=== PATIENT | female | born 1975 | race Hispanic/Latino ===

== ENCOUNTER 2017-02-03 14:51 | Emergency (ER) | payer SELFPAY ==
--- NOTE | 2017-02-03 15:15 | Emergency Department Report ---
Chief Complaint: Chest Pain Stated Complaint: CHEST PAIN,SOB,FEET SWELLING Time Seen by Provider: 02/03/17 15:11 - HPI History of Present Illness: PT c/o leg swelling x 3 weeks PT c/o chest pain, intermittent, since her mother passed on December 16 - ROS Review of Systems: + rash + chest pain + leg swelling + cough - Exam Physical Exam: obese female no acute resp distress gcs 15 pt is anxious MSE screening note: Focused history and physical exam performed. Due to findings the following was ordered: labs, ekg, xr ED Disposition for MSE Condition: Stable
[2017-02-03 15:58] LABS: Basophils % (Auto) 0.8 % (0.0-1.8); Eosinophils % (Auto) 0.9 % (0.0-4.3); Hematocrit 46.4 % (30.3-42.9); Hemoglobin 14.9 gm/dl (10.1-14.3); Mean Corpuscular HGB Conc 32 % (30-34); Mean Corpuscular Hemoglobin 27 pg (28-32); Mean Corpuscular Volume 84 fl (79-97); Platelet Count 321 K/mm3 (140-440); Red Blood Count 5.52 M/mm3 (3.65-5.03); Red Cell Distribution Width 14.5 % (13.2-15.2); White Blood Count 8.1 K/mm3 (4.5-11.0)
[2017-02-03 16:10] LABS: INR 1.13 (0.87-1.13)
[2017-02-03 16:24] LABS: Alanine Aminotransferase 26 units/L (7-56); Albumin 3.7 g/dL (3.9-5); Alkaline Phosphatase 157 units/L (35-129); Anion Gap 19 mmol/L; Blood Urea Nitrogen 14 mg/dL (7-17); Carbon Dioxide 24 mmol/L (22-30); Chloride 95.1 mmol/L (98-107); Glucose 252 mg/dL (65-100); Potassium 4.7 mmol/L (3.6-5.0); Sodium 133 mmol/L (137-145); Total Protein 7.5 g/dL (6.3-8.2)
[2017-02-03] MEDS ORDERED: LASIX IV ONE (19:50)
[2017-02-03] MEDS ORDERED: MORPHINE IV ONE (20:17)
--- NOTE | 2017-02-03 20:17 | Emergency Department Report ---
ED Chest Pain HPI - General Chief Complaint: Chest Pain Stated Complaint: CHEST PAIN,SOB,FEET SWELLING Time Seen by Provider: 02/03/17 15:11 Source: patient Mode of arrival: Ambulatory Limitations: No Limitations - History of Present Illness MD Complaint: chest pain -: week(s) Onset: during rest Pain Location: left chest, right chest Pain Radiation: none Severity: moderate Quality: tightness Consistency: intermittent Improves With: nothing Worsens With: nothing Context: recent illness re: dyspnea - Related Data Previous Rx's Medication Instructions Recorded Last Taken Type Azithromycin [Zithromax Z-KEYANA] 250 mg PO DAILY #6 tablet 02/03/17 Unknown Rx Furosemide [Lasix TAB] 40 mg PO QDAY #30 tablet 02/03/17 Unknown Rx Allergies Allergy/AdvReac Type Severity Reaction Status Date / Time No Known Allergies Allergy Unverified 02/03/17 15:16 Heart Score - HEART Score History: Slightly suspicious EKG: Non-specific Age: 45-65 Risk factors: > 3 risk factors or hx of atherosclerotic disease Troponin: 1-3x normal limit HEART Score: 5 - Critical Actions Critical Actions: 0-3 pts:0.9-1.7%risk of adverse cardiac event.Candidate for discharge ED Review of Systems ROS: Stated complaint: CHEST PAIN,SOB,FEET SWELLING Other details as noted in HPI ED Past Medical Hx - Past Medical History Previous Medical History?: Yes Hx Hypertension: Yes Hx Congestive Heart Failure: Yes Hx Liver Disease: Yes (fatty liver) Additional medical history: SOB - Surgical History Past Surgical History?: Yes Hx Coronary Stent: Yes Additional Surgical History: x 2, Heart catheterization, PTCA - Social History Smoking Status: Never Smoker Substance Use Type: Prescribed - Medications Home Medications: Home Medications Medication Instructions Recorded Confirmed Last Taken Type Azithromycin [Zithromax Z-KEYANA] 250 mg PO DAILY #6 tablet 02/03/17 Unknown Rx Furosemide [Lasix TAB] 40 mg PO QDAY #30 tablet 02/03/17 Unknown Rx ED Physical Exam - General Limitations: No Limitations General appearance: alert, in no apparent distress - Head Head exam: Present: atraumatic, normocephalic - Eye Eye exam: Present: normal appearance, PERRL, EOMI Pupils: Present: normal accommodation - ENT ENT exam: Present: normal exam, normal orophraynx - Neck Neck exam: Present: normal inspection - Respiratory Respiratory exam: Present: normal lung sounds bilaterally - Cardiovascular Cardiovascular Exam: Present: regular rate, normal rhythm - GI/Abdominal GI/Abdominal exam: Present: soft - Rectal Rectal exam: Present: deferred - Extremities Exam Extremities exam: Present: normal inspection - Back Exam Back exam: Present: normal inspection - Neurological Exam Neurological exam: Present: alert, altered, oriented X3 - Skin Skin exam: Present: warm ED Course Vital Signs 02/03/17 15:08 Temperature 97.4 F L Pulse Rate 118 H Respiratory 22 Rate Blood Pressure 146/97 O2 Sat by Pulse 100 Oximetry ED Medical Decision Making - Lab Data Result diagrams: 02/03/17 15:39 02/03/17 15:39 Critical care attestation.: If time is entered above; I have spent that time in minutes in the direct care of this critically ill patient, excluding procedure time. ED Disposition Clinical Impression: Congestive heart failure (CHF) Disposition: DC-01 TO HOME OR SELFCARE Is pt being admited?: No Does the pt Need Aspirin: No Condition: Stable Prescriptions: Azithromycin [Zithromax Z-KEYANA] 250 mg PO DAILY #6 tablet Furosemide [Lasix TAB] 40 mg PO QDAY #30 tablet Referrals: PRIMARY CARE, [Primary Care Provider] - 3-5 Days
[2017-02-03 20:42] VITALS: BP 143/98
--- NOTE | 2017-02-04 07:42 | XRay Report ---
ROUTINE CHEST, TWO VIEWS: HISTORY: chest pain. No comparison. A small left pleural effusion is identified. Otherwise, the lungs are clear. Heart and mediastinal structures are within normal limits. No acute bony abnormality is detected. IMPRESSION: Small left pleural effusion of uncertain etiology.
== END 2017-02-03 21:14 | disposition home or self-care (01) ==
LOC: ED 14:51
DX: I50.9 Heart failure, unspecified (principal); I10 Essential (primary) hypertension
CPT/HCPCS: 36415; 71020; 80053; 83880; 84484; 85025; 85610; 85730; 93005; 93010; 96374; 96375; 99284; J1940; J2270

== ENCOUNTER 2017-04-16 17:07 | Emergency (ER) | payer SELFPAY | END 2017-04-16 17:13 | disposition left against medical advice (07) | LOC: ED 17:07 | DX: Z53.21 Procedure and treatment not carried out due to patient leaving prior to being seen by health care provider (principal) ==

== ENCOUNTER 2017-04-17 16:18 | Inpatient (IN) | payer OTHER ==
[2017-04-17 17:48] LABS: Hematocrit 49.8 % (30.3-42.9); Hemoglobin 15.7 gm/dl (10.1-14.3); Mean Corpuscular HGB Conc 32 % (30-34); Mean Corpuscular Volume 79 fl (79-97); Platelet Count 230 K/mm3 (140-440); Red Blood Count 6.29 M/mm3 (3.65-5.03); Red Cell Distribution Width 18.9 % (13.2-15.2); White Blood Count 14.6 K/mm3 (4.5-11.0)
[2017-04-17 17:57] LABS: INR 2.21 (0.87-1.13); Mean Corpuscular Hemoglobin 25 pg (28-32)
[2017-04-17 18:00] LABS: BUN/Creatinine Ratio 20.9; Calcium 8.5 mg/dL (8.4-10.2); Chloride 80.7 mmol/L (98-107); Potassium 5.9 mmol/L (3.6-5.0)
[2017-04-17 19:45] LABS: Basophils % (Manual) 0 % (0.0-1.8); Blastocytes % (Manual) 0 %; Eosinophils % (Manual) 0 % (0.0-4.3)
[2017-04-17 19:46] LABS: Anisocytosis 1+; Diff Status Complete; Hypochromasia 1+; Large Platelets 1+; Platelet Estimate Consistent w Auto; Poikilocytosis Few
[2017-04-17] MEDS ORDERED: BABY ASPIRIN PO ONE (21:14)
[2017-04-17] MEDS ORDERED: LASIX IV ONE (21:14)
--- NOTE | 2017-04-17 21:19 | Emergency Department Report ---
ED Chest Pain HPI - General Chief Complaint: Dyspnea/Respdistress Stated Complaint: SWOLLEN LEGS WEAKNESS Time Seen by Provider: 04/17/17 21:03 Source: patient, family Mode of arrival: Wheelchair Limitations: Physical Limitation - History of Present Illness MD Complaint: chest pain -: Gradual Pain Location: substernal, left chest Severity: moderate Severity scale (0 -10): 5 Consistency: constant Worsens With: exertion re: denies: nausea, vomting - Related Data Previous Rx's Medication Instructions Recorded Last Taken Type Azithromycin [Zithromax Z-KEYANA] 250 mg PO DAILY #6 tablet 02/03/17 Unknown Rx Furosemide [Lasix TAB] 40 mg PO QDAY #30 tablet 02/03/17 Unknown Rx Allergies Allergy/AdvReac Type Severity Reaction Status Date / Time No Known Allergies Allergy Unverified 02/03/17 15:16 Heart Score - HEART Score History: Highly suspicious EKG: Non-specific Age: < 45 Risk factors: > 3 risk factors or hx of atherosclerotic disease Troponin: > 3x normal limit HEART Score: 7 - Critical Actions Critical Actions: >7 pts:50-65% risk of adverse cardiac event. Early invasive measures ED Review of Systems ROS: Stated complaint: SWOLLEN LEGS WEAKNESS Other details as noted in HPI Comment: All other systems reviewed and negative Constitutional: denies: chills, fever Respiratory: SOB with exertion. denies: cough, orthopnea Cardiovascular: chest pain, palpitations, dyspnea on exertion Gastrointestinal: denies: abdominal pain, nausea, vomiting Skin: lesions (bilateral legs) Neurological: denies: headache, weakness ED Past Medical Hx - Past Medical History Hx Hypertension: Yes Hx Congestive Heart Failure: Yes Hx Liver Disease: Yes (fatty liver) Additional medical history: SOB - Surgical History Hx Coronary Stent: Yes Additional Surgical History: x 2, Heart catheterization, PTCA - Social History Smoking Status: Never Smoker - Medications Home Medications: Home Medications Medication Instructions Recorded Confirmed Last Taken Type Azithromycin [Zithromax Z-KEYANA] 250 mg PO DAILY #6 tablet 02/03/17 Unknown Rx Furosemide [Lasix TAB] 40 mg PO QDAY #30 tablet 02/03/17 Unknown Rx ED Physical Exam - General Limitations: Physical Limitation General appearance: alert, in no apparent distress - Eye Eye exam: Present: normal appearance - Neck Neck exam: Present: normal inspection. Absent: tenderness, meningismus - Respiratory Respiratory exam: Present: decreased breath sounds. Absent: respiratory distress, wheezes, rales, rhonchi, stridor - Cardiovascular Cardiovascular Exam: Present: tachycardia - GI/Abdominal GI/Abdominal exam: Present: soft, normal bowel sounds. Absent: tenderness, guarding, rebound, rigid, mass, bruit, pulsatile mass, hernia - Extremities Exam Extremities exam: Present: pedal edema, other (multiple blisters on both legs some of them with greenish discharge). Absent: calf tenderness - Back Exam Back exam: Absent: CVA tenderness (R), CVA tenderness (L) - Neurological Exam Neurological exam: Present: alert, oriented X3, CN II-XII intact - Skin Skin exam: Present: warm, normal color ED Course Vital Signs 04/17/17 16:41 Temperature 97.4 F L Pulse Rate 127 H Blood Pressure 126/85 O2 Sat by Pulse 100 Oximetry ED Medical Decision Making - Lab Data Result diagrams: 04/17/17 17:20 04/17/17 17:20 - EKG Data -: EKG Interpreted by [place] EKG shows normal: sinus rhythm Rate: tachycardia - EKG Data Interpretation: no acute changes - Radiology Data Radiology results: image reviewed No acute change chest x-ray - Medical Decision Making Given patient's history of coronary artery disease to stent before coming his chest pain initially elevated troponin this patient needed to be admitted. Discussed with Dr. Gómez agreed to admit to the service Critical care attestation.: If time is entered above; I have spent that time in minutes in the direct care of this critically ill patient, excluding procedure time. ED Disposition Clinical Impression: Chest pain Disposition: OP ADMIT IP TO THIS HOSP Is pt being admited?: Yes Does the pt Need Aspirin: Yes Condition: Stable Instructions: Chest Pain (ED) Referrals: PRIMARY CARE,MD [Primary Care Provider] - 3-5 Days
[2017-04-17] MEDS ORDERED: KIONEX PO ONE (21:22)
[2017-04-17] MEDS ORDERED: D50W (25GM) Syringe IV ONE ×2 (21:23→22:23)
[2017-04-17] MEDS ORDERED: BABY ASPIRIN ONE (22:22)
[2017-04-17] MEDS ORDERED: LASIX ONE (22:22)
[2017-04-17] MEDS ORDERED: KIONEX ONE (22:22)
[2017-04-17] MEDS ORDERED: LOPRESSOR ONE (23:30)
--- NOTE | 2017-04-17 23:32 | History and Physical Report ---
History of Present Illness Date of examination: 04/17/17 Date of admission: 04/17/17 21:23 Chief complaint: Chest pain History of present illness: 40-year-old female with past medical history significant for congestive heart failure, hypertension, hyperlipidemia, diabetes mellitus presented to the emergency department complaining of chest pain that started 2 weeks ago. Pain is midsternal and left-sided chest, 10 out of 10 in intensity, sharp, radiating to the left arm, associated with shortness of breath and diaphoresis. Patient denied palpitation but admitted for bilateral leg swelling more prominent on the left leg. The left leg is swollen, erythematous , tender and blisters. Patient is also complaining fever, cough productive of yellowish phlegm, sweating for the last 3 weeks. REVIEW OF SYSTEMS: GENERAL: no weight change, no fatigue, no fever HEAD: no head ache EYES: no blurry vision, no acute visual loss EARS: no hearing loss, no discharge, no earache NOSE: no stuffiness, no sneezing, no discharge MOUTH, THROAT AND NECK: no bleeding gums, no sore throat, no swollen neck CARDIAC: As stated in the HPI. RESPIRATORY: As stated in the HPI. GI: no decreased appetite, no nausea, no vomiting, no dysphagia, no diarrhea, no constipation, no abdominal pain URINARY: no change in frequency, no urgency, no polyuria, no hematuria, no incontinence MUSCULOSKELETAL: no muscle weakness, no pain, no joint stiffness NEUROLOGIC: no loss of sensation/numbness, no tingling, no tremors, no weakness/ paralysis HEMATOLOGIC: no anemia, no easy bruising SKIN: no rashes ENDOCRINE: no heat/cold intolerance, no polyuria, no polydipsia, no thyroid problems, + diabetes PSYCHIATRIC: no anxiety, no depression, no suicidal ideations Past History Past Medical History: diabetes, heart failure, hypertension, hyperlipidemia Past Surgical History: Other (status post 2 stent) Social history: full code. denies: smoking, alcohol abuse, prescription drug abuse, IV drug use Family history: CAD Medications and Allergies Allergies Allergy/AdvReac Type Severity Reaction Status Date / Time No Known Allergies Allergy Verified 04/17/17 22:18 Home Medications Medication Instructions Recorded Confirmed Last Taken Type Azithromycin [Zithromax Z-KEYANA] 250 mg PO DAILY #6 tablet 02/03/17 Unknown Rx Furosemide [Lasix TAB] 40 mg PO QDAY #30 tablet 02/03/17 Unknown Rx Active Meds: Active Medications Clindamycin HCl (Cleocin 600 Mg/50 Ml) 600 mg in 50 mls @ 100 mls/hr IV Q8HR [facility] PRN Reason: Protocol Exam - Physical Exam Narrative exam: Not in cardiopulmonary distress. The patient appeared well nourished and normally developed. Vital signs as documented. Head exam is unremarkable. No scleral icterus . Neck is without jugular venous distension, thyromegaly, or carotid bruits. Lungs bibasilar rales. Cardiac exam reveals regular rate and Rhythm. First and second heart sounds normal. No murmurs, rubs or gallops. Abdominal exam reveals normal bowel sounds, no masses, no organomegaly and no aortic enlargement. Extremities erythematous and blisters on the left leg. AUDIO VISUAL SECRETARY: Alert and oriented 3. No focal weakness. - Constitutional Vitals: Temp Pulse Resp BP Pulse Ox 97.4 F L 127 H 126/85 100 04/17/17 16:41 04/17/17 16:41 04/17/17 16:41 04/17/17 16:41 Results - Labs CBC & Chem 7: 04/17/17 17:20 04/17/17 17:20 Labs: Laboratory Last Values WBC 14.6 K/mm3 (4.5-11.0) H 04/17/17 17:20 RBC 6.29 M/mm3 (3.65-5.03) H 04/17/17 17:20 Hgb 15.7 gm/dl (10.1-14.3) H 04/17/17 17:20 Hct 49.8 % (30.3-42.9) H 04/17/17 17:20 MCV 79 fl (79-97) 04/17/17 17:20 MCH 25 pg (28-32) L 04/17/17 17:20 MCHC 32 % (30-34) 04/17/17 17:20 RDW 18.9 % (13.2-15.2) H 04/17/17 17:20 Plt Count 230 K/mm3 (140-440) 04/17/17 17:20 Add Manual Diff Complete 04/17/17 17:20 Total Counted 100 04/17/17 17:20 Seg Neuts % (Manual) 77.0 % (40.0-70.0) H 04/17/17 17:20 Band Neutrophils % 13.0 % 04/17/17 17:20 Lymphocytes % (Manual) 6.0 % (13.4-35.0) L 04/17/17 17:20 Reactive Lymphs % (Man) 0 % 04/17/17 17:20 Monocytes % (Manual) 3.0 % (0.0-7.3) 04/17/17 17:20 Eosinophils % (Manual) 0 % (0.0-4.3) 04/17/17 17:20 Basophils % (Manual) 0 % (0.0-1.8) 04/17/17 17:20 Metamyelocytes % 1.0 % 04/17/17 17:20 Myelocytes % 0 % 04/17/17 17:20 Promyelocytes % 0 % 04/17/17 17:20 Blast Cells % 0 % 04/17/17 17:20 Nucleated RBC % Not Reportable 04/17/17 17:20 Seg Neutrophils # Man 11.2 K/mm3 (1.8-7.7) H 04/17/17 17:20 Band Neutrophils # 1.9 K/mm3 04/17/17 17:20 Lymphocytes # (Manual) 0.9 K/mm3 (1.2-5.4) L 04/17/17 17:20 Abs React Lymphs (Man) 0.0 K/mm3 04/17/17 17:20 Monocytes # (Manual) 0.4 K/mm3 (0.0-0.8) 04/17/17 17:20 Eosinophils # (Manual) 0.0 K/mm3 (0.0-0.4) 04/17/17 17:20 Basophils # (Manual) 0.0 K/mm3 (0.0-0.1) 04/17/17 17:20 Metamyelocytes # 0.1 K/mm3 04/17/17 17:20 Myelocytes # 0.0 K/mm3 04/17/17 17:20 Promyelocytes # 0.0 K/mm3 04/17/17 17:20 Blast Cells # 0.0 K/mm3 04/17/17 17:20 WBC Morphology Not Reportable 04/17/17 17:20 Hypersegmented Neuts Not Reportable 04/17/17 17:20 Hyposegmented Neuts Not Reportable 04/17/17 17:20 Hypogranular Neuts Not Reportable 04/17/17 17:20 Smudge Cells Not Reportable 04/17/17 17:20 Toxic Granulation Not Reportable 04/17/17 17:20 Toxic Vacuolation Not Reportable 04/17/17 17:20 Dohle Bodies Not Reportable 04/17/17 17:20 Pelger-Huet Anomaly Not Reportable 04/17/17 17:20 Ariel Rods Not Reportable 04/17/17 17:20 Platelet Estimate Consistent w auto 04/17/17 17:20 Clumped Platelets Not Reportable 04/17/17 17:20 Plt Clumps, EDTA Not Reportable 04/17/17 17:20 Large Platelets 1+ 04/17/17 17:20 Giant Platelets Not Reportable 04/17/17 17:20 Platelet Satelliting Not Reportable 04/17/17 17:20 Plt Morphology Comment Not Reportable 04/17/17 17:20 RBC Morphology Not Reportable 04/17/17 17:20 Dimorphic RBCs Not Reportable 04/17/17 17:20 Polychromasia Not Reportable 04/17/17 17:20 Hypochromasia 1+ 04/17/17 17:20 Poikilocytosis Few 04/17/17 17:20 Anisocytosis 1+ 04/17/17 17:20 Microcytosis Not Reportable 04/17/17 17:20 Macrocytosis Not Reportable 04/17/17 17:20 Spherocytes Not Reportable 04/17/17 17:20 Pappenheimer Bodies Not Reportable 04/17/17 17:20 Sickle Cells Not Reportable 04/17/17 17:20 Target Cells Not Reportable 04/17/17 17:20 Tear Drop Cells Not Reportable 04/17/17 17:20 Ovalocytes Not Reportable 04/17/17 17:20 Helmet Cells Not Reportable 04/17/17 17:20 Taylor-Mabank Bodies Not Reportable 04/17/17 17:20 Max Rings Not Reportable 04/17/17 17:20 Linda Cells Not Reportable 04/17/17 17:20 Bite Cells Not Reportable 04/17/17 17:20 Crenated Cell Not Reportable 04/17/17 17:20 Elliptocytes Not Reportable 04/17/17 17:20 Acanthocytes (Spur) Not Reportable 04/17/17 17:20 Rouleaux Not Reportable 04/17/17 17:20 Hemoglobin C Crystals Not Reportable 04/17/17 17:20 Schistocytes Not Reportable 04/17/17 17:20 Malaria parasites Not Reportable 04/17/17 17:20 Joselo Bodies Not Reportable 04/17/17 17:20 Hem Pathologist Commnt No 04/17/17 17:20 PT 25.7 Sec. (12.2-14.9) H 04/17/17 17:20 INR 2.21 (0.87-1.13) H 04/17/17 17:20 Sodium 120 mmol/L (137-145) L 04/17/17 17:20 Potassium 5.9 mmol/L (3.6-5.0) H 04/17/17 17:20 Chloride 80.7 mmol/L (98-107) L 04/17/17 17:20 Carbon Dioxide 16 mmol/L (22-30) L 04/17/17 17:20 Anion Gap 29 mmol/L 04/17/17 17:20 BUN 23 mg/dL (7-17) H 04/17/17 17:20 Creatinine 1.1 mg/dL (0.7-1.2) 04/17/17 17:20 Estimated GFR 54 ml/min 04/17/17 17:20 BUN/Creatinine Ratio 20.90 % 04/17/17 17:20 Glucose 167 mg/dL (65-100) H 04/17/17 17:20 Calcium 8.5 mg/dL (8.4-10.2) 04/17/17 17:20 Troponin T 0.039 ng/mL (0.00-0.029) H D 04/17/17 19:15 Triglycerides 106 mg/dL (2-149) 04/17/17 17:20 Cholesterol 108 mg/dL (50-199) 04/17/17 17:20 LDL Cholesterol Direct 78 mg/dL (50-130) 04/17/17 17:20 HDL Cholesterol 9 mg/dL (40-59) L 04/17/17 17:20 Cholesterol/HDL Ratio 12.00 % 04/17/17 17:20 - Imaging and Cardiology Chest x-ray: image reviewed (pulmonary congestion, bilateral small pleural effusions) Assessment and Plan Assessment and plan: Sepsis Cellulitis of the left lower extremity CHF, unspecified Hyperkalemia Diabetes mellitus with hyperglycemia NSTEMI Elevated INR Hyperlipidemia - Aspirin, beta blockers, IV Lasix no ARLYN inhibitors because of hyperkalemia, not on anticoagulation because of elevated INR - sliding scale insulin and basal insulin - Given IV insulin and dextrose, kayexlate - Cardiology consulted - Patient is on IV clindamycin DVT prophylaxis - SCDs because of elevated INR Disposition - Admit to telemetry floor Advance Directives: Yes VTE prophylaxis?: Mechanical Reason for no VTE Prophylaxis: Blood coagulation disorde Plan of care discussed with patient/family: Yes
[2017-04-17] MEDS ORDERED: D50W (25GM) Syringe IV PRN (23:34)
[2017-04-17] MEDS ORDERED: TYLENOL PO PRN (23:35)
[2017-04-17] MEDS: LOPRESSOR PO SCH (23:50)
[2017-04-18] MEDS ORDERED: CLEOCIN 600 MG/50 mL 600 MG/50 ML BAG IV ONE ×2 (00:21→00:28)
[2017-04-18] MEDS ORDERED: MORPHINE ONE (00:22)
[2017-04-18] MEDS: CLEOCIN 600 MG/50 mL 600 MG/50 ML BAG IV SCH ×3 (00:28→21:31)
[2017-04-18 05:49] LABS: INR 2.16 (0.87-1.13)
[2017-04-18 05:52] LABS: Anion Gap 28 mmol/L; Blood Urea Nitrogen 27 mg/dL (7-17); Calcium 8.5 mg/dL (8.4-10.2); Carbon Dioxide 15 mmol/L (22-30); Chloride 81.9 mmol/L (98-107); Glucose 136 mg/dL (65-100); Potassium 4.7 mmol/L (3.6-5.0); Sodium 120 mmol/L (137-145)
[2017-04-18 05:57] LABS: Hematocrit 50.5 % (30.3-42.9); Mean Corpuscular HGB Conc 32 % (30-34); Mean Corpuscular Volume 79 fl (79-97); Red Blood Count 6.38 M/mm3 (3.65-5.03); Red Cell Distribution Width 19.3 % (13.2-15.2); White Blood Count 16.1 K/mm3 (4.5-11.0)
[2017-04-18 06:06] LABS: Mean Corpuscular Hemoglobin 25 pg (28-32); Platelet Count 225 K/mm3 (140-440)
[2017-04-18] MEDS: LASIX PO SCH ×2 (06:23→18:43)
[2017-04-18] MEDS: MORPHINE IV PRN ×2 (06:24→21:23)
[2017-04-18 07:22] LABS: Anisocytosis 2+; Basophils % (Manual) 0 % (0.0-1.8); Blastocytes % (Manual) 0 %; Eosinophils % (Manual) 0 % (0.0-4.3); Hypochromasia 1+; Poikilocytosis Few
[2017-04-18 07:23] LABS: Diff Status Complete; Large Platelets 1+; Platelet Estimate Consistent w Auto; Polychromasia Few; Toxic Vacuolation Few
--- NOTE | 2017-04-18 08:14 | XRay Report ---
ROUTINE CHEST, TWO VIEWS: HISTORY: Short of breath. The trachea, heart, mediastinal contour, lung reardon and bony thorax are unremarkable. Small left pleural effusion has resolved since 02/03/17. IMPRESSION: Unremarkable chest x-ray.
[2017-04-18] MEDS: NOVOLOG SUB-Q SCH ×6 (10:14→21:33)
[2017-04-18] MEDS: LOPRESSOR PO SCH (10:20)
[2017-04-18] MEDS ORDERED: VANCOMYCIN 2,000 MG in NACL 0.9% 500 ML 500 ML IV ONE (14:00)
[2017-04-18] MEDS: ZOSYN/NS 4.5GM/100ML 4.5 GM/100 ML VIAL IV SCH ×2 (14:00→21:34)
[2017-04-18] MEDS ORDERED: VANCOMYCIN PHARMACY TO DOSE IV SCH (14:00)
--- NOTE | 2017-04-18 14:50 | Consultation ---
History of Present Illness Consult date: 04/18/17 Past History Past Medical History: diabetes, heart failure, hypertension, hyperlipidemia Past Surgical History: Other (status post 2 stent) Social history: full code. denies: smoking, alcohol abuse, prescription drug abuse, IV drug use Family history: CAD Medications and Allergies Allergies Allergy/AdvReac Type Severity Reaction Status Date / Time No Known Allergies Allergy Verified 04/17/17 22:18 Home Medications Medication Instructions Recorded Confirmed Last Taken Type Furosemide [Lasix TAB] 40 mg PO QDAY #30 tablet 02/03/17 04/18/17 1 Day Ago Rx Active Meds: Active Medications Acetaminophen (Tylenol) 500 mg PO Q4H PRN PRN Reason: Pain, Mild (1-3) Aspirin (Baby Aspirin) 81 mg PO QDAY [facility] Atorvastatin Calcium (Lipitor) 20 mg PO QHS [facility] Dextrose (D50w (25gm) Syringe) 50 ml IV PRN PRN PRN Reason: Hypoglycemia Furosemide (Lasix) 20 mg PO 0600,1800 [facility] Last Admin: 04/18/17 06:23 Dose: 20 mg Clindamycin HCl (Cleocin 600 Mg/50 Ml) 600 mg in 50 mls @ 100 mls/hr IV Q8H [facility]OME PRN Reason: Protocol Last Admin: 04/18/17 11:50 Dose: 100 mls/hr Piperacillin Sod/Tazobactam Sod (Zosyn/Ns 4.5gm/100ml) 4.5 gm in 100 mls @ 200 mls/hr IV Q8HR [facility]EROME PRN Reason: Protocol Vancomycin HCl 2,000 mg/ (Sodium Chloride) 520 mls @ 250 mls/hr IV ONCE ONE Stop: 04/18/17 16:04 Insulin Aspart (Novolog) 0 units SUB-Q QACHS [facility] PRN Reason: Protocol Last Admin: 04/18/17 11:59 Dose: Not Given Insulin Aspart (Novolog) 0 units SUB-Q ACHS [facility] PRN Reason: Protocol Insulin Detemir (Levemir) 10 units SUB-Q QHS [facility] Metoprolol Tartrate (Lopressor) 25 mg PO BID [facility] Last Admin: 04/18/17 10:20 Dose: Not Given Morphine Sulfate (Morphine) 2 mg IV Q4H PRN PRN Reason: Pain, Moderate (4-6) Last Admin: 04/18/17 06:24 Dose: 2 mg Vancomycin HCl (Vancomycin Pharmacy To Dose) 1 each IV PKCONSULT [facility]EROME PRN Reason: Protocol Physical Examination Vital Signs Temp Pulse BP Pulse Ox 97.4 F L 127 H 126/85 100 04/17/17 16:41 04/17/17 16:41 04/17/17 16:41 04/17/17 16:41 Results 04/18/17 04:54 04/18/17 04:54 Coagulation 04/18/17 Range/Units 04:54 PT 25.2 H (12.2-14.9) Sec. INR 2.16 H (0.87-1.13) APTT 32.0 (24.2-36.6) Sec. CBC 04/18/17 Range/Units 04:54 WBC 16.1 H (4.5-11.0) K/mm3 RBC 6.38 H (3.65-5.03) M/mm3 Hgb 16.0 H (10.1-14.3) gm/dl Hct 50.5 H (30.3-42.9) % Plt Count 225 (140-440) K/mm3 Lymph # [employer]ant [place] # Accountant Eos # Accountant Baso # Accountant Comprehensive Metabolic Panel 04/18/17 Range/Units 04:54 Sodium 120 L (137-145) mmol/L Potassium 4.7 D (3.6-5.0) mmol/L Chloride 81.9 L (98-107) mmol/L Carbon Dioxide 15 L (22-30) mmol/L BUN 27 H (7-17) mg/dL Creatinine 0.9 (0.7-1.2) mg/dL Glucose 136 H (65-100) mg/dL Calcium 8.5 (8.4-10.2) mg/dL Assessment and Plan Detailed Cardiology consult dictated.
[2017-04-18] MEDS: SAMSCA PO SCH (19:00)
--- NOTE | 2017-04-18 20:55 | Progress Note ---
Assessment and Plan Assessment and plan: 41 years old obese female with history of CAD with NJ and PCI with stent placements 2, hypertension, chronic heart failure, diabetes hyperlipidemia on no medications for more than one year due to lack of insurance, presented for chest pain, significant shortness of breath that worsened progressively, bilateral lower extremity edema with recent superimposed redness and tenderness of left leg 1. Sepsis Leukocytosis, tachycardia, lower extremity cellulitis, coagulopathy Obtain blood cultures and lactic acid On admission started on clindamycin; will add vancomycin and Zosyn; IV fluids with caution given heart failure 2. Cellulitis LLE Erythema/warmth/tenderness from left knee to mid calf superimposed on significant edema As mentioned above will add vancomycin and Zosyn to clindamycin Obtain Doppler to rule out SVT/DVT 3. Hypochloremic Hyponatremia Na+ 120 Likely dilutional due to heart failure Treat underlying condition, fluid restriction 4. Hyperkalemia 5.9 on admission, medically treated, within normal limits today Continue to monitor 5. Metabolic acidosis Likely due to sepsis and acute kidney injury Check lactic also Treat underlying conditions 6. Acute kidney injury Likely secondary to vasomotor nephropathy Today creatinine within normal limits Continue to monitor 7. Coagulopathy No history of anticoagulant use Check LFTs 8. Acute on chronic likely combined systolic/diastolic heart failure Echo obtained, results pending Diuresis with IV Lasix Monitor I's and O's Start low dose BB as BP borderline low No ACEI due to renal insufficiency and hyperkalemia Cardiology consulted and following 9. CAD History of NJ, PCI with stent placement Start aspirin, statin, BB No ARLYN inhibitor 10. Hypertension BP borderline low Only on Lasix, BB for heart failure treatment 11. Uncontrolled diabetes type 2 Hemoglobin A1c 11 Start long-acting insulin and SSI based on Accu-Cheks Monitor and adjust regimen 12. Hyperlipidemia Start statin 13. Obesity/CARLOS A/OHS When medically stable and discharge will need pulmonary follow-up for PFTs and sleep study as well as counseling regarding importance of losing weight DVT/GI prophylaxis History Interval history: c/o left leg pain and significant generalized weakness sister present and updated regarding results, treatment, further plan of care Hospitalist Physical - Constitutional Vitals: Temp Pulse Resp BP Pulse Ox 97.6 F 107 H 24 107/67 94 04/18/17 20:30 04/18/17 16:53 04/18/17 20:30 04/18/17 20:30 04/18/17 16:53 General appearance: Present: mild distress, obese - EENT Eyes: Present: PERRL, EOM intact - Neck Neck: Present: supple. Absent: masses or JVD, carotid bruits - Respiratory Respiratory effort: labored Respiratory: bilateral: diminished, negative: rhonchi, wheezing - Cardiovascular Rhythm: other (tachycardic) Heart Sounds: Present: S1 & S2. Absent: systolic murmur - Extremities Extremities: no ischemia, abnormal (L leg above knee to mid calf erythema, warthm, tenderness) Extremity abnormal: edema (3+) - Abdominal General gastrointestinal: soft, non-tender, normal bowel sounds, other (abdomen obese, protuberant) - Psychiatric Psychiatric: other (somnolent, but awakens easily and answers questions) - Neurologic Neurologic: CNII-XII intact, no focal deficits Results - Labs CBC & Chem 7: 04/20/17 02:45 04/20/17 02:45 Labs: Laboratory Last Values WBC 16.1 K/mm3 (4.5-11.0) H 04/18/17 04:54 RBC 6.38 M/mm3 (3.65-5.03) H 04/18/17 04:54 Hgb 16.0 gm/dl (10.1-14.3) H 04/18/17 04:54 Hct 50.5 % (30.3-42.9) H 04/18/17 04:54 MCV 79 fl (79-97) 04/18/17 04:54 MCH 25 pg (28-32) L 04/18/17 04:54 MCHC 32 % (30-34) 04/18/17 04:54 RDW 19.3 % (13.2-15.2) H 04/18/17 04:54 Plt Count 225 K/mm3 (140-440) 04/18/17 04:54 Lymph % (Auto) Toe Lining Closer 04/18/17 04:54 [place] % (Auto) Toe Lining Closer 04/18/17 04:54 Eos % (Auto) Toe Lining Closer 04/18/17 04:54 Baso % (Auto) Toe Lining Closer 04/18/17 04:54 Lymph # Toe Lining Closer 04/18/17 04:54 [place] # Toe Lining Closer 04/18/17 04:54 Eos # Toe Lining Closer 04/18/17 04:54 Baso # Toe Lining Closer 04/18/17 04:54 Add Manual Diff Complete 04/18/17 04:54 Total Counted 100 04/18/17 04:54 Seg Neutrophils % Toe Lining Closer 04/18/17 04:54 Seg Neuts % (Manual) 37.0 % (40.0-70.0) L 04/18/17 04:54 Band Neutrophils % 51.0 % 04/18/17 04:54 Lymphocytes % (Manual) 6.0 % (13.4-35.0) L 04/18/17 04:54 Reactive Lymphs % (Man) 0 % 04/18/17 04:54 Monocytes % (Manual) 4.0 % (0.0-7.3) 04/18/17 04:54 Eosinophils % (Manual) 0 % (0.0-4.3) 04/18/17 04:54 Basophils % (Manual) 0 % (0.0-1.8) 04/18/17 04:54 Metamyelocytes % 2.0 % 04/18/17 04:54 Myelocytes % 0 % 04/18/17 04:54 Promyelocytes % 0 % 04/18/17 04:54 Blast Cells % 0 % 04/18/17 04:54 Nucleated RBC % 3.0 % (0.0-0.9) H 04/18/17 04:54 Seg Neutrophils # Toe Lining Closer 04/18/17 04:54 Seg Neutrophils # Man 6.0 K/mm3 (1.8-7.7) 04/18/17 04:54 Band Neutrophils # 8.2 K/mm3 04/18/17 04:54 Lymphocytes # (Manual) 1.0 K/mm3 (1.2-5.4) L 04/18/17 04:54 Abs React Lymphs (Man) 0.0 K/mm3 04/18/17 04:54 Monocytes # (Manual) 0.6 K/mm3 (0.0-0.8) 04/18/17 04:54 Eosinophils # (Manual) 0.0 K/mm3 (0.0-0.4) 04/18/17 04:54 Basophils # (Manual) 0.0 K/mm3 (0.0-0.1) 04/18/17 04:54 Metamyelocytes # 0.3 K/mm3 04/18/17 04:54 Myelocytes # 0.0 K/mm3 04/18/17 04:54 Promyelocytes # 0.0 K/mm3 04/18/17 04:54 Blast Cells # 0.0 K/mm3 04/18/17 04:54 WBC Morphology Not Reportable 04/18/17 04:54 Hypersegmented Neuts Not Reportable 04/18/17 04:54 Hyposegmented Neuts Not Reportable 04/18/17 04:54 Hypogranular Neuts Not Reportable 04/18/17 04:54 Smudge Cells Not Reportable 04/18/17 04:54 Toxic Granulation Not Reportable 04/18/17 04:54 Toxic Vacuolation Few 04/18/17 04:54 Dohle Bodies Not Reportable 04/18/17 04:54 Pelger-Huet Anomaly Not Reportable 04/18/17 04:54 Ariel Rods Not Reportable 04/18/17 04:54 Platelet Estimate Consistent w auto 04/18/17 04:54 Clumped Platelets Not Reportable 04/18/17 04:54 Plt Clumps, EDTA Not Reportable 04/18/17 04:54 Large Platelets 1+ 04/18/17 04:54 Giant Platelets Not Reportable 04/18/17 04:54 Platelet Satelliting Not Reportable 04/18/17 04:54 Plt Morphology Comment Not Reportable 04/18/17 04:54 RBC Morphology Not Reportable 04/18/17 04:54 Dimorphic RBCs Not Reportable 04/18/17 04:54 Polychromasia Few 04/18/17 04:54 Hypochromasia 1+ 04/18/17 04:54 Poikilocytosis Few 04/18/17 04:54 Anisocytosis 2+ 04/18/17 04:54 Microcytosis Not Reportable 04/18/17 04:54 Macrocytosis Not Reportable 04/18/17 04:54 Spherocytes Not Reportable 04/18/17 04:54 Pappenheimer Bodies Not Reportable 04/18/17 04:54 Sickle Cells Not Reportable 04/18/17 04:54 Target Cells Not Reportable 04/18/17 04:54 Tear Drop Cells Not Reportable 04/18/17 04:54 Ovalocytes Not Reportable 04/18/17 04:54 Helmet Cells Not Reportable 04/18/17 04:54 Taylor-Bertram Bodies Not Reportable 04/18/17 04:54 [place] Rings Not Reportable 04/18/17 04:54 Linda Cells Not Reportable 04/18/17 04:54 Bite Cells Not Reportable 04/18/17 04:54 Crenated Cell Not Reportable 04/18/17 04:54 Elliptocytes Not Reportable 04/18/17 04:54 Acanthocytes (Spur) Not Reportable 04/18/17 04:54 Rouleaux Not Reportable 04/18/17 04:54 Hemoglobin C Crystals Not Reportable 04/18/17 04:54 Schistocytes Not Reportable 04/18/17 04:54 Malaria parasites Not Reportable 04/18/17 04:54 Joselo Bodies Not Reportable 04/18/17 04:54 Hem Pathologist Commnt No 04/18/17 04:54 PT 25.2 Sec. (12.2-14.9) H 04/18/17 04:54 INR 2.16 (0.87-1.13) H 04/18/17 04:54 APTT 32.0 Sec. (24.2-36.6) 04/18/17 04:54 D-Dimer 1903.45 ng/mlDDU (0-234) H 04/18/17 14:36 Sodium 120 mmol/L (137-145) L 04/18/17 04:54 Potassium 4.7 mmol/L (3.6-5.0) D 04/18/17 04:54 Chloride 81.9 mmol/L (98-107) L 04/18/17 04:54 Carbon Dioxide 15 mmol/L (22-30) L 04/18/17 04:54 Anion Gap 28 mmol/L 04/18/17 04:54 BUN 27 mg/dL (7-17) H 04/18/17 04:54 Creatinine 0.9 mg/dL (0.7-1.2) 04/18/17 04:54 Estimated GFR > 60 ml/min 04/18/17 04:54 BUN/Creatinine Ratio 30.00 % 04/18/17 04:54 Glucose 136 mg/dL (65-100) H 04/18/17 04:54 POC Glucose 170 (70-105) H 04/18/17 20:37 Hemoglobin A1c 11.3 % (4-6) H 04/17/17 23:55 Lactic Acid 4.00 mmol/L (0.7-2.0) H* 04/18/17 14:36 Calcium 8.5 mg/dL (8.4-10.2) 04/18/17 04:54 Troponin T 0.087 ng/mL (0.00-0.029) H D 04/18/17 04:54 Triglycerides 106 mg/dL (2-149) 04/17/17 17:20 Cholesterol 108 mg/dL (50-199) 04/17/17 17:20 LDL Cholesterol Direct 78 mg/dL (50-130) 04/17/17 17:20 HDL Cholesterol 9 mg/dL (40-59) L 04/17/17 17:20 Cholesterol/HDL Ratio 12.00 % 04/17/17 17:20 - Imaging and Cardiology EKG: image reviewed Chest x-ray: image reviewed Imaging and Cardiology: ECHO obtained, result pending
[2017-04-18] MEDS: BABY ASPIRIN PO SCH (21:28)
[2017-04-18] MEDS: COREG PO SCH (21:28)
[2017-04-18] MEDS: LEVEMIR SUB-Q SCH (21:29)
[2017-04-19] MEDS: ZOSYN/NS 4.5GM/100ML 4.5 GM/100 ML VIAL IV SCH ×3 (05:19→21:40)
[2017-04-19] MEDS: LASIX PO SCH ×2 (05:21→18:01)
[2017-04-19] MEDS: MORPHINE IV PRN ×3 (05:25→18:08)
[2017-04-19] MEDS: CLEOCIN 600 MG/50 mL 600 MG/50 ML BAG IV SCH ×3 (06:54→21:40)
[2017-04-19] MEDS: VANCOMYCIN 1,500 MG in NACL 0.9% 500 ML 500 ML IV SCH ×2 (06:54→18:43)
[2017-04-19 07:54] LABS: Mean Corpuscular HGB Conc 31 % (30-34); Mean Corpuscular Volume 79 fl (79-97); Platelet Count 212 K/mm3 (140-440); Red Blood Count 6.25 M/mm3 (3.65-5.03); Red Cell Distribution Width 19.2 % (13.2-15.2)
[2017-04-19 08:02] LABS: INR 1.65 (0.87-1.13)
[2017-04-19 08:03] LABS: Partial Thromboplastin Time 33.3 Sec. (24.2-36.6)
[2017-04-19 08:13] LABS: Hematocrit 49.5 % (30.3-42.9); Hemoglobin 15.4 gm/dl (10.1-14.3); Mean Corpuscular Hemoglobin 25 pg (28-32); White Blood Count 20.9 K/mm3 (4.5-11.0)
[2017-04-19 08:15] LABS: Alanine Aminotransferase 386 units/L (7-56); Albumin 1.5 g/dL (3.9-5); Albumin/Globulin Ratio 0.4 %; Alkaline Phosphatase 81 units/L (35-129); BUN/Creatinine Ratio 46.66; Blood Urea Nitrogen 28 mg/dL (7-17); Carbon Dioxide 24 mmol/L (22-30); Chloride 88.9 mmol/L (98-107); Glucose 182 mg/dL (65-100); Potassium 3.2 mmol/L (3.6-5.0); Sodium 128 mmol/L (137-145); Total Protein 5.5 g/dL (6.3-8.2)
[2017-04-19 08:17] LABS: Anion Gap 18 mmol/L
--- NOTE | 2017-04-19 08:30 | Consultation ---
ADDENDUM FOR THE CONSULTATION The patient's sodium level is 120 (severe hyponatremia); however, she does not have any symptoms. I would order a fluid restriction of 1500 mL per day. We will also place her on Samsca 15 mg p.o. daily. The sodium level will be followed up closely. JOB# [id number] [facility]
--- NOTE | 2017-04-19 08:32 | Consultation ---
AGE: 41. SEX: Female. REFERRING PHYSICIAN: Emre Trotter MD, hospitalist. TIME: 3:00 p.m. HISTORY OF PRESENT ILLNESS: A 41-year-old severely obese (BMI of 38) pleasant white woman with a history of hypertension, hyperlipidemia, type 2 diabetes mellitus, chronic congestive heart failure, known coronary artery disease, history of 2 stents placement in the past (first stent was during 2005), old myocardial infarction, was admitted with a history of substernal chest pain 2 weeks prior to admission and also left-sided (severe, 10 on a scale of 0-10) sharp in nature, radiating to the left arm, associated with shortness of breath and diaphoresis. She also has history of bilateral leg swelling for the past 2-3 months. She also gives a history of redness and tenderness and blisters over the left leg region. She has had cough with yellowish expectoration for the past 3 weeks. She was diagnosed as having left leg cellulitis and she is being treated with intravenous antibiotics. She was also diagnosed as having sepsis secondary to cellulitis. She had bilateral venous Doppler study (to rule out DVT) and the result is pending at this time. PAST MEDICAL HISTORY: History of old OR, known coronary artery disease, history of 2 stents placement in the past, multiple other medical problems as described above. Her diabetes has not been under control. Hemoglobin A1c is 11.3. The patient's INR is 2.16 (she has coagulopathy). She has not been on warfarin. FAMILY HISTORY: As per her, mother of myocardial infarction at age of 56. Further details are not known at this time. SOCIAL HISTORY: Not a smoker, not an alcoholic. No history of drug abuse. REVIEW OF SYSTEMS: CARDIOVASCULAR: As described in the history. PULMONARY: As described in the history. EXTREMITIES: As described in the history. METABOLISM AND ENDOCRINOLOGY: As described in the history. Review of rest of the 10 systems is negative. MEDICATIONS: Aspirin 81 mg p.o. daily, atorvastatin 20 mg p.o. daily, IV clindamycin 600 mg q.8h., Lasix 20 mg p.o. b.i.d., insulin, metoprolol tartrate 25 mg p.o. b.i.d., IV Zosyn 4.5 g q.8h., intravenous vancomycin. The patient also received Kayexalate to treat her hyperkalemia (potassium was 5.9 initially). The patient also has hyponatremia with sodium of 120. PHYSICAL EXAMINATION: GENERAL: A 41-year-old severely obese, pleasant white woman, in some distress because of pain and tenderness in the left lower extremity. VITAL SIGNS: She is afebrile, pulse 109 per minute and regular, respirations 18 per minute, blood pressure 106/70 mmHg. NEUROLOGIC: She is alert and oriented x 3. HEENT: Negative. NECK: Supple, no JVD, no bruit, and no thyromegaly. HEART: PMI could not be felt satisfactorily, no palpable thrills. Auscultation of the heart reveals S1, S2 heard, regular, mild tachycardia. S2 is loud. S4 is heard. Grade 1/6 ejection systolic murmur is heard over the precardium. EXTREMITIES: Peripheral pulses felt bilateral, 1-2+ edema left more than the right. Multiple blisters seen in the left leg and also areas of redness seen. LUNGS: Clear. No bronchial breathing, no wheezing. ABDOMEN: Soft, benign. No organomegaly. SKIN: As described above. BONE AND JOINTS: Negative. LABORATORY DATA: WBC increased to 16.1, hemoglobin and hematocrit 16 and 50.5 respectively, platelet count normal. INR as described in the history. Sodium 120, potassium 4.7, chloride 82, CO2 is 15, BUN and creatinine were 27 and 0.9 respectively. Troponins increased at 0.039, 0.072, and 0.087. LDL is 78 and HDL is 9, with triglycerides of 106. Chest x-ray 2 views unremarkable. EKG done today at 7:48 a.m. revealed sinus tachycardia with a rate of 108 per minute and vertical axis and (axis +96) left atrial enlargement, possible old inferior and possible old anterior wall myocardial infarction. IMPRESSION: 1. Left leg cellulitis leading to sepsis. 2. Substernal and left-sided chest pains. 3. Mild increase in troponins, this is of uncertain significance. 4. Uncontrolled type 2 diabetes mellitus. 5. Dehydration, improved now. 6. Known coronary artery disease, history of 2 stents placement in the past (history of old myocardial infarction). 7. Multiple other medical problems as hypertension, hyperlipidemia, and type 2 diabetes mellitus. 8. The patient has also had x 2 in the past. RECOMMENDATIONS: 1. To continue present management including intravenous antibiotics. 2. Follow cultures. 3. We will follow up echocardiogram. 4. Followup venous Doppler of the lower extremities. Thanking again. We will follow. Yours sincerely, JOB# [id number] [facility]
[2017-04-19] MEDS: NOVOLOG SUB-Q SCH ×7 (08:36→22:58)
[2017-04-19] MEDS: COREG PO SCH ×2 (09:25→21:38)
[2017-04-19] MEDS: BABY ASPIRIN PO SCH (09:25)
[2017-04-19 09:38] LABS: Anisocytosis 2+; Basophils % (Manual) 0 % (0.0-1.8); Blastocytes % (Manual) 0 %; Eosinophils % (Manual) 0 % (0.0-4.3); Hypochromasia 1+; Poikilocytosis Few; Polychromasia Few
[2017-04-19 09:39] LABS: Diff Status Complete; Platelet Clumps Few; Platelet Estimate Consistent w Auto; Toxic Granulation Few
[2017-04-19] MEDS: KCL 10MEQ/100ML 10 MEQ/100 ML BAG IV SCH ×2 (16:42→18:48)
[2017-04-19] MEDS: SAMSCA PO SCH (16:43)
--- NOTE | 2017-04-19 17:57 | Progress Note ---
Assessment and Plan To continue current management.F/U CMP in AM.G.I. consult with for evaluation of jaundice. - Patient Problems (1) Jaundice Current Visit: Yes Status: Acute (2) Sepsis Current Visit: Yes Status: Acute Qualifiers: Sepsis type: S (3) Ulcer of left lower leg Current Visit: Yes Status: Acute Qualifiers: Non-pressure ulcer stage: N (4) Cellulitis of left leg Current Visit: Yes Status: Acute (5) Troponin level elevated Current Visit: Yes Status: Acute (6) Hypertension Current Visit: Yes Status: Chronic Qualifiers: Hypertension type: H (7) Hyperlipidemia Current Visit: Yes Status: Chronic Qualifiers: Hyperlipidemia type: H (8) Type 2 diabetes mellitus Current Visit: Yes Status: Chronic Qualifiers: Diabetes mellitus complication status: D Diabetes mellitus complication detail: D Diabetic retinopathy severity: D Proliferative retinopathy type: P Diabetes mellitus macular edema: D Diabetes mellitus correction insulin use : D Laterality: L Chronic kidney disease stage: C (9) CAD (coronary artery disease) Current Visit: Yes Status: Chronic Qualifiers: Coronary Disease-Associated Artery/Lesion type: C [place] vs. transplanted heart: N Associated angina: A (10) Stented coronary artery Current Visit: Yes Status: Chronic (11) Obesity (BMI 30-39.9) Current Visit: Yes Status: Chronic Subjective Date of service: 04/19/17 Interval history: C/O Pain L leg,No chest pain.Has developed jaundice. Objective Vital Signs Temp Pulse Resp BP Pulse Ox 04/19/17 12:45 22 04/19/17 12:30 98.1 F 22 90/58 04/19/17 09:25 91 H 105/64 04/19/17 07:58 97.3 F L 91 H 20 105/64 95 04/19/17 05:25 20 04/19/17 04:25 97.3 F L 93 H 20 105/64 91 04/19/17 02:17 95 H 04/19/17 00:18 98.4 F 95 H 20 101/64 93 04/18/17 21:28 107 H 107/67 04/18/17 21:23 20 04/18/17 20:30 97.6 F 24 107/67 04/18/17 19:00 95 H - Physical Examination General: Other (In distress because of pain L leg.) HEENT: Positive: EOMI, Jaundice, Normocephaly Neck: Positive: neck supple, trachea midline Cardiac: Positive: Regular Rate Lungs: Positive: clear to auscultation, Normal Breath Sounds Neuro: Positive: Grossly Intact Abdomen: Positive: Soft, Active Bowel Sounds Skin: Positive: Other (Jaundice+) Extremities: Present: Other (Open ulcer L leg, oozing of fluid+) - Labs and Meds Cardiac Enzymes 04/19/17 Range/Units 07:00 AST 604 H (5-40) units/L Coagulation 04/19/17 Range/Units 07:00 PT 20.4 H (12.2-14.9) Sec. INR 1.65 H (0.87-1.13) APTT 33.3 (24.2-36.6) Sec. CBC 04/19/17 Range/Units 07:00 WBC 20.9 H (4.5-11.0) K/mm3 RBC 6.25 H (3.65-5.03) M/mm3 Hgb 15.4 H (10.1-14.3) gm/dl Hct 49.5 H (30.3-42.9) % Plt Count 212 (140-440) K/mm3 Comprehensive Metabolic Panel 04/19/17 Range/Units 07:00 Sodium 128 L D (137-145) mmol/L Potassium 3.2 L D (3.6-5.0) mmol/L Chloride 88.9 L (98-107) mmol/L Carbon Dioxide 24 D (22-30) mmol/L BUN 28 H (7-17) mg/dL Creatinine 0.6 L (0.7-1.2) mg/dL Glucose 182 H (65-100) mg/dL Calcium 8.0 L (8.4-10.2) mg/dL AST 604 H (5-40) units/L ALT 386 H (7-56) units/L Alkaline Phosphatase 81 (35-129) units/L Total Protein 5.5 L (6.3-8.2) g/dL Albumin 1.5 L (3.9-5) g/dL - Imaging and Cardiology EKG: report reviewed, image reviewed - Telemetry EKG Rhythm: Sinus Rhythm - EKG Sinus rhythms and dysrhythmias: sinus tachycardia Myocardial infarction: anterior [place] (old age or i, lateral [place] (old age or in
--- NOTE | 2017-04-19 20:03 | Progress Note ---
Assessment and Plan Assessment and plan: 40 years old obese female with history of CAD with VT and PCI with stent placements 2, hypertension, chronic heart failure, diabetes hyperlipidemia on no medications for more than one year due to lack of insurance, presented for chest pain, significant shortness of breath that worsened progressively, bilateral lower extremity edema with recent superimposed redness and tenderness of left leg 1. Sepsis Leukocytosis, tachycardia, lower extremity cellulitis, coagulopathy, elevated lactic acid Blood cultures obtained Antibiotic regimen adjusted for broad-spectrum coverage, currently on clindamycin, Zosyn and vancomycin 2. Cellulitis LLE Erythema/warmth/tenderness from left knee to mid calf superimposed on significant edema Doppler negative for SVT/DVT Continue above-mentioned antibiotics 3. Jaundice/elevated LFTs [place] 5, AST 600, ALT 380 Obtain RUQ US - rule out gallstones, obstructive jaundice Check lipase, ammonia TG wnl 4. Hypochloremic Hyponatremia Na+ 120 on admission Likely dilutional due to heart failure Started on Tolvaptan Improving, today 128 5. Hyperkalemia 5.9 on admission, medically treated, then normal limits; now hypokalemic Check Mg Monitor 6. Metabolic acidosis Likely due to sepsis and acute kidney injury 7. Acute kidney injury Likely secondary to vasomotor nephropathy Now creatinine within normal limits Continue to monitor 8. Coagulopathy No history of anticoagulant use LFTs abnormal ? Cardiac cirrhosis 8. D-dimer elevated, WBC trended up Doppler lower extremity negative for DVT Obtained CTA chest to rule out PE 9. Acute on chronic combined systolic/diastolic heart failure Echo with EF 20-25% Continue diuresis with IV Lasix On low dose BB as BP borderline low No ACEI due to renal insufficiency and hyperkalemia Monitor I's and O's Cardiology consulted and following 10. CAD History of VT, PCI with stent placementx2 Started on aspirin, statin, BB No ARLYN inhibitor due to renal insuf, K=abn 10. Elevated troponin With no EKG changes Likely in the setting of acute heart failure and kidney injury 11. Hypertension BP borderline low Only on Lasix, BB for heart failure treatment 12. Uncontrolled diabetes type 2 Hemoglobin A1c 11 Started on long-acting insulin and SSI based on Accu-Cheks Monitor and adjust regimen 13. Hyperlipidemia Started on statin 14. Obesity/CARLOS A/OHS When medically stable and discharge will need pulmonary follow-up for PFTs and sleep study as well as counseling regarding importance of losing weight DVT/GI prophylaxis History Interval history: c/o severe left leg pain, inability to stand, extreme weakness developed jaundice Hospitalist Physical - Constitutional Vitals: Temp Pulse Resp BP Pulse Ox 97.6 F 96 H 20 104/71 97 04/19/17 19:54 04/19/17 19:54 04/19/17 19:54 04/19/17 19:54 04/19/17 19:54 General appearance: Present: mild distress, obese - EENT Eyes: Present: PERRL, EOM intact, scleral icterus. Absent: conjunctival injection - Neck Neck: Present: supple. Absent: enlarged thyroid, masses or JVD - Respiratory Respiratory effort: normal Respiratory: bilateral: diminished, negative: rhonchi, wheezing - Cardiovascular Rhythm: other (tachycardia) Heart Sounds: Present: S1 & S2. Absent: systolic murmur - Extremities Extremities: no ischemia, abnormal (L leg edema/erythema, warthm, tenderness, blisters) Extremity abnormal: edema (3+) - Abdominal General gastrointestinal: soft, non-tender, hypoactive bowel sounds, other ( obese, protuberant) - Integumentary Integumentary: Present: warm, dry, jaundice, decreased turgor - Psychiatric Psychiatric: intact judgment & insight, cooperative, other (somnolence, but awakens easily) - Neurologic Neurologic: CNII-XII intact, moves all extremities Results - Labs CBC & Chem 7: 04/20/17 02:45 04/20/17 02:45 Labs: Laboratory Last Values WBC 20.9 K/mm3 (4.5-11.0) H 04/19/17 07:00 RBC 6.25 M/mm3 (3.65-5.03) H 04/19/17 07:00 Hgb 15.4 gm/dl (10.1-14.3) H 04/19/17 07:00 Hct 49.5 % (30.3-42.9) H 04/19/17 07:00 MCV 79 fl (79-97) 04/19/17 07:00 MCH 25 pg (28-32) L 04/19/17 07:00 MCHC 31 % (30-34) 04/19/17 07:00 RDW 19.2 % (13.2-15.2) H 04/19/17 07:00 Plt Count 212 K/mm3 (140-440) 04/19/17 07:00 Lymph % (Auto) [place]der 04/18/17 04:54 [place] % (Auto) Bradder 04/18/17 04:54 Eos % (Auto) [place]der 04/18/17 04:54 Baso % (Auto) [place] 04/18/17 04:54 Lymph # Bradder 04/18/17 04:54 [place] # Bradder 04/18/17 04:54 Eos # Bradder 04/18/17 04:54 Baso # Bradder 04/18/17 04:54 Add Manual Diff Complete 04/19/17 07:00 Total Counted 100 04/19/17 07:00 Seg Neutrophils % Bradder 04/19/17 07:00 Seg Neuts % (Manual) 90.0 % (40.0-70.0) H 04/19/17 07:00 Band Neutrophils % 5.0 % 04/19/17 07:00 Lymphocytes % (Manual) 3.0 % (13.4-35.0) L 04/19/17 07:00 Reactive Lymphs % (Man) 0 % 04/19/17 07:00 Monocytes % (Manual) 2.0 % (0.0-7.3) 04/19/17 07:00 Eosinophils % (Manual) 0 % (0.0-4.3) 04/19/17 07:00 Basophils % (Manual) 0 % (0.0-1.8) 04/19/17 07:00 Metamyelocytes % 0 % 04/19/17 07:00 Myelocytes % 0 % 04/19/17 07:00 Promyelocytes % 0 % 04/19/17 07:00 Blast Cells % 0 % 04/19/17 07:00 Nucleated RBC % Not Reportable 04/19/17 07:00 Seg Neutrophils # [place]der 04/18/17 04:54 Seg Neutrophils # Man 18.8 K/mm3 (1.8-7.7) H 04/19/17 07:00 Band Neutrophils # 1.0 K/mm3 04/19/17 07:00 Lymphocytes # (Manual) 0.6 K/mm3 (1.2-5.4) L 04/19/17 07:00 Abs React Lymphs (Man) 0.0 K/mm3 04/19/17 07:00 Monocytes # (Manual) 0.4 K/mm3 (0.0-0.8) 04/19/17 07:00 Eosinophils # (Manual) 0.0 K/mm3 (0.0-0.4) 04/19/17 07:00 Basophils # (Manual) 0.0 K/mm3 (0.0-0.1) 04/19/17 07:00 Metamyelocytes # 0.0 K/mm3 04/19/17 07:00 Myelocytes # 0.0 K/mm3 04/19/17 07:00 Promyelocytes # 0.0 K/mm3 04/19/17 07:00 Blast Cells # 0.0 K/mm3 04/19/17 07:00 WBC Morphology Not Reportable 04/19/17 07:00 Hypersegmented Neuts Not Reportable 04/19/17 07:00 Hyposegmented Neuts Not Reportable 04/19/17 07:00 Hypogranular Neuts Not Reportable 04/19/17 07:00 Smudge Cells Not Reportable 04/19/17 07:00 Toxic Granulation Few 04/19/17 07:00 Toxic Vacuolation Not Reportable 04/19/17 07:00 Dohle Bodies Not Reportable 04/19/17 07:00 Pelger-Huet Anomaly Not Reportable 04/19/17 07:00 Ariel Rods Not Reportable 04/19/17 07:00 Platelet Estimate Consistent w auto 04/19/17 07:00 Clumped Platelets Few 04/19/17 07:00 Plt Clumps, EDTA Not Reportable 04/19/17 07:00 Large Platelets Not Reportable 04/19/17 07:00 Giant Platelets Not Reportable 04/19/17 07:00 Platelet Satelliting Not Reportable 04/19/17 07:00 Plt Morphology Comment Not Reportable 04/19/17 07:00 RBC Morphology Not Reportable 04/19/17 07:00 Dimorphic RBCs Not Reportable 04/19/17 07:00 Polychromasia Few 04/19/17 07:00 Hypochromasia 1+ 04/19/17 07:00 Poikilocytosis Few 04/19/17 07:00 Anisocytosis 2+ 04/19/17 07:00 Microcytosis Not Reportable 04/19/17 07:00 Macrocytosis Not Reportable 04/19/17 07:00 Spherocytes Not Reportable 04/19/17 07:00 Pappenheimer Bodies Not Reportable 04/19/17 07:00 Sickle Cells Not Reportable 04/19/17 07:00 Target Cells Not Reportable 04/19/17 07:00 Tear Drop Cells Not Reportable 04/19/17 07:00 Ovalocytes Not Reportable 04/19/17 07:00 Helmet Cells Not Reportable 04/19/17 07:00 [place] Bodies Not Reportable 04/19/17 07:00 [place] Rings Not Reportable 04/19/17 07:00 [place] Cells Not Reportable 04/19/17 07:00 Bite Cells Not Reportable 04/19/17 07:00 Crenated Cell Not Reportable 04/19/17 07:00 Elliptocytes Not Reportable 04/19/17 07:00 Acanthocytes (Spur) Not Reportable 04/19/17 07:00 Rouleaux Not Reportable 04/19/17 07:00 Hemoglobin C Crystals Not Reportable 04/19/17 07:00 Schistocytes Not Reportable 04/19/17 07:00 Malaria parasites Not Reportable 04/19/17 07:00 Joselo Bodies Not Reportable 04/19/17 07:00 Hem Pathologist Commnt No 04/19/17 07:00 PT 20.4 Sec. (12.2-14.9) H 04/19/17 07:00 INR 1.65 (0.87-1.13) H 04/19/17 07:00 APTT 33.3 Sec. (24.2-36.6) 04/19/17 07:00 D-Dimer 1903.45 ng/mlDDU (0-234) H 04/18/17 14:36 Sodium 128 mmol/L (137-145) L D 04/19/17 07:00 Potassium 3.2 mmol/L (3.6-5.0) L D 04/19/17 07:00 Chloride 88.9 mmol/L (98-107) L 04/19/17 07:00 Carbon Dioxide 24 mmol/L (22-30) D 04/19/17 07:00 Anion Gap 18 mmol/L 04/19/17 07:00 BUN 28 mg/dL (7-17) H 04/19/17 07:00 Creatinine 0.6 mg/dL (0.7-1.2) L 04/19/17 07:00 Estimated GFR > 60 ml/min 04/19/17 07:00 BUN/Creatinine Ratio 46.66 % 04/19/17 07:00 Glucose 182 mg/dL (65-100) H 04/19/17 07:00 POC Glucose 217 (70-105) H 04/19/17 16:34 Hemoglobin A1c 11.3 % (4-6) H 04/17/17 23:55 Lactic Acid 4.00 mmol/L (0.7-2.0) H* 04/18/17 14:36 Calcium 8.0 mg/dL (8.4-10.2) L 04/19/17 07:00 Magnesium 1.70 mg/dL (1.7-2.3) 04/19/17 07:00 Total Bilirubin 5.20 mg/dL (0.1-1.2) H 04/19/17 07:00 AST 604 units/L (5-40) H 04/19/17 07:00 ALT 386 units/L (7-56) H 04/19/17 07:00 Alkaline Phosphatase 81 units/L (35-129) 04/19/17 07:00 Troponin T 0.087 ng/mL (0.00-0.029) H D 04/18/17 04:54 Total Protein 5.5 g/dL (6.3-8.2) L 04/19/17 07:00 Albumin 1.5 g/dL (3.9-5) L 04/19/17 07:00 Albumin/Globulin Ratio 0.4 % 04/19/17 07:00 Triglycerides 106 mg/dL (2-149) 04/17/17 17:20 Cholesterol 108 mg/dL (50-199) 04/17/17 17:20 LDL Cholesterol Direct 78 mg/dL (50-130) 04/17/17 17:20 HDL Cholesterol 9 mg/dL (40-59) L 04/17/17 17:20 Cholesterol/HDL Ratio 12.00 % 04/17/17 17:20 HCG, Qual Negative (Negative) 04/19/17 15:03
[2017-04-19] MEDS ORDERED: NACL ONE (20:24)
[2017-04-19] MEDS: LEVEMIR SUB-Q SCH (21:41)
[2017-04-20] MEDS: MORPHINE IV PRN ×3 (00:33→15:24)
[2017-04-20 03:23] LABS: Hematocrit 47.3 % (30.3-42.9); Hemoglobin 14.9 gm/dl (10.1-14.3); Mean Corpuscular HGB Conc 32 % (30-34); Mean Corpuscular Volume 80 fl (79-97); Platelet Count 229 K/mm3 (140-440); Red Blood Count 5.93 M/mm3 (3.65-5.03)
[2017-04-20 03:24] LABS: Mean Corpuscular Hemoglobin 25 pg (28-32); White Blood Count 21.2 K/mm3 (4.5-11.0)
[2017-04-20 03:30] LABS: Alanine Aminotransferase 430 units/L (7-56); Albumin 1.7 g/dL (3.9-5); Albumin/Globulin Ratio 0.4 %; Alkaline Phosphatase 117 units/L (35-129); Anion Gap 28 mmol/L; BUN/Creatinine Ratio 46.66; Bilirubin,Direct 4.2 mg/dL (0-0.2); Bilirubin,Indirect 1.2 mg/dL; Blood Urea Nitrogen 28 mg/dL (7-17); Calcium 8.2 mg/dL (8.4-10.2); Carbon Dioxide 23 mmol/L (22-30); Chloride 84.9 mmol/L (98-107); Glucose 171 mg/dL (65-100); Lipase 121 units/L (13-60); Potassium 4.5 mmol/L (3.6-5.0); Sodium 131 mmol/L (137-145); Total Protein 5.9 g/dL (6.3-8.2)
[2017-04-20 05:06] LABS: Anisocytosis 1+; Basophils % (Manual) 0 % (0.0-1.8); Blastocytes % (Manual) 0 %; Eosinophils % (Manual) 0 % (0.0-4.3)
[2017-04-20 05:07] LABS: Diff Status Complete; Hypochromasia 1+; Platelet Estimate Consistent w Auto; Polychromasia 1+
[2017-04-20] MEDS: LASIX PO SCH ×2 (05:48→18:06)
[2017-04-20] MEDS: ZOSYN/NS 4.5GM/100ML 4.5 GM/100 ML VIAL IV SCH ×2 (05:48→15:24)
[2017-04-20] MEDS: CLEOCIN 600 MG/50 mL 600 MG/50 ML BAG IV SCH ×2 (05:48→15:23)
[2017-04-20] MEDS: NOVOLOG SUB-Q SCH ×7 (05:49→17:34)
--- NOTE | 2017-04-20 09:43 | Ultrasound Report ---
RIGHT UPPER QUADRANT ULTRASOUND: HISTORY: Abnormal liver function tests. Technique: Transabdominal ultrasound imaging with Doppler interrogation. FINDINGS: There is a mild degree of sludge in the gallbladder. No shadowing gallstones, gallbladder distention or wall thickening. The CBD measures 5.9 mm. The visualized pancreas is unremarkable. The liver parenchyma is normal echogenicity. The proximal aorta is normal caliber. Trace ascites in Morison's pouch and small right pleural effusion are identified. IMPRESSION: Small amount of sludge in the gallbladder. No shadowing gallstones or signs of acute cholecystitis. Trace ascites. Small right pleural effusion.
[2017-04-20] MEDS: COREG PO SCH (11:08)
[2017-04-20] MEDS: BABY ASPIRIN PO SCH (11:08)
[2017-04-20] MEDS: VANCOMYCIN 1,500 MG in NACL 0.9% 500 ML 500 ML IV SCH (11:08)
--- NOTE | 2017-04-20 14:45 | Gastroenterology Consultation ---
History of Present Illness - Reason for Consult Consult date: 04/20/17 jaundice Requesting physician: PRAVIN ALFREDOZHVU - History of Present Illness The patient is a 41 year old with CHF and DM admitted for sepsis from a leg infection for whom consultation was requested for jaundice. She reports being seen in my office about 9 years ago for elevated LFTs and having a liver biopsy. The patient reports that a fatty liver was found, but no cirrhosis to her knowledge. She has not been seen for f/u in the subsequent years. She is unaware of jaundice before this admission. EF is around 20%. She has no history of hepatitis, ETOH use. No new medications. Presently, the AST is over 600, ALT over 300 and T. bili over 4. Past History Past Medical History: diabetes, heart failure, hypertension, hyperlipidemia Past Surgical History: Other (status post 2 stent) Social history: full code. denies: smoking, alcohol abuse, prescription drug abuse, IV drug use Family history: CAD Medications and Allergies Allergies Allergy/AdvReac Type Severity Reaction Status Date / Time No Known Allergies Allergy Verified 04/17/17 22:18 Home Medications Medication Instructions Recorded Confirmed Last Taken Type Furosemide [Lasix TAB] 40 mg PO QDAY #30 tablet 02/03/17 04/18/17 1 Day Ago Rx Active Meds: Active Medications Acetaminophen (Tylenol) 500 mg PO Q4H PRN PRN Reason: Pain, Mild (1-3) Aspirin (Baby Aspirin) 81 mg PO QDAY [facility] Last Admin: 04/20/17 11:08 Dose: 81 mg Carvedilol (Coreg) 3.125 mg PO BID [facility] Last Admin: 04/20/17 11:08 Dose: 3.125 mg Dextrose (D50w (25gm) Syringe) 50 ml IV PRN PRN PRN Reason: Hypoglycemia Furosemide (Lasix) 20 mg PO 0600,1800 [facility] Last Admin: 04/20/17 05:48 Dose: 20 mg Piperacillin Sod/Tazobactam Sod (Zosyn/Ns 4.5gm/100ml) 4.5 gm in 100 mls @ 200 mls/hr IV Q8HR [facility] PRN Reason: Protocol Last Admin: 04/20/17 05:48 Dose: 200 mls/hr Clindamycin HCl (Cleocin 600 Mg/50 Ml) 600 mg in 50 mls @ 100 mls/hr IV Q8H [facility] PRN Reason: Protocol Last Admin: 04/20/17 05:48 Dose: 100 mls/hr Vancomycin HCl 1,500 mg/ (Sodium Chloride) 515 mls @ 333.333 mls/hr IV Q12H [facility] Last Admin: 04/20/17 11:08 Dose: 333.333 mls/hr Insulin Aspart (Novolog) 0 units SUB-Q QACHS [facility] PRN Reason: Protocol Last Admin: 04/20/17 13:45 Dose: Not Given Insulin Aspart (Novolog) 0 units SUB-Q ACHS [facility] PRN Reason: Protocol Last Admin: 04/20/17 13:45 Dose: Not Given Insulin Detemir (Levemir) 10 units SUB-Q QHS [facility] Last Admin: 04/19/17 21:41 Dose: 10 units Morphine Sulfate (Morphine) 2 mg IV Q4H PRN PRN Reason: Pain, Moderate (4-6) Last Admin: 04/20/17 11:08 Dose: 2 mg Vancomycin HCl (Vancomycin Pharmacy To Dose) 1 each IV PKCONSULT [facility] PRN Reason: Protocol Review of Systems - Review of Systems Constitutional: no weight loss, no weight gain Eyes: no change in vision Ears, Nose, Throat: no decreased hearing, no difficulty swallowing Breasts: deferred Cardiovascular: shortness of breath, no chest pain Respiratory: no cough, no shortness of breath, no wheezing Gastrointestinal: no abdominal pain, no nausea, no vomiting, no change in bowel habits, no melena, no hematochezia Rectal: no pain, no incontinence, no bleeding Female Genitourinary: deferred Musculoskeletal: other (Left leg pain and swelling due to cellulitis), no gait dysfunction Integumentary: jaundice, no rash, no pruritis Neurological: no head injury, no paralysis, no weakness Psychiatric: no anxiety, no memory loss Endocrine: no cold intolerance, no heat intolerance Hematologic/Lymphatic: no easy bruising, no easy bleeding Allergic/Immunologic: no wheezing Exam - Constitutional Vital Signs: Temp Pulse Resp BP Pulse Ox 97.6 F 94 H 18 139/90 98 04/20/17 05:12 04/20/17 05:12 04/20/17 05:12 04/20/17 05:12 04/20/17 05:12 General appearance: no acute distress, well-nourished, other (jaundice is notable) - EENT Eyes: PERRL, EOM intact, scleral icterus ENT: hearing intact, clear oral mucosa, dentition normal - Neck Neck: supple, normal ROM, no masses or JVD - Respiratory Respiratory effort: normal Respiratory: bilateral: CTA - Breasts Breasts: deferred - Cardiovascular Rhythm: regular Heart Sounds: Present: S1 & S2. Absent: gallop, rub Extremity abnormal: edema (left leg edema, tenderness and multiple blisters) - Gastrointestinal General gastrointestinal: Present: soft, non-tender, non-distended. Absent: hepatomegaly, splenomegaly, mass Rectal Exam: deferred - Genitourinary Female Genitourinary: deferred - Integumentary Integumentary: Present: clear, warm, dry - Neurologic Neurological: alert and oriented x3 - Psychiatric Psychiatric: appropriate mood/affect, intact judgment & insight, memory intact - Labs CBC & Chem 7: 04/20/17 02:45 04/20/17 02:45 Lab Results: Laboratory Results - last 24 hr 04/19/17 04/19/17 04/19/17 15:03 16:34 21:46 WBC RBC Hgb Hct MCV MCH MCHC RDW Plt Count Add Manual Diff Total Counted Seg Neutrophils % Seg Neuts % (Manual) Band Neutrophils % Lymphocytes % (Manual) Reactive Lymphs % (Man) Monocytes % (Manual) Eosinophils % (Manual) Basophils % (Manual) Metamyelocytes % Myelocytes % Promyelocytes % Blast Cells % Nucleated RBC % Seg Neutrophils # Man Band Neutrophils # Lymphocytes # (Manual) Abs React Lymphs (Man) Monocytes # (Manual) Eosinophils # (Manual) Basophils # (Manual) Metamyelocytes # Myelocytes # Promyelocytes # Blast Cells # WBC Morphology Hypersegmented Neuts Hyposegmented Neuts Hypogranular Neuts Smudge Cells Toxic Granulation Toxic Vacuolation Dohle Bodies Pelger-Huet Anomaly Ariel Rods Platelet Estimate Clumped Platelets Plt Clumps, EDTA Large Platelets Giant Platelets Platelet Satelliting Plt Morphology Comment RBC Morphology Dimorphic RBCs Polychromasia Hypochromasia Poikilocytosis Anisocytosis Microcytosis Macrocytosis Spherocytes Pappenheimer Bodies Sickle Cells Target Cells Tear Drop Cells Ovalocytes Helmet Cells [place] Bodies [place] Rings [place] Cells Bite Cells Crenated Cell Elliptocytes Acanthocytes (Spur) Rouleaux Hemoglobin C Crystals Schistocytes Malaria parasites Joselo Bodies Hem Pathologist Commnt Sodium Potassium Chloride Carbon Dioxide Anion Gap BUN Creatinine Estimated GFR BUN/Creatinine Ratio Glucose POC Glucose 217 H 182 H Calcium Magnesium Total Bilirubin Direct Bilirubin Indirect Bilirubin AST ALT Alkaline Phosphatase Ammonia Total Protein Albumin Albumin/Globulin Ratio Lipase HCG, Qual Negative 04/20/17 04/20/17 04/20/17 02:45 02:45 05:10 WBC 21.2 H RBC 5.93 H Hgb 14.9 H Hct 47.3 H MCV 80 MCH 25 L MCHC 32 RDW 20.0 H Plt Count 229 Add Manual Diff Complete Total Counted 100 Seg Neutrophils % [employer] Seg Neuts % (Manual) 81.0 H Band Neutrophils % 11.0 Lymphocytes % (Manual) 4.0 L Reactive Lymphs % (Man) 0 Monocytes % (Manual) 4.0 Eosinophils % (Manual) 0 Basophils % (Manual) 0 Metamyelocytes % 0 Myelocytes % 0 Promyelocytes % 0 Blast Cells % 0 Nucleated RBC % Not Reportable Seg Neutrophils # Man 17.2 H Band Neutrophils # 2.3 Lymphocytes # (Manual) 0.8 L Abs React Lymphs (Man) 0.0 Monocytes # (Manual) 0.8 Eosinophils # (Manual) 0.0 Basophils # (Manual) 0.0 Metamyelocytes # 0.0 Myelocytes # 0.0 Promyelocytes # 0.0 Blast Cells # 0.0 WBC Morphology Not Reportable Hypersegmented Neuts Not Reportable Hyposegmented Neuts Not Reportable Hypogranular Neuts Not Reportable Smudge Cells Not Reportable Toxic Granulation Not Reportable Toxic Vacuolation Not Reportable Dohle Bodies Not Reportable Pelger-Huet Anomaly Not Reportable Ariel Rods Not Reportable Platelet Estimate Consistent w auto Clumped Platelets Not Reportable Plt Clumps, EDTA Not Reportable Large Platelets Not Reportable Giant Platelets Not Reportable Platelet Satelliting Not Reportable Plt Morphology Comment Not Reportable RBC Morphology Not Reportable Dimorphic RBCs Not Reportable Polychromasia 1+ Hypochromasia 1+ Poikilocytosis Not Reportable Anisocytosis 1+ Microcytosis Not Reportable Macrocytosis Not Reportable Spherocytes Not Reportable Pappenheimer Bodies Not Reportable Sickle Cells Not Reportable Target Cells Not Reportable Tear Drop Cells Not Reportable Ovalocytes Not Reportable Helmet Cells Not Reportable [place] Bodies Not Reportable [place] Rings Not Reportable [place] Cells Not Reportable Bite Cells Not Reportable Crenated Cell Not Reportable Elliptocytes Not Reportable Acanthocytes (Spur) Not Reportable Rouleaux Not Reportable Hemoglobin C Crystals Not Reportable Schistocytes Not Reportable Malaria parasites Not Reportable Joselo Bodies Not Reportable Hem Pathologist Commnt No Sodium 131 L Potassium 4.5 D Chloride 84.9 L Carbon Dioxide 23 Anion Gap 28 BUN 28 H Creatinine 0.6 L Estimated GFR > 60 BUN/Creatinine Ratio 46.66 Glucose 171 H POC Glucose Calcium 8.2 L Magnesium 2.00 Total Bilirubin 5.40 H Direct Bilirubin 4.2 H Indirect Bilirubin 1.2 AST 586 H ALT 430 H Alkaline Phosphatase 117 Ammonia 32.0 Total Protein 5.9 L Albumin 1.7 L Albumin/Globulin Ratio 0.4 Lipase 121 H HCG, Qual Assessment and Plan - Patient Problems (1) Cellulitis of left leg Current Visit: Yes Status: Acute (2) Jaundice Current Visit: Yes Status: Acute Plan to address problem: I suspect she may have underlying cirrhosis due to MILLER with superimposed events from CHF,sepsis, and antibiotics. Cardiac cirrhosis is also possible in this setting. Will obtain updated hepatitis studies, MARCIE, mitochondrial Ab. She may need liver biopsy repeated in the near future if the etiology is not clear and jaundice does not resolve. (3) CAD (coronary artery disease) Current Visit: Yes Status: Chronic Qualifiers: Coronary Disease-Associated Artery/Lesion type: C [place] vs. transplanted heart: N Associated angina: A (4) Hyperlipidemia Current Visit: Yes Status: Chronic Qualifiers: Hyperlipidemia type: H (5) Hypertension Current Visit: Yes Status: Chronic Qualifiers: Hypertension type: H (6) Stented coronary artery Current Visit: Yes Status: Chronic (7) Type 2 diabetes mellitus Current Visit: Yes Status: Chronic Qualifiers: Diabetes mellitus complication status: D Diabetes mellitus complication detail: D Diabetic retinopathy severity: D Proliferative retinopathy type: P Diabetes mellitus macular edema: D Diabetes mellitus long term care social worker insulin use : D Laterality: L Chronic kidney disease stage: C
--- NOTE | 2017-04-20 16:09 | Progress Note ---
Assessment and Plan Josiah work up in progress. I discontinued Atorvastatin Discussed in detail with (G.I.). - Patient Problems (1) Jaundice Current Visit: Yes Status: Acute (2) Sepsis Current Visit: Yes Status: Acute Qualifiers: Sepsis type: S (3) Ulcer of left lower leg Current Visit: Yes Status: Acute Qualifiers: Non-pressure ulcer stage: N (4) Cellulitis of left leg Current Visit: Yes Status: Acute (5) Troponin level elevated Current Visit: Yes Status: Acute (6) Hypertension Current Visit: Yes Status: Chronic Qualifiers: Hypertension type: H (7) Hyperlipidemia Current Visit: Yes Status: Chronic Qualifiers: Hyperlipidemia type: H (8) Type 2 diabetes mellitus Current Visit: Yes Status: Chronic Qualifiers: Diabetes mellitus complication status: D Diabetes mellitus complication detail: D Diabetic retinopathy severity: D Proliferative retinopathy type: P Diabetes mellitus macular edema: D Diabetes mellitus senior living insulin use : D Laterality: L Chronic kidney disease stage: C (9) CAD (coronary artery disease) Current Visit: Yes Status: Chronic Qualifiers: Coronary Disease-Associated Artery/Lesion type: C [place] vs. transplanted heart: N Associated angina: A (10) Stented coronary artery Current Visit: Yes Status: Chronic (11) Obesity (BMI 30-39.9) Current Visit: Yes Status: Chronic (12) Abnormal LFTs (liver function tests) Current Visit: Yes Status: Acute Subjective Date of service: 04/20/17 Interval history: C/O Pain L leg,No chest pain.L leg ulcer - black eschar+ Evaluated by Eva for jaundice.Abnormal LFTs. Objective Vital Signs Temp Pulse Resp BP BP Pulse Ox 04/20/17 05:12 97.6 F 94 H 18 139/90 98 04/20/17 05:10 97.4 F L 100 H 20 130/81 98 04/20/17 00:33 20 04/20/17 00:00 98.2 F 94 H 18 104/71 97 04/19/17 23:48 76 04/19/17 21:38 76 104/76 04/19/17 19:54 97.6 F 96 H 20 104/71 97 - Physical Examination General: Other (In distress because of pain L leg.) HEENT: Positive: EOMI, Jaundice, Normocephaly Neck: Positive: neck supple, trachea midline Cardiac: Positive: Reg Rate and Rhythm Lungs: Positive: clear to auscultation, No Wheeze, Rales, Rhonchi Neuro: Positive: Grossly Intact Abdomen: Positive: Soft, Active Bowel Sounds Skin: Positive: Other (Jaundice+) Musculoskeletal: No Fluid Collection Extremities: Present: Other (Open ulcer L leg, black eschar+) - Labs and Meds Cardiac Enzymes 04/20/17 Range/Units 02:45 AST 586 H (5-40) units/L CBC 04/20/17 Range/Units 02:45 WBC 21.2 H (4.5-11.0) K/mm3 RBC 5.93 H (3.65-5.03) M/mm3 Hgb 14.9 H (10.1-14.3) gm/dl Hct 47.3 H (30.3-42.9) % Plt Count 229 (140-440) K/mm3 Comprehensive Metabolic Panel 04/20/17 Range/Units 02:45 Sodium 131 L (137-145) mmol/L Potassium 4.5 D (3.6-5.0) mmol/L Chloride 84.9 L (98-107) mmol/L Carbon Dioxide 23 (22-30) mmol/L BUN 28 H (7-17) mg/dL Creatinine 0.6 L (0.7-1.2) mg/dL Glucose 171 H (65-100) mg/dL Calcium 8.2 L (8.4-10.2) mg/dL Direct Bilirubin 4.2 H (0-0.2) mg/dL Indirect Bilirubin 1.2 mg/dL AST 586 H (5-40) units/L ALT 430 H (7-56) units/L Alkaline Phosphatase 117 (35-129) units/L Total Protein 5.9 L (6.3-8.2) g/dL Albumin 1.7 L (3.9-5) g/dL - Imaging and Cardiology EKG: report reviewed, image reviewed - Telemetry EKG Rhythm: Sinus Rhythm - EKG Sinus rhythms and dysrhythmias: sinus rhythm Myocardial infarction: anterior HI (old age or i, lateral HI (old age or in
--- NOTE | 2017-04-20 16:45 | Consultation ---
History of Present Illness - Reason for Consult Consult date: 04/20/17 cellulitis Requesting physician: TRU NUR - History of Present Illness 41 years old female with history of uncontrolled diabetes, CHF, hypertension, admitted on 04/18/2017 due to chest pain, bilateral lower extremity edema more to the left associated with progressive severe left leg pain for 2 weeks. She also has been complaining of fever on and off for 4 days. She has not been able to walk due to pain. Denies recent trauma, injury, insect bite, ocean/river water exposure. Leg pain became excruciating 04/29. In the emergency room, temp was 97.4, initial white count 14,000 which then went to 21,000. Hemoglobin 15.7. Sodium 120. Lactic acid was 4. A1C was 11.3. Transthoracic echo showing an EF of 20-25. Chest x-ray was negative. Ultrasound of the abdomen showed sludge of the gallbladder and a small right pleural effusion. AST was found to be 604 and ALT 386, total bili was 5.2. Leg US neg for DVT. Current Antimicrobials: Zosyn Clindamycin Vancomycin Previous Antimicrobials: Microbiology: Blood cultures: 04/18 ngtd Past History Past Medical History: diabetes, heart failure, hypertension, hyperlipidemia Past Surgical History: Other (status post 2 stent) Social history: full code. denies: smoking, alcohol abuse, prescription drug abuse, IV drug use Family history: CAD Medications and Allergies Allergies Allergy/AdvReac Type Severity Reaction Status Date / Time No Known Allergies Allergy Verified 04/17/17 22:18 Home Medications Medication Instructions Recorded Confirmed Last Taken Type Furosemide [Lasix TAB] 40 mg PO QDAY #30 tablet 02/03/17 04/18/17 1 Day Ago Rx Active Meds: Active Medications Acetaminophen (Tylenol) 500 mg PO Q4H PRN PRN Reason: Pain, Mild (1-3) Aspirin (Baby Aspirin) 81 mg PO QDAY PENDING SALE TO [facility] Last Admin: 04/20/17 11:08 Dose: 81 mg Carvedilol (Coreg) 3.125 mg PO BID PENDING SALE TO [facility] Last Admin: 04/20/17 11:08 Dose: 3.125 mg Dextrose (D50w (25gm) Syringe) 50 ml IV PRN PRN PRN Reason: Hypoglycemia Furosemide (Lasix) 20 mg PO 0600,1800 PENDING SALE TO [facility] Last Admin: 04/20/17 05:48 Dose: 20 mg Piperacillin Sod/Tazobactam Sod (Zosyn/Ns 4.5gm/100ml) 4.5 gm in 100 mls @ 200 mls/hr IV Q8HR JEROME PRN Reason: Protocol Last Admin: 04/20/17 15:24 Dose: 200 mls/hr Clindamycin HCl (Cleocin 600 Mg/50 Ml) 600 mg in 50 mls @ 100 mls/hr IV Q8H JEROME PRN Reason: Protocol Last Admin: 04/20/17 15:23 Dose: 100 mls/hr Vancomycin HCl 1,500 mg/ (Sodium Chloride) 515 mls @ 333.333 mls/hr IV Q12H PENDING SALE TO [facility] Last Admin: 04/20/17 11:08 Dose: 333.333 mls/hr Insulin Aspart (Novolog) 0 units SUB-Q QACHS PENDING SALE TO [facility] PRN Reason: Protocol Last Admin: 04/20/17 13:45 Dose: Not Given Insulin Aspart (Novolog) 0 units SUB-Q ACHS PENDING SALE TO [facility] PRN Reason: Protocol Last Admin: 04/20/17 13:45 Dose: Not Given Insulin Detemir (Levemir) 10 units SUB-Q QHS PENDING SALE TO [facility] Last Admin: 04/19/17 21:41 Dose: 10 units Morphine Sulfate (Morphine) 2 mg IV Q4H PRN PRN Reason: Pain, Moderate (4-6) Last Admin: 04/20/17 15:24 Dose: 2 mg Vancomycin HCl (Vancomycin Pharmacy To Dose) 1 each IV PKCONSULT JEROME PRN Reason: Protocol Review of Systems All systems: negative (fever, left leg pain.) Physical Examination - Physical Exam Narrative exam: General appearance: Alert in NAD, conversant Eyes: anicteric sclerae, moist conjunctivae; no lid-lag; PERRLA HENT: Atraumatic; oropharynx clear with moist mucous membranes and no mucosal ulcerations/no oral thrush; normal hard and soft palate. Normal external ears. Neck: Trachea midline; supple, no thyromegaly or lymphadenopathy Lungs: CTA, with normal respiratory effort and no intercostal retractions CV: RRR, no murmurs Abdomen: Soft, non-tender; no masses or hepatosplenomegaly Extremities: No peripheral edema or extremity lymphadenopathy Skin: posterior left calf with marked dusky discoloration and eythematous tracks with bulla formation with severe tenderness Psych: Appropriate affect, alert and oriented to person, place and time. Neuro: alert and oriented x 3. Moving all extermities Lines: No CVL / PICC - Constitutional Vitals: Vital Signs Temp Pulse Resp BP Pulse Ox 97.6 F 94 H 18 139/90 98 04/20/17 05:12 04/20/17 05:12 04/20/17 05:12 04/20/17 05:12 04/20/17 05:12 Temperature -Last 24 Hours Temperature 97.6 F Temperature 97.4 F Temperature 98.2 F Temperature 97.6 F Results - Labs CBC & Chem 7: 04/20/17 02:45 04/20/17 02:45 Labs: Abnormal lab results 04/19/17 04/19/17 04/20/17 Range/Units 16:34 21:46 02:45 WBC 21.2 H (4.5-11.0) K/mm3 RBC 5.93 H (3.65-5.03) M/mm3 Hgb 14.9 H (10.1-14.3) gm/dl Hct 47.3 H (30.3-42.9) % MCH 25 L (28-32) pg RDW 20.0 H (13.2-15.2) % Seg Neuts % (Manual) 81.0 H (40.0-70.0) % Lymphocytes % (Manual) 4.0 L (13.4-35.0) % Seg Neutrophils # Man 17.2 H (1.8-7.7) K/mm3 Lymphocytes # (Manual) 0.8 L (1.2-5.4) K/mm3 Sodium (137-145) mmol/L Chloride (98-107) mmol/L BUN (7-17) mg/dL Creatinine (0.7-1.2) mg/dL Glucose (65-100) mg/dL POC Glucose 217 H 182 H (70-105) Calcium (8.4-10.2) mg/dL Total Bilirubin (0.1-1.2) mg/dL Direct Bilirubin (0-0.2) mg/dL AST (5-40) units/L ALT (7-56) units/L Total Protein (6.3-8.2) g/dL Albumin (3.9-5) g/dL Lipase (13-60) units/L 04/20/ Range/Units 02:45 WBC (4.5-11.0) K/mm3 RBC (3.65-5.03) M/mm3 Hgb (10.1-14.3) gm/dl Hct (30.3-42.9) % MCH (28-32) pg RDW (13.2-15.2) % Seg Neuts % (Manual) (40.0-70.0) % Lymphocytes % (Manual) (13.4-35.0) % Seg Neutrophils # Man (1.8-7.7) K/mm3 Lymphocytes # (Manual) (1.2-5.4) K/mm3 Sodium 131 L (137-145) mmol/L Chloride 84.9 L (98-107) mmol/L BUN 28 H (7-17) mg/dL Creatinine 0.6 L (0.7-1.2) mg/dL Glucose 171 H (65-100) mg/dL POC Glucose (70-105) Calcium 8.2 L (8.4-10.2) mg/dL Total Bilirubin 5.40 H (0.1-1.2) mg/dL Direct Bilirubin 4.2 H (0-0.2) mg/dL AST 586 H (5-40) units/L ALT 430 H (7-56) units/L Total Protein 5.9 L (6.3-8.2) g/dL Albumin 1.7 L (3.9-5) g/dL Lipase 121 H (13-60) units/L Assessment and Plan Assessment: 1) Sepsis: Present on admission, manifested by tachycardia, hypotension, leukocytosis, bandemia, increased lactate. Etiology most likely complicated soft tissue infection left leg. 2) Left leg complicated soft tissue infection: exam consistent with necrotiizing fascitis 3) DM-uncontrolled 4) Hyponatremia 5) Elevated LFTs ? from sepsis, r/o cirrhosis 6) CHF Plan: -stat CT of the leg r/o necrotiizing fascitis -urgent surgical consult -follow-up blood cultures -continue vancomycin, zosyn and clindamycin -check CRP -check viral hepatitis panel, HIV Thank you Dr Vallejo for your consultation, will follow up with you. Talisha Nguyen MD Infectious Diseases Specialist [facility] M [phone] O [phone]
--- NOTE | 2017-04-20 18:06 | Progress Note ---
Assessment and Plan Assessment and plan: 40 years old obese female with history of CAD with TX and PCI with stent placements 2, hypertension, chronic heart failure, diabetes hyperlipidemia on no medications for more than one year due to lack of insurance, presented for chest pain, significant shortness of breath that worsened progressively, bilateral lower extremity edema with recent superimposed redness and tenderness of left leg 1. Sepsis Leukocytosis, tachycardia, lower extremity cellulitis, coagulopathy, elevated lactic acid Blood cultures obtained, negative at 48 hours Antibiotic regimen adjusted for broad-spectrum coverage, currently on clindamycin, Zosyn and vancomycin 2. Cellulitis LLE / ? Necrotizing fasciitis Erythema/warmth/tenderness from left knee to mid calf superimposed on significant edema Doppler negative for SVT/DVT On broad spectrum antibiotics Pain out of proportion, WBC trending up and developed discoloration/bulla formation; concern for necrotizing fasciitis; I discussed with ID; recommended to continue same antibiotics; also will obtain a stat CT leg; Gen. surgery consulted 3. Jaundice/elevated LFTs RUQ US obtained and showed no gallstones, trace ascites TG wnl Discontinue statin Lipase elevated Will obtain CT abdomen - ? pancreatitis/obstructive jaundice GI consulted and additional workup in progress (hepatitis panel, antimitochondrial antibodies) 4. Hypochloremic Hyponatremia Na+ 120 on admission Likely dilutional due to heart failure Received Tolvaptan Improved, today 131 5. Hyperkalemia/hypokalemia 5.9 on admission, medically treated, then normal limits; hypokalemic, replaced; now within normal limits Hypomagnesemia - replaced Monitor 6. Metabolic acidosis Likely due to sepsis and acute kidney injury Resolved 7. Acute kidney injury Likely secondary to vasomotor nephropathy Now creatinine within normal limits Continue to monitor 8. Coagulopathy No history of anticoagulant use Abnormal LFTs ? Cardiac cirrhosis 9. D-dimer elevated, WBC trended up Doppler lower extremity negative for DVT Obtained CTA chest to rule out PE 10. Acute on chronic combined systolic/diastolic heart failure Echo with EF 20-25% Continue diuresis with IV Lasix On low dose BB as BP borderline low No ACEI due to renal insufficiency and hyperkalemia Monitor I's and O's Cardiology consulted and following 11. CAD History of TX, PCI with stent placementx2 Started on aspirin, statin, BB No ARLYN inhibitor due to renal insuf, K=abn 12. Elevated troponin With no EKG changes Likely in the setting of acute heart failure and kidney injury 13. Hypertension BP borderline low Only on Lasix, BB for heart failure treatment 14. Uncontrolled diabetes type 2 Hemoglobin A1c 11 Started on long-acting insulin and SSI based on Accu-Cheks Monitor and adjust regimen 15. Hyperlipidemia Started on statin, but need to hold due to transaminitis 16. Obesity/CARLOS A/OHS When medically stable and discharge will need pulmonary follow-up for PFTs and sleep study as well as counseling regarding importance of losing weight 17. Severe protein calorie monitor nutrition Consult dietitian 18. DVT/GI prophylaxis History Interval history: left leg pain intense, blisters in different stages both sisters present, updated Hospitalist Physical - Constitutional Vitals: Temp Pulse Resp BP Pulse Ox 97.6 F 91 H 18 139/90 98 04/20/17 05:12 04/20/17 16:00 04/20/17 05:12 04/20/17 05:12 04/20/17 05:12 General appearance: Present: mild distress, obese - EENT Eyes: Present: PERRL, EOM intact, scleral icterus. Absent: conjunctival injection - Neck Neck: Present: supple. Absent: enlarged thyroid, masses or JVD - Respiratory Respiratory effort: normal Respiratory: bilateral: diminished, negative: rhonchi, wheezing - Cardiovascular Rhythm: other (tachycardic) Heart Sounds: Present: S1 & S2. Absent: systolic murmur - Extremities Extremities: no ischemia, abnormal (LLE with erythema/discoloration, bulla) Extremity abnormal: edema (3+) - Abdominal General gastrointestinal: soft, non-tender, non-distended, hypoactive bowel sounds - Integumentary Integumentary: Present: jaundice - Psychiatric Psychiatric: cooperative - Neurologic Neurologic: CNII-XII intact, no focal deficits Results - Labs CBC & Chem 7: 04/20/17 02:45 04/20/17 02:45 Labs: Laboratory Last Values WBC 21.2 K/mm3 (4.5-11.0) H 04/20/17 02:45 RBC 5.93 M/mm3 (3.65-5.03) H 04/20/17 02:45 Hgb 14.9 gm/dl (10.1-14.3) H 04/20/17 02:45 Hct 47.3 % (30.3-42.9) H 04/20/17 02:45 MCV 80 fl (79-97) 04/20/17 02:45 MCH 25 pg (28-32) L 04/20/17 02:45 MCHC 32 % (30-34) 04/20/17 02:45 RDW 20.0 % (13.2-15.2) H 04/20/17 02:45 Plt Count 229 K/mm3 (140-440) 04/20/17 02:45 Lymph % (Auto) Homemaker Companion 04/18/17 04:54 [place] % (Auto) Homemaker Companion 04/18/17 04:54 Eos % (Auto) Homemaker Companion 04/18/17 04:54 Baso % (Auto) Homemaker Companion 04/18/17 04:54 Lymph # Homemaker Companion 04/18/17 04:54 [place] # Homemaker Companion 04/18/17 04:54 Eos # Homemaker Companion 04/18/17 04:54 Baso # Homemaker Companion 04/18/17 04:54 Add Manual Diff Complete 04/20/17 02:45 Total Counted 100 04/20/17 02:45 Seg Neutrophils % Homemaker Companion 04/20/17 02:45 Seg Neuts % (Manual) 81.0 % (40.0-70.0) H 04/20/17 02:45 Band Neutrophils % 11.0 % 04/20/17 02:45 Lymphocytes % (Manual) 4.0 % (13.4-35.0) L 04/20/17 02:45 Reactive Lymphs % (Man) 0 % 04/20/17 02:45 Monocytes % (Manual) 4.0 % (0.0-7.3) 04/20/17 02:45 Eosinophils % (Manual) 0 % (0.0-4.3) 04/20/17 02:45 Basophils % (Manual) 0 % (0.0-1.8) 04/20/17 02:45 Metamyelocytes % 0 % 04/20/17 02:45 Myelocytes % 0 % 04/20/17 02:45 Promyelocytes % 0 % 04/20/17 02:45 Blast Cells % 0 % 04/20/17 02:45 Nucleated RBC % Not Reportable 04/20/17 02:45 Seg Neutrophils # Homemaker Companion 04/18/17 04:54 Seg Neutrophils # Man 17.2 K/mm3 (1.8-7.7) H 04/20/17 02:45 Band Neutrophils # 2.3 K/mm3 04/20/17 02:45 Lymphocytes # (Manual) 0.8 K/mm3 (1.2-5.4) L 04/20/17 02:45 Abs React Lymphs (Man) 0.0 K/mm3 04/20/17 02:45 Monocytes # (Manual) 0.8 K/mm3 (0.0-0.8) 04/20/17 02:45 Eosinophils # (Manual) 0.0 K/mm3 (0.0-0.4) 04/20/17 02:45 Basophils # (Manual) 0.0 K/mm3 (0.0-0.1) 04/20/17 02:45 Metamyelocytes # 0.0 K/mm3 04/20/17 02:45 Myelocytes # 0.0 K/mm3 04/20/17 02:45 Promyelocytes # 0.0 K/mm3 04/20/17 02:45 Blast Cells # 0.0 K/mm3 04/20/17 02:45 WBC Morphology Not Reportable 04/20/17 02:45 Hypersegmented Neuts Not Reportable 04/20/17 02:45 Hyposegmented Neuts Not Reportable 04/20/17 02:45 Hypogranular Neuts Not Reportable 04/20/17 02:45 Smudge Cells Not Reportable 04/20/17 02:45 Toxic Granulation Not Reportable 04/20/17 02:45 Toxic Vacuolation Not Reportable 04/20/17 02:45 Dohle Bodies Not Reportable 04/20/17 02:45 Pelger-Huet Anomaly Not Reportable 04/20/17 02:45 Ariel Rods Not Reportable 04/20/17 02:45 Platelet Estimate Consistent w auto 04/20/17 02:45 Clumped Platelets Not Reportable 04/20/17 02:45 Plt Clumps, EDTA Not Reportable 04/20/17 02:45 Large Platelets Not Reportable 04/20/17 02:45 Giant Platelets Not Reportable 04/20/17 02:45 Platelet Satelliting Not Reportable 04/20/17 02:45 Plt Morphology Comment Not Reportable 04/20/17 02:45 RBC Morphology Not Reportable 04/20/17 02:45 Dimorphic RBCs Not Reportable 04/20/17 02:45 Polychromasia 1+ 04/20/17 02:45 Hypochromasia 1+ 04/20/17 02:45 Poikilocytosis Not Reportable 04/20/17 02:45 Anisocytosis 1+ 04/20/17 02:45 Microcytosis Not Reportable 04/20/17 02:45 Macrocytosis Not Reportable 04/20/17 02:45 Spherocytes Not Reportable 04/20/17 02:45 Pappenheimer Bodies Not Reportable 04/20/17 02:45 Sickle Cells Not Reportable 04/20/17 02:45 Target Cells Not Reportable 04/20/17 02:45 Tear Drop Cells Not Reportable 04/20/17 02:45 Ovalocytes Not Reportable 04/20/17 02:45 Helmet Cells Not Reportable 04/20/17 02:45 Taylor-Sekiu Bodies Not Reportable 04/20/17 02:45 [place] Rings Not Reportable 04/20/17 02:45 [place] Cells Not Reportable 04/20/17 02:45 Bite Cells Not Reportable 04/20/17 02:45 Crenated Cell Not Reportable 04/20/17 02:45 Elliptocytes Not Reportable 04/20/17 02:45 Acanthocytes (Spur) Not Reportable 04/20/17 02:45 Rouleaux Not Reportable 04/20/17 02:45 Hemoglobin C Crystals Not Reportable 04/20/17 02:45 Schistocytes Not Reportable 04/20/17 02:45 Malaria parasites Not Reportable 04/20/17 02:45 Joselo Bodies Not Reportable 04/20/17 02:45 Hem Pathologist Commnt No 04/20/17 02:45 PT 20.4 Sec. (12.2-14.9) H 04/19/17 07:00 INR 1.65 (0.87-1.13) H 04/19/17 07:00 APTT 33.3 Sec. (24.2-36.6) 04/19/17 07:00 D-Dimer 1903.45 ng/mlDDU (0-234) H 04/18/17 14:36 Sodium 131 mmol/L (137-145) L 04/20/17 02:45 Potassium 4.5 mmol/L (3.6-5.0) D 04/20/17 02:45 Chloride 84.9 mmol/L (98-107) L 04/20/17 02:45 Carbon Dioxide 23 mmol/L (22-30) 04/20/17 02:45 Anion Gap 28 mmol/L 04/20/17 02:45 BUN 28 mg/dL (7-17) H 04/20/17 02:45 Creatinine 0.6 mg/dL (0.7-1.2) L 04/20/17 02:45 Estimated GFR > 60 ml/min 04/20/17 02:45 BUN/Creatinine Ratio 46.66 % 04/20/17 02:45 Glucose 171 mg/dL (65-100) H 04/20/17 02:45 POC Glucose 182 (70-105) H 04/19/17 21:46 Hemoglobin A1c 11.3 % (4-6) H 04/17/17 23:55 Lactic Acid 4.00 mmol/L (0.7-2.0) H* 04/18/17 14:36 Calcium 8.2 mg/dL (8.4-10.2) L 04/20/17 02:45 Magnesium 2.00 mg/dL (1.7-2.3) 04/20/17 02:45 Total Bilirubin 5.40 mg/dL (0.1-1.2) H 04/20/17 02:45 Direct Bilirubin 4.2 mg/dL (0-0.2) H 04/20/17 02:45 Indirect Bilirubin 1.2 mg/dL 04/20/17 02:45 AST 586 units/L (5-40) H 04/20/17 02:45 ALT 430 units/L (7-56) H 04/20/17 02:45 Alkaline Phosphatase 117 units/L (35-129) 04/20/17 02:45 Ammonia 32.0 umol/L (25-60) 04/20/17 05:10 Troponin T 0.087 ng/mL (0.00-0.029) H D 04/18/17 04:54 Total Protein 5.9 g/dL (6.3-8.2) L 04/20/17 02:45 Albumin 1.7 g/dL (3.9-5) L 04/20/17 02:45 Albumin/Globulin Ratio 0.4 % 04/20/17 02:45 Triglycerides 106 mg/dL (2-149) 04/17/17 17:20 Cholesterol 108 mg/dL (50-199) 04/17/17 17:20 LDL Cholesterol Direct 78 mg/dL (50-130) 04/17/17 17:20 HDL Cholesterol 9 mg/dL (40-59) L 04/17/17 17:20 Cholesterol/HDL Ratio 12.00 % 04/17/17 17:20 Lipase 121 units/L (13-60) H 04/20/17 02:45 HCG, Qual Negative (Negative) 04/19/17 15:03 Hep Bs Antigen Non-reactive (Negative) 04/20/17 15:22 Hepatitis C Antibody Non-reactive (NonReactive) 04/20/17 15:22
--- NOTE | 2017-04-20 18:19 | Cat Scan Report ---
FINAL REPORT PROCEDURE: CT LOWER EXTREMITY LT WO CON TECHNIQUE: Computerized axial tomography of the bilateral was performed without contrast. HISTORY: bullous cellulitis, r/o necrotizing fasciatis COMPARISON: No prior studies are available for comparison. FINDINGS: Bony structures including marrow spaces: Normal. Neurovascular structures: Normal. Soft tissues: There is diffuse induration of bilateral lower extremity subcutaneous tissues without evidence of a focal fluid collection. The induration is predominantly superficial to the deep fascia. Only mild degree induration is noted immediately deep to the deep fascia in bilateral upper thighs. There is no suggestion of involvement of the muscular structures as visualized on this noncontrast study. Joint space: Mild degree effusions are noted in bilateral knee joints. A [place] bulb is in situ and the noted bladder is empty. Bladder xiao appear thickened. Mild degree of free fluid is noted in the pelvic cavity. IMPRESSION: This study is limited due to lack of contrast. Diffuse induration of subcutaneous soft tissues are noted throughout bilateral lower extremities. Mild degree of the fat induration is noted immediately deep to the deep fascia in bilateral upper thighs. Mild degree bilateral knee joint effusions No evidence of any focal fluid collection Mild degree free fluid in the pelvic cavity. Thickened urinary bladder xiao are most likely secondary to lack of distension. Cystitis cannot be excluded.
--- NOTE | 2017-04-20 18:25 | Cat Scan Report ---
FINAL REPORT PROCEDURE: CT ABDOMEN PELVIS WO CON TECHNIQUE: Computerized axial tomography of the abdomen and pelvis was performed without intravenous contrast. This study is performed without intravascular contrast material and its sensitivity for abdominal and pelvic pathology, including neoplasms, inflammation, abscess, free fluid, thrombosis, arterial dissection and infarction, is reduced compared with a contrast enhanced study. HISTORY: elevated lipase, LFTs, WBC trending up COMPARISON: No prior studies are available for comparison. FINDINGS: There are mild degree bilateral pleural effusions., Spleen, and adrenal glands are within normal limits. Bilateral kidneys are normal in density without calculi or hydronephrosis. There is mild degree of bilateral perinephric fat stranding. Minimal free fluid is noted in the pelvic cavity. A [place] bulb is in situ. Urinary bladder xiao appear thickened. There is no free air. Mild degree hyperdensity is identified in the dependent portion of gallbladder which is normally distended. Small bowel loops are within normal limits. Moderate degree subcutaneous fat induration is identified involving bilateral lateral xiao of the abdomen, pelvis and hips. IMPRESSION: Mild degree bilateral pleural effusions Minimal free fluid in the pelvic cavity. [place] bulb is in situ within empty urinary bladder. Bladder xiao appear thickened. Cystitis cannot be excluded. Evidence of cholelithiasis. Subcutaneous fat induration as described above..
--- NOTE | 2017-04-20 18:29 | Cat Scan Report ---
FINAL REPORT PROCEDURE: CT CHEST WO CON TECHNIQUE: Computerized axial tomography of the chest was performed without contrast material. This study is performed without intravenous contrast and the sensitivity for pathology, including neoplasms, adenopathy, abscess, pulmonary embolism and aortic dissection, is reduced. HISTORY: SOB COMPARISON: No prior studies are available for comparison. TECHNICAL QUALITY: Satisfactory. FINDINGS: Heart and pericardium: Coronary arterial stents are identified.. Thoracic aorta: Normal. Pulmonary vasculature: Normal. Lymph nodes: Calcified lymph nodes are noted in the right hilum and in the as ago esophageal recess.. Lungs: Atelectatic changes are noted in the dependent portions adjacent to pleural effusions. 5 millimeter calcified granuloma is noted involving right lower lobe.. Pleural space: Mild degree bilateral pleural effusions are noted.. Musculoskeletal structures: No significant abnormality. Upper abdominal structures: No significant abnormality. IMPRESSION: Mild bilateral pleural effusions. Calcified lymph nodes in the right hilum, and as ago esophageal recess and a calcified granuloma in the right lower lobe are consistent with old healed granulomatous disease..
--- NOTE | 2017-04-20 18:35 | Consultation ---
History of Present Illness Consult date: 04/20/17 Requesting physician: TRU NUR Chief complaint: left leg infection - History of present illness History of present illness: 41 yo f with hx of poorly controlled DM, CAD, CHF presented to hospital with c/ o lower extremity pain and infection. She states the pain has been increasing over the last 2 weeks and she is unable to walk on that side. She states she had a subjective fever. She denies trauma to the area. She started developing blisters on the left leg which have been draining clear fluid and the leg has been swollen. The pain is a 10/10 in severity. She denies cp, sob, n/v, abd pain Past History Past Medical History: diabetes, heart failure, hypertension, hyperlipidemia Past Surgical History: Other (status post 2 stent) Social history: full code. denies: smoking, alcohol abuse, prescription drug abuse, IV drug use Family history: CAD Medications and Allergies Allergies Allergy/AdvReac Type Severity Reaction Status Date / Time No Known Allergies Allergy Verified 04/17/17 22:18 Home Medications Medication Instructions Recorded Confirmed Last Taken Type Furosemide [Lasix TAB] 40 mg PO QDAY #30 tablet 02/03/17 04/18/17 1 Day Ago Rx Active Meds: Active Medications Acetaminophen (Tylenol) 500 mg PO Q4H PRN PRN Reason: Pain, Mild (1-3) Aspirin (Baby Aspirin) 81 mg PO QDAY [facility] Last Admin: 04/20/17 11:08 Dose: 81 mg Carvedilol (Coreg) 3.125 mg PO BID [facility] Last Admin: 04/20/17 11:08 Dose: 3.125 mg Dextrose (D50w (25gm) Syringe) 50 ml IV PRN PRN PRN Reason: Hypoglycemia Furosemide (Lasix) 20 mg PO 0600,1800 [facility] Last Admin: 04/20/17 18:06 Dose: 20 mg Piperacillin Sod/Tazobactam Sod (Zosyn/Ns 4.5gm/100ml) 4.5 gm in 100 mls @ 200 mls/hr IV Q8HR [facility] PRN Reason: Protocol Last Admin: 04/20/17 15:24 Dose: 200 mls/hr Clindamycin HCl (Cleocin 600 Mg/50 Ml) 600 mg in 50 mls @ 100 mls/hr IV Q8H [facility] PRN Reason: Protocol Last Admin: 04/20/17 15:23 Dose: 100 mls/hr Vancomycin HCl 1,500 mg/ (Sodium Chloride) 515 mls @ 333.333 mls/hr IV Q12H [facility] Last Admin: 04/20/17 11:08 Dose: 333.333 mls/hr Insulin Aspart (Novolog) 0 units SUB-Q QACHS [facility] PRN Reason: Protocol Last Admin: 04/20/17 17:34 Dose: Not Given Insulin Aspart (Novolog) 0 units SUB-Q ACHS [facility] PRN Reason: Protocol Last Admin: 04/20/17 17:34 Dose: Not Given Insulin Detemir (Levemir) 10 units SUB-Q QHS [facility] Last Admin: 04/19/17 21:41 Dose: 10 units Morphine Sulfate (Morphine) 2 mg IV Q4H PRN PRN Reason: Pain, Moderate (4-6) Last Admin: 04/20/17 15:24 Dose: 2 mg Vancomycin HCl (Vancomycin Pharmacy To Dose) 1 each IV PKCONSULT [facility] PRN Reason: Protocol Review of Systems All systems: negative (see HPI) Exam Vital Signs Temp Pulse BP Pulse Ox 97.4 F L 127 H 126/85 100 04/17/17 16:41 04/17/17 16:41 04/17/17 16:41 04/17/17 16:41 Narrative exam: Gen: AAOx3. NAD. anxious CV: S1, S2+ Resp: NO audible wheezes Abd: soft, NT, ND, obese Ext: b/l pitting edema, L 3+, R 2+. Bullae on Left lower extremity with streaking cellulitis tracking thigh. Clear drainage from bullae. Large area of necrotic appearing skin on posterior aspect of calf without obvious fluctuance. Calf is soft but entire lower leg painful on palpation. Foot warm with palpable distal pulse. Motor and sensory are intact Results - Labs 04/20/17 02:45 04/20/17 02:45 Abnormal lab results 04/19/17 04/20/17 04/20/17 Range/Units 21:46 02:45 02:45 WBC 21.2 H (4.5-11.0) K/mm3 RBC 5.93 H (3.65-5.03) M/mm3 Hgb 14.9 H (10.1-14.3) gm/dl Hct 47.3 H (30.3-42.9) % MCH 25 L (28-32) pg RDW 20.0 H (13.2-15.2) % Seg Neuts % (Manual) 81.0 H (40.0-70.0) % Lymphocytes % (Manual) 4.0 L (13.4-35.0) % Seg Neutrophils # Man 17.2 H (1.8-7.7) K/mm3 Lymphocytes # (Manual) 0.8 L (1.2-5.4) K/mm3 Sodium 131 L (137-145) mmol/L Chloride 84.9 L (98-107) mmol/L BUN 28 H (7-17) mg/dL Creatinine 0.6 L (0.7-1.2) mg/dL Glucose 171 H (65-100) mg/dL POC Glucose 182 H (70-105) Calcium 8.2 L (8.4-10.2) mg/dL Total Bilirubin 5.40 H (0.1-1.2) mg/dL Direct Bilirubin 4.2 H (0-0.2) mg/dL AST 586 H (5-40) units/L ALT 430 H (7-56) units/L Total Protein 5.9 L (6.3-8.2) g/dL Albumin 1.7 L (3.9-5) g/dL Lipase 121 H (13-60) units/L Diabetes panel 04/20/17 Range/Units 02:45 Sodium 131 L (137-145) mmol/L Potassium 4.5 D (3.6-5.0) mmol/L Chloride 84.9 L (98-107) mmol/L Carbon Dioxide 23 (22-30) mmol/L BUN 28 H (7-17) mg/dL Creatinine 0.6 L (0.7-1.2) mg/dL Glucose 171 H (65-100) mg/dL Calcium 8.2 L (8.4-10.2) mg/dL AST 586 H (5-40) units/L ALT 430 H (7-56) units/L Alkaline Phosphatase 117 (35-129) units/L Total Protein 5.9 L (6.3-8.2) g/dL Albumin 1.7 L (3.9-5) g/dL Calcium panel 04/20/17 Range/Units 02:45 Calcium 8.2 L (8.4-10.2) mg/dL Albumin 1.7 L (3.9-5) g/dL Pituitary panel 04/20/17 Range/Units 02:45 Sodium 131 L (137-145) mmol/L Potassium 4.5 D (3.6-5.0) mmol/L Chloride 84.9 L (98-107) mmol/L Carbon Dioxide 23 (22-30) mmol/L BUN 28 H (7-17) mg/dL Creatinine 0.6 L (0.7-1.2) mg/dL Glucose 171 H (65-100) mg/dL Calcium 8.2 L (8.4-10.2) mg/dL Adrenal panel 04/20/17 Range/Units 02:45 Sodium 131 L (137-145) mmol/L Potassium 4.5 D (3.6-5.0) mmol/L Chloride 84.9 L (98-107) mmol/L Carbon Dioxide 23 (22-30) mmol/L BUN 28 H (7-17) mg/dL Creatinine 0.6 L (0.7-1.2) mg/dL Glucose 171 H (65-100) mg/dL Calcium 8.2 L (8.4-10.2) mg/dL Total Bilirubin 5.40 H (0.1-1.2) mg/dL AST 586 H (5-40) units/L ALT 430 H (7-56) units/L Alkaline Phosphatase 117 (35-129) units/L Total Protein 5.9 L (6.3-8.2) g/dL Albumin 1.7 L (3.9-5) g/dL - Imaging Additional studies: CT scan Lower extremity Assessment and Plan 41 y/o F with 1. sepsis 2. LLE cellulitis, necrotic skin LLE, r/o necrotizing fascitis 3. malnutrition Plan: 1. NPO 2. IVF 3. c/w current abx 4. Patient physical exam concerning for nec fasc with pain out of proportion to exam and necrotic area of skin on posterior calf -> will need surgical debridement of necrotic skin and exploration for possibly more necrotic tissue. 5. strict I/Os 6. all risks and benefits discussed with patient and her family at the bedside, agree to proceed, consent signed 7. c/w strict glucose control
--- NOTE | 2017-04-20 20:27 | Anesthesia Consultation ---
Anesthesia Consult and Med Hx Date of service: 04/20/17 - Airway Anesthetic Teeth Evaluation: Poor ROM Head & Neck: Adequate Mental/Hyoid Distance: Adequate Mallampati Class: Class III Intubation Access Assessment: Possibly Difficult - Pulmonary Exam CTA: Yes - Cardiac Exam Cardiac Exam: RRR - Pre-Operative Health Status ASA Pre-Surgery Classification: ASA4, Emergency Proposed Anesthetic Plan: General - Pre-Anesthesia Comment Pre-Anesthesia Comments: Necrotizing fasciitis, Sepsis, Jaundice with elevated liver enzymes. Elevated troponin in setting of heart failure and ITALIA. Patient is NPO and denies recent nausea. - Pulmonary Hx Smoking: No - Cardiovascular System Hx Hypertension: Yes Hx Coronary Artery Disease: Yes (cardiomyopathy EF 20-25%.H/O heart failure.) Hx Heart Attack/AMI: Yes (stents) Hx Angina: Yes (rare) Hx Percutaneous Transluminal Coronary Angioplasty (PTCA): Yes - Gastrointestinal Hx Gastroesophageal Reflux Disease: No - Endocrine Hx Renal Disease: Yes (ITALIA) Hx End Stage Renal Disease: No Hx Liver Disease: Yes (fatty liver, INR 1.65) Hx Insulin Dependent Diabetes: Yes (severe retinopathy) - Other Systems Hx Alcohol Use: No Hx Substance Use: No Hx Obesity: Yes - Additional Comments Anesthesia Medical History Comments: hyperlipidemia. albumin 1.7. Patient is at significantly increased risk from anesthesia.
[2017-04-20] MEDS ORDERED: AMIDATE IV ONE (20:36)
[2017-04-20] MEDS ORDERED: PEPCID IV ONE (20:37)
[2017-04-20] MEDS ORDERED: XYLOCAINE MPF 2% ONE (20:39)
[2017-04-20] MEDS ORDERED: DILAUDID ONE (20:39)
[2017-04-20] MEDS ORDERED: ZOFRAN ONE (20:40)
[2017-04-20] MEDS ORDERED: NACL 0.9% 1000 ML 1,000 ML ONE ×2 (20:45→22:38)
[2017-04-20] MEDS ORDERED: ZOFRAN IV PRN (20:48)
[2017-04-20] MEDS ORDERED: DILAUDID IV PRN (20:48)
--- NOTE | 2017-04-20 20:48 | Anesthesia Day of Surgery ---
Anesthesia Day of Surgery - Day of Surgery Patient Examined: Yes Patient H&P Reviewed: Yes Patient is NPO: Yes Beta Blockers: Yes Cardiac Clearance: No (Cardiology is following patient)
[2017-04-20] MEDS ORDERED: PEPCID IV NR (21:00)
[2017-04-20] MEDS ORDERED: REGLAN ONE (21:26)
[2017-04-20] MEDS ORDERED: NEOSTIGMINE ONE (21:30)
[2017-04-20] MEDS ORDERED: TORADOL ONE (21:30)
[2017-04-20] MEDS ORDERED: NEO SYNEPHRINE/NS Syringe(OR USE) IV ONE (21:30)
[2017-04-20] MEDS ORDERED: VANCOMYCIN/NS 1 GM/250 ML 1 GM/250 ML BAG IV ONE (21:37)
[2017-04-20] MEDS ORDERED: ePHEDrine SULFATE ONE (21:39)
--- NOTE | 2017-04-20 22:21 | Event Note ---
Date: 04/20/[address] Joseph that patient was bradycardic post surgery and will need ICU transfer for intensive monitoring.
--- NOTE | 2017-04-20 22:30 | Operative Report ---
Operative Report Operative Report: Date of Operation: 04/20/2017 Preoperative diagnosis: Necrotizing fasciitis left lower extremity Postoperative diagnosis: Same as above Procedure performed: Debridement of necrotic skin and subcutaneous tissue of left lower extremity Surgeon: John Joseph DO Anesthesia: LMA Specimens: Necrotic tissue Estimated blood loss: Minimal Complications: None Disposition: Stable to PACU HPI an indication: This is a 41-year-old female with a history of uncontrolled diabetes, hypertension, CAD, CHF who presented to the hospital with complaints of left lower extremity pain. She's been treated for a cellulitis, however exam today it was noted that she had some necrotic skin and tracking cellulitis, with pain out of proportion to exam. She is therefore clinically diagnosed with necrotizing fasciitis of her left lower extremity. All risks and benefits of surgery were discussed with her family and the patient and he agreed to proceed, consent was signed and placed on chart. Procedure in detail: The patient was identified in the preoperative area and taken back to the operating room placed on the table in supine position. After anesthesia was induced the left leg was placed in the candycane in order to elevate it. The leg was then prepped and draped in usual sterile fashion and timeout was performed. There is a large area of necrotic tissue on the posterior aspect of the calf and Small area of necrotic tissue in the anteromedial aspect. These measure approximately 9 x 4 cm, 2 x 2 centimeters respectively. I first turned my attention to the larger area and excised the necrotic skin with a 15 blade down to the subcutaneous tissue. There was no bleeding from the skin. This skin along with the underlying necrotic subcutaneous tissue was excised with sharp dissection using the scalpel. The fascia was opened overlying the muscle and the muscle did appear red and viable. There was some serous drainage from the wound, no pus. The wound was irrigated and measured 11 x 5 cm approximately at the end of the debridement. Next we turned our attention to the smaller wound, this was excised with the 15 blade along with chronic subcutaneous tissue. The fascia was encountered and no additional necrotic tissue was identified. There was no purulent drainage.The wound was irrigated. It measured 3 x 3 cm. Both wounds were packed with Betadine soaked Curlex, covered with 4 x 4 gauze, ABDs, and wrapped with Kerlix. The patient was awoken from anesthesia and extubated. At the end of the case all sponge instrument and sharp counts were correct 2.
[2017-04-20] MEDS ORDERED: D50W (25GM) Syringe IV ONE ×3 (22:55→23:03)
--- NOTE | 2017-04-20 22:55 | Post Anesthesia Evaluation ---
- Post Anesthesia Evaluation Patient Participated: Yes Airway Patent: Yes Stable Respiratory Function: Yes Temp > 96.8F: Yes Pain Manageable: Yes Adequeate Hydration: Yes Anesthesia Complications: No Other Comments: Will admit to ICU.
[2017-04-20] MEDS ORDERED: NACL 0.9% 500 ML 500 ML IV ONE (23:18)
[2017-04-21 05:17] LABS: Hematocrit 47.8 % (30.3-42.9); Hemoglobin 16.1 gm/dl (10.1-14.3); Mean Corpuscular HGB Conc 34 % (30-34); Mean Corpuscular Volume 76 fl (79-97); Red Blood Count 6.27 M/mm3 (3.65-5.03); Red Cell Distribution Width 19.5 % (13.2-15.2)
[2017-04-21 05:18] LABS: INR 1.31 (0.87-1.13)
[2017-04-21] MEDS: CLEOCIN 600 MG/50 mL 600 MG/50 ML BAG IV SCH ×5 (05:29→22:02)
[2017-04-21 05:37] LABS: Mean Corpuscular Hemoglobin 26 pg (28-32); White Blood Count 25.7 K/mm3 (4.5-11.0)
[2017-04-21 05:42] LABS: Albumin/Globulin Ratio 0.5 %; Alkaline Phosphatase 140 units/L (35-129); BUN/Creatinine Ratio 51.66; Blood Urea Nitrogen 31 mg/dL (7-17); Calcium 7.6 mg/dL (8.4-10.2); Carbon Dioxide 21 mmol/L (22-30); Chloride 92.4 mmol/L (98-107); Glucose 77 mg/dL (65-100); Lipase 38 units/L (13-60); Sodium 131 mmol/L (137-145); Total Protein 5.8 g/dL (6.3-8.2)
[2017-04-21] MEDS: ZOSYN/NS 4.5GM/100ML 4.5 GM/100 ML VIAL IV SCH ×4 (05:49→22:02)
[2017-04-21 06:13] LABS: Blastocytes % (Manual) 0 %; Eosinophils % (Manual) 0 % (0.0-4.3); Hypochromasia 1+
[2017-04-21 06:14] LABS: Diff Status Complete; Macrocytosis 1+; Platelet Estimate Consistent w Auto
[2017-04-21 06:15] LABS: Platelet Count 291 K/mm3 (140-440)
[2017-04-21] MEDS: LASIX PO SCH ×2 (06:35→18:36)
[2017-04-21] MEDS: VANCOMYCIN 1,500 MG in NACL 0.9% 500 ML 500 ML IV SCH ×3 (07:03→19:04)
[2017-04-21] MEDS: MORPHINE IV PRN ×3 (07:28→22:03)
[2017-04-21] MEDS ORDERED: MORPHINE ONE (07:31)
[2017-04-21 07:55] LABS: Alanine Aminotransferase 345 units/L (7-56); Anion Gap 22 mmol/L; Potassium 4.7 mmol/L (3.6-5.0)
--- NOTE | 2017-04-21 09:14 | Progress Note ---
Assessment and Plan Assessment and plan: 40 years old obese female with history of CAD with MO and PCI with stent placements 2, hypertension, chronic heart failure, diabetes hyperlipidemia on no medications for more than one year due to lack of insurance, presented for chest pain, significant shortness of breath that worsened progressively, bilateral lower extremity edema with recent superimposed redness and tenderness of left leg 1. Sepsis on admission leukocytosis, tachycardia, lower extremity cellulitis, coagulopathy , elevated lactic acid Blood cultures obtained Antibiotic regimen adjusted for broad-spectrum coverage, currently on clindamycin, Zosyn and vancomycin 2. Cellulitis LLE / ? Necrotizing fasciitis Erythema/warmth/tenderness from left knee to mid calf superimposed on significant edema Doppler negative for SVT/DVT On broad spectrum antibiotics Pain out of proportion, WBC trended up, developed discoloration/bulla formation/ necrotic tissue 04/20; suspicion for necrotizing fasciitis raised; CT leg obtained emergently; ID and Surgery consulted; underwent surgical debridement with excision of necrotic tissue; tissue culture obtained; remains on same antibiotics with ID agreement; their help much appreciated Consult IV team for PICC placement 3. Jaundice/elevated LFTs RUQ US obtained and showed no gallstones, trace ascites TG wnl Statin d/c Lipase elevated yesterday, but noow back within normal limits CT abdomen wo contrast obtained to r/o pancreatitis GI consulted and additional workup in progress (hepatitis panel - negative, antimitochondrial antibodies - pending) Trend LFTs 4. Hypochloremic Hyponatremia Na+ 120 on admission Likely dilutional due to heart failure Received Tolvaptan Improved, today 131 5. Hyperkalemia/hypokalemia 5.9 on admission, medically treated, then normal limits; became hypokalemic, replaced; now within normal limits Hypomagnesemia - replaced Monitor electrolytes 6. Metabolic acidosis Likely due to sepsis and acute kidney injury Monitor 7. Acute kidney injury Likely secondary to vasomotor nephropathy Now creatinine within normal limits Continue to monitor 8. Coagulopathy No history of anticoagulant use Abnormal LFTs ? Cardiac cirrhosis Improving 9. D-dimer elevated, WBC trended up Doppler lower extremity negative for DVT CTA chest to rule out PE was ordered, but unable to have contrast; sats 98-100% on RA 10. Acute on chronic combined systolic/diastolic heart failure Echo with EF 20-25% Continue diuresis withLasix On low dose BB as BP borderline low No ACEI due to renal insufficiency and hyperkalemia Monitor I's and O's Cardiology consulted and following 11. CAD History of MO, PCI with stent placementx2 Started on aspirin, BB, statin, pravastatin had to be discontinued due to elevated LFTs No ARLYN inhibitor due to renal insuf, K+abn 12. Elevated troponin With no EKG changes Likely in the setting of acute heart failure and kidney injury 13. Hypertension BP borderline low Only on Lasix, BB for heart failure treatment 14. Uncontrolled diabetes type 2 Hemoglobin A1c 11 Started on long-acting insulin and SSI based on Accu-Cheks Monitor and adjust regimen 15. Hyperlipidemia Started on statin, but need to hold it due to transaminitis 16. Obesity/CARLOS A/OHS When medically stable and discharged will need pulmonary follow-up for PFTs and sleep study as well as counseling regarding importance of losing weight 17. Severe protein calorie monitor nutrition Dietitian consulted 18. Debility Consult PT 19. DVT/GI prophylaxis History Interval history: ls/p emergent debridment left leg wounds last night; doing well this morning, still having pain, but improved Hospitalist Physical - Constitutional Vitals: Temp Pulse Resp BP Pulse Ox 96.5 F L 90 18 96/66 96 04/21/17 00:00 04/21/17 04:00 04/21/17 07:28 04/21/17 04:00 04/21/17 04:00 General appearance: Present: no acute distress, obese - EENT Eyes: Present: PERRL, EOM intact, scleral icterus. Absent: conjunctival injection - Neck Neck: Present: supple. Absent: enlarged thyroid, masses or JVD - Respiratory Respiratory effort: normal Respiratory: bilateral: diminished, negative: rhonchi, wheezing - Cardiovascular Rhythm: other (tachycardic) Heart Sounds: Present: S1 & S2. Absent: systolic murmur - Extremities Extremities: no ischemia, abnormal (l leg dressing in place) Extremity abnormal: edema - Abdominal General gastrointestinal: soft, non-tender, non-distended, normal bowel sounds - Psychiatric Psychiatric: cooperative - Neurologic Neurologic: CNII-XII intact, no focal deficits Results - Labs CBC & Chem 7: 04/21/17 04:51 04/21/17 04:51 Labs: Laboratory Last Values WBC 25.7 K/mm3 (4.5-11.0) H 04/21/17 04:51 RBC 6.27 M/mm3 (3.65-5.03) H 04/21/17 04:51 Hgb 16.1 gm/dl (10.1-14.3) H 04/21/17 04:51 Hct 47.8 % (30.3-42.9) H 04/21/17 04:51 MCV 76 fl (79-97) L 04/21/17 04:51 MCH 26 pg (28-32) L 04/21/17 04:51 MCHC 34 % (30-34) 04/21/17 04:51 RDW 19.5 % (13.2-15.2) H 04/21/17 04:51 Plt Count 291 K/mm3 (140-440) 04/21/17 04:51 Lymph % (Auto) [employer] 04/18/17 04:54 [place]tinger % (Auto) [employer] 04/18/17 04:54 Eos % (Auto) [employer] 04/18/17 04:54 Baso % (Auto) [employer] 04/18/17 04:54 Lymph # [employer] 04/18/17 04:54 Hettinger # [employer] 04/18/17 04:54 Eos # [employer] 04/18/17 04:54 Baso # [employer] 04/18/17 04:54 Add Manual Diff Complete 04/21/17 04:51 Total Counted 100 04/21/17 04:51 Seg Neutrophils % [employer] 04/20/17 02:45 Seg Neuts % (Manual) 87.0 % (40.0-70.0) H 04/21/17 04:51 Band Neutrophils % 8.0 % 04/21/17 04:51 Lymphocytes % (Manual) 2.0 % (13.4-35.0) L 04/21/17 04:51 Reactive Lymphs % (Man) 0 % 04/21/17 04:51 Monocytes % (Manual) 3.0 % (0.0-7.3) 04/21/17 04:51 Eosinophils % (Manual) 0 % (0.0-4.3) 04/21/17 04:51 Basophils % (Manual) 0 % (0.0-1.8) 04/20/17 02:45 Metamyelocytes % 0 % 04/21/17 04:51 Myelocytes % 0 % 04/21/17 04:51 Promyelocytes % 0 % 04/21/17 04:51 Blast Cells % 0 % 04/21/17 04:51 Nucleated RBC % 4.0 % (0.0-0.9) H 04/21/17 04:51 Seg Neutrophils # [employer] 04/18/17 04:54 Seg Neutrophils # Man 22.4 K/mm3 (1.8-7.7) H 04/21/17 04:51 Band Neutrophils # 2.1 K/mm3 04/21/17 04:51 Lymphocytes # (Manual) 0.5 K/mm3 (1.2-5.4) L 04/21/17 04:51 Abs React Lymphs (Man) 0.0 K/mm3 04/21/17 04:51 Monocytes # (Manual) 0.8 K/mm3 (0.0-0.8) 04/21/17 04:51 Eosinophils # (Manual) 0.0 K/mm3 (0.0-0.4) 04/21/17 04:51 Basophils # (Manual) 0.0 K/mm3 (0.0-0.1) 04/21/17 04:51 Metamyelocytes # 0.0 K/mm3 04/21/17 04:51 Myelocytes # 0.0 K/mm3 04/21/17 04:51 Promyelocytes # 0.0 K/mm3 04/21/17 04:51 Blast Cells # 0.0 K/mm3 04/21/17 04:51 WBC Morphology Not Reportable 04/21/17 04:51 Hypersegmented Neuts Not Reportable 04/21/17 04:51 Hyposegmented Neuts Not Reportable 04/21/17 04:51 Hypogranular Neuts Not Reportable 04/21/17 04:51 Smudge Cells Not Reportable 04/21/17 04:51 Toxic Granulation Not Reportable 04/21/17 04:51 Toxic Vacuolation Not Reportable 04/21/17 04:51 Dohle Bodies Not Reportable 04/21/17 04:51 Pelger-Huet Anomaly Not Reportable 04/21/17 04:51 Ariel Rods Not Reportable 04/21/17 04:51 Platelet Estimate Consistent w auto 04/21/17 04:51 Clumped Platelets Not Reportable 04/21/17 04:51 Plt Clumps, EDTA Not Reportable 04/21/17 04:51 Large Platelets Not Reportable 04/21/17 04:51 Giant Platelets Not Reportable 04/21/17 04:51 Platelet Satelliting Not Reportable 04/21/17 04:51 Plt Morphology Comment Not Reportable 04/21/17 04:51 RBC Morphology Not Reportable 04/21/17 04:51 Dimorphic RBCs Not Reportable 04/21/17 04:51 Polychromasia Not Reportable 04/21/17 04:51 Hypochromasia 1+ 04/21/17 04:51 Poikilocytosis Not Reportable 04/21/17 04:51 Anisocytosis Not Reportable 04/21/17 04:51 Microcytosis Not Reportable 04/21/17 04:51 Macrocytosis 1+ 04/21/17 04:51 Spherocytes Not Reportable 04/21/17 04:51 Pappenheimer Bodies Not Reportable 04/21/17 04:51 Sickle Cells Not Reportable 04/21/17 04:51 Target Cells Not Reportable 04/21/17 04:51 Tear Drop Cells Not Reportable 04/21/17 04:51 Ovalocytes Not Reportable 04/21/17 04:51 Helmet Cells Not Reportable 04/21/17 04:51 [place] Bodies Not Reportable 04/21/17 04:51 [place] Rings Not Reportable 04/21/17 04:51 Linda Cells Not Reportable 04/21/17 04:51 Bite Cells Not Reportable 04/21/17 04:51 Crenated Cell Not Reportable 04/21/17 04:51 Elliptocytes Not Reportable 04/21/17 04:51 Acanthocytes (Spur) Not Reportable 04/21/17 04:51 Rouleaux Not Reportable 04/21/17 04:51 Hemoglobin C Crystals Not Reportable 04/21/17 04:51 Schistocytes Not Reportable 04/21/17 04:51 Malaria parasites Not Reportable 04/21/17 04:51 Joselo Bodies Not Reportable 04/21/17 04:51 Hem Pathologist Commnt No 04/21/17 04:51 PT 16.9 Sec. (12.2-14.9) H 04/21/17 04:51 INR 1.31 (0.87-1.13) H 04/21/17 04:51 APTT 33.3 Sec. (24.2-36.6) 04/19/17 07:00 D-Dimer 1903.45 ng/mlDDU (0-234) H 04/18/17 14:36 Sodium 131 mmol/L (137-145) L 04/21/17 04:51 Potassium 4.7 mmol/L (3.6-5.0) 04/21/17 04:51 Chloride 92.4 mmol/L (98-107) L 04/21/17 04:51 Carbon Dioxide 21 mmol/L (22-30) L 04/21/17 04:51 Anion Gap 22 mmol/L 04/21/17 04:51 BUN 31 mg/dL (7-17) H 04/21/17 04:51 Creatinine 0.6 mg/dL (0.7-1.2) L 04/21/17 04:51 Estimated GFR > 60 ml/min 04/21/17 04:51 BUN/Creatinine Ratio 51.66 % 04/21/17 04:51 Glucose 77 mg/dL (65-100) 04/21/17 04:51 POC Glucose 71 (70-105) 04/20/17 16:27 Hemoglobin A1c 11.3 % (4-6) H 04/17/17 23:55 Lactic Acid 4.00 mmol/L (0.7-2.0) H* 04/18/17 14:36 Calcium 7.6 mg/dL (8.4-10.2) L 04/21/17 04:51 Magnesium 2.00 mg/dL (1.7-2.3) 04/20/17 02:45 Total Bilirubin 6.10 mg/dL (0.1-1.2) H 04/21/17 04:51 Direct Bilirubin 4.2 mg/dL (0-0.2) H 04/20/17 02:45 Indirect Bilirubin 1.2 mg/dL 04/20/17 02:45 AST 364 units/L (5-40) H 04/21/17 04:51 ALT 345 units/L (7-56) H 04/21/17 04:51 Alkaline Phosphatase 140 units/L (35-129) H 04/21/17 04:51 Ammonia 31.0 umol/L (25-60) 04/21/17 04:51 Troponin T 0.087 ng/mL (0.00-0.029) H D 04/18/17 04:54 C-Reactive Protein 22.70 mg/dL (0.00-1.30) H 04/20/17 17:07 Total Protein 5.8 g/dL (6.3-8.2) L 04/21/17 04:51 Albumin 2.0 g/dL (3.9-5) L 04/21/17 04:51 Albumin/Globulin Ratio 0.5 % 04/21/17 04:51 Triglycerides 106 mg/dL (2-149) 04/17/17 17:20 Cholesterol 108 mg/dL (50-199) 04/17/17 17:20 LDL Cholesterol Direct 78 mg/dL (50-130) 04/17/17 17:20 HDL Cholesterol 9 mg/dL (40-59) L 04/17/17 17:20 Cholesterol/HDL Ratio 12.00 % 04/17/17 17:20 Lipase 38 units/L (13-60) 04/21/17 04:51 HCG, Qual Negative (Negative) 04/19/17 15:03 Hep Bs Antigen Non-reactive (Negative) 04/20/17 15:22 Hepatitis C Antibody Non-reactive (NonReactive) 04/20/17 15:22 Blood Type A POSITIVE 04/20/17 20:12 Antibody Screen Negative 04/20/17 20:12
--- NOTE | 2017-04-21 10:22 | Progress Note ---
Assessment and Plan 41 y/o F s/p debridement LLE necrotizing fasciitis, POD 1 1. necrotizing fasciitis, cellulitis of LLE 2. sepsis 3. CAD 4. CHF 5. HTN PLan: 1. continue current abx, ID following 2. OOB to chair 3. pain control PRN 4. leave dressing intact, will change in am 5. continue IVF 6. careful BP monitoring 7. reg diet 8. recommend PICC c/s for poor IV access 9. recommend PT c/s 10. patient will likely need plastic surgery c/s once stable to evaluate LLE wound for skin graft 11. f/u OR cultures Subjective Date of service: 04/21/17 Patient Reports: Positive: feels better (Pt seen and examined. Labile BP overnight. Patient states she feels better. She is tolerating regular diet without difficulty. Pain in leg is significantly improved. ) Objective Vital Signs - 12hr 04/20/17 04/20/17 04/20/17 22:20 22:25 22:30 Temperature Pulse Rate 99 H 96 H 98 H Respiratory 11 L 13 17 Rate Blood Pressure 97/60 91/65 80/59 Blood Pressure [Left] O2 Sat by Pulse 98 98 99 Oximetry 04/20/17 04/20/17 04/20/17 22:35 22:45 23:00 Temperature Pulse Rate 96 H 95 H 94 H Respiratory 17 15 15 Rate Blood Pressure 90/62 92/61 99/62 Blood Pressure [Left] O2 Sat by Pulse 98 97 97 Oximetry 04/21/17 04/21/17 04/21/17 00:00 01:00 02:00 Temperature 96.5 F L Pulse Rate 92 H 88 88 Respiratory 16 19 13 Rate Blood Pressure 107/64 Blood Pressure 94/84 91/63 [Left] O2 Sat by Pulse 99 98 96 Oximetry 04/21/17 04/21/17 04:00 07:28 Temperature Pulse Rate 90 Respiratory 16 18 Rate Blood Pressure Blood Pressure 96/66 [Left] O2 Sat by Pulse 96 Oximetry - General physical appearance Narrative Exam: Gen: AAOx3. NAD CV: S1, S2+ Resp: CTAB, no w/r/r Abd: soft Ext: RLE without cellulitis, 1+ edema. LLE with lower leg dressing intact with betadine staining. Calf is soft and minimally tender near wound, no pain along the rest of the leg or foot which is significantly improved from exam yesterday. Warm lower extremity with 3+ pitting edema. Motor and sensory intact. - Labs 04/21/17 04:51 04/21/17 04:51 Diabetes panel 04/21/17 Range/Units 04:51 Sodium 131 L (137-145) mmol/L Potassium 4.7 (3.6-5.0) mmol/L Chloride 92.4 L (98-107) mmol/L Carbon Dioxide 21 L (22-30) mmol/L BUN 31 H (7-17) mg/dL Creatinine 0.6 L (0.7-1.2) mg/dL Glucose 77 (65-100) mg/dL Calcium 7.6 L (8.4-10.2) mg/dL AST 364 H (5-40) units/L ALT 345 H (7-56) units/L Alkaline Phosphatase 140 H (35-129) units/L Total Protein 5.8 L (6.3-8.2) g/dL Albumin 2.0 L (3.9-5) g/dL Calcium panel 04/21/17 Range/Units 04:51 Calcium 7.6 L (8.4-10.2) mg/dL Albumin 2.0 L (3.9-5) g/dL Pituitary panel 04/21/17 Range/Units 04:51 Sodium 131 L (137-145) mmol/L Potassium 4.7 (3.6-5.0) mmol/L Chloride 92.4 L (98-107) mmol/L Carbon Dioxide 21 L (22-30) mmol/L BUN 31 H (7-17) mg/dL Creatinine 0.6 L (0.7-1.2) mg/dL Glucose 77 (65-100) mg/dL Calcium 7.6 L (8.4-10.2) mg/dL Adrenal panel 04/21/17 Range/Units 04:51 Sodium 131 L (137-145) mmol/L Potassium 4.7 (3.6-5.0) mmol/L Chloride 92.4 L (98-107) mmol/L Carbon Dioxide 21 L (22-30) mmol/L BUN 31 H (7-17) mg/dL Creatinine 0.6 L (0.7-1.2) mg/dL Glucose 77 (65-100) mg/dL Calcium 7.6 L (8.4-10.2) mg/dL Total Bilirubin 6.10 H (0.1-1.2) mg/dL AST 364 H (5-40) units/L ALT 345 H (7-56) units/L Alkaline Phosphatase 140 H (35-129) units/L Total Protein 5.8 L (6.3-8.2) g/dL Albumin 2.0 L (3.9-5) g/dL
[2017-04-21] MEDS: BABY ASPIRIN PO SCH (10:30)
[2017-04-21] MEDS ORDERED: NACL 0.9% 0 ML ONE (10:30)
[2017-04-21] MEDS ORDERED: NACL 0.9% 1000 ML 1,000 ML ONE (10:30)
--- NOTE | 2017-04-21 11:00 | Progress Note ---
Assessment and Plan Assessment: 1) Sepsis: with increasing leukocytosis. Etiology most likely complicated soft tissue infection left leg. CRP=22 2) Left leg complicated soft tissue infection: exam consistent with necrotiizing soft tissue infection. NO evidence of necrotizing fascitis in the OR. -S/P OR debridement on 04/20 -CT showed subcutaneous tissue induration no abscess no gas 3) DM-uncontrolled 4) Hyponatremia 5) Elevated LFTs ? from sepsis, r/o cirrhosis 6) CHF Plan: -appreciate surgical evaluation and debridement -follow-up blood cultures and surgical cultures -continue vancomycin, zosyn and clindamycin -f/u viral hepatitis panel, HIV -monitor LFTs Thank you Dr Vallejo for your consultation, will follow up with you. Talisha Nguyen MD Infectious Diseases Specialist [facility] M [phone] O [phone] Subjective Date of service: 04/21/17 Interval history: Feels better, leg pain decreased. Denies N/V/D Current Antimicrobials: Zosyn Clindamycin Vancomycin Previous Antimicrobials: Microbiology: Blood cultures: 04/18 ngtd Tissue cx 04/21 pending Objective - Exam Narrative Exam: General appearance: Alert in NAD, conversant Eyes: anicteric sclerae, moist conjunctivae; no lid-lag; PERRLA HENT: Atraumatic; oropharynx clear with moist mucous membranes and no mucosal ulcerations/no oral thrush; normal hard and soft palate. Normal external ears. Neck: Trachea midline; supple, no thyromegaly or lymphadenopathy Lungs: CTA, with normal respiratory effort and no intercostal retractions CV: RRR, no murmurs Abdomen: Soft, non-tender; no masses or hepatosplenomegaly Extremities: No peripheral edema or extremity lymphadenopathy Skin: posterior left calf with surgical dressings Psych: Appropriate affect, alert and oriented to person, place and time. Neuro: alert and oriented x 3. Moving all extermities Lines: No CVL / PICC - Constitutional Vitals: Vital Signs Temp Pulse Resp BP Pulse Ox 97.0 F L 90 20 98/60 98 04/21/17 10:00 04/21/17 10:00 04/21/17 10:00 04/21/17 10:00 04/21/17 10:00 Temperature -Last 24 Hours Temperature 97.0 F Temperature 97.0 F Temperature 96.9 F Temperature 96.5 F Temperature 96.5 F Temperature 96.5 F - Labs CBC & Chem 7: 04/21/17 04:51 04/21/17 04:51 Labs: Abnormal lab results 04/20/17 04/20/17 04/21/17 Range/Units 09:05 17:07 04:51 WBC 25.7 H (4.5-11.0) K/mm3 RBC 6.27 H (3.65-5.03) M/mm3 Hgb 16.1 H (10.1-14.3) gm/dl Hct 47.8 H (30.3-42.9) % MCV 76 L (79-97) fl MCH 26 L (28-32) pg RDW 19.5 H (13.2-15.2) % Seg Neuts % (Manual) 87.0 H (40.0-70.0) % Lymphocytes % (Manual) 2.0 L (13.4-35.0) % Nucleated RBC % 4.0 H (0.0-0.9) % Seg Neutrophils # Man 22.4 H (1.8-7.7) K/mm3 Lymphocytes # (Manual) 0.5 L (1.2-5.4) K/mm3 PT (12.2-14.9) Sec. INR (0.87-1.13) Sodium (137-145) mmol/L Chloride (98-107) mmol/L Carbon Dioxide (22-30) mmol/L BUN (7-17) mg/dL Creatinine (0.7-1.2) mg/dL POC Glucose 112 H (70-105) Calcium (8.4-10.2) mg/dL Total Bilirubin (0.1-1.2) mg/dL AST (5-40) units/L ALT (7-56) units/L Alkaline Phosphatase (35-129) units/L C-Reactive Protein 22.70 H (0.00-1.30) mg/dL Total Protein (6.3-8.2) g/dL Albumin (3.9-5) g/dL 04/21/17 04/21/17 04/21/17 Range/Units 04:51 04:51 08:57 WBC (4.5-11.0) K/mm3 RBC (3.65-5.03) M/mm3 Hgb (10.1-14.3) gm/dl Hct (30.3-42.9) % MCV (79-97) fl MCH (28-32) pg RDW (13.2-15.2) % Seg Neuts % (Manual) (40.0-70.0) % Lymphocytes % (Manual) (13.4-35.0) % Nucleated RBC % (0.0-0.9) % Seg Neutrophils # Man (1.8-7.7) K/mm3 Lymphocytes # (Manual) (1.2-5.4) K/mm3 PT 16.9 H (12.2-14.9) Sec. INR 1.31 H (0.87-1.13) Sodium 131 L (137-145) mmol/L Chloride 92.4 L (98-107) mmol/L Carbon Dioxide 21 L (22-30) mmol/L BUN 31 H (7-17) mg/dL Creatinine 0.6 L (0.7-1.2) mg/dL POC Glucose 65 L (70-105) Calcium 7.6 L (8.4-10.2) mg/dL Total Bilirubin 6.10 H (0.1-1.2) mg/dL AST 364 H (5-40) units/L ALT 345 H (7-56) units/L Alkaline Phosphatase 140 H (35-129) units/L C-Reactive Protein (0.00-1.30) mg/dL Total Protein 5.8 L (6.3-8.2) g/dL Albumin 2.0 L (3.9-5) g/dL 04/21/17 Range/Units 10:14 WBC (4.5-11.0) K/mm3 RBC (3.65-5.03) M/mm3 Hgb (10.1-14.3) gm/dl Hct (30.3-42.9) % MCV (79-97) fl MCH (28-32) pg RDW (13.2-15.2) % Seg Neuts % (Manual) (40.0-70.0) % Lymphocytes % (Manual) (13.4-35.0) % Nucleated RBC % (0.0-0.9) % Seg Neutrophils # Man (1.8-7.7) K/mm3 Lymphocytes # (Manual) (1.2-5.4) K/mm3 PT (12.2-14.9) Sec. INR (0.87-1.13) Sodium (137-145) mmol/L Chloride (98-107) mmol/L Carbon Dioxide (22-30) mmol/L BUN (7-17) mg/dL Creatinine (0.7-1.2) mg/dL POC Glucose 119 H (70-105) Calcium (8.4-10.2) mg/dL Total Bilirubin (0.1-1.2) mg/dL AST (5-40) units/L ALT (7-56) units/L Alkaline Phosphatase (35-129) units/L C-Reactive Protein (0.00-1.30) mg/dL Total Protein (6.3-8.2) g/dL Albumin (3.9-5) g/dL
[2017-04-21] MEDS: COREG PO SCH ×3 (12:01→22:07)
[2017-04-21] MEDS: NOVOLOG SUB-Q SCH ×3 (12:03→22:08)
--- NOTE | 2017-04-21 12:35 | Gastroenterology Progress Note ---
Assessment and Plan - Patient Problems (1) Cellulitis of left leg Current Visit: Yes Status: Acute (2) Jaundice Current Visit: Yes Status: Acute Plan to address problem: Hepatitis B and C studies negative. Autoimmune studies pending. Imaging by CT revealed no focal lesion. U/s revealed GB sludge, but no definite stones. Jaundice is a little worse, but this may be from sepsis and meds. She has a known fatty liver and may have MILLER with cirrhosis. (3) CAD (coronary artery disease) Current Visit: Yes Status: Chronic Qualifiers: Coronary Disease-Associated Artery/Lesion type: C [place] vs. transplanted heart: N Associated angina: A (4) Hyperlipidemia Current Visit: Yes Status: Chronic Qualifiers: Hyperlipidemia type: H (5) Hypertension Current Visit: Yes Status: Chronic Qualifiers: Hypertension type: H (6) Stented coronary artery Current Visit: Yes Status: Chronic (7) Type 2 diabetes mellitus Current Visit: Yes Status: Chronic Qualifiers: Diabetes mellitus complication status: D Diabetes mellitus complication detail: D Diabetic retinopathy severity: D Proliferative retinopathy type: P Diabetes mellitus macular edema: D Diabetes mellitus supervisor intermediates insulin use : D Laterality: L Chronic kidney disease stage: C Subjective Date of service: 04/21/17 Principal diagnosis: jaundice Interval history: The patient reports feeling OK post leg surgery for necrotizing fasciitis Objective - Constitutional Vitals: Temp Pulse Resp BP Pulse Ox 97.0 F L 89 20 91/63 98 04/21/17 10:00 04/21/17 12:01 04/21/17 10:00 04/21/17 12:01 04/21/17 10:00 General appearance: no acute distress - EENT Eyes: scleral icterus - Neck Neck: supple, normal ROM - Respiratory Respiratory effort: normal Respiratory: bilateral: CTA - Cardiovascular Rhythm: regular - Gastrointestinal General gastrointestinal: Present: soft, non-tender, non-distended, normal bowel sounds - Neurologic Neurological: alert and oriented x3 - Labs CBC & Chem 7: 04/21/17 04:51 04/21/17 04:51 Labs: Laboratory Results - last 24 hr 04/20/17 04/20/17 04/20/17 09:05 13:13 15:22 WBC RBC Hgb Hct MCV MCH MCHC RDW Plt Count Add Manual Diff Total Counted Seg Neuts % (Manual) Band Neutrophils % Lymphocytes % (Manual) Reactive Lymphs % (Man) Monocytes % (Manual) Eosinophils % (Manual) Metamyelocytes % Myelocytes % Promyelocytes % Blast Cells % Nucleated RBC % Seg Neutrophils # Man Band Neutrophils # Lymphocytes # (Manual) Abs React Lymphs (Man) Monocytes # (Manual) Eosinophils # (Manual) Basophils # (Manual) Metamyelocytes # Myelocytes # Promyelocytes # Blast Cells # WBC Morphology Hypersegmented Neuts Hyposegmented Neuts Hypogranular Neuts Smudge Cells Toxic Granulation Toxic Vacuolation Dohle Bodies Pelger-Huet Anomaly Ariel Rods Platelet Estimate Clumped Platelets Plt Clumps, EDTA Large Platelets Giant Platelets Platelet Satelliting Plt Morphology Comment RBC Morphology Dimorphic RBCs Polychromasia Hypochromasia Poikilocytosis Anisocytosis Microcytosis Macrocytosis Spherocytes Pappenheimer Bodies Sickle Cells Target Cells Tear Drop Cells Ovalocytes Helmet Cells [place] Bodies Victor Rings [place] Cells Bite Cells Crenated Cell Elliptocytes Acanthocytes (Spur) Rouleaux Hemoglobin C Crystals Schistocytes Malaria parasites Joselo Bodies Hem Pathologist Commnt PT INR Sodium Potassium Chloride Carbon Dioxide Anion Gap BUN Creatinine Estimated GFR BUN/Creatinine Ratio Glucose POC Glucose 112 H 84 Calcium Total Bilirubin AST ALT Alkaline Phosphatase Ammonia C-Reactive Protein Total Protein Albumin Albumin/Globulin Ratio Lipase Hep Bs Antigen Hepatitis C Antibody Non-reactive Blood Type Antibody Screen 04/20/17 04/20/17 04/20/17 15:22 16:27 17:07 WBC RBC Hgb Hct MCV MCH MCHC RDW Plt Count Add Manual Diff Total Counted Seg Neuts % (Manual) Band Neutrophils % Lymphocytes % (Manual) Reactive Lymphs % (Man) Monocytes % (Manual) Eosinophils % (Manual) Metamyelocytes % Myelocytes % Promyelocytes % Blast Cells % Nucleated RBC % Seg Neutrophils # Man Band Neutrophils # Lymphocytes # (Manual) Abs React Lymphs (Man) Monocytes # (Manual) Eosinophils # (Manual) Basophils # (Manual) Metamyelocytes # Myelocytes # Promyelocytes # Blast Cells # WBC Morphology Hypersegmented Neuts Hyposegmented Neuts Hypogranular Neuts Smudge Cells Toxic Granulation Toxic Vacuolation Dohle Bodies Pelger-Huet Anomaly Ariel Rods Platelet Estimate Clumped Platelets Plt Clumps, EDTA Large Platelets Giant Platelets Platelet Satelliting Plt Morphology Comment RBC Morphology Dimorphic RBCs Polychromasia Hypochromasia Poikilocytosis Anisocytosis Microcytosis Macrocytosis Spherocytes Pappenheimer Bodies Sickle Cells Target Cells Tear Drop Cells Ovalocytes Helmet Cells [place] Bodies Victor Rings [place] Cells Bite Cells Crenated Cell Elliptocytes Acanthocytes (Spur) Rouleaux Hemoglobin C Crystals Schistocytes Malaria parasites Joselo Bodies Hem Pathologist Commnt PT INR Sodium Potassium Chloride Carbon Dioxide Anion Gap BUN Creatinine Estimated GFR BUN/Creatinine Ratio Glucose POC Glucose 71 Calcium Total Bilirubin AST ALT Alkaline Phosphatase Ammonia C-Reactive Protein 22.70 H Total Protein Albumin Albumin/Globulin Ratio Lipase Hep Bs Antigen Non-reactive Hepatitis C Antibody Blood Type Antibody Screen 04/20/17 04/20/17 04/21/17 20:12 22:40 03:00 WBC RBC Hgb Hct MCV MCH MCHC RDW Plt Count Add Manual Diff Total Counted Seg Neuts % (Manual) Band Neutrophils % Lymphocytes % (Manual) Reactive Lymphs % (Man) Monocytes % (Manual) Eosinophils % (Manual) Metamyelocytes % Myelocytes % Promyelocytes % Blast Cells % Nucleated RBC % Seg Neutrophils # Man Band Neutrophils # Lymphocytes # (Manual) Abs React Lymphs (Man) Monocytes # (Manual) Eosinophils # (Manual) Basophils # (Manual) Metamyelocytes # Myelocytes # Promyelocytes # Blast Cells # WBC Morphology Hypersegmented Neuts Hyposegmented Neuts Hypogranular Neuts Smudge Cells Toxic Granulation Toxic Vacuolation Dohle Bodies Pelger-Huet Anomaly Ariel Rods Platelet Estimate Clumped Platelets Plt Clumps, EDTA Large Platelets Giant Platelets Platelet Satelliting Plt Morphology Comment RBC Morphology Dimorphic RBCs Polychromasia Hypochromasia Poikilocytosis Anisocytosis Microcytosis Macrocytosis Spherocytes Pappenheimer Bodies Sickle Cells Target Cells Tear Drop Cells Ovalocytes Helmet Cells [place] Bodies Victor Rings [place] Cells Bite Cells Crenated Cell Elliptocytes Acanthocytes (Spur) Rouleaux Hemoglobin C Crystals Schistocytes Malaria parasites Joselo Bodies Hem Pathologist Commnt PT INR Sodium Potassium Chloride Carbon Dioxide Anion Gap BUN Creatinine Estimated GFR BUN/Creatinine Ratio Glucose POC Glucose 77 85 Calcium Total Bilirubin AST ALT Alkaline Phosphatase Ammonia C-Reactive Protein Total Protein Albumin Albumin/Globulin Ratio Lipase Hep Bs Antigen Hepatitis C Antibody Blood Type A POSITIVE Antibody Screen Negative 04/21/17 04/21/17 04/21/17 04:51 04:51 04:51 WBC 25.7 H RBC 6.27 H Hgb 16.1 H Hct 47.8 H MCV 76 L MCH 26 L MCHC 34 RDW 19.5 H Plt Count 291 Add Manual Diff Complete Total Counted 100 Seg Neuts % (Manual) 87.0 H Band Neutrophils % 8.0 Lymphocytes % (Manual) 2.0 L Reactive Lymphs % (Man) 0 Monocytes % (Manual) 3.0 Eosinophils % (Manual) 0 Metamyelocytes % 0 Myelocytes % 0 Promyelocytes % 0 Blast Cells % 0 Nucleated RBC % 4.0 H Seg Neutrophils # Man 22.4 H Band Neutrophils # 2.1 Lymphocytes # (Manual) 0.5 L Abs React Lymphs (Man) 0.0 Monocytes # (Manual) 0.8 Eosinophils # (Manual) 0.0 Basophils # (Manual) 0.0 Metamyelocytes # 0.0 Myelocytes # 0.0 Promyelocytes # 0.0 Blast Cells # 0.0 WBC Morphology Not Reportable Hypersegmented Neuts Not Reportable Hyposegmented Neuts Not Reportable Hypogranular Neuts Not Reportable Smudge Cells Not Reportable Toxic Granulation Not Reportable Toxic Vacuolation Not Reportable Dohle Bodies Not Reportable Pelger-Huet Anomaly Not Reportable Ariel Rods Not Reportable Platelet Estimate Consistent w auto Clumped Platelets Not Reportable Plt Clumps, EDTA Not Reportable Large Platelets Not Reportable Giant Platelets Not Reportable Platelet Satelliting Not Reportable Plt Morphology Comment Not Reportable RBC Morphology Not Reportable Dimorphic RBCs Not Reportable Polychromasia Not Reportable Hypochromasia 1+ Poikilocytosis Not Reportable Anisocytosis Not Reportable Microcytosis Not Reportable Macrocytosis 1+ Spherocytes Not Reportable Pappenheimer Bodies Not Reportable Sickle Cells Not Reportable Target Cells Not Reportable Tear Drop Cells Not Reportable Ovalocytes Not Reportable Helmet Cells Not Reportable [place] Bodies Not Reportable Victor Rings Not Reportable [place] Cells Not Reportable Bite Cells Not Reportable Crenated Cell Not Reportable Elliptocytes Not Reportable Acanthocytes (Spur) Not Reportable Rouleaux Not Reportable Hemoglobin C Crystals Not Reportable Schistocytes Not Reportable Malaria parasites Not Reportable Joselo Bodies Not Reportable Hem Pathologist Commnt No PT 16.9 H INR 1.31 H Sodium 131 L Potassium 4.7 Chloride 92.4 L Carbon Dioxide 21 L Anion Gap 22 BUN 31 H Creatinine 0.6 L Estimated GFR > 60 BUN/Creatinine Ratio 51.66 Glucose 77 POC Glucose Calcium 7.6 L Total Bilirubin 6.10 H AST 364 H ALT 345 H Alkaline Phosphatase 140 H Ammonia C-Reactive Protein Total Protein 5.8 L Albumin 2.0 L Albumin/Globulin Ratio 0.5 Lipase 38 Hep Bs Antigen Hepatitis C Antibody Blood Type Antibody Screen 04/21/17 04/21/17 04/21/17 04:51 08:57 10:14 WBC RBC Hgb Hct MCV MCH MCHC RDW Plt Count Add Manual Diff Total Counted Seg Neuts % (Manual) Band Neutrophils % Lymphocytes % (Manual) Reactive Lymphs % (Man) Monocytes % (Manual) Eosinophils % (Manual) Metamyelocytes % Myelocytes % Promyelocytes % Blast Cells % Nucleated RBC % Seg Neutrophils # Man Band Neutrophils # Lymphocytes # (Manual) Abs React Lymphs (Man) Monocytes # (Manual) Eosinophils # (Manual) Basophils # (Manual) Metamyelocytes # Myelocytes # Promyelocytes # Blast Cells # WBC Morphology Hypersegmented Neuts Hyposegmented Neuts Hypogranular Neuts Smudge Cells Toxic Granulation Toxic Vacuolation Dohle Bodies Pelger-Huet Anomaly Ariel Rods Platelet Estimate Clumped Platelets Plt Clumps, EDTA Large Platelets Giant Platelets Platelet Satelliting Plt Morphology Comment RBC Morphology Dimorphic RBCs Polychromasia Hypochromasia Poikilocytosis Anisocytosis Microcytosis Macrocytosis Spherocytes Pappenheimer Bodies Sickle Cells Target Cells Tear Drop Cells Ovalocytes Helmet Cells [place] Bodies Victor Rings [place] Cells Bite Cells Crenated Cell Elliptocytes Acanthocytes (Spur) Rouleaux Hemoglobin C Crystals Schistocytes Malaria parasites Joselo Bodies Hem Pathologist Commnt PT INR Sodium Potassium Chloride Carbon Dioxide Anion Gap BUN Creatinine Estimated GFR BUN/Creatinine Ratio Glucose POC Glucose 65 L 119 H Calcium Total Bilirubin AST ALT Alkaline Phosphatase Ammonia 31.0 C-Reactive Protein Total Protein Albumin Albumin/Globulin Ratio Lipase Hep Bs Antigen Hepatitis C Antibody Blood Type Antibody Screen
--- NOTE | 2017-04-21 12:46 | Event Note ---
Date: 04/21/17 Body Liner consult placed last PM. However, patient went back to the floor post -operatively. Will thus cancel consult. Please re-consult if pulmonary issues develop.
[2017-04-21] MEDS: LEVEMIR SUB-Q SCH (22:03)
[2017-04-22] MEDS: ZOSYN/NS 4.5GM/100ML 4.5 GM/100 ML VIAL IV SCH ×3 (05:49→23:50)
[2017-04-22] MEDS: MORPHINE IV PRN ×3 (05:49→22:15)
[2017-04-22] MEDS: CLEOCIN 600 MG/50 mL 600 MG/50 ML BAG IV SCH ×3 (05:50→21:43)
[2017-04-22] MEDS: LASIX PO SCH ×2 (06:00→16:31)
[2017-04-22] MEDS: VANCOMYCIN 1,500 MG in NACL 0.9% 500 ML 500 ML IV SCH ×2 (06:04→22:16)
[2017-04-22 08:35] LABS: Hematocrit 45.9 % (30.3-42.9); Hemoglobin 14.7 gm/dl (10.1-14.3); Mean Corpuscular HGB Conc 32 % (30-34); Mean Corpuscular Volume 78 fl (79-97); Platelet Count 289 K/mm3 (140-440); Red Blood Count 5.88 M/mm3 (3.65-5.03); Red Cell Distribution Width 19.6 % (13.2-15.2)
[2017-04-22 08:37] LABS: Mean Corpuscular Hemoglobin 25 pg (28-32); White Blood Count 21.8 K/mm3 (4.5-11.0)
[2017-04-22 08:45] LABS: INR 1.35 (0.87-1.13)
[2017-04-22 08:58] LABS: Albumin 1.5 g/dL (3.9-5); Albumin/Globulin Ratio 0.3 %; Bilirubin,Total 5.5 mg/dL (0.1-1.2); Calcium 7.6 mg/dL (8.4-10.2); Total Protein 6.2 g/dL (6.3-8.2)
[2017-04-22 08:59] LABS: Chloride 94.9 mmol/L (98-107); Potassium 3.4 mmol/L (3.6-5.0)
[2017-04-22 10:02] LABS: Basophils % (Manual) 0 % (0.0-1.8); Blastocytes % (Manual) 0 %; Eosinophils % (Manual) 0 % (0.0-4.3)
[2017-04-22 10:03] LABS: Diff Status Complete; Hypochromasia 1+; Macrocytosis 1+
--- NOTE | 2017-04-22 10:55 | Progress Note ---
Assessment and Plan 41 yo F with 1.necrotizing infection of LLE 2.sepsis 3. ITALIA 4. uncontrolled DM 5. CAD 6. CHF 7. malnutrition Plan: 1. continue local wound care, reconsult to wound care nurse for vac placement. Will lneed santyl (topical enzymatic debridement) of posterior calf wound along with negative pressure wound therapy 2. incentive spirometry 3. monitor Computational Mathematician -> urine output improved but fourth hand elevated 4. strict glucose control 5. continue cardiac meds 6. continue abx per ID 7. keep Left leg elevated 8. pain control - start PO oxycodone 9. PT consult 10. encourage PO intake, add supplements TID to help with nutrition Subjective Date of service: 04/22/17 Patient Reports: Positive: feels better, still having pain, pain is less, tolerating a regular diet Narrative: Pt seen and examined at bedside. No overnight events. Afebrile. Pain is controlled Objective Vital Signs - 12hr 04/22/17 04/22/17 04/22/17 00:00 00:03 04:37 Temperature 97.4 F L 97.9 F Pulse Rate 84 85 84 Respiratory 16 18 Rate Blood Pressure 92/65 98/64 Blood Pressure [Left] O2 Sat by Pulse 98 98 Oximetry 04/22/17 04/22/17 07:54 08:00 Temperature 97.2 F L 98.0 F Pulse Rate 84 110 H Respiratory 18 Rate Blood Pressure 98/63 Blood Pressure 132/98 [Left] O2 Sat by Pulse 98 Oximetry - General physical appearance Narrative Exam: Gen; AAOx3. NAD Ext: LLE edema improving. Clear bullae on leg. Dressing taken down. anterior medial wound clean without gross evidence of necrotic tissue. Oozing clear serous fluid, no pus. Posterior calf wound with slough over entire wound. Muscle visualized and is viable. No grossly necrotic tissue. Serous drainage. Wet to dry dressings applied to both wounds, covered with dry 4x4 gauze and ABD and wrapped with kasi. - Labs 04/22/17 07:59 04/22/17 07:59 Diabetes panel 04/22/17 Range/Units 07:59 Sodium 132 L (137-145) mmol/L Potassium 3.4 L D (3.6-5.0) mmol/L Chloride 94.9 L (98-107) mmol/L Carbon Dioxide 20 L (22-30) mmol/L BUN 44 H (7-17) mg/dL Creatinine 1.4 H D (0.7-1.2) mg/dL Glucose 131 H (65-100) mg/dL Calcium 7.6 L (8.4-10.2) mg/dL AST 165 H (5-40) units/L ALT 216 H (7-56) units/L Alkaline Phosphatase 298 H (35-129) units/L Total Protein 6.2 L (6.3-8.2) g/dL Albumin 1.5 L (3.9-5) g/dL Calcium panel 04/22/17 Range/Units 07:59 Calcium 7.6 L (8.4-10.2) mg/dL Albumin 1.5 L (3.9-5) g/dL Pituitary panel 04/22/17 Range/Units 07:59 Sodium 132 L (137-145) mmol/L Potassium 3.4 L D (3.6-5.0) mmol/L Chloride 94.9 L (98-107) mmol/L Carbon Dioxide 20 L (22-30) mmol/L BUN 44 H (7-17) mg/dL Creatinine 1.4 H D (0.7-1.2) mg/dL Glucose 131 H (65-100) mg/dL Calcium 7.6 L (8.4-10.2) mg/dL Adrenal panel 04/22/17 Range/Units 07:59 Sodium 132 L (137-145) mmol/L Potassium 3.4 L D (3.6-5.0) mmol/L Chloride 94.9 L (98-107) mmol/L Carbon Dioxide 20 L (22-30) mmol/L BUN 44 H (7-17) mg/dL Creatinine 1.4 H D (0.7-1.2) mg/dL Glucose 131 H (65-100) mg/dL Calcium 7.6 L (8.4-10.2) mg/dL Total Bilirubin 5.50 H (0.1-1.2) mg/dL AST 165 H (5-40) units/L ALT 216 H (7-56) units/L Alkaline Phosphatase 298 H (35-129) units/L Total Protein 6.2 L (6.3-8.2) g/dL Albumin 1.5 L (3.9-5) g/dL
--- NOTE | 2017-04-22 10:57 | Progress Note ---
Assessment and Plan Assessment: 1) Sepsis: with improving leukocytosis. Etiology most likely complicated soft tissue infection left leg. CRP=22 2) Left leg necrotizing soft tissue infection: NO evidence of necrotizing fascitis in the OR. -S/P OR debridement on 04/20, culture pending -CT showed subcutaneous tissue induration no abscess no gas 3) DM-uncontrolled 4) Hyponatremia 5) Elevated LFTs ? from sepsis, HCV and HBV non reactive. ?MILLER 6) CHF Plan: -follow-up blood cultures and surgical cultures -continue vancomycin, zosyn day 5 -stop clindamycin - day 5 -HIV -repeat CRP -monitor LFTs Thank you Dr Tierney for your consultation, will follow up with you. Talisha Nguyen MD Infectious Diseases Specialist [facility] [phone] O [phone] Subjective Date of service: 04/22/17 Principal diagnosis: jaundice Interval history: Feels better, leg pain decreased. Denies N/V/D Current Antimicrobials: Zosyn 04/18 Clindamycin 04/18 Vancomycin 04/18 Previous Antimicrobials: Microbiology: Blood cultures: 04/18 ngtd Tissue cx 04/20 Gram stain negative Objective - Exam Narrative Exam: General appearance: Alert in NAD, conversant Eyes: anicteric sclerae, moist conjunctivae; no lid-lag; PERRLA HENT: Atraumatic; oropharynx clear with moist mucous membranes and no mucosal ulcerations/no oral thrush; normal hard and soft palate. Normal external ears. Neck: Trachea midline; supple, no thyromegaly or lymphadenopathy Lungs: CTA, with normal respiratory effort and no intercostal retractions CV: RRR, no murmurs Abdomen: Soft, non-tender; no masses or hepatosplenomegaly Extremities: No peripheral edema or extremity lymphadenopathy Skin: posterior left calf with surgical dressings, decreased edema and tenderness Psych: Appropriate affect, alert and oriented to person, place and time. Neuro: alert and oriented x 3. Moving all extermities Lines: No CVL / PICC - Constitutional Vitals: Vital Signs Temp Pulse Resp BP Pulse Ox 98.0 F 110 H 18 132/98 98 04/22/17 08:00 04/22/17 08:00 04/22/17 07:54 04/22/17 08:00 04/22/17 07:54 Temperature -Last 24 Hours Temperature 98.0 F Temperature 97.2 F Temperature 97.9 F Temperature 97.4 F Temperature 97.3 F Temperature 97.4 F - Labs CBC & Chem 7: 04/22/17 07:59 04/22/17 07:59 Labs: Abnormal lab results 04/21/17 04/21/17 04/22/17 Range/Units 16:17 21:45 07:59 WBC 21.8 H (4.5-11.0) K/mm3 RBC 5.88 H (3.65-5.03) M/mm3 Hgb 14.7 H (10.1-14.3) gm/dl Hct 45.9 H (30.3-42.9) % MCV 78 L (79-97) fl MCH 25 L (28-32) pg RDW 19.6 H (13.2-15.2) % Seg Neuts % (Manual) 82.0 H (40.0-70.0) % Lymphocytes % (Manual) 5.0 L (13.4-35.0) % Nucleated RBC % 2.0 H (0.0-0.9) % Seg Neutrophils # Man 17.9 H (1.8-7.7) K/mm3 Lymphocytes # (Manual) 1.1 L (1.2-5.4) K/mm3 Monocytes # (Manual) 0.9 H (0.0-0.8) K/mm3 PT (12.2-14.9) Sec. INR (0.87-1.13) Sodium (137-145) mmol/L Potassium (3.6-5.0) mmol/L Chloride (98-107) mmol/L Carbon Dioxide (22-30) mmol/L BUN (7-17) mg/dL Creatinine (0.7-1.2) mg/dL Glucose (65-100) mg/dL POC Glucose 140 H 147 H (70-105) Calcium (8.4-10.2) mg/dL Total Bilirubin (0.1-1.2) mg/dL AST (5-40) units/L ALT (7-56) units/L Alkaline Phosphatase (35-129) units/L Total Protein (6.3-8.2) g/dL Albumin (3.9-5) g/dL 04/22/17 04/22/17 Range/Units 07:59 07:59 WBC (4.5-11.0) K/mm3 RBC (3.65-5.03) M/mm3 Hgb (10.1-14.3) gm/dl Hct (30.3-42.9) % MCV (79-97) fl MCH (28-32) pg RDW (13.2-15.2) % Seg Neuts % (Manual) (40.0-70.0) % Lymphocytes % (Manual) (13.4-35.0) % Nucleated RBC % (0.0-0.9) % Seg Neutrophils # Man (1.8-7.7) K/mm3 Lymphocytes # (Manual) (1.2-5.4) K/mm3 Monocytes # (Manual) (0.0-0.8) K/mm3 PT 17.4 H (12.2-14.9) Sec. INR 1.35 H (0.87-1.13) Sodium 132 L (137-145) mmol/L Potassium 3.4 L D (3.6-5.0) mmol/L Chloride 94.9 L (98-107) mmol/L Carbon Dioxide 20 L (22-30) mmol/L BUN 44 H (7-17) mg/dL Creatinine 1.4 H D (0.7-1.2) mg/dL Glucose 131 H (65-100) mg/dL POC Glucose (70-105) Calcium 7.6 L (8.4-10.2) mg/dL Total Bilirubin 5.50 H (0.1-1.2) mg/dL AST 165 H (5-40) units/L ALT 216 H (7-56) units/L Alkaline Phosphatase 298 H (35-129) units/L Total Protein 6.2 L (6.3-8.2) g/dL Albumin 1.5 L (3.9-5) g/dL
[2017-04-22] MEDS: COREG PO SCH ×3 (11:23→21:39)
[2017-04-22] MEDS: NOVOLOG SUB-Q SCH ×2 (11:24→21:42)
[2017-04-22] MEDS: BABY ASPIRIN PO SCH (11:25)
[2017-04-22] MEDS ORDERED: K-DUR PO ONE (11:30)
--- NOTE | 2017-04-22 11:41 | XRay Report ---
Portable chest: Line placement. A left PICC line is present with the tip in the low SVC. There is a patchy infiltrate from the mid to lower right lung. There is dense opacity at the left lung base. These findings are both new when compared to the prior study of April 17, 2017 but similar to the findings on recent CT scan of April 20. Impressions: 1. Well-positioned PICC line. 2. Bilateral infiltrates consistent with pneumonia.
--- NOTE | 2017-04-22 12:51 | Progress Note ---
Assessment and Plan Assessment: Sepsis LLE cellulitis / ?LLE necrotizing fasciitis Jaundice / elevated LFTs CMP - EF 20-25%; no current clinical evidence of acute heart failure; pt reports long history of "weak heart" CAD, s/p TX and PCI x 2 Chest pain, atypical - currently resolved; ECG with NAF Elevated tropoinin - minimally elevated and flat; uncertain significance; could be secondary to acute infection Hyponatremia Hyperkalemia / hypokalemia Elevated DDimer -CTA chest to rule out PE was ordered, but unable to have contrast; sats 98-100% on RA; BLE duplex negative for DVT Coagulopathy HTN HLP DM - uncontrolled; HgbA1c 11.3 on admission. CARLOS A Obesity Plan: Currently stable cardiac status. Convert IV diuretics to PO lasix, 40mg daily. Cont coreg. No ACEI/ARB at this time in setting of renal insufficiency. IV ABX per primary/ID. Plan for ischemia eval (stress test) once medically stabilized - can be done as OP. The patient has been seen in conjunction with Dr. Gipson who agrees with the assessment and plan of care. Subjective Date of service: 04/22/17 Principal diagnosis: jaundice Interval history: Pt resting in bed, no cardiac complaints. VSS. Objective Last Vital Signs Temp 98.6 F 04/22/17 12:00 Pulse 88 04/22/17 12:00 Resp 18 04/22/17 10:00 BP 101/66 04/22/17 12:00 Pulse Ox 97 04/22/17 11:58 - Physical Examination General: Other (In distress because of pain L leg.) HEENT: Positive: EOMI, Jaundice, Normocephaly Neck: Positive: neck supple, trachea midline Cardiac: Positive: Reg Rate and Rhythm, S1/S2, Systolic Murmur Lungs: Positive: clear to auscultation Neuro: Positive: Grossly Intact Abdomen: Positive: Soft, Active Bowel Sounds Skin: Positive: Other (Jaundice+) Musculoskeletal: No Fluid Collection Extremities: Present: Other (Open ulcer L leg, black eschar+; BLE dressings ) - Labs and Meds Cardiac Enzymes 04/22/17 Range/Units 07:59 AST 165 H (5-40) units/L Coagulation 04/22/17 Range/Units 07:59 PT 17.4 H (12.2-14.9) Sec. INR 1.35 H (0.87-1.13) CBC 04/22/17 Range/Units 07:59 WBC 21.8 H (4.5-11.0) K/mm3 RBC 5.88 H (3.65-5.03) M/mm3 Hgb 14.7 H (10.1-14.3) gm/dl Hct 45.9 H (30.3-42.9) % Plt Count 289 (140-440) K/mm3 Comprehensive Metabolic Panel 04/22/17 Range/Units 07:59 Sodium 132 L (137-145) mmol/L Potassium 3.4 L D (3.6-5.0) mmol/L Chloride 94.9 L (98-107) mmol/L Carbon Dioxide 20 L (22-30) mmol/L BUN 44 H (7-17) mg/dL Creatinine 1.4 H D (0.7-1.2) mg/dL Glucose 131 H (65-100) mg/dL Calcium 7.6 L (8.4-10.2) mg/dL AST 165 H (5-40) units/L ALT 216 H (7-56) units/L Alkaline Phosphatase 298 H (35-129) units/L Total Protein 6.2 L (6.3-8.2) g/dL Albumin 1.5 L (3.9-5) g/dL - Imaging and Cardiology EKG: image reviewed - EKG Sinus rhythms and dysrhythmias: sinus rhythm Myocardial infarction: anterior TX (old age or i, lateral TX (old age or in
--- NOTE | 2017-04-22 14:57 | Gastroenterology Progress Note ---
Assessment and Plan (1) Cellulitis of left leg -per surgery/ ID -Wound care ordered -Slight improvement of leukocytosis (2) Jaundice Hepatitis B and C studies negative. Autoimmune studies pending. Imaging by CT revealed no focal lesion. U/s revealed GB sludge, but no definite stones. Jaundice with little improvement.She has a known fatty liver and may have MILLER with cirrhosis. (3) CAD (coronary artery disease) (4) Hyperlipidemia (5) Hypertension (6) CAD/stent (7) Type 2 diabetes mellitus Subjective Date of service: 04/22/17 Principal diagnosis: jaundice Interval history: No acute events overnight. Objective - Constitutional Vitals: Temp Pulse Resp BP Pulse Ox 98.6 F 88 18 101/66 97 04/22/17 12:00 04/22/17 12:00 04/22/17 10:00 04/22/17 12:00 04/22/17 11:58 General appearance: no acute distress, other (drowsy) - EENT ENT: hearing intact - Neck Neck: supple - Cardiovascular Rhythm: regular Heart Sounds: Present: S1 & S2 - Extremities Extremity abnormal: edema, other (dressing to left Lower ext d/i, clear bullae to inside heel.) - Gastrointestinal General gastrointestinal: Present: soft, non-tender, normal bowel sounds - Labs CBC & Chem 7: 04/22/17 07:59 04/22/17 07:59 Labs: Laboratory Results - last 24 hr 04/21/17 04/21/17 04/22/17 16:17 21:45 07:55 WBC RBC Hgb Hct MCV MCH MCHC RDW Plt Count Add Manual Diff Total Counted Seg Neutrophils % Seg Neuts % (Manual) Band Neutrophils % Lymphocytes % (Manual) Reactive Lymphs % (Man) Monocytes % (Manual) Eosinophils % (Manual) Basophils % (Manual) Metamyelocytes % Myelocytes % Promyelocytes % Blast Cells % Nucleated RBC % Seg Neutrophils # Man Band Neutrophils # Lymphocytes # (Manual) Abs React Lymphs (Man) Monocytes # (Manual) Eosinophils # (Manual) Basophils # (Manual) Metamyelocytes # Myelocytes # Promyelocytes # Blast Cells # WBC Morphology Hypersegmented Neuts Hyposegmented Neuts Hypogranular Neuts Smudge Cells Toxic Granulation Toxic Vacuolation Dohle Bodies Pelger-Huet Anomaly Ariel Rods Platelet Estimate Clumped Platelets Plt Clumps, EDTA Large Platelets Giant Platelets Platelet Satelliting Plt Morphology Comment RBC Morphology Dimorphic RBCs Polychromasia Hypochromasia Poikilocytosis Anisocytosis Microcytosis Macrocytosis Spherocytes Pappenheimer Bodies Sickle Cells Target Cells Tear Drop Cells Ovalocytes Helmet Cells Taylor-Erick Bodies Arnold Rings [place] Cells Bite Cells Crenated Cell Elliptocytes Acanthocytes (Spur) Rouleaux Hemoglobin C Crystals Schistocytes Malaria parasites Joselo Bodies Hem Pathologist Commnt PT INR Sodium Potassium Chloride Carbon Dioxide Anion Gap BUN Creatinine Estimated GFR BUN/Creatinine Ratio Glucose POC Glucose 140 H 147 H 132 H Calcium Total Bilirubin AST ALT Alkaline Phosphatase C-Reactive Protein Total Protein Albumin Albumin/Globulin Ratio 04/22/17 04/22/17 04/22/17 07:59 07:59 07:59 WBC 21.8 H RBC 5.88 H Hgb 14.7 H Hct 45.9 H MCV 78 L MCH 25 L MCHC 32 RDW 19.6 H Plt Count 289 Add Manual Diff Complete Total Counted 100 Seg Neutrophils % Retaining Room Cutter Seg Neuts % (Manual) 82.0 H Band Neutrophils % 9.0 Lymphocytes % (Manual) 5.0 L Reactive Lymphs % (Man) 0 Monocytes % (Manual) 4.0 Eosinophils % (Manual) 0 Basophils % (Manual) 0 Metamyelocytes % 0 Myelocytes % 0 Promyelocytes % 0 Blast Cells % 0 Nucleated RBC % 2.0 H Seg Neutrophils # Man 17.9 H Band Neutrophils # 2.0 Lymphocytes # (Manual) 1.1 L Abs React Lymphs (Man) 0.0 Monocytes # (Manual) 0.9 H Eosinophils # (Manual) 0.0 Basophils # (Manual) 0.0 Metamyelocytes # 0.0 Myelocytes # 0.0 Promyelocytes # 0.0 Blast Cells # 0.0 WBC Morphology Not Reportable Hypersegmented Neuts Not Reportable Hyposegmented Neuts Not Reportable Hypogranular Neuts Not Reportable Smudge Cells Not Reportable Toxic Granulation Not Reportable Toxic Vacuolation Not Reportable Dohle Bodies Not Reportable Pelger-Huet Anomaly Not Reportable Ariel Rods Not Reportable Platelet Estimate Not Reportable Clumped Platelets Not Reportable Plt Clumps, EDTA Not Reportable Large Platelets Not Reportable Giant Platelets Not Reportable Platelet Satelliting Not Reportable Plt Morphology Comment Not Reportable RBC Morphology Not Reportable Dimorphic RBCs Not Reportable Polychromasia Not Reportable Hypochromasia 1+ Poikilocytosis Not Reportable Anisocytosis Not Reportable Microcytosis Not Reportable Macrocytosis 1+ Spherocytes Not Reportable Pappenheimer Bodies Not Reportable Sickle Cells Not Reportable Target Cells Not Reportable Tear Drop Cells Not Reportable Ovalocytes Not Reportable Helmet Cells Not Reportable Taylor-Erick Bodies Not Reportable Arnold Rings Not Reportable Linda Cells Not Reportable Bite Cells Not Reportable Crenated Cell Not Reportable Elliptocytes Not Reportable Acanthocytes (Spur) Not Reportable Rouleaux Not Reportable Hemoglobin C Crystals Not Reportable Schistocytes Not Reportable Malaria parasites Not Reportable Joselo Bodies Not Reportable Hem Pathologist Commnt No PT 17.4 H INR 1.35 H Sodium 132 L Potassium 3.4 L D Chloride 94.9 L Carbon Dioxide 20 L Anion Gap 21 BUN 44 H Creatinine 1.4 H D Estimated GFR 41 BUN/Creatinine Ratio 31 Glucose 131 H POC Glucose Calcium 7.6 L Total Bilirubin 5.50 H AST 165 H ALT 216 H Alkaline Phosphatase 298 H C-Reactive Protein Total Protein 6.2 L Albumin 1.5 L Albumin/Globulin Ratio 0.3 04/22/17 07:59 WBC RBC Hgb Hct MCV MCH MCHC RDW Plt Count Add Manual Diff Total Counted Seg Neutrophils % Seg Neuts % (Manual) Band Neutrophils % Lymphocytes % (Manual) Reactive Lymphs % (Man) Monocytes % (Manual) Eosinophils % (Manual) Basophils % (Manual) Metamyelocytes % Myelocytes % Promyelocytes % Blast Cells % Nucleated RBC % Seg Neutrophils # Man Band Neutrophils # Lymphocytes # (Manual) Abs React Lymphs (Man) Monocytes # (Manual) Eosinophils # (Manual) Basophils # (Manual) Metamyelocytes # Myelocytes # Promyelocytes # Blast Cells # WBC Morphology Hypersegmented Neuts Hyposegmented Neuts Hypogranular Neuts Smudge Cells Toxic Granulation Toxic Vacuolation Dohle Bodies Pelger-Huet Anomaly Ariel Rods Platelet Estimate Clumped Platelets Plt Clumps, EDTA Large Platelets Giant Platelets Platelet Satelliting Plt Morphology Comment RBC Morphology Dimorphic RBCs Polychromasia Hypochromasia Poikilocytosis Anisocytosis Microcytosis Macrocytosis Spherocytes Pappenheimer Bodies Sickle Cells Target Cells Tear Drop Cells Ovalocytes Helmet Cells Taylor-Erick Bodies Arnold Rings [place] Cells Bite Cells Crenated Cell Elliptocytes Acanthocytes (Spur) Rouleaux Hemoglobin C Crystals Schistocytes Malaria parasites Joselo Bodies Hem Pathologist Commnt PT INR Sodium Potassium Chloride Carbon Dioxide Anion Gap BUN Creatinine Estimated GFR BUN/Creatinine Ratio Glucose POC Glucose Calcium Total Bilirubin AST ALT Alkaline Phosphatase C-Reactive Protein 14.20 H Total Protein Albumin Albumin/Globulin Ratio
--- NOTE | 2017-04-22 16:57 | Progress Note ---
Assessment and Plan 40 years old obese female with history of CAD with MS and PCI with stent placements 2, hypertension, chronic heart failure, diabetes hyperlipidemia on no medications for more than one year due to lack of insurance, presented for chest pain, significant shortness of breath that worsened progressively, bilateral lower extremity edema with recent superimposed redness and tenderness of left leg /Sepsis on admission leukocytosis, tachycardia, lower extremity cellulitis, coagulopathy , elevated lactic acid Blood cultures obtained Antibiotic regimen adjusted for broad-spectrum coverage, currently on clindamycin, Zosyn and vancomycin /Cellulitis LLE / ? Necrotizing fasciitis Erythema/warmth/tenderness from left knee to mid calf superimposed on significant edema Doppler negative for SVT/DVT On broad spectrum antibiotics Pain out of proportion, WBC trended up, developed discoloration/bulla formation/ necrotic tissue 04/20; suspicion for necrotizing fasciitis raised; CT leg obtained emergently; ID and Surgery consulted; underwent surgical debridement with excision of necrotic tissue; tissue culture obtained; remains on same antibiotics with ID agreement; their help much appreciated Consulted IV team for PICC placement NO evidence of necrotizing fascitis in the OR. -S/P OR debridement on 04/20, culture pending -CT showed subcutaneous tissue induration no abscess no gas /Jaundice/elevated LFTs RUQ US obtained and showed no gallstones, trace ascites TG wnl, Statin d/c Lipase was elevated but noow back within normal limits CT abdomen wo contrast obtained to r/o pancreatitis GI consulted and additional workup in progress (hepatitis panel - negative, antimitochondrial antibodies - pending) Trend LFTs /Hypochloremic Hyponatremia Na+ 120 on admission Likely dilutional due to heart failure Received Tolvaptan Improved, today 132 /Hyperkalemia/hypokalemia 5.9 on admission, medically treated, then normal limits; became hypokalemic, replaced; now within normal limits / Hypomagnesemia - replaced Monitor electrolytes /Metabolic acidosis Likely due to sepsis and acute kidney injury Monitor /Acute kidney injury Likely secondary to vasomotor nephropathy Now creatinine within normal limits Continue to monitor /Coagulopathy No history of anticoagulant use Abnormal LFTs ? Cardiac cirrhosis Improving /D-dimer elevated, WBC trended up Doppler lower extremity negative for DVT CTA chest to rule out PE was ordered, but unable to have contrast; sats 98-100% on RA /Acute on chronic combined systolic/diastolic heart failure Echo with EF 20-25% Continue diuresis withLasix On low dose BB as BP borderline low No ACEI due to renal insufficiency and hyperkalemia Monitor I's and O's Cardiology consulted and following /h/o CAD History of MS, PCI with stent placementx2 Started on aspirin, BB, statin, pravastatin had to be discontinued due to elevated LFTs No ARLYN inhibitor due to renal insuf, K+abn /Elevated troponin With no EKG changes Likely in the setting of acute heart failure and kidney injury /Hypertension BP borderline low Only on Lasix, BB for heart failure treatment /Uncontrolled diabetes type 2 Hemoglobin A1c 11 Started on long-acting insulin and SSI based on Accu-Cheks Monitor and adjust regimen /Hyperlipidemia Started on statin, but need to hold it due to transaminitis /Obesity/CARLOS A/OHS When medically stable and discharged will need pulmonary follow-up for PFTs and sleep study as well as counseling regarding importance of losing weight /Severe protein calorie monitor nutrition Dietitian consulted / Debility Consulted PT /DVT/GI prophylaxis Subjective Date of service: 04/22/17 Principal diagnosis: jaundice Interval history: doing well this morning, still having pain, but improved had dressing change today, discussed with wound care nurse Objective - Exam Narrative Exam: General appearance: Present: no acute distress, obese - EENT Eyes: Present: PERRL, EOM intact, scleral icterus. Absent: conjunctival injection - Neck Neck: Present: supple. Absent: enlarged thyroid, masses or JVD - Respiratory Respiratory effort: normal Respiratory: bilateral: diminished, negative: rhonchi, wheezing - Cardiovascular Rhythm: other (tachycardic) Heart Sounds: Present: S1 & S2. Absent: systolic murmur - Extremities Extremities: no ischemia, abnormal (l leg dressing in place) Extremity abnormal: edema - Abdominal General gastrointestinal: soft, non-tender, non-distended, normal bowel sounds - Psychiatric Psychiatric: cooperative - Neurologic Neurologic: CNII-XII intact, no focal deficits - Constitutional Vitals: Vital Signs - 12hr 04/22/17 04/22/17 04/22/17 07:54 08:00 10:00 Temperature 97.2 F L 98.0 F Pulse Rate 84 110 H Pulse Rate [ 87 Left Radial] Respiratory 18 18 Rate Blood Pressure 98/63 Blood Pressure 132/98 [Left] O2 Sat by Pulse 98 100 Oximetry 04/22/17 04/22/17 04/22/17 11:23 11:24 11:58 Temperature Pulse Rate 110 H 110 H 87 Pulse Rate [ Left Radial] Respiratory Rate Blood Pressure 132/98 132/98 Blood Pressure [Left] O2 Sat by Pulse 97 Oximetry 04/22/17 04/22/17 04/22/17 12:00 15:38 15:39 Temperature 98.6 F 98.2 F Pulse Rate 88 88 88 Pulse Rate [ Left Radial] Respiratory 22 Rate Blood Pressure 99/72 Blood Pressure 101/66 [Left] O2 Sat by Pulse 97 98 Oximetry 04/22/17 15:45 Temperature 98.0 F Pulse Rate 88 Pulse Rate [ Left Radial] Respiratory Rate Blood Pressure Blood Pressure [Left] O2 Sat by Pulse Oximetry - Labs CBC & Chem 7: 04/22/17 07:59 04/22/17 07:59 Labs: Abnormal lab results 04/21/17 04/22/17 04/22/17 Range/Units 21:45 07:55 07:59 WBC 21.8 H (4.5-11.0) K/mm3 RBC 5.88 H (3.65-5.03) M/mm3 Hgb 14.7 H (10.1-14.3) gm/dl Hct 45.9 H (30.3-42.9) % MCV 78 L (79-97) fl MCH 25 L (28-32) pg RDW 19.6 H (13.2-15.2) % Seg Neuts % (Manual) 82.0 H (40.0-70.0) % Lymphocytes % (Manual) 5.0 L (13.4-35.0) % Nucleated RBC % 2.0 H (0.0-0.9) % Seg Neutrophils # Man 17.9 H (1.8-7.7) K/mm3 Lymphocytes # (Manual) 1.1 L (1.2-5.4) K/mm3 Monocytes # (Manual) 0.9 H (0.0-0.8) K/mm3 PT (12.2-14.9) Sec. INR (0.87-1.13) Sodium (137-145) mmol/L Potassium (3.6-5.0) mmol/L Chloride (98-107) mmol/L Carbon Dioxide (22-30) mmol/L BUN (7-17) mg/dL Creatinine (0.7-1.2) mg/dL Glucose (65-100) mg/dL POC Glucose 147 H 132 H (70-105) Calcium (8.4-10.2) mg/dL Total Bilirubin (0.1-1.2) mg/dL AST (5-40) units/L ALT (7-56) units/L Alkaline Phosphatase (35-129) units/L C-Reactive Protein (0.00-1.30) mg/dL Total Protein (6.3-8.2) g/dL Albumin (3.9-5) g/dL 04/22/17 04/22/17 04/22/17 Range/Units 07:59 07:59 07:59 WBC (4.5-11.0) K/mm3 RBC (3.65-5.03) M/mm3 Hgb (10.1-14.3) gm/dl Hct (30.3-42.9) % MCV (79-97) fl MCH (28-32) pg RDW (13.2-15.2) % Seg Neuts % (Manual) (40.0-70.0) % Lymphocytes % (Manual) (13.4-35.0) % Nucleated RBC % (0.0-0.9) % Seg Neutrophils # Man (1.8-7.7) K/mm3 Lymphocytes # (Manual) (1.2-5.4) K/mm3 Monocytes # (Manual) (0.0-0.8) K/mm3 PT 17.4 H (12.2-14.9) Sec. INR 1.35 H (0.87-1.13) Sodium 132 L (137-145) mmol/L Potassium 3.4 L D (3.6-5.0) mmol/L Chloride 94.9 L (98-107) mmol/L Carbon Dioxide 20 L (22-30) mmol/L BUN 44 H (7-17) mg/dL Creatinine 1.4 H D (0.7-1.2) mg/dL Glucose 131 H (65-100) mg/dL POC Glucose (70-105) Calcium 7.6 L (8.4-10.2) mg/dL Total Bilirubin 5.50 H (0.1-1.2) mg/dL AST 165 H (5-40) units/L ALT 216 H (7-56) units/L Alkaline Phosphatase 298 H (35-129) units/L C-Reactive Protein 14.20 H (0.00-1.30) mg/dL Total Protein 6.2 L (6.3-8.2) g/dL Albumin 1.5 L (3.9-5) g/dL 04/22/17 04/22/17 Range/Units 11:57 15:38 WBC (4.5-11.0) K/mm3 RBC (3.65-5.03) M/mm3 Hgb (10.1-14.3) gm/dl Hct (30.3-42.9) % MCV (79-97) fl MCH (28-32) pg RDW (13.2-15.2) % Seg Neuts % (Manual) (40.0-70.0) % Lymphocytes % (Manual) (13.4-35.0) % Nucleated RBC % (0.0-0.9) % Seg Neutrophils # Man (1.8-7.7) K/mm3 Lymphocytes # (Manual) (1.2-5.4) K/mm3 Monocytes # (Manual) (0.0-0.8) K/mm3 PT (12.2-14.9) Sec. INR (0.87-1.13) Sodium (137-145) mmol/L Potassium (3.6-5.0) mmol/L Chloride (98-107) mmol/L Carbon Dioxide (22-30) mmol/L BUN (7-17) mg/dL Creatinine (0.7-1.2) mg/dL Glucose (65-100) mg/dL POC Glucose 170 H 184 H (70-105) Calcium (8.4-10.2) mg/dL Total Bilirubin (0.1-1.2) mg/dL AST (5-40) units/L ALT (7-56) units/L Alkaline Phosphatase (35-129) units/L C-Reactive Protein (0.00-1.30) mg/dL Total Protein (6.3-8.2) g/dL Albumin (3.9-5) g/dL
[2017-04-22] MEDS: LEVEMIR SUB-Q SCH ×2 (21:40→21:45)
[2017-04-23] MEDS: CLEOCIN 600 MG/50 mL 600 MG/50 ML BAG IV SCH ×3 (05:54→23:17)
[2017-04-23] MEDS: ZOSYN/NS 4.5GM/100ML 4.5 GM/100 ML VIAL IV SCH ×3 (07:13→23:43)
[2017-04-23] MEDS: NOVOLOG SUB-Q SCH ×5 (08:52→23:18)
--- NOTE | 2017-04-23 09:57 | Progress Note ---
Assessment and Plan Assessment: 1) Sepsis: with improving leukocytosis. Etiology most likely complicated soft tissue infection left leg. CRP=22 2) Left leg necrotizing soft tissue infection: NO evidence of necrotizing fascitis in the OR. -S/P OR debridement on 04/20, culture + Enterococcus species -CT showed subcutaneous tissue induration no abscess no gas 3) DM-uncontrolled 4) Hyponatremia 5) Elevated LFTs ? from sepsis, HCV and HBV non reactive. ?MILLER 6) CHF 7) Early ITALIA ? Plan: -follow-up surgical cultures -continue zosyn day 6 -stop vancomycin in view of rising creatinine -repeat CRP today -monitor LFTs and kidney function Thank you Dr Tierney for your consultation, will follow up with you. Talisha Nguyen MD Infectious Diseases Specialist [facility] ([facility]) M [phone] O [phone] Subjective Date of service: 04/23/17 Principal diagnosis: jaundice Interval history: Leg pain is better. No fever. Current Antimicrobials: Zosyn 04/18 Vancomycin 04/18 Previous Antimicrobials: Clindamycin 04/18 Microbiology: Blood cultures: 04/18 ngtd Tissue cx 04/20 Enterococcus species Objective - Exam Narrative Exam: General appearance: Alert in NAD, conversant Eyes: anicteric sclerae, moist conjunctivae; no lid-lag; PERRLA HENT: Atraumatic; oropharynx clear with moist mucous membranes and no mucosal ulcerations/no oral thrush; normal hard and soft palate. Normal external ears. Neck: Trachea midline; supple, no thyromegaly or lymphadenopathy Lungs: CTA, with normal respiratory effort and no intercostal retractions CV: RRR, no murmurs Abdomen: Soft, non-tender; no masses or hepatosplenomegaly Extremities: No peripheral edema or extremity lymphadenopathy Skin: posterior left calf with surgical dressings, decreased edema and tenderness Psych: Appropriate affect, alert and oriented to person, place and time. Neuro: alert and oriented x 3. Moving all extermities Lines: No CVL / PICC - Constitutional Vitals: Vital Signs Temp Pulse Resp BP Pulse Ox 97.1 F L 79 16 120/76 98 04/23/17 08:24 04/23/17 08:24 04/23/17 08:24 04/23/17 08:24 04/23/17 08:24 Temperature -Last 24 Hours Temperature 97.1 F Temperature 97.3 F Temperature 97.5 F Temperature 98.0 F Temperature 98.2 F Temperature 98.6 F - Labs CBC & Chem 7: 04/22/17 07:59 04/22/17 07:59 Labs: Abnormal lab results 04/22/17 04/22/17 04/22/17 Range/Units 07:55 07:59 07:59 Seg Neuts % (Manual) 82.0 H (40.0-70.0) % Lymphocytes % (Manual) 5.0 L (13.4-35.0) % Nucleated RBC % 2.0 H (0.0-0.9) % Seg Neutrophils # Man 17.9 H (1.8-7.7) K/mm3 Lymphocytes # (Manual) 1.1 L (1.2-5.4) K/mm3 Monocytes # (Manual) 0.9 H (0.0-0.8) K/mm3 POC Glucose 132 H (70-105) C-Reactive Protein 14.20 H (0.00-1.30) mg/dL Vancomycin Trough (5.0-20.0) ug/mL 04/22/17 04/22/17 04/22/17 Range/Units 11:57 15:38 17:48 Seg Neuts % (Manual) (40.0-70.0) % Lymphocytes % (Manual) (13.4-35.0) % Nucleated RBC % (0.0-0.9) % Seg Neutrophils # Man (1.8-7.7) K/mm3 Lymphocytes # (Manual) (1.2-5.4) K/mm3 Monocytes # (Manual) (0.0-0.8) K/mm3 POC Glucose 170 H 184 H (70-105) C-Reactive Protein (0.00-1.30) mg/dL Vancomycin Trough 45.0 H (5.0-20.0) ug/mL 04/22/17 Range/Units 21:27 Seg Neuts % (Manual) (40.0-70.0) % Lymphocytes % (Manual) (13.4-35.0) % Nucleated RBC % (0.0-0.9) % Seg Neutrophils # Man (1.8-7.7) K/mm3 Lymphocytes # (Manual) (1.2-5.4) K/mm3 Monocytes # (Manual) (0.0-0.8) K/mm3 POC Glucose 174 H (70-105) C-Reactive Protein (0.00-1.30) mg/dL Vancomycin Trough (5.0-20.0) ug/mL
[2017-04-23] MEDS: MORPHINE IV PRN (11:19)
[2017-04-23] MEDS: COREG PO SCH ×2 (11:20→23:16)
[2017-04-23] MEDS: LASIX PO SCH (11:20)
[2017-04-23] MEDS: BABY ASPIRIN PO SCH (11:20)
--- NOTE | 2017-04-23 13:10 | Gastroenterology Progress Note ---
<BRIT MERCADO - Last Filed: 04/23/17 13:14> Assessment and Plan 1.jaundice 2.cellulitis of left leg -hepatitis B and C studies negative -autoimmune studies pending -CT revealed no focal lesion -U/S revealed GB sludge but no stones -pt with hx of fatty liver and may have MILLER with cirrhosis -continue supportive care -will order f/u labs in am -will follow Subjective Date of service: 04/23/17 Principal diagnosis: jaundice Interval history: Patient sitting up in bed eating lunch. No acute distress or acute events overnight. Objective - Constitutional Vitals: Temp Pulse Resp BP Pulse Ox 97.1 F L 79 16 120/76 98 04/23/17 08:24 04/23/17 08:24 04/23/17 08:24 04/23/17 08:24 04/23/17 08:24 General appearance: no acute distress - EENT Eyes: PERRL, EOM intact ENT: hearing intact - Respiratory Respiratory: bilateral: diminished - Cardiovascular Rhythm: regular Heart Sounds: Present: S1 & S2 - Extremities Extremity abnormal: edema, other (LLE with dressing) - Gastrointestinal General gastrointestinal: Present: soft, non-tender, non-distended, normal bowel sounds - Labs CBC & Chem 7: 04/22/17 07:59 04/22/17 07:59 Labs: Laboratory Results - last 24 hr 04/22/17 04/22/17 04/22/17 11:57 15:38 17:48 POC Glucose 170 H 184 H Vancomycin Trough 45.0 H 04/22/17 21:27 POC Glucose 174 H Vancomycin Trough <SANDOVAL ORTIZ - Last Filed: 04/23/17 13:49> Assessment and Plan - Patient Problems (1) Cellulitis of left leg Current Visit: Yes Status: Acute (2) Jaundice Current Visit: Yes Status: Acute Plan to address problem: No new lab data. Patient is stable GI santos. Evaluation in progress. (3) CAD (coronary artery disease) Current Visit: Yes Status: Chronic Qualifiers: Coronary Disease-Associated Artery/Lesion type: C [place] vs. transplanted heart: N Associated angina: A (4) Hyperlipidemia Current Visit: Yes Status: Chronic Qualifiers: Hyperlipidemia type: H (5) Hypertension Current Visit: Yes Status: Chronic Qualifiers: Hypertension type: H (6) Stented coronary artery Current Visit: Yes Status: Chronic (7) Type 2 diabetes mellitus Current Visit: Yes Status: Chronic Qualifiers: Diabetes mellitus complication status: D Diabetes mellitus complication detail: D Diabetic retinopathy severity: D Proliferative retinopathy type: P Diabetes mellitus macular edema: D Diabetes mellitus mcc insulin use : D Laterality: L Chronic kidney disease stage: C Objective - Constitutional Vitals: Temp Pulse Resp BP Pulse Ox 97.1 F L 79 16 120/76 98 04/23/17 08:24 04/23/17 08:24 04/23/17 08:24 04/23/17 08:24 04/23/17 08:24 - Labs CBC & Chem 7: 04/22/17 07:59 04/22/17 07:59 Labs: Laboratory Results - last 24 hr 04/20/17 04/22/17 04/22/17 15:22 11:57 15:38 POC Glucose 170 H 184 H Vancomycin Trough Mitochondria M2 Ab <=20.0 04/22/17 04/22/17 17:48 21:27 POC Glucose 174 H Vancomycin Trough 45.0 H Mitochondria M2 Ab
--- NOTE | 2017-04-23 14:20 | Progress Note ---
Assessment and Plan Assessment: Sepsis LLE cellulitis / ?LLE necrotizing fasciitis Jaundice / elevated LFTs CMP - EF 20-25%; no current clinical evidence of acute heart failure; pt reports long history of "weak heart" CAD, s/p NV and PCI x 2 Chest pain, atypical - currently resolved; ECG with NAF Elevated tropoinin - minimally elevated and flat; uncertain significance; could be secondary to acute infection Hyponatremia Hyperkalemia / hypokalemia Elevated DDimer -CTA chest to rule out PE was ordered, but unable to have contrast; sats 98-100% on RA; BLE duplex negative for DVT Coagulopathy HTN HLP DM - uncontrolled; HgbA1c 11.3 on admission. CARLOS A Obesity Plan: Currently stable cardiac status. Cont present cardiac regimen. No ACEI/ARB at this time in setting of renal insufficiency. IV ABX per primary/ID. Pt reports last [facility] in 2011. 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 If unable to obtain records, will consider ischemic eval (stress test) as OP. The patient has been seen in conjunction with Dr. Gipson who agrees with the assessment and plan of care. Subjective Date of service: 04/23/17 Principal diagnosis: jaundice Interval history: Pt resting in bed, no cardiac complaints. VSS. Objective Last Vital Signs Temp 97.1 F L 04/23/17 08:24 Pulse 79 04/23/17 08:24 Resp 16 04/23/17 08:24 BP 120/76 04/23/17 08:24 Pulse Ox 98 04/23/17 08:24 - Physical Examination General: Appears Well HEENT: Positive: EOMI, Jaundice, Normocephaly Neck: Positive: neck supple, trachea midline Cardiac: Positive: Reg Rate and Rhythm, S1/S2 Lungs: Positive: clear to auscultation Neuro: Positive: Grossly Intact Abdomen: Positive: Soft, Active Bowel Sounds Skin: Positive: Other (Jaundice+) Musculoskeletal: No Fluid Collection Extremities: Present: Other (Open ulcer L leg, black eschar+; BLE dressings ) - Imaging and Cardiology EKG: image reviewed - Telemetry EKG Rhythm: Sinus Rhythm - EKG Sinus rhythms and dysrhythmias: sinus rhythm Myocardial infarction: anterior NV (old age or i, lateral NV (old age or in
[2017-04-23] MEDS: ROXICODONE PO PRN ×2 (15:24→23:20)
--- NOTE | 2017-04-23 16:02 | Progress Note ---
Assessment and Plan 41 y/o F s/p debridement LLE necrotizing soft tissue infection, POD 3 1. necrotizing soft tissue infection, cellulitis of LLE 2. sepsis 3. CAD 4. CHF 5. HTN PLan: 1. cultures - group A strept, discussed with Dr. Bowie c/w myra and add clinda 2. OOB to chair, PT 3. PO pain control PRN 4. will change dressing in am and reevaluate wound with wound care nurse 5. reg diet, encourage PO intake 6. patient will likely need plastic surgery c/s once stable to evaluate LLE wound for skin graft 7. check am CBC to trend WBC Subjective Date of service: 04/23/17 Patient Reports: Positive: no new complaints, pain is less, tolerating a regular diet, flatus, no bowel movement, afebrile Objective Vital Signs - 12hr 04/23/17 04/23/17 04:39 08:24 Temperature 97.3 F L 97.1 F L Pulse Rate 81 79 Respiratory 18 16 Rate Blood Pressure 128/85 120/76 O2 Sat by Pulse 99 98 Oximetry - General physical appearance Narrative Exam: Gen: AAOx3. NAD CV: S1, S2+ Resp: NO audible wheezes Ext: LLE wrapped with kerlex dressing with serous drainage on posterior aspect. motor and sensory are intact - Labs 04/22/17 07:59 04/22/17 07:59
--- NOTE | 2017-04-23 17:08 | Progress Note ---
Assessment and Plan /Cellulitis LLE Erythema/warmth/tenderness from left knee to mid calf superimposed on significant edema Doppler negative for SVT/DVT On broad spectrum antibiotics Pain out of proportion, WBC trended up, developed discoloration/bulla formation/ necrotic tissue 04/20; suspicion for necrotizing fasciitis raised; CT leg obtained emergently; ID and Surgery consulted; underwent surgical debridement with excision of necrotic tissue; tissue culture obtained; remains on same antibiotics with ID agreement; their help much appreciated Consulted IV team for PICC placement NO evidence of necrotizing fascitis in the OR. -S/P OR debridement on 04/20, culture + GAS -CT showed subcutaneous tissue induration no abscess no gas /Sepsis on admission leukocytosis, tachycardia, lower extremity cellulitis, coagulopathy , elevated lactic acid Blood cultures obtained Antibiotic regimen adjusted for broad-spectrum coverage, currently on clindamycin, Zosyn and vancomycin /Jaundice/elevated LFTs RUQ US obtained and showed no gallstones, trace ascites TG wnl, Statin d/c Lipase was elevated but noow back within normal limits CT abdomen wo contrast obtained to r/o pancreatitis GI consulted and additional workup in progress (hepatitis panel - negative, antimitochondrial antibodies -<20) Trend LFTs /Hypochloremic Hyponatremia Na+ 120 on admission Likely dilutional due to heart failure Received Tolvaptan Improved, today 132 /Hyperkalemia/hypokalemia 5.9 on admission, medically treated, then normal limits; became hypokalemic, cont to replace and monitor / Hypomagnesemia - replaced Monitor electrolytes /Metabolic acidosis Likely due to sepsis and acute kidney injury Monitor /Acute kidney injury Likely secondary to vasomotor nephropathy Now creatinine within normal limits Continue to monitor /Coagulopathy No history of anticoagulant use Abnormal LFTs ? Cardiac cirrhosis Improving /D-dimer elevated, WBC trended up Doppler lower extremity negative for DVT CTA chest to rule out PE was ordered, but unable to have contrast; sats 98-100% on RA /Acute on chronic combined systolic/diastolic heart failure Echo with EF 20-25% Continue diuresis with Lasix On low dose BB as BP borderline low No ACEI due to renal insufficiency and hyperkalemia Monitor I's and O's Cardiology consulted and following /h/o CAD History of OR, PCI with stent placementx2 Started on aspirin, BB, statin, pravastatin had to be discontinued due to elevated LFTs No ARLYN inhibitor due to renal insuf, K abnormality /Elevated troponin With no EKG changes Likely in the setting of acute heart failure and kidney injury /Hypertension BP borderline low Only on Lasix, BB for heart failure treatment /Uncontrolled diabetes type 2 Hemoglobin A1c 11 Started on long-acting insulin and SSI based on Accu-Cheks Monitor and adjust regimen /Hyperlipidemia Started on statin, but need to hold it due to transaminitis /Obesity/CARLOS A/OHS When medically stable and discharged will need pulmonary follow-up for PFTs and sleep study as well as counseling regarding importance of losing weight /Severe protein calorie monitor nutrition Dietitian consulted / Debility Consulted PT /DVT/GI prophylaxis Brief History: 40 years old obese female with history of CAD with OR and PCI with stent placements 2, hypertension, chronic heart failure, diabetes hyperlipidemia on no medications for more than one year due to lack of insurance , presented for chest pain, significant shortness of breath that worsened progressively, bilateral lower extremity edema with recent superimposed redness and tenderness of left leg Current meds: Generic Name Dose Route Start Last Admin Trade Name Freq PRN Reason Stop Dose Admin Aspirin 81 mg 04/18/17 22:00 04/24/17 09:25 Baby Aspirin PO 81 mg QDAY JEROME Administration Carvedilol 3.125 mg 04/19/17 22:00 04/24/17 09:24 Coreg PO 3.125 mg BID JEROME Administration Collagenase 1 applic 04/22/17 11:00 04/23/17 17:57 Santyl TP Not Given QDAY JEROME Dextrose 50 ml 04/17/17 23:34 D50w (25gm) Syringe IV PRN PRN Hypoglycemia Furosemide 40 mg 04/22/17 14:00 04/24/17 09:24 Lasix PO 40 mg QDAY JEROME Administration Clindamycin HCl 600 mg in 50 mls @ 100 mls/hr 04/23/17 14:00 04/24/17 12:59 Cleocin 600 Mg/50 Ml IV 100 mls/hr Q8HR JEROME Administration Protocol Penicillin G Potassium 4 mil. 50 mls @ 100 mls/hr 04/24/17 14:00 04/24/17 13: 45 units/ Sodium Chloride IV 100 mls/hr Q4HR JEROME Administration Insulin Aspart 0 units 04/18/17 16:30 04/24/17 13:40 Novolog SUB-Q 2 units ACHS JEROME Administration Protocol Insulin Detemir 10 units 04/18/17 22:00 04/23/17 23:16 Levemir SUB-Q 10 units QHS [facility] Administration Morphine Sulfate 2 mg 04/17/17 23:39 04/23/17 11:19 Morphine IV 2 mg Q4H PRN Administration Pain, Moderate (4-6) Ondansetron HCl 4 mg 04/22/17 11:00 Zofran IV Q8H PRN Nausea And Vomiting Oxycodone HCl 5 mg 04/22/17 11:30 04/24/17 11:31 Roxicodone PO 5 mg Q6H PRN Administration Pain, Mild (1-3) Subjective Date of service: 04/23/17 Principal diagnosis: jaundice Interval history: doing well this morning, still having pain, but improved unable to participate with PT fully for leg pain Objective - Exam Narrative Exam: General appearance: Present: no acute distress, obese - EENT Eyes: Present: PERRL, EOM intact, scleral icterus. Absent: conjunctival injection - Neck Neck: Present: supple. Absent: enlarged thyroid, masses or JVD - Respiratory Respiratory effort: normal Respiratory: bilateral: diminished, negative: rhonchi, wheezing - Cardiovascular Rhythm: other (tachycardic) Heart Sounds: Present: S1 & S2. Absent: systolic murmur - Extremities Extremities: no ischemia, abnormal (l leg dressing in place) Extremity abnormal: edema - Abdominal General gastrointestinal: soft, non-tender, non-distended, normal bowel sounds - Psychiatric Psychiatric: cooperative - Neurologic Neurologic: CNII-XII intact, no focal deficits - Constitutional Vitals: Vital Signs - 12hr 04/23/17 04/23/17 04/23/17 08:24 12:00 12:18 Temperature 97.1 F L 93.0 F L 93.8 F L Pulse Rate 79 80 81 Respiratory 16 18 18 Rate Blood Pressure 120/76 122/84 Blood Pressure 122/84 [Left] O2 Sat by Pulse 98 100 99 Oximetry 04/23/17 04/23/17 15:46 16:00 Temperature 97.4 F L 97.4 F L Pulse Rate 80 Respiratory 18 18 Rate Blood Pressure 110/73 Blood Pressure 110/73 [Left] O2 Sat by Pulse Oximetry - Labs CBC & Chem 7: 04/24/17 11:15 04/24/17 11:15 Labs: Abnormal lab results 04/22/17 04/22/17 04/23/17 Range/Units 17:48 21:27 15:30 POC Glucose 174 H (70-105) C-Reactive Protein 8.80 H (0.00-1.30) mg/dL Vancomycin Trough 45.0 H (5.0-20.0) ug/mL
[2017-04-23] MEDS: VANCOMYCIN 1,500 MG in NACL 0.9% 500 ML 500 ML IV SCH (17:55)
[2017-04-23] MEDS: SANTYL TP SCH (17:57)
[2017-04-23] MEDS: LEVEMIR SUB-Q SCH (23:16)
[2017-04-24] MEDS: ZOSYN/NS 4.5GM/100ML 4.5 GM/100 ML VIAL IV SCH (06:09)
[2017-04-24] MEDS: CLEOCIN 600 MG/50 mL 600 MG/50 ML BAG IV SCH ×3 (06:10→21:39)
[2017-04-24 08:12] LABS: Basophils % (Auto) 0.3 % (0.0-1.8); Eosinophils % (Auto) 1.4 % (0.0-4.3); Hematocrit 45.9 % (30.3-42.9); Hemoglobin 14.7 gm/dl (10.1-14.3); Mean Corpuscular HGB Conc 32 % (30-34); Mean Corpuscular Volume 78 fl (79-97); Platelet Count 298 K/mm3 (140-440); Red Blood Count 5.91 M/mm3 (3.65-5.03); White Blood Count 14.4 K/mm3 (4.5-11.0)
[2017-04-24 08:13] LABS: Mean Corpuscular Hemoglobin 25 pg (28-32); Red Cell Distribution Width 20.3 % (13.2-15.2)
[2017-04-24 08:23] LABS: INR 1.32 (0.87-1.13)
[2017-04-24 08:34] LABS: Albumin 1.5 g/dL (3.9-5); Albumin/Globulin Ratio 0.3 %; Calcium 8.1 mg/dL (8.4-10.2); Potassium 3.4 mmol/L (3.6-5.0); Total Protein 6.3 g/dL (6.3-8.2)
[2017-04-24] MEDS: COREG PO SCH ×2 (09:24→21:38)
[2017-04-24] MEDS: LASIX PO SCH (09:24)
[2017-04-24] MEDS: BABY ASPIRIN PO SCH (09:25)
[2017-04-24] MEDS: NOVOLOG SUB-Q SCH ×6 (09:25→23:07)
--- NOTE | 2017-04-24 09:55 | Gastroenterology Progress Note ---
Assessment and Plan - Patient Problems (1) Cellulitis of left leg Current Visit: Yes Status: Acute (2) Jaundice Current Visit: Yes Status: Acute Plan to address problem: Improving. Mirella valdez now 3. I suspect multifactorial in the setting of the leg infection, CHF and likely underlying fatty liver disease, possibly MILLER with cirrhosis. She remains stable GI santos and will s/o at this point and see her in a few weeks after discharge. Thank you for asking me to see her in consultation. (3) CAD (coronary artery disease) Current Visit: Yes Status: Chronic Qualifiers: Coronary Disease-Associated Artery/Lesion type: C [place] vs. transplanted heart: N Associated angina: A (4) Hyperlipidemia Current Visit: Yes Status: Chronic Qualifiers: Hyperlipidemia type: H (5) Hypertension Current Visit: Yes Status: Chronic Qualifiers: Hypertension type: H (6) Stented coronary artery Current Visit: Yes Status: Chronic (7) Type 2 diabetes mellitus Current Visit: Yes Status: Chronic Qualifiers: Diabetes mellitus complication status: D Diabetes mellitus complication detail: D Diabetic retinopathy severity: D Proliferative retinopathy type: P Diabetes mellitus macular edema: D Diabetes mellitus exterminator helper insulin use : D Laterality: L Chronic kidney disease stage: C Subjective Date of service: 04/24/17 Principal diagnosis: jaundice Interval history: The patient reports leg pain. Objective - Constitutional Vitals: Temp Pulse Resp BP Pulse Ox 98.6 F 79 18 105/65 97 04/24/17 08:47 04/24/17 09:24 04/24/17 08:47 04/24/17 09:24 04/24/17 08:47 General appearance: mild distress - EENT Eyes: scleral icterus - Respiratory Respiratory effort: normal Respiratory: bilateral: CTA - Cardiovascular Rhythm: regular - Gastrointestinal General gastrointestinal: Present: soft, non-tender, non-distended, normal bowel sounds - Neurologic Neurological: alert and oriented x3 - Labs CBC & Chem 7: 04/24/17 06:29 04/24/17 06:29 Labs: Laboratory Results - last 24 hr 04/20/17 04/20/17 04/20/17 15:22 15:22 15:22 WBC RBC Hgb Hct MCV MCH MCHC RDW Plt Count Lymph % (Auto) [place] % (Auto) Eos % (Auto) Baso % (Auto) Lymph # [place] # Eos # Baso # Seg Neutrophils % Seg Neutrophils # PT INR Sodium Potassium Chloride Carbon Dioxide BUN Creatinine Estimated GFR BUN/Creatinine Ratio Glucose POC Glucose Calcium Total Bilirubin AST ALT Alkaline Phosphatase C-Reactive Protein Total Protein Albumin Albumin/Globulin Ratio Mitochondria M2 Ab <=20.0 Hepatitis A Ab Total See scanned result Hep B Core Total Ab Nonreactive 04/23/17 04/23/17 04/23/17 08:23 12:19 15:30 WBC RBC Hgb Hct MCV MCH MCHC RDW Plt Count Lymph % (Auto) [place] % (Auto) Eos % (Auto) Baso % (Auto) Lymph # [place] # Eos # Baso # Seg Neutrophils % Seg Neutrophils # PT INR Sodium Potassium Chloride Carbon Dioxide BUN Creatinine Estimated GFR BUN/Creatinine Ratio Glucose POC Glucose 178 H 228 H Calcium Total Bilirubin AST ALT Alkaline Phosphatase C-Reactive Protein 8.80 H Total Protein Albumin Albumin/Globulin Ratio Mitochondria M2 Ab Hepatitis A Ab Total Hep B Core Total Ab 04/23/17 04/23/17 04/24/17 15:42 21:02 06:29 WBC 14.4 H RBC 5.91 H Hgb 14.7 H Hct 45.9 H MCV 78 L MCH 25 L MCHC 32 RDW 20.3 H Plt Count 298 Lymph % (Auto) 7.8 L [place] % (Auto) 2.6 Eos % (Auto) 1.4 Baso % (Auto) 0.3 Lymph # 1.1 L [place] # 0.4 Eos # 0.2 Baso # 0.0 Seg Neutrophils % 87.9 H Seg Neutrophils # 12.7 H PT INR Sodium Potassium Chloride Carbon Dioxide BUN Creatinine Estimated GFR BUN/Creatinine Ratio Glucose POC Glucose 259 H 278 H Calcium Total Bilirubin AST ALT Alkaline Phosphatase C-Reactive Protein Total Protein Albumin Albumin/Globulin Ratio Mitochondria M2 Ab Hepatitis A Ab Total Hep B Core Total Ab 04/24/17 04/24/17 06:29 06:29 WBC RBC Hgb Hct MCV MCH MCHC RDW Plt Count Lymph % (Auto) [place] % (Auto) Eos % (Auto) Baso % (Auto) Lymph # [place] # Eos # Baso # Seg Neutrophils % Seg Neutrophils # PT 17.0 H INR 1.32 H Sodium 138 Potassium 3.4 L Chloride 99.0 Carbon Dioxide 25 BUN 42 H Creatinine 1.2 Estimated GFR 49 BUN/Creatinine Ratio 35 Glucose 146 H POC Glucose Calcium 8.1 L Total Bilirubin 3.00 H AST 50 H ALT 111 H Alkaline Phosphatase 516 H C-Reactive Protein Total Protein 6.3 Albumin 1.5 L Albumin/Globulin Ratio 0.3 Mitochondria M2 Ab Hepatitis A Ab Total Hep B Core Total Ab
--- NOTE | 2017-04-24 10:44 | Progress Note ---
Assessment and Plan Assessment: 1) Sepsis: with improving leukocytosis. Etiology most likely complicated soft tissue infection left leg. 2) Left leg necrotizing soft tissue infection: NO evidence of necrotizing fascitis in the OR. -S/P OR debridement on 04/20, culture + GAS -CT showed subcutaneous tissue induration no abscess no gas -CRP=22-->8 3) DM-uncontrolled 4) Hyponatremia 5) Elevated LFTs ? from sepsis, HCV and HBV non reactive. ?MILLER 6) CHF 7) Early ITALIA ? resolved Plan: -stop zosyn day 7 -start penicillin G 4 million units IV q 4 hours -continue clinda day 2 -upon discharge will do penicillin G 4 million units IV q 4 hours for 3 weeks from 04/20 until 05/10. Orders sent to case management -consider LTAC for wound care and abx I will be out of town until 04/29, call me if any question Thank you Dr Tierney for your consultation, will follow up with you. Talisha Nguyen MD Infectious Diseases Specialist [facility] ([facility]) M [phone] O [phone] Subjective Date of service: 04/24/17 Principal diagnosis: jaundice Interval history: continues to c/o severe leg pain. No fever. Current Antimicrobials: Zosyn 04/18 CLinda Previous Antimicrobials: Clindamycin 04/18 Microbiology: Blood cultures: 04/18 ngtd Tissue cx 04/20 corrected report + GAS Objective - Exam Narrative Exam: General appearance: Alert in NAD, conversant Eyes: anicteric sclerae, moist conjunctivae; no lid-lag; PERRLA HENT: Atraumatic; oropharynx clear with moist mucous membranes and no mucosal ulcerations/no oral thrush; normal hard and soft palate. Normal external ears. Neck: Trachea midline; supple, no thyromegaly or lymphadenopathy Lungs: CTA, with normal respiratory effort and no intercostal retractions CV: RRR, no murmurs Abdomen: Soft, non-tender; no masses or hepatosplenomegaly Extremities: No peripheral edema or extremity lymphadenopathy Skin: posterior left calf with surgical dressings, decreased edema and tenderness Psych: Appropriate affect, alert and oriented to person, place and time. Neuro: alert and oriented x 3. Moving all extermities Lines: No CVL / PICC - Constitutional Vitals: Vital Signs Temp Pulse Resp BP Pulse Ox 98.6 F 79 18 105/65 97 04/24/17 08:47 04/24/17 09:24 04/24/17 08:47 04/24/17 09:24 04/24/17 08:47 Temperature -Last 24 Hours Temperature 98.6 F Temperature 98.3 F Temperature 98.1 F Temperature 97.8 F Temperature 97.4 F Temperature 97.4 F Temperature 93.8 F Temperature 93.0 F - Labs CBC & Chem 7: 04/24/17 06:29 04/24/17 06:29 Labs: Abnormal lab results 04/23/17 04/23/17 04/23/17 Range/Units 08:23 12:19 15:30 WBC (4.5-11.0) K/mm3 RBC (3.65-5.03) M/mm3 Hgb (10.1-14.3) gm/dl Hct (30.3-42.9) % MCV (79-97) fl MCH (28-32) pg RDW (13.2-15.2) % Lymph % (Auto) (13.4-35.0) % Lymph # (1.2-5.4) K/mm3 Seg Neutrophils % (40.0-70.0) % Seg Neutrophils # (1.8-7.7) K/mm3 PT (12.2-14.9) Sec. INR (0.87-1.13) Potassium (3.6-5.0) mmol/L BUN (7-17) mg/dL Glucose (65-100) mg/dL POC Glucose 178 H 228 H (70-105) Calcium (8.4-10.2) mg/dL Total Bilirubin (0.1-1.2) mg/dL AST (5-40) units/L ALT (7-56) units/L Alkaline Phosphatase (35-129) units/L C-Reactive Protein 8.80 H (0.00-1.30) mg/dL Albumin (3.9-5) g/dL 04/23/17 04/23/17 04/24/17 Range/Units 15:42 21:02 06:29 WBC 14.4 H (4.5-11.0) K/mm3 RBC 5.91 H (3.65-5.03) M/mm3 Hgb 14.7 H (10.1-14.3) gm/dl Hct 45.9 H (30.3-42.9) % MCV 78 L (79-97) fl MCH 25 L (28-32) pg RDW 20.3 H (13.2-15.2) % Lymph % (Auto) 7.8 L (13.4-35.0) % Lymph # 1.1 L (1.2-5.4) K/mm3 Seg Neutrophils % 87.9 H (40.0-70.0) % Seg Neutrophils # 12.7 H (1.8-7.7) K/mm3 PT (12.2-14.9) Sec. INR (0.87-1.13) Potassium (3.6-5.0) mmol/L BUN (7-17) mg/dL Glucose (65-100) mg/dL POC Glucose 259 H 278 H (70-105) Calcium (8.4-10.2) mg/dL Total Bilirubin (0.1-1.2) mg/dL AST (5-40) units/L ALT (7-56) units/L Alkaline Phosphatase (35-129) units/L C-Reactive Protein (0.00-1.30) mg/dL Albumin (3.9-5) g/dL 04/24/17 04/24/17 Range/Units 06:29 06:29 WBC (4.5-11.0) K/mm3 RBC (3.65-5.03) M/mm3 Hgb (10.1-14.3) gm/dl Hct (30.3-42.9) % MCV (79-97) fl MCH (28-32) pg RDW (13.2-15.2) % Lymph % (Auto) (13.4-35.0) % Lymph # (1.2-5.4) K/mm3 Seg Neutrophils % (40.0-70.0) % Seg Neutrophils # (1.8-7.7) K/mm3 PT 17.0 H (12.2-14.9) Sec. INR 1.32 H (0.87-1.13) Potassium 3.4 L (3.6-5.0) mmol/L BUN 42 H (7-17) mg/dL Glucose 146 H (65-100) mg/dL POC Glucose (70-105) Calcium 8.1 L (8.4-10.2) mg/dL Total Bilirubin 3.00 H (0.1-1.2) mg/dL AST 50 H (5-40) units/L ALT 111 H (7-56) units/L Alkaline Phosphatase 516 H (35-129) units/L C-Reactive Protein (0.00-1.30) mg/dL Albumin 1.5 L (3.9-5) g/dL
[2017-04-24] MEDS: ROXICODONE PO PRN ×2 (11:31→16:54)
[2017-04-24 11:45] LABS: Hematocrit 43.7 % (30.3-42.9); Mean Corpuscular HGB Conc 32 % (30-34); Mean Corpuscular Volume 77 fl (79-97); Platelet Count 293 K/mm3 (140-440); Red Blood Count 5.65 M/mm3 (3.65-5.03); Red Cell Distribution Width 19.5 % (13.2-15.2)
[2017-04-24 11:56] LABS: Calcium 7.6 mg/dL (8.4-10.2); Chloride 94.5 mmol/L (98-107); Potassium 3.3 mmol/L (3.6-5.0)
[2017-04-24 11:57] LABS: Mean Corpuscular Hemoglobin 25 pg (28-32)
--- NOTE | 2017-04-24 12:28 | Progress Note ---
Assessment and Plan 41 y/o F s/p debridement LLE necrotizing soft tissue infection, POD 4 1. necrotizing soft tissue infection, cellulitis of LLE 2. sepsis 3. CAD 4. CHF 5. HTN 6. malnutrition 7. elevated liver function tests ?MILLER PLan: 1. cultures - group A strept, abx per ID 2. OOB to chair, PT 3. PO pain control PRN 4. left leg wounds evaluated with wound care nurse, area of skin involved with infection continues to demarcate. Would recommend nickel thick layer of santyl to wound base and edges encompassing all sloughing tissue, cover with adaptec, ABD pads, and wrap with kerlex. Wound care should be performed daily. 5. elevate LLE 6. continue to encourage PO intake and supplement TID to encourage nutrition 7. strict glucose control 8. monitor WBC, currently improving Subjective Date of service: 04/24/17 Patient Reports: Positive: still having pain Narrative: Pt seen and examined. c/o feeling tired and still having left leg pain. No f/c, CP, SOB, abd pain. Objective Vital Signs - 12hr 04/24/17 04/24/17 04/24/17 04:50 08:47 09:24 Temperature 98.3 F 98.6 F Pulse Rate 79 79 Respiratory 18 18 Rate Blood Pressure 113/74 105/65 105/65 O2 Sat by Pulse 97 Oximetry 04/24/17 04/24/17 11:31 12:04 Temperature 97.7 F Pulse Rate 79 Respiratory 20 16 Rate Blood Pressure 120/87 O2 Sat by Pulse 99 Oximetry - General physical appearance Narrative Exam: Gen: AAOx3. NAD CV: S1, S2+ Resp: No audible wheezes Ext: LLE warm. Ant medial wound lower leg wound with increasing sloughing of surrounding skin. Posterior calf wound with slough on entire wound bed, muscle and fascia exposed. Serous drainage from both wounds, no pus. Calf is soft but tender near wounds. Skin blistering with clear bullae. motion and sensation intact - Labs 04/24/17 11:15 04/24/17 11:15 Diabetes panel 04/24/17 04/24/17 Range/Units 06:29 11:15 Sodium 138 131 L D (137-145) mmol/L Potassium 3.4 L 3.3 L (3.6-5.0) mmol/L Chloride 99.0 94.5 L (98-107) mmol/L Carbon Dioxide 25 25 (22-30) mmol/L BUN 42 H 41 H (7-17) mg/dL Creatinine 1.2 1.2 (0.7-1.2) mg/dL Glucose 146 H 190 H (65-100) mg/dL Calcium 8.1 L 7.6 L (8.4-10.2) mg/dL AST 50 H (5-40) units/L ALT 111 H (7-56) units/L Alkaline Phosphatase 516 H (35-129) units/L Total Protein 6.3 (6.3-8.2) g/dL Albumin 1.5 L (3.9-5) g/dL Calcium panel 04/24/17 04/24/17 Range/Units 06:29 11:15 Calcium 8.1 L 7.6 L (8.4-10.2) mg/dL Albumin 1.5 L (3.9-5) g/dL Pituitary panel 04/24/17 04/24/17 Range/Units 06:29 11:15 Sodium 138 131 L D (137-145) mmol/L Potassium 3.4 L 3.3 L (3.6-5.0) mmol/L Chloride 99.0 94.5 L (98-107) mmol/L Carbon Dioxide 25 25 (22-30) mmol/L BUN 42 H 41 H (7-17) mg/dL Creatinine 1.2 1.2 (0.7-1.2) mg/dL Glucose 146 H 190 H (65-100) mg/dL Calcium 8.1 L 7.6 L (8.4-10.2) mg/dL Adrenal panel 04/24/17 04/24/17 Range/Units 06:29 11:15 Sodium 138 131 L D (137-145) mmol/L Potassium 3.4 L 3.3 L (3.6-5.0) mmol/L Chloride 99.0 94.5 L (98-107) mmol/L Carbon Dioxide 25 25 (22-30) mmol/L BUN 42 H 41 H (7-17) mg/dL Creatinine 1.2 1.2 (0.7-1.2) mg/dL Glucose 146 H 190 H (65-100) mg/dL Calcium 8.1 L 7.6 L (8.4-10.2) mg/dL Total Bilirubin 3.00 H (0.1-1.2) mg/dL AST 50 H (5-40) units/L ALT 111 H (7-56) units/L Alkaline Phosphatase 516 H (35-129) units/L Total Protein 6.3 (6.3-8.2) g/dL Albumin 1.5 L (3.9-5) g/dL
[2017-04-24] MEDS ORDERED: K-DUR PO ONE (13:00)
[2017-04-24] MEDS: PFIZERPEN 4 MIL.UNITS in NACL 0.9% 50 ML IV SCH ×3 (13:45→23:05)
[2017-04-24] MEDS ORDERED: PFIZERPEN IV SCH (14:00)
--- NOTE | 2017-04-24 14:02 | Progress Note ---
Assessment and Plan Assessment: Sepsis LLE cellulitis / ?LLE necrotizing fasciitis Jaundice / elevated LFTs CMP - EF 20-25%; no current clinical evidence of acute heart failure; pt reports long history of "weak heart" CAD, s/p MS and PCI x 2 Chest pain, atypical - currently resolved; ECG with NAF Elevated tropoinin - minimally elevated and flat; uncertain significance; could be secondary to acute infection Hyponatremia Hyperkalemia / hypokalemia Elevated DDimer -CTA chest to rule out PE was ordered, but unable to have contrast; sats 98-100% on RA; BLE duplex negative for DVT Coagulopathy HTN HLP DM - uncontrolled; HgbA1c 11.3 on admission. CARLOS A Obesity Plan: Currently stable cardiac status. Cont present cardiac regimen. No ACEI/ARB at this time in setting of renal insufficiency. IV ABX per primary/ID. Pt reports last LHC in 2011. Records from pt's primary log manager in [place], [place], requested. Records have not been obtained thus far. Will defer repeat ischemic eval to pt's primary log manager in [place]. Nothing further to add from cardiac perspective at this time. Will see PRN. The patient has been seen in conjunction with Dr. Gipson who agrees with the assessment and plan of care. Subjective Date of service: 04/24/17 Principal diagnosis: jaundice Interval history: Pt resting in bed, no cardiac complaints. VSS. Objective Last Vital Signs Temp 97.7 F 04/24/17 12:04 Pulse 79 04/24/17 12:04 Resp 20 04/24/17 12:31 BP 120/87 04/24/17 12:04 Pulse Ox 99 04/24/17 12:04 - Physical Examination General: Appears Well HEENT: Positive: EOMI, Jaundice, Normocephaly Neck: Positive: neck supple, trachea midline Cardiac: Positive: Reg Rate and Rhythm, S1/S2 Lungs: Positive: Decreased Breath Sounds Neuro: Positive: Grossly Intact Abdomen: Positive: Soft, Active Bowel Sounds Skin: Positive: Other (Jaundice+) Musculoskeletal: No Fluid Collection Extremities: Present: Other (Open ulcer L leg, black eschar+; BLE dressings ) - Labs and Meds Cardiac Enzymes 04/24/17 Range/Units 06:29 AST 50 H (5-40) units/L Coagulation 04/24/17 Range/Units 06:29 PT 17.0 H (12.2-14.9) Sec. INR 1.32 H (0.87-1.13) CBC 04/24/17 04/24/17 Range/Units 06:29 11:15 WBC 14.4 H 15.0 H (4.5-11.0) K/mm3 RBC 5.91 H 5.65 H (3.65-5.03) M/mm3 Hgb 14.7 H 14.0 (10.1-14.3) gm/dl Hct 45.9 H 43.7 H (30.3-42.9) % Plt Count 298 293 (140-440) K/mm3 Lymph # 1.1 L (1.2-5.4) K/mm3 [place] # 0.4 (0.0-0.8) K/mm3 Eos # 0.2 (0.0-0.4) K/mm3 Baso # 0.0 (0.0-0.1) K/mm3 Comprehensive Metabolic Panel 04/24/17 04/24/17 Range/Units 06:29 11:15 Sodium 138 131 L D (137-145) mmol/L Potassium 3.4 L 3.3 L (3.6-5.0) mmol/L Chloride 99.0 94.5 L (98-107) mmol/L Carbon Dioxide 25 25 (22-30) mmol/L BUN 42 H 41 H (7-17) mg/dL Creatinine 1.2 1.2 (0.7-1.2) mg/dL Glucose 146 H 190 H (65-100) mg/dL Calcium 8.1 L 7.6 L (8.4-10.2) mg/dL AST 50 H (5-40) units/L ALT 111 H (7-56) units/L Alkaline Phosphatase 516 H (35-129) units/L Total Protein 6.3 (6.3-8.2) g/dL Albumin 1.5 L (3.9-5) g/dL - Imaging and Cardiology EKG: image reviewed - EKG Sinus rhythms and dysrhythmias: sinus rhythm Myocardial infarction: anterior MS (old age or i, lateral MS (old age or in
[2017-04-24] MEDS: SANTYL TP SCH ×2 (17:00→17:01)
--- NOTE | 2017-04-24 18:22 | Progress Note ---
Assessment and Plan /Sepsis on admission leukocytosis, tachycardia, lower extremity cellulitis, coagulopathy , elevated lactic acid Blood cultures obtained Antibiotic regimen adjusted for broad-spectrum coverage, currently on clindamycin, and penicillin G /Cellulitis LLE Erythema/warmth/tenderness from left knee to mid calf superimposed on significant edema Doppler negative for SVT/DVT developed discoloration/bulla formation/necrotic tissue 04/20; suspicion for necrotizing fasciitis raised; CT leg obtained emergently; ID and Surgery consulted; underwent surgical debridement with excision of necrotic tissue; tissue culture obtained; remains on same antibiotics with ID agreement; Consulted IV team for PICC placement NO evidence of necrotizing fascitis in the OR. -S/P OR debridement on 04/20, culture + GAS -CT showed subcutaneous tissue induration no abscess no gas - started on penicillin G 4 million units IV q 4 hours from today -continue clinda day 2 -upon discharge will need penicillin G 4 million units IV q 4 hours for 3 weeks from 04/20 until 05/10. Orders were sent to case management /Jaundice/elevated LFTs RUQ US obtained and showed no gallstones, trace ascites TG wnl, Statin d/c Lipase was elevated but noow back within normal limits CT abdomen wo contrast obtained to r/o pancreatitis GI consulted and additional workup was negative (hepatitis panel - negative, antimitochondrial antibodies -<20) Trend LFTs /Hypochloremic Hyponatremia Na+ 120 on admission Likely dilutional due to heart failure Received Tolvaptan Improved, today 138 /Hyperkalemia/hypokalemia 5.9 on admission, medically treated, then normal limits; became hypokalemic, cont to replace and monitor / Hypomagnesemia - replaced Monitor electrolytes /Metabolic acidosis Likely due to sepsis and acute kidney injury Monitor /Acute kidney injury Likely secondary to vasomotor nephropathy Now creatinine within normal limits Continue to monitor /Coagulopathy No history of anticoagulant use Abnormal LFTs ? Cardiac cirrhosis Improving /D-dimer elevated, WBC trended up Doppler lower extremity negative for DVT CTA chest to rule out PE was ordered, but unable to have contrast; sats 98-100% on RA /Acute on chronic combined systolic/diastolic heart failure Echo with EF 20-25% Continue diuresis with Lasix On low dose BB as BP borderline low No ACEI due to renal insufficiency and hyperkalemia Monitor I's and O's Cardiology consulted and following /h/o CAD History of MN, PCI with stent placementx2 Started on aspirin, BB, statin, pravastatin had to be discontinued due to elevated LFTs No ARLYN inhibitor due to renal insuf, K abnormality /Elevated troponin With no EKG changes Likely in the setting of acute heart failure and kidney injury /Hypertension BP borderline low Only on Lasix, BB for heart failure treatment /Uncontrolled diabetes type 2 Hemoglobin A1c 11 Started on long-acting insulin and SSI based on Accu-Cheks Monitor and adjust regimen /Hyperlipidemia Started on statin, but need to hold it due to transaminitis /Obesity/CARLOS A/OHS When medically stable and discharged will need pulmonary follow-up for PFTs and sleep study as well as counseling regarding importance of losing weight /Severe protein calorie monitor nutrition Dietitian consulted / Debility Consulted PT /DVT/GI prophylaxis Brief History: 40 years old obese female with history of CAD with MN and PCI with stent placements 2, hypertension, chronic heart failure, diabetes hyperlipidemia on no medications for more than one year due to lack of insurance , presented for chest pain, significant shortness of breath that worsened progressively, bilateral lower extremity edema with recent superimposed redness and tenderness of left leg Current meds: Generic Name Dose Route Start Last Admin Trade Name Freq PRN Reason Stop Dose Admin Aspirin 81 mg 04/18/17 22:00 04/25/17 10:33 Baby Aspirin PO 81 mg QDAY JEROME Administration Carvedilol 3.125 mg 04/19/17 22:00 04/25/17 10:33 Coreg PO 3.125 mg BID JEROME Administration Collagenase 1 applic 04/22/17 11:00 04/25/17 10:34 Santyl TP 1 applic QDAY JEROME Administration Dextrose 50 ml 04/17/17 23:34 D50w (25gm) Syringe IV PRN PRN Hypoglycemia Furosemide 40 mg 04/22/17 14:00 04/25/17 10:33 Lasix PO 40 mg QDAY JEROME Administration Clindamycin HCl 600 mg in 50 mls @ 100 mls/hr 04/23/17 14:00 04/25/17 15:12 Cleocin 600 Mg/50 Ml IV 100 mls/hr Q8HR JEROME Administration Protocol Penicillin G Potassium 4 mil. 50 mls @ 100 mls/hr 04/24/17 14:00 04/25/17 16: 13 units/ Sodium Chloride IV 100 mls/hr Q4HR JEROME Administration Insulin Aspart 0 units 04/18/17 16:30 04/25/17 16:18 Novolog SUB-Q 2 units ACHS JEROME Administration Protocol Insulin Detemir 10 units 04/18/17 22:00 04/24/17 23:05 Levemir SUB-Q 10 units QHS JEROME Administration Morphine Sulfate 2 mg 04/17/17 23:39 04/25/17 13:23 Morphine IV 2 mg Q4H PRN Administration Pain, Moderate (4-6) Ondansetron HCl 4 mg 04/22/17 11:00 Zofran IV Q8H PRN Nausea And Vomiting Oxycodone HCl 5 mg 04/22/17 11:30 04/25/17 12:37 Roxicodone PO 5 mg Q6H PRN Administration Pain, Mild (1-3) Subjective Date of service: 04/24/17 Principal diagnosis: jaundice Interval history: doing well this morning, still having pain, but improved White count improving Objective - Exam Narrative Exam: General appearance: Present: no acute distress, obese - EENT Eyes: Present: PERRL, EOM intact, scleral icterus. Absent: conjunctival injection - Neck Neck: Present: supple. Absent: enlarged thyroid, masses or JVD - Respiratory Respiratory effort: normal Respiratory: bilateral: diminished, negative: rhonchi, wheezing - Cardiovascular Rhythm: other (tachycardic) Heart Sounds: Present: S1 & S2. Absent: systolic murmur - Extremities Extremities: no ischemia, abnormal (l leg dressing in place) Extremity abnormal: edema - Abdominal General gastrointestinal: soft, non-tender, non-distended, normal bowel sounds - Psychiatric Psychiatric: cooperative - Neurologic Neurologic: CNII-XII intact, no focal deficits - Constitutional Vitals: Vital Signs - 12hr 04/24/17 04/24/17 04/24/17 08:47 09:17 09:24 Temperature 98.6 F Pulse Rate 79 78 79 Respiratory 18 Rate Blood Pressure 105/65 105/65 O2 Sat by Pulse 97 Oximetry 04/24/17 04/24/17 04/24/17 11:31 12:04 12:31 Temperature 97.7 F Pulse Rate 79 Respiratory 20 16 20 Rate Blood Pressure 120/87 O2 Sat by Pulse 99 Oximetry 04/24/17 04/24/17 04/24/17 15:52 16:54 17:54 Temperature Pulse Rate 78 Respiratory 20 20 Rate Blood Pressure O2 Sat by Pulse Oximetry - Labs CBC & Chem 7: 04/25/17 05:28 04/24/17 11:15 Labs: Abnormal lab results 04/23/17 04/23/17 04/23/17 Range/Units 08:23 12:19 15:42 WBC (4.5-11.0) K/mm3 RBC (3.65-5.03) M/mm3 Hgb (10.1-14.3) gm/dl Hct (30.3-42.9) % MCV (79-97) fl MCH (28-32) pg RDW (13.2-15.2) % Lymph % (Auto) (13.4-35.0) % Lymph # (1.2-5.4) K/mm3 Seg Neutrophils % (40.0-70.0) % Seg Neutrophils # (1.8-7.7) K/mm3 PT (12.2-14.9) Sec. INR (0.87-1.13) Sodium (137-145) mmol/L Potassium (3.6-5.0) mmol/L Chloride (98-107) mmol/L BUN (7-17) mg/dL Glucose (65-100) mg/dL POC Glucose 178 H 228 H 259 H (70-105) Calcium (8.4-10.2) mg/dL Total Bilirubin (0.1-1.2) mg/dL AST (5-40) units/L ALT (7-56) units/L Alkaline Phosphatase (35-129) units/L Albumin (3.9-5) g/dL 04/23/17 04/24/17 04/24/17 Range/Units 21:02 06:29 06:29 WBC 14.4 H (4.5-11.0) K/mm3 RBC 5.91 H (3.65-5.03) M/mm3 Hgb 14.7 H (10.1-14.3) gm/dl Hct 45.9 H (30.3-42.9) % MCV 78 L (79-97) fl MCH 25 L (28-32) pg RDW 20.3 H (13.2-15.2) % Lymph % (Auto) 7.8 L (13.4-35.0) % Lymph # 1.1 L (1.2-5.4) K/mm3 Seg Neutrophils % 87.9 H (40.0-70.0) % Seg Neutrophils # 12.7 H (1.8-7.7) K/mm3 PT 17.0 H (12.2-14.9) Sec. INR 1.32 H (0.87-1.13) Sodium (137-145) mmol/L Potassium (3.6-5.0) mmol/L Chloride (98-107) mmol/L BUN (7-17) mg/dL Glucose (65-100) mg/dL POC Glucose 278 H (70-105) Calcium (8.4-10.2) mg/dL Total Bilirubin (0.1-1.2) mg/dL AST (5-40) units/L ALT (7-56) units/L Alkaline Phosphatase (35-129) units/L Albumin (3.9-5) g/dL 04/24/17 04/24/17 04/24/17 Range/Units 06:29 11:15 11:15 WBC 15.0 H (4.5-11.0) K/mm3 RBC 5.65 H (3.65-5.03) M/mm3 Hgb (10.1-14.3) gm/dl Hct 43.7 H (30.3-42.9) % MCV 77 L (79-97) fl MCH 25 L (28-32) pg RDW 19.5 H (13.2-15.2) % Lymph % (Auto) (13.4-35.0) % Lymph # (1.2-5.4) K/mm3 Seg Neutrophils % (40.0-70.0) % Seg Neutrophils # (1.8-7.7) K/mm3 PT (12.2-14.9) Sec. INR (0.87-1.13) Sodium 131 L D (137-145) mmol/L Potassium 3.4 L 3.3 L (3.6-5.0) mmol/L Chloride 94.5 L (98-107) mmol/L BUN 42 H 41 H (7-17) mg/dL Glucose 146 H 190 H (65-100) mg/dL POC Glucose (70-105) Calcium 8.1 L 7.6 L (8.4-10.2) mg/dL Total Bilirubin 3.00 H (0.1-1.2) mg/dL AST 50 H (5-40) units/L ALT 111 H (7-56) units/L Alkaline Phosphatase 516 H (35-129) units/L Albumin 1.5 L (3.9-5) g/dL
[2017-04-24] MEDS: LEVEMIR SUB-Q SCH (23:05)
[2017-04-25] MEDS: PFIZERPEN 4 MIL.UNITS in NACL 0.9% 50 ML IV SCH ×6 (02:05→21:55)
[2017-04-25 06:34] LABS: Basophils % (Auto) 0.3 % (0.0-1.8); Hematocrit 44.2 % (30.3-42.9); Hemoglobin 14.6 gm/dl (10.1-14.3); Mean Corpuscular HGB Conc 33 % (30-34); Mean Corpuscular Volume 77 fl (79-97); Platelet Count 293 K/mm3 (140-440); Red Blood Count 5.74 M/mm3 (3.65-5.03); Red Cell Distribution Width 19.7 % (13.2-15.2); White Blood Count 13.1 K/mm3 (4.5-11.0)
[2017-04-25 06:41] LABS: Mean Corpuscular Hemoglobin 25 pg (28-32)
[2017-04-25] MEDS: CLEOCIN 600 MG/50 mL 600 MG/50 ML BAG IV SCH ×3 (06:43→21:55)
[2017-04-25] MEDS: NOVOLOG SUB-Q SCH ×4 (07:34→22:28)
[2017-04-25] MEDS: BABY ASPIRIN PO SCH (10:33)
[2017-04-25] MEDS: LASIX PO SCH (10:33)
[2017-04-25] MEDS: COREG PO SCH ×2 (10:33→21:53)
[2017-04-25] MEDS: SANTYL TP SCH (10:34)
[2017-04-25] MEDS: ROXICODONE PO PRN ×2 (12:37→22:27)
--- NOTE | 2017-04-25 13:17 | Progress Note ---
Assessment and Plan 41 y/o F s/p debridement LLE necrotizing soft tissue infection, POD 5 1. necrotizing soft tissue infection, cellulitis of LLE 2. sepsis 3. CAD 4. CHF 5. HTN 6. malnutrition 7. elevated liver function tests ?MILLER PLan: 1. cultures - group A strept, abx per ID 2. Patient MUST BE out of bed to chair BID, will both legs elevated when out of bed. Reconsult PT. 3. PO pain control PRN 4. continue current wound care daily. 5. elevate LLE 6. discussed with patient the importance of nutrition and that it is essential in healing of wounds. continue boost with glucose control TID and add boost chocolate pudding. 7. strict glucose control 8. WBC improving 9. encouraged patient to take scheduled doses of antibiotics 10. recommend removal of rivera catheter and implementing bedside commode 11. As patient's skin necrosis continues to demarcate, patient may need transfer to tertiary care center for more extensive debridement of left leg. Wound healing potential is questionable secondary to poor nutritional status and diabetes. Subjective Date of service: 04/25/17 Patient Reports: Positive: no new complaints, pain is less, tolerating a regular diet, afebrile Narrative: Pt seen and examined. No new complaints. Patient states she has not been seen by physical therapy in several days. Per nursing, the patient becomes irritable and has refused doses of antibiotics overnight. Objective Vital Signs - 12hr 04/25/17 04/25/17 04/25/17 03:50 04:25 11:00 Temperature 97.5 F L Pulse Rate 81 86 84 Respiratory 18 Rate Blood Pressure 110/66 O2 Sat by Pulse 95 Oximetry 04/25/17 12:37 Temperature Pulse Rate Respiratory 20 Rate Blood Pressure O2 Sat by Pulse Oximetry - General physical appearance Narrative Exam: Gen: AAOx3. NAD Ext: 3+ pitting edema bilateral lower extremities. Left leg wound unwrapped and all of the dressing removed. Unchanged exam from yesterday. Posterior leg wound with slough over entire wound bed, small area of skin necrosis superior to this measuring approximately 3x3 cm. Anterior medial wound still draining serous fluid with area of surrounding necrosing skin. Entire leg has sloughing superficial skin. Santyl applied to all necrotic areas and covered with adaptec. Covered with 4x4 fluff gauze, abd, and loosely wrapped with kerlex. - Labs 04/25/17 05:28 04/24/17 11:15
[2017-04-25] MEDS: MORPHINE IV PRN (13:23)
--- NOTE | 2017-04-25 17:34 | Progress Note ---
Assessment and Plan /Sepsis on admission leukocytosis, tachycardia, lower extremity cellulitis, coagulopathy , elevated lactic acid Blood cultures obtained Antibiotic regimen adjusted for broad-spectrum coverage, currently on clindamycin, and penicillin G /Cellulitis LLE Erythema/warmth/tenderness from left knee to mid calf superimposed on significant edema Doppler negative for SVT/DVT developed discoloration/bulla formation/necrotic tissue 04/20; suspicion for necrotizing fasciitis raised; CT leg obtained emergently; ID and Surgery consulted; underwent surgical debridement with excision of necrotic tissue; tissue culture obtained; S/P OR debridement on 04/20, culture + GAS, plan for another debridement on Friday CT showed subcutaneous tissue induration no abscess no gas started on penicillin G 4 million units IV q 4 hours from 04/24/17 continue clindamycin upon discharge will need penicillin G 4 million units IV q 4 hours for 3 weeks from 04/20 until 05/10. Orders were sent to case management /Jaundice/elevated LFTs RUQ US obtained and showed no gallstones, trace ascites TG wnl, Statin d/c Lipase was elevated but noow back within normal limits CT abdomen wo contrast obtained to r/o pancreatitis GI consulted and additional workup was negative (hepatitis panel - negative, antimitochondrial antibodies -<20) /Hypochloremic Hyponatremia Na+ 120 on admission Likely dilutional due to heart failure Received Tolvaptan Improved with iv fluid hydration /Hyperkalemia/hypokalemia 5.9 on admission, medically treated, then normal limits; became hypokalemic, repleted / Hypomagnesemia - replaced Monitor electrolytes /Metabolic acidosis Likely due to sepsis and acute kidney injury Monitor /Acute kidney injury Likely secondary to vasomotor nephropathy Now creatinine within normal limits Continue to monitor /Coagulopathy No history of anticoagulant use Abnormal LFTs ? Cardiac cirrhosis Improving /D-dimer elevated, WBC trended up Doppler lower extremity negative for DVT CTA chest to rule out PE was ordered, but unable to have contrast; sats 98-100% on RA /Acute on chronic combined systolic/diastolic heart failure Echo with EF 20-25% Continue diuresis with Lasix On low dose BB as BP borderline low No ACEI due to renal insufficiency and hyperkalemia Monitor I's and O's Cardiology consulted and following /h/o CAD History of TX, PCI with stent placementx2 Started on aspirin, BB, statin, pravastatin had to be discontinued due to elevated LFTs No ARLYN inhibitor due to renal insuf, K abnormality /Elevated troponin With no EKG changes Likely in the setting of acute heart failure and kidney injury /Hypertension BP borderline low Only on Lasix, BB for heart failure treatment /Uncontrolled diabetes type 2 Hemoglobin A1c 11 Started on long-acting insulin and SSI based on Accu-Cheks Monitor and adjust regimen /Hyperlipidemia Started on statin, but need to hold it due to transaminitis /Obesity/CARLOS A/OHS When medically stable and discharged will need pulmonary follow-up for PFTs and sleep study as well as counseling regarding importance of losing weight /Severe protein calorie monitor nutrition Dietitian consulted / Debility Consulted PT /DVT/GI prophylaxis Brief History: 40 years old obese female with history of CAD with [place] and PCI with stent placements 2, hypertension, chronic heart failure, diabetes hyperlipidemia on no medications for more than one year due to lack of insurance , presented for chest pain, significant shortness of breath that worsened progressively, bilateral lower extremity edema with recent superimposed redness and tenderness of left leg Current meds: Generic Name Dose Route Start Last Admin Trade Name Freq PRN Reason Stop Dose Admin Aspirin 81 mg 04/18/17 22:00 04/25/17 10:33 Baby Aspirin PO 81 mg QDAY JEROME Administration Carvedilol 3.125 mg 04/19/17 22:00 04/25/17 10:33 Coreg PO 3.125 mg BID JEROME Administration Collagenase 1 applic 04/22/17 11:00 04/25/17 10:34 Santyl TP 1 applic QDAY JEROME Administration Dextrose 50 ml 04/17/17 23:34 D50w (25gm) Syringe IV PRN PRN Hypoglycemia Furosemide 40 mg 04/22/17 14:00 04/25/17 10:33 Lasix PO 40 mg QDAY JEROME Administration Clindamycin HCl 600 mg in 50 mls @ 100 mls/hr 04/23/17 14:00 04/25/17 15:12 Cleocin 600 Mg/50 Ml IV 100 mls/hr Q8HR JEROME Administration Protocol Penicillin G Potassium 4 mil. 50 mls @ 100 mls/hr 04/24/17 14:00 04/25/17 16: 13 units/ Sodium Chloride IV 100 mls/hr Q4HR JEROME Administration Insulin Aspart 0 units 04/18/17 16:30 04/25/17 16:18 Novolog SUB-Q 2 units ACHS JEROME Administration Protocol Insulin Detemir 10 units 04/18/17 22:00 04/24/17 23:05 Levemir SUB-Q 10 units QHS JEROME Administration Morphine Sulfate 2 mg 04/17/17 23:39 04/25/17 13:23 Morphine IV 2 mg Q4H PRN Administration Pain, Moderate (4-6) Ondansetron HCl 4 mg 04/22/17 11:00 Zofran IV Q8H PRN Nausea And Vomiting Oxycodone HCl 5 mg 04/22/17 11:30 04/25/17 12:37 Roxicodone PO 5 mg Q6H PRN Administration Pain, Mild (1-3) Subjective Date of service: 04/25/17 Principal diagnosis: jaundice Interval history: doing well this morning, still having pain, but improved White count improving Discussed with GS, patient tried to transfer to [place], but they refused plan for another debridement on Friday Objective - Exam Narrative Exam: General appearance: Present: no acute distress, obese - EENT Eyes: Present: PERRL, EOM intact, scleral icterus. Absent: conjunctival injection - Neck Neck: Present: supple. Absent: enlarged thyroid, masses or JVD - Respiratory Respiratory effort: normal Respiratory: bilateral: diminished, negative: rhonchi, wheezing - Cardiovascular Rhythm: other (tachycardic) Heart Sounds: Present: S1 & S2. Absent: systolic murmur - Extremities Extremities: no ischemia, abnormal (l leg dressing in place) Extremity abnormal: edema - Abdominal General gastrointestinal: soft, non-tender, non-distended, normal bowel sounds - Psychiatric Psychiatric: cooperative - Neurologic Neurologic: CNII-XII intact, no focal deficits - Constitutional Vitals: Vital Signs - 12hr 04/25/17 04/25/17 04/25/17 09:21 11:00 12:37 Temperature 97.3 F L Pulse Rate 85 84 Respiratory 22 20 Rate Blood Pressure 117/79 O2 Sat by Pulse 99 Oximetry - Labs CBC & Chem 7: 04/25/17 05:28 04/25/17 Unknown Labs: Abnormal lab results 04/24/17 04/24/17 04/24/17 Range/Units 08:52 12:11 17:48 WBC (4.5-11.0) K/mm3 RBC (3.65-5.03) M/mm3 Hgb (10.1-14.3) gm/dl Hct (30.3-42.9) % MCV (79-97) fl MCH (28-32) pg RDW (13.2-15.2) % Lymph % (Auto) (13.4-35.0) % Seg Neutrophils % (40.0-70.0) % Seg Neutrophils # (1.8-7.7) K/mm3 POC Glucose 152 H 193 H 149 H (70-105) Prealbumin (0.200-0.400) g/L 04/24/17 04/25/17 04/25/17 Range/Units 22:05 05:28 05:28 WBC 13.1 H (4.5-11.0) K/mm3 RBC 5.74 H (3.65-5.03) M/mm3 Hgb 14.6 H (10.1-14.3) gm/dl Hct 44.2 H (30.3-42.9) % MCV 77 L (79-97) fl MCH 25 L (28-32) pg RDW 19.7 H (13.2-15.2) % Lymph % (Auto) 9.1 L (13.4-35.0) % Seg Neutrophils % 87.2 H (40.0-70.0) % Seg Neutrophils # 11.4 H (1.8-7.7) K/mm3 POC Glucose 177 H (70-105) Prealbumin 0.060 L (0.200-0.400) g/L 04/25/17 04/25/17 04/25/17 Range/Units 09:23 13:05 16:18 WBC (4.5-11.0) K/mm3 RBC (3.65-5.03) M/mm3 Hgb (10.1-14.3) gm/dl Hct (30.3-42.9) % MCV (79-97) fl MCH (28-32) pg RDW (13.2-15.2) % Lymph % (Auto) (13.4-35.0) % Seg Neutrophils % (40.0-70.0) % Seg Neutrophils # (1.8-7.7) K/mm3 POC Glucose 132 H 146 H 189 H (70-105) Prealbumin (0.200-0.400) g/L
[2017-04-25 20:28] LABS: Calcium 7.7 mg/dL (8.4-10.2); Chloride 95.3 mmol/L (98-107); Potassium 3.7 mmol/L (3.6-5.0)
[2017-04-25] MEDS: LEVEMIR SUB-Q SCH (21:55)
[2017-04-26] MEDS: PFIZERPEN 4 MIL.UNITS in NACL 0.9% 50 ML IV SCH ×6 (02:53→23:11)
[2017-04-26] MEDS: CLEOCIN 600 MG/50 mL 600 MG/50 ML BAG IV SCH ×3 (05:52→23:11)
[2017-04-26] MEDS: NOVOLOG SUB-Q SCH ×4 (07:30→22:00)
[2017-04-26] MEDS: BABY ASPIRIN PO SCH (10:08)
[2017-04-26] MEDS: ROXICODONE PO PRN (10:08)
[2017-04-26] MEDS: LASIX PO SCH (10:08)
[2017-04-26] MEDS: COREG PO SCH ×2 (10:08→23:12)
[2017-04-26] MEDS: SANTYL TP SCH (10:09)
--- NOTE | 2017-04-26 11:52 | Consultation ---
History of Present Illness - Reason for Consult Consult date: 04/26/17 - History of Present Illness This patient has developed pain and swelling of the left leg 3-4 weeks ago. She did not have this type of problems before. She developed severe cellulitis and skin necrosis resulting in surgical debridement. Patient denies history of leg swelling or pain. Patient denies history of DVT. Patient denies history of venous discoloration. Patient denies history of claudication, rest pain, tissue loss. She is complaining of pain. Past History Past Medical History: diabetes, heart failure, hypertension, hyperlipidemia Past Surgical History: Other (status post 2 stent) Social history: full code. denies: smoking, alcohol abuse, prescription drug abuse, IV drug use Family history: CAD Medications and Allergies Allergies Allergy/AdvReac Type Severity Reaction Status Date / Time No Known Allergies Allergy Verified 04/17/17 22:18 Home Medications Medication Instructions Recorded Confirmed Last Taken Type Furosemide [Lasix TAB] 40 mg PO QDAY #30 tablet 02/03/17 04/18/17 1 Day Ago Rx Active Meds: Active Medications Aspirin (Baby Aspirin) 81 mg PO QDAY [facility] Last Admin: 04/26/17 10:08 Dose: 81 mg Carvedilol (Coreg) 3.125 mg PO BID [facility] Last Admin: 04/26/17 10:08 Dose: 3.125 mg Collagenase (Santyl) 1 applic TP QDAY [facility] Last Admin: 04/26/17 10:09 Dose: 1 applic Dextrose (D50w (25gm) Syringe) 50 ml IV PRN PRN PRN Reason: Hypoglycemia Furosemide (Lasix) 40 mg PO QDAY [facility] Last Admin: 04/26/17 10:08 Dose: 40 mg Clindamycin HCl (Cleocin 600 Mg/50 Ml) 600 mg in 50 mls @ 100 mls/hr IV Q8HR [facility] PRN Reason: Protocol Last Admin: 04/26/17 05:52 Dose: 100 mls/hr Penicillin G Potassium 4 mil. (units/ Sodium Chloride) 50 mls @ 100 mls/hr IV Q4HR [facility] Last Admin: 04/26/17 10:10 Dose: 100 mls/hr Insulin Aspart (Novolog) 0 units SUB-Q ACHS JEROME PRN Reason: Protocol Last Admin: 04/26/17 07:30 Dose: Not Given Insulin Detemir (Levemir) 10 units SUB-Q QHS [facility] Last Admin: 04/25/17 21:55 Dose: 10 units Morphine Sulfate (Morphine) 2 mg IV Q4H PRN PRN Reason: Pain, Moderate (4-6) Last Admin: 04/25/17 13:23 Dose: 2 mg Ondansetron HCl (Zofran) 4 mg IV Q8H PRN PRN Reason: Nausea And Vomiting Oxycodone HCl (Roxicodone) 5 mg PO Q6H PRN PRN Reason: Pain, Mild (1-3) Last Admin: 04/26/17 10:08 Dose: 5 mg Exam - Constitutional Vitals: Temp Pulse Resp BP Pulse Ox 97.8 F 86 20 116/78 95 04/26/17 05:07 04/26/17 05:07 04/26/17 05:07 04/26/17 05:07 04/26/17 05:07 General appearance: Present: mild distress - EENT Eyes: Present: PERRL ENT: hearing intact - Neck Neck: Absent: carotid bruits - Respiratory Respiratory effort: normal Respiratory: bilateral: CTA - Cardiovascular Rhythm: regular - Extremities Extremities: no ischemia, pulses intact, pulses symmetrical Extremity abnormal: edema (left leg ), other (left leg bandaged) Peripheral Pulses: within normal limits - Abdominal General gastrointestinal: Present: deferred Female genitourinary: Present: deferred - Rectal Rectal Exam: deferred - Psychiatric Psychiatric: appropriate mood/affect - Neurologic Neurologic: no focal deficits, moves all extremities Results - Labs CBC & Chem 7: 04/25/17 05:28 04/25/17 Unknown Labs: Abnormal lab results 04/25/17 04/25/17 04/25/17 Range/Units 13:05 16:18 21:13 Sodium (137-145) mmol/L Chloride (98-107) mmol/L BUN (7-17) mg/dL Glucose (65-100) mg/dL POC Glucose 146 H 189 H 215 H (70-105) Calcium (8.4-10.2) mg/dL 04/25/17 Range/Units Unknown Sodium 133 L (137-145) mmol/L Chloride 95.3 L (98-107) mmol/L BUN 38 H (7-17) mg/dL Glucose 229 H (65-100) mg/dL POC Glucose (70-105) Calcium 7.7 L (8.4-10.2) mg/dL - Imaging and Cardiology CT scan - abdomen: report reviewed, image reviewed (minimal aortic calcification ) Assessment and Plan Left lower extremity cellulitis and skin necrosis. Status post surgical debridement. No evidence of arterial occlusive disease. No evidence of significant venous insufficiency. Even if she has any venous reflux, not uncommon in overweight people, it would not affect the healing of her wound. Patient infection is most likely the result of being overweight and poorly controlled diabetes. Plan: At this point no vascular workup or intervention is indicated. continue present management.
--- NOTE | 2017-04-26 17:40 | Progress Note ---
Assessment and Plan /Cellulitis LLE Erythema/warmth/tenderness from left knee to mid calf superimposed on significant edema Doppler negative for SVT/DVT developed discoloration/bulla formation/necrotic tissue 04/20; suspicion for necrotizing fasciitis raised; CT leg obtained emergently; ID and Surgery consulted; underwent surgical debridement with excision of necrotic tissue; tissue culture obtained; S/P OR debridement on 04/20, culture + GAS, plan for another debridement on Friday CT showed subcutaneous tissue induration no abscess no gas started on penicillin G 4 million units IV q 4 hours from 04/24/17 continue clindamycin upon discharge will need penicillin G 4 million units IV q 4 hours for 3 weeks from 04/20 until 05/10. Orders were sent to case management /Sepsis on admission leukocytosis, tachycardia, lower extremity cellulitis, coagulopathy , elevated lactic acid Blood cultures obtained Antibiotic regimen adjusted for broad-spectrum coverage, currently on clindamycin, and penicillin G /Acute kidney injury Likely secondary to vasomotor nephropathy Now creatinine within normal limits Continue to monitor /Jaundice/elevated LFTs RUQ US obtained and showed no gallstones, trace ascites TG wnl, Statin d/c Lipase was elevated but noow back within normal limits CT abdomen wo contrast obtained to r/o pancreatitis GI consulted and additional workup was negative (hepatitis panel - negative, antimitochondrial antibodies -<20) /Hypochloremic Hyponatremia Na+ 120 on admission Likely dilutional due to heart failure Received Tolvaptan Improved with iv fluid hydration /Hyperkalemia/hypokalemia 5.9 on admission, medically treated, then normal limits; became hypokalemic, repleted / Hypomagnesemia - replaced Monitor electrolytes /Metabolic acidosis Likely due to sepsis and acute kidney injury Monitor /Coagulopathy No history of anticoagulant use Abnormal LFTs ? Cardiac cirrhosis Improving /D-dimer elevated, WBC trended up Doppler lower extremity negative for DVT CTA chest to rule out PE was ordered, but unable to have contrast; sats 98-100% on RA /Acute on chronic combined systolic/diastolic heart failure Echo with EF 20-25% Continue diuresis with Lasix On low dose BB as BP borderline low No ACEI due to renal insufficiency and hyperkalemia Monitor I's and O's Cardiology consulted and following /h/o CAD History of [place], PCI with stent placementx2 Started on aspirin, BB, statin, pravastatin had to be discontinued due to elevated LFTs No ARLYN inhibitor due to renal insuf, K abnormality /Elevated troponin With no EKG changes Likely in the setting of acute heart failure and kidney injury /Hypertension BP borderline low Only on Lasix, BB for heart failure treatment /Uncontrolled diabetes type 2 Hemoglobin A1c 11 Started on long-acting insulin and SSI based on Accu-Cheks Monitor and adjust regimen /Hyperlipidemia Started on statin, but need to hold it due to transaminitis /Obesity/CARLOS A/OHS When medically stable and discharged will need pulmonary follow-up for PFTs and sleep study as well as counseling regarding importance of losing weight /Severe protein calorie monitor nutrition Dietitian consulted / Debility Consulted PT /DVT/GI prophylaxis Brief History: 40 years old obese female with history of CAD with [place] and PCI with stent placements 2, hypertension, chronic heart failure, diabetes hyperlipidemia on no medications for more than one year due to lack of insurance , presented for chest pain, significant shortness of breath that worsened progressively, bilateral lower extremity edema with recent superimposed redness and tenderness of left leg Current meds: Generic Name Dose Route Start Last Admin Trade Name Freq PRN Reason Stop Dose Admin Aspirin 81 mg 04/18/17 22:00 04/25/17 10:33 Baby Aspirin PO 81 mg QDAY JEROME Administration Carvedilol 3.125 mg 04/19/17 22:00 04/25/17 10:33 Coreg PO 3.125 mg BID JEROME Administration Collagenase 1 applic 04/22/17 11:00 04/25/17 10:34 Santyl TP 1 applic QDAY JEROME Administration Dextrose 50 ml 04/17/17 23:34 D50w (25gm) Syringe IV PRN PRN Hypoglycemia Furosemide 40 mg 04/22/17 14:00 04/25/17 10:33 Lasix PO 40 mg QDAY JEROME Administration Clindamycin HCl 600 mg in 50 mls @ 100 mls/hr 04/23/17 14:00 04/25/17 15:12 Cleocin 600 Mg/50 Ml IV 100 mls/hr Q8HR JEROME Administration Protocol Penicillin G Potassium 4 mil. 50 mls @ 100 mls/hr 04/24/17 14:00 04/25/17 16: 13 units/ Sodium Chloride IV 100 mls/hr Q4HR JEROME Administration Insulin Aspart 0 units 04/18/17 16:30 04/25/17 16:18 Novolog SUB-Q 2 units ACHS JEROME Administration Protocol Insulin Detemir 10 units 04/18/17 22:00 04/24/17 23:05 Levemir SUB-Q 10 units QHS JEROME Administration Morphine Sulfate 2 mg 04/17/17 23:39 04/25/17 13:23 Morphine IV 2 mg Q4H PRN Administration Pain, Moderate (4-6) Ondansetron HCl 4 mg 04/22/17 11:00 Zofran IV Q8H PRN Nausea And Vomiting Oxycodone HCl 5 mg 04/22/17 11:30 04/25/17 12:37 Roxicodone PO 5 mg Q6H PRN Administration Pain, Mild (1-3) Subjective Date of service: 04/26/17 Principal diagnosis: jaundice Interval history: doing well this morning, still having pain, but improved unable to perticipate PT plan for another debridement on Friday Objective - Exam Narrative Exam: General appearance: Present: no acute distress, obese - EENT Eyes: Present: PERRL, EOM intact, scleral icterus. Absent: conjunctival injection - Neck Neck: Present: supple. Absent: enlarged thyroid, masses or JVD - Respiratory Respiratory effort: normal Respiratory: bilateral: diminished, negative: rhonchi, wheezing - Cardiovascular Rhythm: other (tachycardic) Heart Sounds: Present: S1 & S2. Absent: systolic murmur - Extremities Extremities: no ischemia, abnormal (l leg dressing in place) Extremity abnormal: edema - Abdominal General gastrointestinal: soft, non-tender, non-distended, normal bowel sounds - Psychiatric Psychiatric: cooperative - Neurologic Neurologic: CNII-XII intact, no focal deficits - Constitutional Vitals: Vital Signs - 12hr 04/26/17 09:51 Pulse Rate 85 O2 Sat by Pulse 95 Oximetry - Labs CBC & Chem 7: 04/25/17 05:28 04/25/17 Unknown Labs: Abnormal lab results 04/25/17 04/25/17 04/26/17 Range/Units 21:13 Unknown 07:58 Sodium 133 L (137-145) mmol/L Chloride 95.3 L (98-107) mmol/L BUN 38 H (7-17) mg/dL Glucose 229 H (65-100) mg/dL POC Glucose 215 H 157 H (70-105) Calcium 7.7 L (8.4-10.2) mg/dL 04/26/17 Range/Units 11:52 Sodium (137-145) mmol/L Chloride (98-107) mmol/L BUN (7-17) mg/dL Glucose (65-100) mg/dL POC Glucose 185 H (70-105) Calcium (8.4-10.2) mg/dL
[2017-04-26] MEDS: MORPHINE IV PRN (18:17)
[2017-04-26] MEDS: LEVEMIR SUB-Q SCH (23:12)
[2017-04-27] MEDS: PFIZERPEN 4 MIL.UNITS in NACL 0.9% 50 ML IV SCH ×6 (02:35→22:52)
[2017-04-27] MEDS: ZOFRAN IV PRN (05:08)
[2017-04-27] MEDS: ROXICODONE PO PRN ×3 (05:08→22:52)
[2017-04-27] MEDS: CLEOCIN 600 MG/50 mL 600 MG/50 ML BAG IV SCH ×3 (05:09→22:53)
[2017-04-27 05:28] LABS: Hematocrit 44.3 % (30.3-42.9); Hemoglobin 14.3 gm/dl (10.1-14.3); Mean Corpuscular HGB Conc 32 % (30-34); Mean Corpuscular Volume 77 fl (79-97); Platelet Count 291 K/mm3 (140-440); Red Blood Count 5.72 M/mm3 (3.65-5.03); Red Cell Distribution Width 19.7 % (13.2-15.2); White Blood Count 14.4 K/mm3 (4.5-11.0)
[2017-04-27 05:32] LABS: Mean Corpuscular Hemoglobin 25 pg (28-32)
[2017-04-27 05:50] LABS: Anion Gap 16 mmol/L; BUN/Creatinine Ratio 38; Blood Urea Nitrogen 34 mg/dL (7-17); Carbon Dioxide 25 mmol/L (22-30); Chloride 99.5 mmol/L (98-107); Glucose 242 mg/dL (65-100); Potassium 4.2 mmol/L (3.6-5.0); Sodium 136 mmol/L (137-145)
[2017-04-27] MEDS: NOVOLOG SUB-Q SCH ×3 (08:50→17:51)
[2017-04-27] MEDS: LASIX PO SCH (10:50)
[2017-04-27] MEDS: BABY ASPIRIN PO SCH (11:12)
[2017-04-27] MEDS: COREG PO SCH ×2 (11:12→22:52)
--- NOTE | 2017-04-27 11:50 | Event Note ---
Date: 04/27/17 Discussed patient's case with [facility] and [facility] surgeon on 04/25. The patient is not a candidate for transfer at this time per [facility]. Discussed with Dr. Tierney regarding patient's medical and cardiac stability to undergo another debridement in OR and at this time patient is more stable from that perspective. Will continue local wound care by nursing and plan on return to OR on 04/28 for further debridement of necrotic skin of left leg. Will obtain consent in am. Patient ordered to be NPO p MN tonight except medications.
--- NOTE | 2017-04-27 17:05 | Progress Note ---
Assessment and Plan /Sepsis on admission leukocytosis, tachycardia, lower extremity cellulitis, coagulopathy , elevated lactic acid Blood cultures obtained, negative sofar. Likely from LLE cellulitis/necrosis Antibiotic regimen adjusted for broad-spectrum coverage, currently on clindamycin, and penicillin G /Cellulitis LLE Erythema/warmth/tenderness from left knee to mid calf superimposed on significant edema Doppler negative for SVT/DVT developed discoloration/bulla formation/necrotic tissue 04/20; suspicion for necrotizing fasciitis raised; CT leg obtained emergently; ID and Surgery consulted; underwent surgical debridement with excision of necrotic tissue on ; tissue culture obtained; culture + GAS, plan for another debridement on Friday CT showed subcutaneous tissue induration no abscess no gas started on penicillin G 4 million units IV q 4 hours from 04/24/17, continue clindamycin Per ID upon discharge will need penicillin G 4 million units IV q 4 hours for 3 weeks from 04/20 until 05/10. Vascular surgeon consulted but no additional recommendation from them /Acute kidney injury Likely secondary to vasomotor nephropathy Now creatinine within normal limits Continue to monitor /Acute on chronic combined systolic/diastolic heart failure Echo with EF 20-25% Continue diuresis with Lasix On low dose BB as BP borderline low No ACEI due to renal insufficiency and hyperkalemia Monitor I's and O's Cardiology consulted and following /Jaundice/elevated LFTs RUQ US obtained and showed no gallstones, trace ascites TG wnl, Statin d/c Lipase was elevated but noow back within normal limits CT abdomen wo contrast obtained to r/o pancreatitis GI consulted and additional workup was negative (hepatitis panel - negative, antimitochondrial antibodies -<20) /Hypochloremic Hyponatremia Na+ 120 on admission Likely dilutional due to heart failure Received Tolvaptan Improved with iv fluid hydration /Hyperkalemia/hypokalemia 5.9 on admission, medically treated, then normal limits; became hypokalemic, repleted / Hypomagnesemia - replaced Monitor electrolytes /Metabolic acidosis Likely due to sepsis and acute kidney injury Monitor /Coagulopathy No history of anticoagulant use Abnormal LFTs ? Cardiac cirrhosis, ? due to statin Improving /elevated D-dimer Doppler lower extremity negative for DVT CTA chest to rule out PE was ordered, but unable to have contrast; sats 98-100% on RA /h/o CAD History of [place], PCI with stent placementx2 Started on aspirin, BB, statin had to be discontinued due to elevated LFTs No ARLYN inhibitor due to renal insuf, K abnormality /Elevated troponin With no EKG changes Likely in the setting of acute heart failure and kidney injury /Hypertension BP borderline low Only on Lasix, BB for heart failure treatment /Uncontrolled diabetes type 2 Hemoglobin A1c 11 Started on long-acting insulin and SSI based on Accu-Cheks Monitor and adjust regimen /Hyperlipidemia Started on statin, but need to hold it due to transaminitis /Obesity/CARLOS A/OHS When medically stable and discharged will need pulmonary follow-up for PFTs and sleep study as well as counseling regarding importance of losing weight /Severe protein calorie monitor nutrition Dietitian consulted / Debility Consulted PT /DVT/GI prophylaxis Brief History: 40 years old obese female with history of CAD with [place] and PCI with stent placements 2, hypertension, chronic heart failure, diabetes hyperlipidemia on no medications for more than one year due to lack of insurance , presented for chest pain, significant shortness of breath that worsened progressively, bilateral lower extremity edema with recent superimposed redness and tenderness of left leg. Current meds: Generic Name Dose Route Start Last Admin Trade Name Freq PRN Reason Stop Dose Admin Aspirin 81 mg 04/18/17 22:00 04/25/17 10:33 Baby Aspirin PO 81 mg QDAY JEROME Administration Carvedilol 3.125 mg 04/19/17 22:00 04/25/17 10:33 Coreg PO 3.125 mg BID JEROME Administration Collagenase 1 applic 04/22/17 11:00 04/25/17 10:34 Santyl TP 1 applic QDAY JEROME Administration Dextrose 50 ml 04/17/17 23:34 D50w (25gm) Syringe IV PRN PRN Hypoglycemia Furosemide 40 mg 04/22/17 14:00 04/25/17 10:33 Lasix PO 40 mg QDAY JEROME Administration Clindamycin HCl 600 mg in 50 mls @ 100 mls/hr 04/23/17 14:00 04/25/17 15:12 Cleocin 600 Mg/50 Ml IV 100 mls/hr Q8HR JEROME Administration Protocol Penicillin G Potassium 4 mil. 50 mls @ 100 mls/hr 04/24/17 14:00 04/25/17 16: 13 units/ Sodium Chloride IV 100 mls/hr Q4HR JEROME Administration Insulin Aspart 0 units 04/18/17 16:30 04/25/17 16:18 Novolog SUB-Q 2 units ACHS JEROME Administration Protocol Insulin Detemir 10 units 04/18/17 22:00 04/24/17 23:05 Levemir SUB-Q 10 units QHS JEROME Administration Morphine Sulfate 2 mg 04/17/17 23:39 04/25/17 13:23 Morphine IV 2 mg Q4H PRN Administration Pain, Moderate (4-6) Ondansetron HCl 4 mg 04/22/17 11:00 Zofran IV Q8H PRN Nausea And Vomiting Oxycodone HCl 5 mg 04/22/17 11:30 04/25/17 12:37 Roxicodone PO 5 mg Q6H PRN Administration Pain, Mild (1-3) Microbiology 04/18/17 14:36 Peripheral/Venous Blood Culture - Final NO GROWTH AFTER 5 DAYS 04/18/17 14:36 Peripheral/Venous Blood Culture - Final NO GROWTH AFTER 5 DAYS 04/20/17 Unknown Leg - Left Surgical Biopsy Culture - Final Enterococcus Species Subjective Date of service: 04/27/17 Principal diagnosis: jaundice Interval history: Pt seen and examined, still having pain, states she was able to sit for about 30minutes today plan for another debridement tomorrow Objective - Exam Narrative Exam: General appearance: Present: no acute distress, obese - EENT Eyes: Present: PERRL, EOM intact, scleral icterus. Absent: conjunctival injection - Neck Neck: Present: supple. Absent: enlarged thyroid, masses or JVD - Respiratory Respiratory effort: normal Respiratory: bilateral: diminished, negative: rhonchi, wheezing - Cardiovascular Rhythm: other (tachycardic) Heart Sounds: Present: S1 & S2. Absent: systolic murmur - Extremities Extremities: abnormal ( leg dressing in place) Extremity abnormal: edema - Abdominal General gastrointestinal: soft, non-tender, non-distended, normal bowel sounds - Psychiatric Psychiatric: cooperative - Neurologic Neurologic: CNII-XII intact, no focal deficits - Constitutional Vitals: Vital Signs - 12hr 04/27/17 08:28 Pulse Rate 87 Blood Pressure 101/61 O2 Sat by Pulse 96 Oximetry - Labs CBC & Chem 7: 04/27/17 05:00 04/27/17 05:00 Labs: Abnormal lab results 04/26/17 04/26/17 04/27/17 Range/Units 17:15 21:51 05:00 WBC 14.4 H (4.5-11.0) K/mm3 RBC 5.72 H (3.65-5.03) M/mm3 Hct 44.3 H (30.3-42.9) % MCV 77 L (79-97) fl MCH 25 L (28-32) pg RDW 19.7 H (13.2-15.2) % Sodium (137-145) mmol/L BUN (7-17) mg/dL Glucose (65-100) mg/dL POC Glucose 207 H 195 H (70-105) Calcium (8.4-10.2) mg/dL 04/27/17 Range/Units 05:00 WBC (4.5-11.0) K/mm3 RBC (3.65-5.03) M/mm3 Hct (30.3-42.9) % MCV (79-97) fl MCH (28-32) pg RDW (13.2-15.2) % Sodium 136 L (137-145) mmol/L BUN 34 H (7-17) mg/dL Glucose 242 H (65-100) mg/dL POC Glucose (70-105) Calcium 8.0 L (8.4-10.2) mg/dL
[2017-04-27] MEDS: SANTYL TP SCH (20:00)
[2017-04-27] MEDS: LOVENOX SUB-Q SCH (22:00)
[2017-04-27] MEDS: LEVEMIR SUB-Q SCH (22:53)
[2017-04-28] MEDS: NACL 0.45% 1000 ML 1,000 ML IV SCH ×2 (02:00→10:34)
[2017-04-28] MEDS: PFIZERPEN 4 MIL.UNITS in NACL 0.9% 50 ML IV SCH ×4 (02:30→13:56)
[2017-04-28] MEDS: CLEOCIN 600 MG/50 mL 600 MG/50 ML BAG IV SCH ×3 (06:22→22:42)
[2017-04-28] MEDS: NOVOLOG SUB-Q SCH ×4 (08:38→23:32)
[2017-04-28] MEDS: BABY ASPIRIN PO SCH (09:50)
[2017-04-28] MEDS: COREG PO SCH ×2 (09:51→22:41)
[2017-04-28] MEDS: LASIX PO SCH (09:51)
[2017-04-28] MEDS: ZOFRAN IV PRN (10:35)
[2017-04-28] MEDS: ROXICODONE PO PRN ×2 (10:35→22:41)
[2017-04-28 10:47] LABS: Hematocrit 38.2 % (30.3-42.9); Hemoglobin 11.9 gm/dl (10.1-14.3); Mean Corpuscular HGB Conc 31 % (30-34); Mean Corpuscular Volume 79 fl (79-97); Platelet Count 288 K/mm3 (140-440); Red Blood Count 4.82 M/mm3 (3.65-5.03); White Blood Count 12.7 K/mm3 (4.5-11.0)
[2017-04-28 10:48] LABS: Mean Corpuscular Hemoglobin 25 pg (28-32); Red Cell Distribution Width 20.3 % (13.2-15.2)
[2017-04-28 10:58] LABS: BUN/Creatinine Ratio 43; Blood Urea Nitrogen 26 mg/dL (7-17); Carbon Dioxide 20 mmol/L (22-30); Chloride 97.5 mmol/L (98-107); Glucose 98 mg/dL (65-100); Sodium 132 mmol/L (137-145)
[2017-04-28 11:08] LABS: Anion Gap TNR mmol/L; Potassium TNR mmol/L (3.6-5.0)
[2017-04-28 11:09] LABS: Calcium TNR mg/dL (8.4-10.2)
[2017-04-28] MEDS ORDERED: NACL 0.9% 1000 ML 1,000 ML ONE (11:58)
--- NOTE | 2017-04-28 12:15 | Anesthesia Consultation ---
Anesthesia Consult and Med Hx Date of service: 04/28/17 - Airway Anesthetic Teeth Evaluation: Good ROM Head & Neck: Adequate Mental/Hyoid Distance: Adequate Mallampati Class: Class I Intubation Access Assessment: Probably Good - Pulmonary Exam CTA: Yes - Cardiac Exam Cardiac Exam: RRR - Pre-Operative Health Status ASA Pre-Surgery Classification: ASA3 Proposed Anesthetic Plan: General - Pulmonary Hx Smoking: No Hx Asthma: No COPD: No Hx Pneumonia: No - Cardiovascular System Hx Hypertension: Yes Hx Coronary Artery Disease: Yes (cardiomyopathy EF 20-25%.H/O heart failure.) Hx Heart Attack/AMI: Yes (stents x2) Hx Angina: Yes (rare) Hx Percutaneous Transluminal Coronary Angioplasty (PTCA): Yes Hx Pacemaker: No Hx Internal Defibrillator: No - Gastrointestinal Hx Gastroesophageal Reflux Disease: No - Endocrine Hx Renal Disease: Yes (ITALIA) Hx End Stage Renal Disease: No Hx Liver Disease: Yes (fatty liver, INR 1.65) Hx Insulin Dependent Diabetes: Yes (severe retinopathy) - Other Systems Hx Alcohol Use: No Hx Substance Use: No Hx Obesity: Yes - Additional Comments Anesthesia Medical History Comments: hyperlipidemia. albumin 1.7. Patient is at significantly increased risk from anesthesia.
--- NOTE | 2017-04-28 12:15 | Anesthesia Day of Surgery ---
Anesthesia Day of Surgery - Day of Surgery Patient Examined: Yes Patient H&P Reviewed: Yes Patient is NPO: Yes
[2017-04-28] MEDS ORDERED: AMIDATE IV ONE (12:29)
[2017-04-28] MEDS ORDERED: SUBLIMAZE ONE (12:33)
[2017-04-28] MEDS ORDERED: ZOFRAN ONE (12:34)
[2017-04-28] MEDS ORDERED: VERSED IV NR (13:00)
[2017-04-28] MEDS ORDERED: NACL 0.9% 1000 ML 1,000 ML IV SCH (13:00)
[2017-04-28] MEDS ORDERED: PEPCID PO NR (13:00)
[2017-04-28] MEDS ORDERED: NEO SYNEPHRINE/NS Syringe(OR USE) IV ONE (13:00)
[2017-04-28] MEDS ORDERED: XYLOCAINE MPF 2% ONE (13:06)
[2017-04-28] MEDS ORDERED: NACL 0.9% IR ONE (13:20)
[2017-04-28] MEDS: SANTYL TP SCH (13:49)
--- NOTE | 2017-04-28 13:51 | Operative Report ---
Operative Report Operative Report: preoperative diagnosis: left lower extremity necrotizing soft tissue infection post operative diagnosis: same as preop Procedure: Excisional debridement necrotic skin and soft tissue left leg Surgeon: Michell Joseph DO Anesthesia: LMA Findings: Preoperative wound measurements, #1. 3 cm x 3 cm anterior medial leg , #2. 8cm x 5 cm posterior calf, Post operative measurement: 10 cm x 12 cm x 0.5 cm Specimens: none Complications: None Disposition: stable to PACU HPI and indication: 41-year-old female with uncontrolled diabetes, CHF, CAD presented to the hospital with left lower extremity edema and wound. Patient was found to have a necrotizing infection of her left lower extremity and was taken emergently to the operating room one week ago for excisional debridement. She has been undergoing aggressive local wound care for the last week however the wounds have continued to become more necrotic, now requiring more surgical debridement. The wounds were cultured on the first operation and grew out group A strep. All risks and benefits of additional debridement was discussed with the patient and questions answered. Consent was signed and placed on the chart. Procedure in detail: The patient was identified in the preoperative area and the left leg marked. She was taken back to the operating room and placed on operating table in supine position. After anesthesia was induced the left leg was placed in the candycane and elevated. The left leg was then prepped and draped in the usual sterile fashion and a timeout was performed. Using a 15 blade, all necrotic tissue surrounding the anterior medial wound was sharply debrided. The necrotic tissue extended posteriorly and connected to the posterior calf wound. Next, all necrotic tissue surrounding the posterior calf wound was sharply debrided and excised using a 15 blade and electrocautery. Using a curet, the slough at the wound base was removed. There was some bleeding from the healthy wound edges. There is no purulent drainage. At the end of the debridement, one large wound was created and measured 10 cm in length x 12 cm in width x 0.5 cm in depth. The fascia and muscle are exposed at the posterior calf and appeared viable. The wound was irrigated and packed with saline moistened Kerlix. Adaptic was applied to all raw skin of the leg. The wound was then covered with 4 x 4 gauze, ABDs pads, and wrapped with Kerlix loosely. At the end of the case, all sponge, instrument, sharp counts were correct 2. She tolerated the procedure well. She was debated and taken to PACU in stable condition. The patient's sister was notified of the patient's condition.
--- NOTE | 2017-04-28 14:37 | Post Anesthesia Evaluation ---
- Post Anesthesia Evaluation Patient Participated: Yes Airway Patent: Yes Stable Respiratory Function: Yes Temp > 96.8F: Yes Pain Manageable: Yes Adequeate Hydration: Yes Anesthesia Complications: No
[2017-04-28 14:59] LABS: Anion Gap 17 mmol/L; BUN/Creatinine Ratio 31; Blood Urea Nitrogen 31 mg/dL (7-17); Carbon Dioxide 25 mmol/L (22-30); Chloride 96.7 mmol/L (98-107); Glucose 146 mg/dL (65-100); Potassium 4.8 mmol/L (3.6-5.0); Sodium 134 mmol/L (137-145)
--- NOTE | 2017-04-28 19:40 | Progress Note ---
Assessment and Plan /Sepsis on admission leukocytosis, tachycardia, lower extremity cellulitis, coagulopathy , elevated lactic acid Blood cultures obtained, negative sofar. Likely from LLE cellulitis/necrosis Antibiotic regimen adjusted for broad-spectrum coverage, currently on clindamycin, and penicillin G /Cellulitis LLE Erythema/warmth/tenderness from left knee to mid calf superimposed on significant edema Doppler negative for SVT/DVT developed discoloration/bulla formation/necrotic tissue 04/20; suspicion for necrotizing fasciitis raised; CT leg obtained emergently; ID and Surgery consulted; underwent surgical debridement with excision of necrotic tissue on ; tissue culture obtained; culture + GAS, s/p another debridement today CT showed subcutaneous tissue induration no abscess no gas started on penicillin G 4 million units IV q 4 hours from 04/24/17, continue clindamycin Per ID upon discharge will need penicillin G 4 million units IV q 4 hours for 3 weeks from 04/20 until 05/10. Vascular surgeon consulted but no additional recommendation from them /Acute kidney injury Likely secondary to vasomotor nephropathy Now creatinine within normal limits Continue to monitor /Acute on chronic combined systolic/diastolic heart failure Echo with EF 20-25% Continue diuresis with Lasix On low dose BB as BP borderline low No ACEI due to renal insufficiency and hyperkalemia Monitor I's and O's Cardiology consulted and following /Jaundice/elevated LFTs RUQ US obtained and showed no gallstones, trace ascites TG wnl, Statin d/c Lipase was elevated but noow back within normal limits CT abdomen wo contrast obtained to r/o pancreatitis GI consulted and additional workup was negative (hepatitis panel - negative, antimitochondrial antibodies -<20) /Hypochloremic Hyponatremia Na+ 120 on admission Likely dilutional due to heart failure Received Tolvaptan Improved with iv fluid hydration /Hyperkalemia/hypokalemia 5.9 on admission, medically treated, then normal limits; became hypokalemic, repleted / Hypomagnesemia - replaced Monitor electrolytes /Metabolic acidosis Likely due to sepsis and acute kidney injury Monitor /Coagulopathy No history of anticoagulant use Abnormal LFTs ? Cardiac cirrhosis, ? due to statin Improving /elevated D-dimer Doppler lower extremity negative for DVT CTA chest to rule out PE was ordered, but unable to have contrast; sats 98-100% on RA /h/o CAD History of [place], PCI with stent placementx2 Started on aspirin, BB, statin had to be discontinued due to elevated LFTs No ARLYN inhibitor due to renal insuf, K abnormality /Elevated troponin With no EKG changes Likely in the setting of acute heart failure and kidney injury /Hypertension BP borderline low Only on Lasix, BB for heart failure treatment /Uncontrolled diabetes type 2 Hemoglobin A1c 11 Started on long-acting insulin and SSI based on Accu-Cheks Monitor and adjust regimen /Hyperlipidemia Started on statin, but need to hold it due to transaminitis /Obesity/CARLOS A/OHS When medically stable and discharged will need pulmonary follow-up for PFTs and sleep study as well as counseling regarding importance of losing weight /Severe protein calorie monitor nutrition Dietitian consulted / Debility Consulted PT /DVT/GI prophylaxis Brief History: 40 years old obese female with history of CAD with [place] and PCI with stent placements 2, hypertension, chronic heart failure, diabetes hyperlipidemia on no medications for more than one year due to lack of insurance , presented for chest pain, significant shortness of breath that worsened progressively, bilateral lower extremity edema with recent superimposed redness and tenderness of left leg. Current meds: Generic Name Dose Route Start Last Admin Trade Name Freq PRN Reason Stop Dose Admin Aspirin 81 mg 04/18/17 22:00 04/25/17 10:33 Baby Aspirin PO 81 mg QDAY JEROME Administration Carvedilol 3.125 mg 04/19/17 22:00 04/25/17 10:33 Coreg PO 3.125 mg BID JEROME Administration Collagenase 1 applic 04/22/17 11:00 04/25/17 10:34 Santyl TP 1 applic QDAY JEROME Administration Dextrose 50 ml 04/17/17 23:34 D50w (25gm) Syringe IV PRN PRN Hypoglycemia Furosemide 40 mg 04/22/17 14:00 04/25/17 10:33 Lasix PO 40 mg QDAY JEROME Administration Clindamycin HCl 600 mg in 50 mls @ 100 mls/hr 04/23/17 14:00 04/25/17 15:12 Cleocin 600 Mg/50 Ml IV 100 mls/hr Q8HR JEROME Administration Protocol Penicillin G Potassium 4 mil. 50 mls @ 100 mls/hr 04/24/17 14:00 04/25/17 16: 13 units/ Sodium Chloride IV 100 mls/hr Q4HR JEROME Administration Insulin Aspart 0 units 04/18/17 16:30 10/06/17 16:18 Novolog SUB-Q 2 units ACHS JEROME Administration Protocol Insulin Detemir 10 units 04/18/17 22:00 04/24/17 23:05 Levemir SUB-Q 10 units QHS JEROME Administration Morphine Sulfate 2 mg 04/17/17 23:39 04/25/17 13:23 Morphine IV 2 mg Q4H PRN Administration Pain, Moderate (4-6) Ondansetron HCl 4 mg 04/22/17 11:00 Zofran IV Q8H PRN Nausea And Vomiting Oxycodone HCl 5 mg 04/22/17 11:30 04/25/17 12:37 Roxicodone PO 5 mg Q6H PRN Administration Pain, Mild (1-3) Microbiology 04/18/17 14:36 Peripheral/Venous Blood Culture - Final NO GROWTH AFTER 5 DAYS 04/18/17 14:36 Peripheral/Venous Blood Culture - Final NO GROWTH AFTER 5 DAYS 04/20/17 Unknown Leg - Left Surgical Biopsy Culture - Final Enterococcus Species Subjective Date of service: 04/28/17 Principal diagnosis: jaundice Interval history: Pt seen and examined, still having pain, s/p another debridement today, tolerated well Objective - Exam Narrative Exam: General appearance: Present: no acute distress, obese - EENT Eyes: Present: PERRL, EOM intact, scleral icterus. Absent: conjunctival injection - Neck Neck: Present: supple. Absent: enlarged thyroid, masses or JVD - Respiratory Respiratory effort: normal Respiratory: bilateral: diminished, negative: rhonchi, wheezing - Cardiovascular Rhythm: other (tachycardic) Heart Sounds: Present: S1 & S2. Absent: systolic murmur - Extremities Extremities: abnormal ( leg dressing in place) Extremity abnormal: edema - Abdominal General gastrointestinal: soft, non-tender, non-distended, normal bowel sounds - Psychiatric Psychiatric: cooperative - Neurologic Neurologic: CNII-XII intact, no focal deficits - Constitutional Vitals: Vital Signs - 12hr 04/28/17 04/28/17 04/28/17 08:10 09:51 10:35 Temperature Pulse Rate 90 90 Respiratory 20 Rate Blood Pressure 116/68 Blood Pressure [Left] O2 Sat by Pulse Oximetry 04/28/17 04/28/17 04/28/17 11:12 11:30 11:40 Temperature 98.0 F 97.2 F L Pulse Rate 91 H 91 H 89 Respiratory 20 20 Rate Blood Pressure 116/69 Blood Pressure 125/88 [Left] O2 Sat by Pulse 95 98 96 Oximetry 04/28/17 04/28/17 04/28/17 12:29 13:40 13:45 Temperature 98.0 F 97.2 F L Pulse Rate 91 H 85 85 Respiratory 20 16 18 Rate Blood Pressure 115/69 114/80 116/86 Blood Pressure [Left] O2 Sat by Pulse 98 99 99 Oximetry 04/28/17 04/28/17 04/28/17 13:50 13:55 14:10 Temperature Pulse Rate 87 90 92 H Respiratory 20 17 21 Rate Blood Pressure 122/91 121/93 120/90 Blood Pressure [Left] O2 Sat by Pulse 97 99 99 Oximetry 04/28/17 04/28/17 04/28/17 14:25 14:40 14:55 Temperature 97.3 F L Pulse Rate 92 H 91 H 91 H Respiratory 20 20 20 Rate Blood Pressure 124/88 121/87 119/88 Blood Pressure [Left] O2 Sat by Pulse 99 99 99 Oximetry 04/28/17 04/28/17 04/28/17 15:10 15:20 15:28 Temperature 98.0 F Pulse Rate 91 H 93 H 92 H Respiratory 20 18 Rate Blood Pressure 125/91 133/95 Blood Pressure [Left] O2 Sat by Pulse 100 98 97 Oximetry 04/28/17 15:30 Temperature 97.4 F L Pulse Rate 92 H Respiratory 20 Rate Blood Pressure Blood Pressure 131/91 [Left] O2 Sat by Pulse 97 Oximetry - Labs CBC & Chem 7: 04/28/17 10:32 04/28/17 14:25 Labs: Abnormal lab results 04/27/17 04/28/17 04/28/17 Range/Units 22:20 08:31 10:32 WBC 12.7 H (4.5-11.0) K/mm3 MCH 25 L (28-32) pg RDW 20.3 H (13.2-15.2) % Sodium (137-145) mmol/L Chloride (98-107) mmol/L Carbon Dioxide (22-30) mmol/L BUN (7-17) mg/dL Creatinine (0.7-1.2) mg/dL Glucose (65-100) mg/dL POC Glucose 249 H 138 H (70-105) Calcium (8.4-10.2) mg/dL 04/28/17 04/28/17 04/28/17 Range/Units 10:32 11:57 14:25 WBC (4.5-11.0) K/mm3 MCH (28-32) pg RDW (13.2-15.2) % Sodium 132 L 134 L (137-145) mmol/L Chloride 97.5 L 96.7 L (98-107) mmol/L Carbon Dioxide 20 L (22-30) mmol/L BUN 26 H 31 H (7-17) mg/dL Creatinine 0.6 L (0.7-1.2) mg/dL Glucose 146 H (65-100) mg/dL POC Glucose 117 H (70-105) Calcium 8.0 L (8.4-10.2) mg/dL 04/28/17 Range/Units 16:49 WBC (4.5-11.0) K/mm3 MCH (28-32) pg RDW (13.2-15.2) % Sodium (137-145) mmol/L Chloride (98-107) mmol/L Carbon Dioxide (22-30) mmol/L BUN (7-17) mg/dL Creatinine (0.7-1.2) mg/dL Glucose (65-100) mg/dL POC Glucose 126 H (70-105) Calcium (8.4-10.2) mg/dL
[2017-04-28] MEDS: LOVENOX SUB-Q SCH (22:41)
[2017-04-28] MEDS: LEVEMIR SUB-Q SCH (22:42)
[2017-04-29] MEDS: CLEOCIN 600 MG/50 mL 600 MG/50 ML BAG IV SCH ×3 (05:15→22:50)
[2017-04-29] MEDS: PFIZERPEN 4 MIL.UNITS in NACL 0.9% 50 ML IV SCH ×8 (06:03→23:19)
[2017-04-29 07:29] LABS: Basophils % (Auto) 0.2 % (0.0-1.8); Eosinophils % (Auto) 1.2 % (0.0-4.3); Hematocrit 41.6 % (30.3-42.9); Hemoglobin 13.5 gm/dl (10.1-14.3); Mean Corpuscular HGB Conc 32 % (30-34); Mean Corpuscular Volume 79 fl (79-97); Platelet Count 320 K/mm3 (140-440); Red Blood Count 5.27 M/mm3 (3.65-5.03); White Blood Count 13.4 K/mm3 (4.5-11.0)
[2017-04-29 07:33] LABS: Mean Corpuscular Hemoglobin 26 pg (28-32); Red Cell Distribution Width 20.5 % (13.2-15.2)
[2017-04-29 07:44] LABS: Alanine Aminotransferase 31 units/L (7-56); Albumin 1.5 g/dL (3.9-5); Albumin/Globulin Ratio 0.3 %; Alkaline Phosphatase 280 units/L (35-129); Anion Gap 15 mmol/L; BUN/Creatinine Ratio 32; Blood Urea Nitrogen 32 mg/dL (7-17); Calcium 7.8 mg/dL (8.4-10.2); Carbon Dioxide 26 mmol/L (22-30); Chloride 94.6 mmol/L (98-107); Glucose 171 mg/dL (65-100); Potassium 4.5 mmol/L (3.6-5.0); Sodium 131 mmol/L (137-145); Total Protein 6.8 g/dL (6.3-8.2)
[2017-04-29] MEDS: NOVOLOG SUB-Q SCH ×4 (08:51→23:00)
[2017-04-29] MEDS: COREG PO SCH ×2 (10:56→22:55)
[2017-04-29] MEDS: LASIX PO SCH (10:56)
[2017-04-29] MEDS: MORPHINE IV PRN ×2 (10:56→18:46)
[2017-04-29] MEDS: BABY ASPIRIN PO SCH (10:56)
[2017-04-29] MEDS: SANTYL TP SCH (12:00)
[2017-04-29] MEDS: NACL 0.9% 1000 ML 1,000 ML IV SCH (12:48)
[2017-04-29] MEDS: ZOFRAN IV PRN (12:54)
--- NOTE | 2017-04-29 14:01 | Progress Note ---
Assessment and Plan 41 y/o F s/p debridement LLE necrotizing soft tissue infection 04/20/17 and excisional debridement of necrotic skin and soft tissue 04/28/17 (POD 1) 1. necrotizing soft tissue infection, cellulitis of LLE 2. sepsis 3. CAD 4. CHF 5. HTN 6. malnutrition 7. elevated liver function tests ?MILLER PLan: 1. cultures - group A strept, c/w abx per ID 2. continue local wound care per wound care nurse (Discussed with Shanti) 3. encourage nutrition 4. PT/OOB 5. DVT ppx I had a long discussion with the patient and her 2 sisters at the bedside. We discussed the continued progression of the wound and further breakdown of the skin and soft tissue despite 2 wide debridements in the OR, aggressive wound care, and appropriate antibiotics. I do not believe there is potential for these wounds to heal secondary to the patient's very poor nutritional status and poorly controlled diabetes along with many other medical comorbidities. Furthermore, the wounds continue to get worse. I recommended evaluation for a left lower extremity amputation as the next option for the patient. All questions were answered and concerns addressed. The patient is agreeable to being evaluated for an amputation. Consult placed to Dr. Barnes (ortho) and I discussed the case with him. D/W Dr. Wright Please note, I will be away from 04/30/17 - 05/04/17. Dr. Michel will be covering. Please call with any questions. Subjective Date of service: 04/29/17 Narrative: Pt seen and examined. C/o itching of left leg where wounds are. Patient is s/p further debridement of Left leg wounds yesterday. She has been afebrile, is tolerating and regular diet, and pain is controlled. Objective Vital Signs - 12hr 04/29/17 04/29/17 04/29/17 03:00 04:21 08:00 Temperature 97.6 F 97.2 F L Pulse Rate 96 H 91 H 89 Respiratory 21 18 Rate Blood Pressure 117/79 Blood Pressure 129/85 [Left] O2 Sat by Pulse 93 97 Oximetry 04/29/17 12:00 Temperature 98.3 F Pulse Rate 96 H Respiratory 18 Rate Blood Pressure Blood Pressure 139/92 [Left] O2 Sat by Pulse 98 Oximetry - General physical appearance Narrative Exam: Gen: AAOx3. NAD ENT: scleral icterus resolved CV: S1, S2+ Resp: no audible wheezes Ext: LLE dressing taken down. Slough over all wound beds. Further evidence of skin breakdown and necrosis along lateral and anterior portion of leg that was not present on exam yesterday, below the knee. Muscle and fascia exposed over open wounds. Serous drainage has decreased, no purulent drainage. Excoriated skin at ankle. Motor and sensory intact. Santyl applied to all wound beds and covered with adaptic, saline moistened gauze, and abd pads. All exoriated skin covered with adaptic and 4x4 gauze. Dressings secured by wrapping loosely with kerlex. - Labs 04/29/17 07:00 04/29/17 07:00 Diabetes panel 04/28/17 04/29/17 Range/Units 14:25 07:00 Sodium 134 L 131 L (137-145) mmol/L Potassium 4.8 4.5 (3.6-5.0) mmol/L Chloride 96.7 L 94.6 L (98-107) mmol/L Carbon Dioxide 25 26 (22-30) mmol/L BUN 31 H 32 H (7-17) mg/dL Creatinine 1.0 D 1.0 (0.7-1.2) mg/dL Glucose 146 H 171 H (65-100) mg/dL Calcium 8.0 L 7.8 L (8.4-10.2) mg/dL AST 24 (5-40) units/L ALT 31 (7-56) units/L Alkaline Phosphatase 280 H (35-129) units/L Total Protein 6.8 (6.3-8.2) g/dL Albumin 1.5 L (3.9-5) g/dL Calcium panel 04/28/17 04/29/17 Range/Units 14:25 07:00 Calcium 8.0 L 7.8 L (8.4-10.2) mg/dL Albumin 1.5 L (3.9-5) g/dL Pituitary panel 04/28/17 04/29/17 Range/Units 14:25 07:00 Sodium 134 L 131 L (137-145) mmol/L Potassium 4.8 4.5 (3.6-5.0) mmol/L Chloride 96.7 L 94.6 L (98-107) mmol/L Carbon Dioxide 25 26 (22-30) mmol/L BUN 31 H 32 H (7-17) mg/dL Creatinine 1.0 D 1.0 (0.7-1.2) mg/dL Glucose 146 H 171 H (65-100) mg/dL Calcium 8.0 L 7.8 L (8.4-10.2) mg/dL Adrenal panel 04/28/17 04/29/17 Range/Units 14:25 07:00 Sodium 134 L 131 L (137-145) mmol/L Potassium 4.8 4.5 (3.6-5.0) mmol/L Chloride 96.7 L 94.6 L (98-107) mmol/L Carbon Dioxide 25 26 (22-30) mmol/L BUN 31 H 32 H (7-17) mg/dL Creatinine 1.0 D 1.0 (0.7-1.2) mg/dL Glucose 146 H 171 H (65-100) mg/dL Calcium 8.0 L 7.8 L (8.4-10.2) mg/dL Total Bilirubin 2.20 H (0.1-1.2) mg/dL AST 24 (5-40) units/L ALT 31 (7-56) units/L Alkaline Phosphatase 280 H (35-129) units/L Total Protein 6.8 (6.3-8.2) g/dL Albumin 1.5 L (3.9-5) g/dL
--- NOTE | 2017-04-29 14:59 | Progress Note ---
Assessment and Plan - Cellulitis LLE - likely narcotizing fascitis with debridment on 04/20/17 and . Wound stil needign more debridment. Discussed with Gen. surgeon who has contacted orthopeci, Dr. Barnes for possible amputaion having discssed with Pt and family Wound cx positive for Beta hemolytic Group A strep. On Pen G pr ID On penicillin G 4 million units IV q 4 hours from 04/24/17, continue clindamycin Per ID upon discharge will need penicillin G 4 million units IV q 4 hours for 3 weeks from 04/20 until 05/10. - Acute kidney injury resovevd Likely secondary to vasomotor nephropathy Now creatinine within normal limits Continue to monitor - Acute on chronic combined systolic/diastolic heart failure Echo with EF 20-25% Continue diuresis with Lasix On low dose BB as BP borderline low No ACEI due to renal insufficiency and hyperkalemia Monitor I's and O's Cardiology consulted and following -Jaundice/elevated LFTs RUQ US obtained and showed no gallstones, trace ascites TG wnl, Statin d/c Lipase was elevated but noow back within normal limits CT abdomen wo contrast obtained to r/o pancreatitis GI consulted and additional workup was negative (hepatitis panel - negative, antimitochondrial antibodies -<20) -Hypochloremic Hyponatremia Na+ 120 on admission Likely dilutional due to heart failure Received Tolvaptan Improved with iv fluid hydration - Hyperkalemia/hypokalemia: corrected - Sepsis - resolving Present on on admission leukocytosis, tachycardia, lower extremity cellulitis, coagulopathy, elevated lactic acid Blood cultures obtained, negative sofar. Likely from LLE cellulitis/necrosis Antibiotic regimen adjusted for broad-spectrum coverage, currently on clindamycin, and penicillin G - Coagulopathy No history of anticoagulant use Abnormal LFTs ? Cardiac cirrhosis, ? due to statin Improving -Elevated D-dimer Doppler lower extremity negative for DVT CTA chest to rule out PE was ordered, but unable to have contrast; sats 98-100% on RA - h/o CAD History of [place], PCI with stent placementx2 On aspirin, BB, statin had to be discontinued due to elevated LFTs No ARLYN inhibitor due to renal insuf, K abnormality - Elevated troponin With no EKG changes Likely in the setting of acute heart failure and kidney injury - Hypertension BP borderline low Only on Lasix, BB for heart failure treatment - Uncontrolled diabetes type 2 Hemoglobin A1c 11 On long-acting insulin and pre meal SSI. On Accu-Cheks Monitor and adjust regimen - Hyperlipidemia Started on statin, but need to hold it due to transaminitis - Obesity/CARLOS A/OHS When medically stable and discharged will need pulmonary follow-up for PFTs and sleep study as well as counseling regarding importance of losing weight - Severe protein calorie monitor nutrition Dietitian consulted - Debility Consulted PT - DVT/GI prophylaxis Subjective Date of service: 04/29/17 Principal diagnosis: Cellulitis left foot, Heart failure Interval history: c/o pain in the left leg. S/p debridment 04/28/17 Objective - Constitutional Vitals: Vital Signs - 12hr 04/29/17 04/29/17 04/29/17 03:00 04:21 08:00 Temperature 97.6 F 97.2 F L Pulse Rate 96 H 91 H 89 Respiratory 21 18 Rate Blood Pressure 117/79 Blood Pressure 129/85 [Left] O2 Sat by Pulse 93 97 Oximetry 04/29/17 04/29/17 10:00 12:00 Temperature 98.3 F Pulse Rate 96 H Respiratory 18 18 Rate Blood Pressure Blood Pressure 139/92 [Left] O2 Sat by Pulse 97 98 Oximetry General appearance: Present: no acute distress, well-nourished - EENT Eyes: PERRL, EOM intact Ears: bilateral: normal - Neck Neck: supple, normal ROM - Respiratory Respiratory effort: normal Respiratory: bilateral: CTA - Cardiovascular Rhythm: regular Heart Sounds: Present: S1 & S2. Absent: gallop, rub Extremity abnormal: edema, erythema, other (hyperremia and discharging wound left leg s/p debridment) - Gastrointestinal General gastrointestinal: Present: soft, non-tender, normal bowel sounds - Integumentary Integumentary: clear, warm, dry - Musculoskeletal Musculoskeletal: 1, strength equal bilaterally - Neurologic Neurologic: moves all extremities - Psychiatric Psychiatric: appropriate mood/affect - Labs CBC & Chem 7: 04/29/17 07:00 04/29/17 07:00 Labs: Abnormal lab results 04/28/17 04/28/17 04/28/17 Range/Units 14:25 16:49 21:01 WBC (4.5-11.0) K/mm3 RBC (3.65-5.03) M/mm3 MCH (28-32) pg RDW (13.2-15.2) % Lymph % (Auto) (13.4-35.0) % Seg Neutrophils % (40.0-70.0) % Seg Neutrophils # (1.8-7.7) K/mm3 Sodium 134 L (137-145) mmol/L Chloride 96.7 L (98-107) mmol/L BUN 31 H (7-17) mg/dL Glucose 146 H (65-100) mg/dL POC Glucose 126 H 248 H (70-105) Calcium 8.0 L (8.4-10.2) mg/dL Total Bilirubin (0.1-1.2) mg/dL Alkaline Phosphatase (35-129) units/L Albumin (3.9-5) g/dL 04/29/17 04/29/17 Range/Units 07:00 07:00 WBC 13.4 H (4.5-11.0) K/mm3 RBC 5.27 H (3.65-5.03) M/mm3 MCH 26 L (28-32) pg RDW 20.5 H (13.2-15.2) % Lymph % (Auto) 9.9 L (13.4-35.0) % Seg Neutrophils % 85.5 H (40.0-70.0) % Seg Neutrophils # 11.5 H (1.8-7.7) K/mm3 Sodium 131 L (137-145) mmol/L Chloride 94.6 L (98-107) mmol/L BUN 32 H (7-17) mg/dL Glucose 171 H (65-100) mg/dL POC Glucose (70-105) Calcium 7.8 L (8.4-10.2) mg/dL Total Bilirubin 2.20 H (0.1-1.2) mg/dL Alkaline Phosphatase 280 H (35-129) units/L Albumin 1.5 L (3.9-5) g/dL
--- NOTE | 2017-04-29 15:02 | Progress Note ---
Subjective Date of service: 04/29/17 Principal diagnosis: Cellulitis left foot, Heart failure Interval history: Pt seen post-op day 1, comfortable and satisfied with anesthesia provided. Objective - Constitutional Vitals: Vital Signs - 12hr 04/29/17 04/29/17 04/29/17 04:21 08:00 10:00 Temperature 97.6 F 97.2 F L Pulse Rate 91 H 89 Respiratory 21 18 18 Rate Blood Pressure 117/79 Blood Pressure 129/85 [Left] O2 Sat by Pulse 93 97 97 Oximetry 04/29/17 12:00 Temperature 98.3 F Pulse Rate 96 H Respiratory 18 Rate Blood Pressure Blood Pressure 139/92 [Left] O2 Sat by Pulse 98 Oximetry - Labs CBC & Chem 7: 04/29/17 07:00 04/29/17 07:00 Labs: Abnormal lab results 04/28/17 04/28/17 04/29/17 Range/Units 16:49 21:01 07:00 WBC 13.4 H (4.5-11.0) K/mm3 RBC 5.27 H (3.65-5.03) M/mm3 MCH 26 L (28-32) pg RDW 20.5 H (13.2-15.2) % Lymph % (Auto) 9.9 L (13.4-35.0) % Seg Neutrophils % 85.5 H (40.0-70.0) % Seg Neutrophils # 11.5 H (1.8-7.7) K/mm3 Sodium (137-145) mmol/L Chloride (98-107) mmol/L BUN (7-17) mg/dL Glucose (65-100) mg/dL POC Glucose 126 H 248 H (70-105) Calcium (8.4-10.2) mg/dL Total Bilirubin (0.1-1.2) mg/dL Alkaline Phosphatase (35-129) units/L Albumin (3.9-5) g/dL 04/29/17 Range/Units 07:00 WBC (4.5-11.0) K/mm3 RBC (3.65-5.03) M/mm3 MCH (28-32) pg RDW (13.2-15.2) % Lymph % (Auto) (13.4-35.0) % Seg Neutrophils % (40.0-70.0) % Seg Neutrophils # (1.8-7.7) K/mm3 Sodium 131 L (137-145) mmol/L Chloride 94.6 L (98-107) mmol/L BUN 32 H (7-17) mg/dL Glucose 171 H (65-100) mg/dL POC Glucose (70-105) Calcium 7.8 L (8.4-10.2) mg/dL Total Bilirubin 2.20 H (0.1-1.2) mg/dL Alkaline Phosphatase 280 H (35-129) units/L Albumin 1.5 L (3.9-5) g/dL
[2017-04-29] MEDS: REGLAN IV SCH (18:46)
[2017-04-29] MEDS: LEVEMIR SUB-Q SCH (22:55)
[2017-04-29] MEDS: LOVENOX SUB-Q SCH (22:55)
[2017-04-30] MEDS: MORPHINE IV PRN ×2 (01:04→06:16)
[2017-04-30] MEDS: PFIZERPEN 4 MIL.UNITS in NACL 0.9% 50 ML IV SCH ×6 (02:35→22:55)
[2017-04-30] MEDS: CLEOCIN 600 MG/50 mL 600 MG/50 ML BAG IV SCH ×3 (06:16→23:05)
[2017-04-30 06:47] LABS: Basophils % (Auto) 0.7 % (0.0-1.8); Eosinophils % (Auto) 1.2 % (0.0-4.3); Hematocrit 43.2 % (30.3-42.9); Mean Corpuscular HGB Conc 32 % (30-34); Mean Corpuscular Hemoglobin 26 pg (28-32); Mean Corpuscular Volume 79 fl (79-97); Platelet Count 390 K/mm3 (140-440); Red Blood Count 5.44 M/mm3 (3.65-5.03); Red Cell Distribution Width 19.9 % (13.2-15.2); White Blood Count 16.2 K/mm3 (4.5-11.0)
[2017-04-30 06:57] LABS: INR 1.33 (0.87-1.13)
[2017-04-30 07:12] LABS: Alanine Aminotransferase 28 units/L (7-56); Albumin 1.6 g/dL (3.9-5); Albumin/Globulin Ratio 0.3 %; Alkaline Phosphatase 251 units/L (35-129); Anion Gap 18 mmol/L; BUN/Creatinine Ratio 33; Blood Urea Nitrogen 30 mg/dL (7-17); Calcium 7.9 mg/dL (8.4-10.2); Carbon Dioxide 23 mmol/L (22-30); Chloride 95.3 mmol/L (98-107); Glucose 190 mg/dL (65-100); Potassium 4.8 mmol/L (3.6-5.0); Sodium 131 mmol/L (137-145); Total Protein 7.1 g/dL (6.3-8.2)
[2017-04-30] MEDS: REGLAN IV SCH ×3 (08:52→16:29)
[2017-04-30] MEDS: NOVOLOG SUB-Q SCH ×4 (08:52→23:00)
--- NOTE | 2017-04-30 09:51 | Progress Note ---
Assessment and Plan Assessment: 1) Sepsis: not better, still leukocytosis. Etiology most likely complicated soft tissue infection left leg. 2) Left leg necrotizing soft tissue infection: NO evidence of necrotizing fascitis in the OR. Clinically worsening per surgery report - necrotic areas are extending despite IV antibiotics and OR debridement x 2 -S/P OR debridement on 04/20, culture + GAS -S/P OR debridement on 04/24 -CT showed subcutaneous tissue induration no abscess no gas -CRP=22-->8 3) DM-uncontrolled 4) Hyponatremia 5) Elevated LFTs ? from sepsis, HCV and HBV non reactive. ?MILLER - better 6) CHF 7) Early ITALIA ? resolved Plan: -continue penicillin G 4 million units IV q 4 hours (day 7) and clinda (day 8) -agree with need for amputation-pt considering options Thank you Dr Trotter for your consultation, will follow up with you. Talisha Nguyen MD Infectious Diseases Specialist [facility] ([facility]) M [phone] O [phone] Subjective Date of service: 04/30/17 Principal diagnosis: Cellulitis left foot, Heart failure Interval history: Feels sick, c/o nausea, malaise and tearful due to possible amputation. No fever. Current Antimicrobials: Pen G 04/24 CLindav 04/23 Previous Antimicrobials: Clindamycin 04/18 Zosyn 04/18 Microbiology: Blood cultures: 04/18 ngtd Tissue cx 04/20 corrected report + GAS Objective - Exam Narrative Exam: General appearance: Alert in NAD, sad Eyes: anicteric sclerae, moist conjunctivae; no lid-lag; PERRLA HENT: Atraumatic; oropharynx clear with moist mucous membranes and no mucosal ulcerations/no oral thrush; normal hard and soft palate. Normal external ears. Neck: Trachea midline; supple, no thyromegaly or lymphadenopathy Lungs: CTA, with normal respiratory effort and no intercostal retractions CV: RRR, no murmurs Abdomen: Soft, non-tender; no masses or hepatosplenomegaly Extremities: No peripheral edema or extremity lymphadenopathy Skin: left calf with surgical dressings, decreased edema and tenderness Psych: sad. Neuro: alert and oriented x 3. Moving all extermities Lines: No CVL / PICC - Constitutional Vitals: Vital Signs Temp Pulse Resp BP Pulse Ox 98.2 F 92 H 18 130/88 97 04/30/17 03:30 04/30/17 03:30 04/30/17 03:30 04/30/17 03:30 04/30/17 03:30 Temperature -Last 24 Hours Temperature 98.2 F Temperature 98.2 F Temperature 98.1 F Temperature 98.3 F - Labs CBC & Chem 7: 04/30/17 06:36 04/30/17 06:36 Labs: Abnormal lab results 04/29/17 04/29/17 04/29/17 Range/Units 08:10 15:49 21:20 WBC (4.5-11.0) K/mm3 RBC (3.65-5.03) M/mm3 Hct (30.3-42.9) % MCH (28-32) pg RDW (13.2-15.2) % Lymph % (Auto) (13.4-35.0) % Seg Neutrophils % (40.0-70.0) % Seg Neutrophils # (1.8-7.7) K/mm3 PT (12.2-14.9) Sec. INR (0.87-1.13) Sodium (137-145) mmol/L Chloride (98-107) mmol/L BUN (7-17) mg/dL Glucose (65-100) mg/dL POC Glucose 140 H 190 H 250 H (70-105) Calcium (8.4-10.2) mg/dL Total Bilirubin (0.1-1.2) mg/dL Alkaline Phosphatase (35-129) units/L Albumin (3.9-5) g/dL 04/30/17 04/30/17 04/30/17 Range/Units 06:36 06:36 06:36 WBC 16.2 H (4.5-11.0) K/mm3 RBC 5.44 H (3.65-5.03) M/mm3 Hct 43.2 H (30.3-42.9) % MCH 26 L (28-32) pg RDW 19.9 H (13.2-15.2) % Lymph % (Auto) 9.4 L (13.4-35.0) % Seg Neutrophils % 85.3 H (40.0-70.0) % Seg Neutrophils # 13.8 H (1.8-7.7) K/mm3 PT 17.1 H (12.2-14.9) Sec. INR 1.33 H (0.87-1.13) Sodium 131 L (137-145) mmol/L Chloride 95.3 L (98-107) mmol/L BUN 30 H (7-17) mg/dL Glucose 190 H (65-100) mg/dL POC Glucose (70-105) Calcium 7.9 L (8.4-10.2) mg/dL Total Bilirubin 2.50 H (0.1-1.2) mg/dL Alkaline Phosphatase 251 H (35-129) units/L Albumin 1.6 L (3.9-5) g/dL
[2017-04-30] MEDS: BABY ASPIRIN PO SCH (11:45)
[2017-04-30] MEDS: LASIX PO SCH (11:45)
[2017-04-30] MEDS: COREG PO SCH ×2 (11:46→22:55)
[2017-04-30] MEDS: SANTYL TP SCH (17:25)
--- NOTE | 2017-04-30 20:42 | Progress Note ---
Assessment and Plan - Cellulitis LLE - likely narcotizing soft tissue infection with debridment on 04/20/17 and 04/28/17. Wound still needing more debridment. Discussed with Gen. surgeon who has contacted orthopedic surgeon, Dr. Barnes for possible amputaion having discssed with Pt and family Wound cx positive for Beta hemolytic Group A strep. On Pen G per ID On penicillin G 4 million units IV q 4 hours from 04/24/17, continue clindamycin Per ID upon discharge will need penicillin G 4 million units IV q 4 hours for 3 weeks from 04/20 until 05/10. - Acute kidney injury resolved Likely secondary to vasomotor nephropathy Now creatinine within normal limits Continue to monitor - Acute on chronic combined systolic/diastolic heart failure Echo with EF 20-25% Continue diuresis with Lasix On low dose BB as BP borderline low No ACEI due to renal insufficiency and hyperkalemia Monitor I's and O's Cardiology consulted and following -Jaundice/elevated LFTs Likely secondary to sepsis RUQ US obtained and showed no gallstones, trace ascites TG wnl, Statin d/c Lipase was elevated but now back within normal limits CT abdomen wo contrast obtained to r/o pancreatitis GI consulted and additional workup was negative (hepatitis panel - negative, antimitochondrial antibodies -<20) -Hypochloremic Hyponatremia Na+ 120 on admission Likely dilutional due to heart failure Received Tolvaptan Improved with iv fluid hydration - Hyperkalemia/hypokalemia: corrected - Sepsis - resolving Present on on admission leukocytosis, tachycardia, lower extremity cellulitis, coagulopathy, elevated lactic acid Blood cultures obtained, negative sofar. Likely from LLE cellulitis/necrosis Antibiotic regimen adjusted for broad-spectrum coverage, currently on clindamycin, and penicillin G - Hyperbilirubinemia No history of anticoagulant use ? Cardiac cirrhosis, ? due to statin vs sepsis Improving -Elevated D-dimer Doppler lower extremity negative for DVT CTA chest to rule out PE was ordered, but unable to have contrast; sats 98-100% on RA - h/o CAD History of [place], PCI with stent placementx2 On aspirin, BB, statin had to be discontinued due to elevated LFTs No ARLYN inhibitor due to renal insuf, K abnormality - Hypertension BP borderline low Only on Lasix, BB for heart failure treatment - Uncontrolled diabetes type 2 Hemoglobin A1c 11 On long-acting insulin and pre meal SSI. On Accu-Cheks. consistyent CHO diet Monitor and adjust regimen - Hyperlipidemia Started on statin, but need to hold it due to transaminitis - Obesity/CARLOS A/OHS When medically stable and discharged will need pulmonary follow-up for PFTs and sleep study as well as counseling regarding importance of losing weight - Severe protein calorie monitor nutrition Dietitian consulted - Debility Consulted PT - DVT/GI prophylaxis - Dispostion: Within Patient and family decision regarding amputation as general surgeon is not open to further debridement Subjective Date of service: 04/30/17 Principal diagnosis: Cellulitis left foot, Heart failure Interval history: c/o pain in the left leg. S/p debridment 04/28/17. Still draining Objective - Constitutional General appearance: Present: no acute distress, well-nourished - EENT Eyes: PERRL, EOM intact Ears: bilateral: normal - Neck Neck: supple, normal ROM - Respiratory Respiratory effort: normal Respiratory: bilateral: CTA - Cardiovascular Rhythm: regular Heart Sounds: Present: S1 & S2. Absent: gallop, rub Extremities: pulses intact, No edema, normal color, Full ROM - Gastrointestinal General gastrointestinal: Present: soft, non-tender, non-distended, normal bowel sounds - Integumentary Integumentary: clear, warm, dry - Musculoskeletal Musculoskeletal: 1, strength equal bilaterally - Neurologic Neurologic: moves all extremities - Psychiatric Psychiatric: memory intact, appropriate mood/affect, intact judgment & insight - Labs CBC & Chem 7: 04/30/17 06:36 04/30/17 06:36 Labs: Abnormal lab results 04/29/17 04/29/17 04/29/17 Range/Units 08:10 15:49 21:20 WBC (4.5-11.0) K/mm3 RBC (3.65-5.03) M/mm3 Hct (30.3-42.9) % MCH (28-32) pg RDW (13.2-15.2) % Lymph % (Auto) (13.4-35.0) % Seg Neutrophils % (40.0-70.0) % Seg Neutrophils # (1.8-7.7) K/mm3 PT (12.2-14.9) Sec. INR (0.87-1.13) Sodium (137-145) mmol/L Chloride (98-107) mmol/L BUN (7-17) mg/dL Glucose (65-100) mg/dL POC Glucose 140 H 190 H 250 H (70-105) Calcium (8.4-10.2) mg/dL Total Bilirubin (0.1-1.2) mg/dL Alkaline Phosphatase (35-129) units/L Albumin (3.9-5) g/dL 04/30/17 04/30/17 04/30/17 Range/Units 06:36 06:36 06:36 WBC 16.2 H (4.5-11.0) K/mm3 RBC 5.44 H (3.65-5.03) M/mm3 Hct 43.2 H (30.3-42.9) % MCH 26 L (28-32) pg RDW 19.9 H (13.2-15.2) % Lymph % (Auto) 9.4 L (13.4-35.0) % Seg Neutrophils % 85.3 H (40.0-70.0) % Seg Neutrophils # 13.8 H (1.8-7.7) K/mm3 PT 17.1 H (12.2-14.9) Sec. INR 1.33 H (0.87-1.13) Sodium 131 L (137-145) mmol/L Chloride 95.3 L (98-107) mmol/L BUN 30 H (7-17) mg/dL Glucose 190 H (65-100) mg/dL POC Glucose (70-105) Calcium 7.9 L (8.4-10.2) mg/dL Total Bilirubin 2.50 H (0.1-1.2) mg/dL Alkaline Phosphatase 251 H (35-129) units/L Albumin 1.6 L (3.9-5) g/dL 04/30/17 04/30/17 Range/Units 08:10 13:20 WBC (4.5-11.0) K/mm3 RBC (3.65-5.03) M/mm3 Hct (30.3-42.9) % MCH (28-32) pg RDW (13.2-15.2) % Lymph % (Auto) (13.4-35.0) % Seg Neutrophils % (40.0-70.0) % Seg Neutrophils # (1.8-7.7) K/mm3 PT (12.2-14.9) Sec. INR (0.87-1.13) Sodium (137-145) mmol/L Chloride (98-107) mmol/L BUN (7-17) mg/dL Glucose (65-100) mg/dL POC Glucose 169 H 173 H (70-105) Calcium (8.4-10.2) mg/dL Total Bilirubin (0.1-1.2) mg/dL Alkaline Phosphatase (35-129) units/L Albumin (3.9-5) g/dL
[2017-04-30] MEDS: LOVENOX SUB-Q SCH (22:55)
[2017-04-30] MEDS: LEVEMIR SUB-Q SCH (23:00)
[2017-05-01] MEDS: MORPHINE IV PRN ×3 (00:15→17:12)
[2017-05-01] MEDS: PFIZERPEN 4 MIL.UNITS in NACL 0.9% 50 ML IV SCH ×5 (02:40→19:17)
[2017-05-01] MEDS ORDERED: NACL 0.9% 250ML 250 ML ONE (05:18)
[2017-05-01] MEDS: CLEOCIN 600 MG/50 mL 600 MG/50 ML BAG IV SCH ×3 (05:42→22:30)
[2017-05-01 05:43] LABS: Basophils % (Auto) 0.5 % (0.0-1.8); Eosinophils % (Auto) 1.2 % (0.0-4.3); Hematocrit 42.8 % (30.3-42.9); Hemoglobin 13.6 gm/dl (10.1-14.3); Mean Corpuscular HGB Conc 32 % (30-34); Mean Corpuscular Volume 80 fl (79-97); Platelet Count 379 K/mm3 (140-440); Red Blood Count 5.33 M/mm3 (3.65-5.03); White Blood Count 13.4 K/mm3 (4.5-11.0)
[2017-05-01 05:45] LABS: Mean Corpuscular Hemoglobin 26 pg (28-32); Red Cell Distribution Width 20.9 % (13.2-15.2)
[2017-05-01 06:03] LABS: Alanine Aminotransferase 24 units/L (7-56); Albumin 1.5 g/dL (3.9-5); Albumin/Globulin Ratio 0.3 %; Alkaline Phosphatase 203 units/L (35-129); Anion Gap 15 mmol/L; BUN/Creatinine Ratio 36; Blood Urea Nitrogen 32 mg/dL (7-17); Calcium 8.1 mg/dL (8.4-10.2); Carbon Dioxide 24 mmol/L (22-30); Chloride 98.4 mmol/L (98-107); Glucose 159 mg/dL (65-100); Potassium 4.7 mmol/L (3.6-5.0); Sodium 133 mmol/L (137-145); Total Protein 6.7 g/dL (6.3-8.2)
[2017-05-01] MEDS: NOVOLOG SUB-Q SCH ×4 (07:43→23:02)
[2017-05-01] MEDS: BABY ASPIRIN PO SCH (10:39)
[2017-05-01] MEDS: COREG PO SCH ×2 (10:39→22:29)
[2017-05-01] MEDS: LASIX PO SCH (10:40)
[2017-05-01] MEDS: REGLAN IV SCH ×2 (11:22→17:11)
--- NOTE | 2017-05-01 11:49 | Progress Note ---
Assessment and Plan Assessment: 1) Sepsis: still leukocytosis. Etiology most likely complicated soft tissue infection left leg. 2) Left leg necrotizing soft tissue infection: NO evidence of necrotizing fascitis in the OR. Clinically worsening per surgery report - necrotic areas are extending despite IV antibiotics and OR debridement x 2 -S/P OR debridement on 04/20, culture + GAS -S/P OR debridement on 04/24 -CT showed subcutaneous tissue induration no abscess no gas -CRP=22-->8 3) DM-uncontrolled 4) Hyponatremia 5) Elevated LFTs ? from sepsis, HCV and HBV non reactive. ?MILLER - better 6) CHF 7) Early ITALIA ? resolved Plan: -patient is refusing amputation -repeat CT leg -continue penicillin G 4 million units IV q 4 hours (day 8) and clinda (day 9) Thank you Dr Trotter for your consultation, will follow up with you. Talisha Nguyen MD Infectious Diseases Specialist [facility] ([facility]) M [phone] O [phone] Subjective Date of service: 05/01/17 Principal diagnosis: Cellulitis left foot, Heart failure Interval history: Feels better. No fever. Current Antimicrobials: Pen G 04/24 CLindav 04/23 Previous Antimicrobials: Clindamycin 04/18 Zosyn 04/18 Microbiology: Blood cultures: 04/18 ngtd Tissue cx 04/20 corrected report + GAS Objective - Exam Narrative Exam: General appearance: Alert in NAD, sad Eyes: anicteric sclerae, moist conjunctivae; no lid-lag; PERRLA HENT: Atraumatic; oropharynx clear with moist mucous membranes and no mucosal ulcerations/no oral thrush; normal hard and soft palate. Normal external ears. Neck: Trachea midline; supple, no thyromegaly or lymphadenopathy Lungs: CTA, with normal respiratory effort and no intercostal retractions CV: RRR, no murmurs Abdomen: Soft, non-tender; no masses or hepatosplenomegaly Extremities: No peripheral edema or extremity lymphadenopathy Skin: left calf with surgical dressings, decreased edema and tenderness Psych: sad. Neuro: alert and oriented x 3. Moving all extermities Lines: No CVL / PICC - Constitutional Vitals: Vital Signs Temp Pulse Resp BP Pulse Ox 97.3 F L 92 H 18 123/84 98 05/01/17 04:58 05/01/17 04:58 05/01/17 04:58 05/01/17 04:57 05/01/17 04:58 Temperature -Last 24 Hours Temperature 97.3 F Temperature 97.3 F Temperature 97.4 F Temperature 97.4 F - Labs CBC & Chem 7: 05/01/17 05:13 05/01/17 05:13 Labs: Abnormal lab results 04/30/17 04/30/17 04/30/17 Range/Units 08:10 13:20 22:17 WBC (4.5-11.0) K/mm3 RBC (3.65-5.03) M/mm3 MCH (28-32) pg RDW (13.2-15.2) % Lymph % (Auto) (13.4-35.0) % Seg Neutrophils % (40.0-70.0) % Seg Neutrophils # (1.8-7.7) K/mm3 Sodium (137-145) mmol/L BUN (7-17) mg/dL Glucose (65-100) mg/dL POC Glucose 169 H 173 H 217 H (70-105) Calcium (8.4-10.2) mg/dL Total Bilirubin (0.1-1.2) mg/dL Alkaline Phosphatase (35-129) units/L Albumin (3.9-5) g/dL 05/01/17 05/01/17 05/01/17 Range/Units 05:13 05:13 08:27 WBC 13.4 H (4.5-11.0) K/mm3 RBC 5.33 H (3.65-5.03) M/mm3 MCH 26 L (28-32) pg RDW 20.9 H (13.2-15.2) % Lymph % (Auto) 11.4 L (13.4-35.0) % Seg Neutrophils % 83.0 H (40.0-70.0) % Seg Neutrophils # 11.1 H (1.8-7.7) K/mm3 Sodium 133 L (137-145) mmol/L BUN 32 H (7-17) mg/dL Glucose 159 H (65-100) mg/dL POC Glucose 135 H (70-105) Calcium 8.1 L (8.4-10.2) mg/dL Total Bilirubin 2.00 H (0.1-1.2) mg/dL Alkaline Phosphatase 203 H (35-129) units/L Albumin 1.5 L (3.9-5) g/dL
[2017-05-01] MEDS: SANTYL TP SCH (16:54)
--- NOTE | 2017-05-01 18:07 | Progress Note ---
Assessment and Plan - Cellulitis LLE - likely narcotizing soft tissue infection with debridment on 04/20/17 and 04/28/17. Wound still needing more debridment. Discussed with Gen. surgeon who has contacted orthopedic surgeon, Dr. Barnes for possible amputaion having discssed with Pt and family Wound cx positive for Beta hemolytic Group A strep. On Pen G per ID On penicillin G 4 million units IV q 4 hours from 04/24/17, continue clindamycin Per ID upon discharge will need penicillin G 4 million units IV q 4 hours for 3 weeks from 04/20 until 05/10. - Acute kidney injury resolved Likely secondary to vasomotor nephropathy Now creatinine within normal limits Continue to monitor - Acute on chronic combined systolic/diastolic heart failure Echo with EF 20-25% Continue diuresis with Lasix On low dose BB as BP borderline low No ACEI due to renal insufficiency and hyperkalemia Monitor I's and O's Cardiology consulted and following -Jaundice/elevated LFTs Likely secondary to sepsis RUQ US obtained and showed no gallstones, trace ascites TG wnl, Statin d/c Lipase was elevated but now back within normal limits CT abdomen wo contrast obtained to r/o pancreatitis GI consulted and additional workup was negative (hepatitis panel - negative, antimitochondrial antibodies -<20) -Hypochloremic Hyponatremia Na+ 120 on admission Likely dilutional due to heart failure Received Tolvaptan Improved with iv fluid hydration - Hyperkalemia/hypokalemia: corrected - Sepsis - resolving Present on on admission leukocytosis, lower extremity soft tissue infection, Blood cultures obtained, negative sofar. From LLE cellulitis with tissue necrosis On Aantibiotic per ID - Hyperbilirubinemia No history of anticoagulant use Probably secondary to infection Improving -Elevated D-dimer Likely secondary to infection Doppler lower extremity negative for DVT CTA chest to rule out PE was ordered, but unable to have contrast; sats 98-100% on RA - h/o CAD History of [place], PCI with stent placement x 2 On aspirin, BB, statin had to be discontinued due to elevated LFTs No ARLYN inhibitor due to renal insuf, K abnormality - Hypertension BP borderline low Only on Lasix, BB for heart failure treatment - Diabetes type 2 Optimize control by adjucting pre meal adn post meal insulin and SSI. On Accu- Cheks. consistent CHO diet Monitor and adjust regimen - Hyperlipidemia Started on statin, but need to hold it due to transaminitis - Obesity/CARLOS A/OHS When medically stable and discharged will need pulmonary follow-up for PFTs and sleep study as well as counseling regarding importance of losing weight - Severe protein calorie monitor nutrition Dietitian consulted - Debility Consulted PT - DVT/GI prophylaxis - Dispostion: Within Patient and family decision regarding amputation as general surgeon is not open to further debridement Subjective Date of service: 05/01/17 Principal diagnosis: Cellulitis left foot, Heart failure Interval history: c/o pain in the left leg. S/p debridment 04/28/17. Left leg wound still draining though less Objective - Constitutional General appearance: Present: no acute distress, well-nourished - EENT Eyes: PERRL, EOM intact - Neck Neck: supple, normal ROM - Respiratory Respiratory effort: normal Respiratory: bilateral: CTA - Cardiovascular Rhythm: regular Heart Sounds: Present: S1 & S2. Absent: gallop, rub Extremities: normal color Extremity abnormal: other (extensively debrided wound in the left leg. Still draining though less) - Gastrointestinal General gastrointestinal: Present: soft, non-tender, non-distended, normal bowel sounds - Integumentary Integumentary: clear, warm, dry - Musculoskeletal Musculoskeletal: 1, strength equal bilaterally - Neurologic Neurologic: moves all extremities - Psychiatric Psychiatric: appropriate mood/affect, intact judgment & insight, memory intact - Labs CBC & Chem 7: 05/01/17 05:13 05/01/17 05:13 Labs: Abnormal lab results 04/30/17 04/30/17 04/30/17 Range/Units 08:10 13:20 22:17 WBC (4.5-11.0) K/mm3 RBC (3.65-5.03) M/mm3 MCH (28-32) pg RDW (13.2-15.2) % Lymph % (Auto) (13.4-35.0) % Seg Neutrophils % (40.0-70.0) % Seg Neutrophils # (1.8-7.7) K/mm3 Sodium (137-145) mmol/L BUN (7-17) mg/dL Glucose (65-100) mg/dL POC Glucose 169 H 173 H 217 H (70-105) Calcium (8.4-10.2) mg/dL Total Bilirubin (0.1-1.2) mg/dL Alkaline Phosphatase (35-129) units/L Albumin (3.9-5) g/dL 05/01/17 05/01/17 05/01/17 Range/Units 05:13 05:13 08:27 WBC 13.4 H (4.5-11.0) K/mm3 RBC 5.33 H (3.65-5.03) M/mm3 MCH 26 L (28-32) pg RDW 20.9 H (13.2-15.2) % Lymph % (Auto) 11.4 L (13.4-35.0) % Seg Neutrophils % 83.0 H (40.0-70.0) % Seg Neutrophils # 11.1 H (1.8-7.7) K/mm3 Sodium 133 L (137-145) mmol/L BUN 32 H (7-17) mg/dL Glucose 159 H (65-100) mg/dL POC Glucose 135 H (70-105) Calcium 8.1 L (8.4-10.2) mg/dL Total Bilirubin 2.00 H (0.1-1.2) mg/dL Alkaline Phosphatase 203 H (35-129) units/L Albumin 1.5 L (3.9-5) g/dL 05/01/17 Range/Units 16:29 WBC (4.5-11.0) K/mm3 RBC (3.65-5.03) M/mm3 MCH (28-32) pg RDW (13.2-15.2) % Lymph % (Auto) (13.4-35.0) % Seg Neutrophils % (40.0-70.0) % Seg Neutrophils # (1.8-7.7) K/mm3 Sodium (137-145) mmol/L BUN (7-17) mg/dL Glucose (65-100) mg/dL POC Glucose 229 H (70-105) Calcium (8.4-10.2) mg/dL Total Bilirubin (0.1-1.2) mg/dL Alkaline Phosphatase (35-129) units/L Albumin (3.9-5) g/dL
--- NOTE | 2017-05-01 19:13 | Cat Scan Report ---
FINAL REPORT PROCEDURE: CT LOWER EXTREMITY LT WO/W CON TECHNIQUE: Computerized axial tomography of the LEFT lower extremity was performed before and after the IV injection of iodinated nonionic contrast. HISTORY: Necrotizing soft tissue infection s/p OR debride COMPARISON: 04/20/2017 FINDINGS: There is diffuse subcutaneous edema extending from the distal thigh to the ankle, predominantly involving lateral and posterior subcutaneous tissues. No organized fluid collection is visible. There is minimal edema in the interfascial space between the medial gastrocnemius muscle and soleus, without obvious fascial enhancement. Moderate-sized joint effusion. No fracture or cortical erosion is identified. IMPRESSION: Diffuse subcutaneous edema can be seen with cellulitis. Small amount of interfascial edema is seen between the medial gastrocnemius muscle and soleus muscle. No obvious fascial enhancement or confluent/organized fluid collection is seen. Follow-up with MRI could be obtained if indicated.
[2017-05-01] MEDS: ROXICODONE PO PRN (22:29)
[2017-05-01] MEDS: LEVEMIR SUB-Q SCH (22:30)
[2017-05-01] MEDS: LOVENOX SUB-Q SCH (23:03)
[2017-05-02] MEDS: MORPHINE IV PRN ×3 (02:27→23:04)
[2017-05-02] MEDS: PFIZERPEN 4 MIL.UNITS in NACL 0.9% 50 ML IV SCH ×7 (03:15→23:04)
[2017-05-02] MEDS: CLEOCIN 600 MG/50 mL 600 MG/50 ML BAG IV SCH ×3 (05:52→22:12)
[2017-05-02] MEDS: SANTYL TP SCH ×2 (05:54→16:48)
[2017-05-02] MEDS: ROXICODONE PO PRN ×2 (06:47→19:20)
[2017-05-02 08:18] LABS: Basophils % (Auto) 0.7 % (0.0-1.8); Eosinophils % (Auto) 0.5 % (0.0-4.3); Mean Corpuscular HGB Conc 31 % (30-34); Mean Corpuscular Volume 82 fl (79-97); Red Blood Count 5.55 M/mm3 (3.65-5.03); White Blood Count 12.2 K/mm3 (4.5-11.0)
[2017-05-02] MEDS: REGLAN IV SCH ×3 (08:27→12:35)
[2017-05-02 08:28] LABS: Hematocrit 45.4 % (30.3-42.9); Hemoglobin 14.1 gm/dl (10.1-14.3); Mean Corpuscular Hemoglobin 25 pg (28-32); Red Cell Distribution Width 21.1 % (13.2-15.2)
[2017-05-02 08:44] LABS: Alanine Aminotransferase 22 units/L (7-56); Albumin 1.6 g/dL (3.9-5); Albumin/Globulin Ratio 0.3 %; Alkaline Phosphatase 223 units/L (35-129); BUN/Creatinine Ratio 36; Blood Urea Nitrogen 32 mg/dL (7-17); Calcium 8.3 mg/dL (8.4-10.2); Carbon Dioxide 17 mmol/L (22-30); Glucose 129 mg/dL (65-100); Potassium 4.7 mmol/L (3.6-5.0); Sodium 131 mmol/L (137-145); Total Protein 7.3 g/dL (6.3-8.2)
[2017-05-02 08:51] LABS: Anion Gap 24 mmol/L
[2017-05-02 09:00] LABS: Platelet Count 401 K/mm3 (140-440)
--- NOTE | 2017-05-02 10:58 | Progress Note ---
Assessment and Plan Assessment: 1) Sepsis: still leukocytosis. Etiology most likely complicated soft tissue infection left leg. 2) Left leg necrotizing soft tissue infection (cellulitis): NO evidence of necrotizing fascitis in the OR. Clinically worsening per surgery report - necrotic areas are extending despite IV antibiotics and OR debridement x 2 -S/P OR debridement on 04/20, culture + GAS -S/P OR debridement on 04/24 -CT showed subcutaneous tissue induration no abscess no gas -CRP=22-->8 -Repeat CT 05/01 No fascial enhancement, no abscess, diffuse SQ edema, small amount of interstitial intersfacial edema between medial gastroneumius and soleus. 3) DM-uncontrolled 4) Hyponatremia 5) Elevated LFTs ? from sepsis, HCV and HBV non reactive. ?MILLER - better 6) CHF 7) Early ITALIA ? resolved Plan: -patient is refusing amputation -leg MRI -continue penicillin G 4 million units IV q 4 hours (day 9) and clinda (day 10) -consider Hyperbaric oxygen therapy I am rounding this weekend Thank you Dr Finney for your consultation, will follow up with you. Talisha Nguyen MD Infectious Diseases Specialist [facility] [phone] Subjective Date of service: 05/02/17 Principal diagnosis: Cellulitis left foot, Heart failure Interval history: Feels better. No fever. Leg pain better. Current Antimicrobials: Pen G 04/24 CLindav 04/23 Previous Antimicrobials: Clindamycin 04/18 Zosyn 04/18 Microbiology: Blood cultures: 04/18 ngtd Tissue cx 04/20 corrected report + GAS Objective - Exam Narrative Exam: General appearance: Alert in NAD, sad Eyes: anicteric sclerae, moist conjunctivae; no lid-lag; PERRLA HENT: Atraumatic; oropharynx clear with moist mucous membranes and no mucosal ulcerations/no oral thrush; normal hard and soft palate. Normal external ears. Neck: Trachea midline; supple, no thyromegaly or lymphadenopathy Lungs: CTA, with normal respiratory effort and no intercostal retractions CV: RRR, no murmurs Abdomen: Soft, non-tender; no masses or hepatosplenomegaly Extremities: No peripheral edema or extremity lymphadenopathy Skin: left calf with surgical dressings, decreased edema and tenderness Psych: sad. Neuro: alert and oriented x 3. Moving all extermities Lines: No CVL / PICC - Constitutional Vitals: Vital Signs Temp Pulse Resp BP Pulse Ox 97.3 F L 95 H 20 127/88 96 05/02/17 04:48 05/02/17 04:48 05/02/17 10:41 05/02/17 04:48 05/02/17 04:48 Temperature -Last 24 Hours Temperature 97.3 F Temperature 97.5 F Temperature 97.3 F Temperature 98.3 F - Labs CBC & Chem 7: 05/02/17 06:50 05/02/17 06:51 Labs: Abnormal lab results 05/01/17 05/01/17 05/02/17 Range/Units 16:29 22:31 06:50 WBC 12.2 H (4.5-11.0) K/mm3 RBC 5.55 H (3.65-5.03) M/mm3 Hct 45.4 H (30.3-42.9) % MCH 25 L (28-32) pg RDW 21.1 H (13.2-15.2) % Seg Neutrophils % 80.2 H (40.0-70.0) % Seg Neutrophils # 9.8 H (1.8-7.7) K/mm3 Sodium (137-145) mmol/L Chloride (98-107) mmol/L Carbon Dioxide (22-30) mmol/L BUN (7-17) mg/dL Glucose (65-100) mg/dL POC Glucose 229 H 258 H (70-105) Calcium (8.4-10.2) mg/dL Total Bilirubin (0.1-1.2) mg/dL Alkaline Phosphatase (35-129) units/L Albumin (3.9-5) g/dL 05/02/17 Range/Units 06:51 WBC (4.5-11.0) K/mm3 RBC (3.65-5.03) M/mm3 Hct (30.3-42.9) % MCH (28-32) pg RDW (13.2-15.2) % Seg Neutrophils % (40.0-70.0) % Seg Neutrophils # (1.8-7.7) K/mm3 Sodium 131 L (137-145) mmol/L Chloride 95.0 L (98-107) mmol/L Carbon Dioxide 17 L D (22-30) mmol/L BUN 32 H (7-17) mg/dL Glucose 129 H (65-100) mg/dL POC Glucose (70-105) Calcium 8.3 L (8.4-10.2) mg/dL Total Bilirubin 1.90 H (0.1-1.2) mg/dL Alkaline Phosphatase 223 H (35-129) units/L Albumin 1.6 L (3.9-5) g/dL
[2017-05-02] MEDS: NOVOLOG SUB-Q SCH ×4 (11:30→22:00)
[2017-05-02] MEDS: BABY ASPIRIN PO SCH (12:06)
[2017-05-02] MEDS: COREG PO SCH ×2 (12:20→22:15)
[2017-05-02] MEDS: LASIX PO SCH (12:20)
--- NOTE | 2017-05-02 19:45 | Progress Note ---
Assessment and Plan Assessment and plan: - Cellulitis LLE - likely narcotizing soft tissue infection with debridment on 04/20/17 and 04/28/17. * Wound still needing more debridment. Orthopedic surgeon Per Dr Michel is recommending further debridement. * Anticipate for friday05/06/17 Wound cx positive for Beta hemolytic Group A strep. On Pen G per ID On penicillin G 4 million units IV q 4 hours from 04/24/17, continue clindamycin Per ID upon discharge will need penicillin G 4 million units IV q 4 hours for 3 weeks from 04/20 until 05/10. - Acute kidney injury resolved Likely secondary to vasomotor nephropathy * Resolved - Acute on chronic combined systolic/diastolic heart failure Echo with EF 20-25% Continue diuresis with Lasix On low dose BB as BP borderline low No ACEI due to renal insufficiency and hyperkalemia Monitor I's and O's Cardiology consulted and following -Jaundice/elevated LFTs Likely secondary to sepsis RUQ US obtained and showed no gallstones, trace ascites TG wnl, Statin d/c Lipase was elevated but now back within normal limits CT abdomen wo contrast obtained to r/o pancreatitis GI consulted and additional workup was negative (hepatitis panel - negative, antimitochondrial antibodies -<20) -Hypochloremic Hyponatremia Na+ 120 on admission continues to improve Likely dilutional due to heart failure Received Tolvaptan Improved with iv fluid hydration - Hyperkalemia/hypokalemia: corrected - Sepsis - resolving Present on on admission leukocytosis, lower extremity soft tissue infection, Blood cultures obtained, negative sofar. From LLE cellulitis with tissue necrosis On Aantibiotic per ID - Hyperbilirubinemia No history of anticoagulant use Probably secondary to infection Improving -Elevated D-dimer Likely secondary to infection Doppler lower extremity negative for DVT CTA chest to rule out PE was ordered, but unable to have contrast; sats 98-100% on RA - h/o CAD History of [place], PCI with stent placement x 2 On aspirin, BB, statin had to be discontinued due to elevated LFTs No ARLYN inhibitor due to renal insuf, K abnormality - Hypertension BP borderline low Only on Lasix, BB for heart failure treatment - Diabetes type 2 Optimize control by adjucting pre meal adn post meal insulin and SSI. On Accu- Cheks. consistent CHO diet Monitor and adjust regimen - Hyperlipidemia Started on statin, but need to hold it due to transaminitis - Obesity/CARLOS A/OHS When medically stable and discharged will need pulmonary follow-up for PFTs and sleep study as well as counseling regarding importance of losing weight - Severe protein calorie monitor nutrition Dietitian consulted - Debility Consulted PT - DVT/GI prophylaxis - Dispostion: further debridement ON FRIDAY AND Then discharge for HBOT. History Interval history: Patient seen and examined, in no acute distress. family at bedside. Hospitalist Physical - Physical exam Narrative exam: General appearance: Alert in NAD, Eyes: anicteric sclerae, moist conjunctivae; no lid-lag; PERRLA HENT: Atraumatic; oropharynx clear with moist mucous membranes Neck: Trachea midline; supple, no thyromegaly or lymphadenopathy Lungs: CTA, with normal respiratory effort and no intercostal retractions CV: RRR, no murmurs Abdomen: Soft, non-tender; no masses or hepatosplenomegaly Extremities: 1+PIITTING edema of left lower ext Skin: left calf with surgical dressings, decreased edema and tenderness Psych: sad. Neuro: alert and oriented x 3. Moving all extermities - Constitutional Vitals: Temp Pulse Resp BP Pulse Ox 98.0 F 93 H 18 109/80 96 05/02/17 16:28 05/02/17 16:28 05/02/17 16:28 05/02/17 16:28 05/02/17 16:28 General appearance: Present: no acute distress, well-nourished Results - Labs CBC & Chem 7: 05/02/17 06:50 05/02/17 06:51 Labs: Laboratory Last Values WBC 12.2 K/mm3 (4.5-11.0) H 05/02/17 06:50 RBC 5.55 M/mm3 (3.65-5.03) H 05/02/17 06:50 Hgb 14.1 gm/dl (10.1-14.3) 05/02/17 06:50 Hct 45.4 % (30.3-42.9) H 05/02/17 06:50 MCV 82 fl (79-97) 05/02/17 06:50 MCH 25 pg (28-32) L 05/02/17 06:50 MCHC 31 % (30-34) 05/02/17 06:50 RDW 21.1 % (13.2-15.2) H 05/02/17 06:50 Plt Count 401 K/mm3 (140-440) 05/02/17 06:50 Lymph % (Auto) 14.9 % (13.4-35.0) 05/02/17 06:50 [place] % (Auto) 3.7 % (0.0-7.3) 05/02/17 06:50 Eos % (Auto) 0.5 % (0.0-4.3) 05/02/17 06:50 Baso % (Auto) 0.7 % (0.0-1.8) 05/02/17 06:50 Lymph # 1.8 K/mm3 (1.2-5.4) 05/02/17 06:50 [place] # 0.5 K/mm3 (0.0-0.8) 05/02/17 06:50 Eos # 0.1 K/mm3 (0.0-0.4) 05/02/17 06:50 Baso # 0.1 K/mm3 (0.0-0.1) 05/02/17 06:50 Add Manual Diff Complete 04/22/17 07:59 Total Counted 100 04/22/17 07:59 Seg Neutrophils % 80.2 % (40.0-70.0) H 05/02/17 06:50 Seg Neuts % (Manual) 82.0 % (40.0-70.0) H 04/22/17 07:59 Band Neutrophils % 9.0 % 04/22/17 07:59 Lymphocytes % (Manual) 5.0 % (13.4-35.0) L 04/22/17 07:59 Reactive Lymphs % (Man) 0 % 04/22/17 07:59 Monocytes % (Manual) 4.0 % (0.0-7.3) 04/22/17 07:59 Eosinophils % (Manual) 0 % (0.0-4.3) 04/22/17 07:59 Basophils % (Manual) 0 % (0.0-1.8) 04/22/17 07:59 Metamyelocytes % 0 % 04/22/17 07:59 Myelocytes % 0 % 04/22/17 07:59 Promyelocytes % 0 % 04/22/17 07:59 Blast Cells % 0 % 04/22/17 07:59 Nucleated RBC % 2.0 % (0.0-0.9) H 04/22/17 07:59 Seg Neutrophils # 9.8 K/mm3 (1.8-7.7) H 05/02/17 06:50 Seg Neutrophils # Man 17.9 K/mm3 (1.8-7.7) H 04/22/17 07:59 Band Neutrophils # 2.0 K/mm3 04/22/17 07:59 Lymphocytes # (Manual) 1.1 K/mm3 (1.2-5.4) L 04/22/17 07:59 Abs React Lymphs (Man) 0.0 K/mm3 04/22/17 07:59 Monocytes # (Manual) 0.9 K/mm3 (0.0-0.8) H 04/22/17 07:59 Eosinophils # (Manual) 0.0 K/mm3 (0.0-0.4) 04/22/17 07:59 Basophils # (Manual) 0.0 K/mm3 (0.0-0.1) 04/22/17 07:59 Metamyelocytes # 0.0 K/mm3 04/22/17 07:59 Myelocytes # 0.0 K/mm3 04/22/17 07:59 Promyelocytes # 0.0 K/mm3 04/22/17 07:59 Blast Cells # 0.0 K/mm3 04/22/17 07:59 WBC Morphology Not Reportable 04/22/17 07:59 Hypersegmented Neuts Not Reportable 04/22/17 07:59 Hyposegmented Neuts Not Reportable 04/22/17 07:59 Hypogranular Neuts Not Reportable 04/22/17 07:59 Smudge Cells Not Reportable 04/22/17 07:59 Toxic Granulation Not Reportable 04/22/17 07:59 Toxic Vacuolation Not Reportable 04/22/17 07:59 Dohle Bodies Not Reportable 04/22/17 07:59 Pelger-Huet Anomaly Not Reportable 04/22/17 07:59 Ariel Rods Not Reportable 04/22/17 07:59 Platelet Estimate Not Reportable 04/22/17 07:59 Clumped Platelets Not Reportable 04/22/17 07:59 Plt Clumps, EDTA Not Reportable 04/22/17 07:59 Large Platelets Not Reportable 04/22/17 07:59 Giant Platelets Not Reportable 04/22/17 07:59 Platelet Satelliting Not Reportable 04/22/17 07:59 Plt Morphology Comment Not Reportable 04/22/17 07:59 RBC Morphology Not Reportable 04/22/17 07:59 Dimorphic RBCs Not Reportable 04/22/17 07:59 Polychromasia Not Reportable 04/22/17 07:59 Hypochromasia 1+ 04/22/17 07:59 Poikilocytosis Not Reportable 04/22/17 07:59 Anisocytosis Not Reportable 04/22/17 07:59 Microcytosis Not Reportable 04/22/17 07:59 Macrocytosis 1+ 04/22/17 07:59 Spherocytes Not Reportable 04/22/17 07:59 Pappenheimer Bodies Not Reportable 04/22/17 07:59 Sickle Cells Not Reportable 04/22/17 07:59 Target Cells Not Reportable 04/22/17 07:59 Tear Drop Cells Not Reportable 04/22/17 07:59 Ovalocytes Not Reportable 04/22/17 07:59 Helmet Cells Not Reportable 04/22/17 07:59 [place] Bodies Not Reportable 04/22/17 07:59 Candor Rings Not Reportable 04/22/17 07:59 [place] Cells Not Reportable 04/22/17 07:59 Bite Cells Not Reportable 04/22/17 07:59 Crenated Cell Not Reportable 04/22/17 07:59 Elliptocytes Not Reportable 04/22/17 07:59 Acanthocytes (Spur) Not Reportable 04/22/17 07:59 Rouleaux Not Reportable 04/22/17 07:59 Hemoglobin C Crystals Not Reportable 04/22/17 07:59 Schistocytes Not Reportable 04/22/17 07:59 Malaria parasites Not Reportable 04/22/17 07:59 Joselo Bodies Not Reportable 04/22/17 07:59 Hem Pathologist Commnt No 04/22/17 07:59 PT 17.1 Sec. (12.2-14.9) H 04/30/17 06:36 INR 1.33 (0.87-1.13) H 04/30/17 06:36 APTT 33.3 Sec. (24.2-36.6) 04/19/17 07:00 D-Dimer 1903.45 ng/mlDDU (0-234) H 04/18/17 14:36 Sodium 131 mmol/L (137-145) L 05/02/17 06:51 Potassium 4.7 mmol/L (3.6-5.0) 05/02/17 06:51 Chloride 95.0 mmol/L (98-107) L 05/02/17 06:51 Carbon Dioxide 17 mmol/L (22-30) L D 05/02/17 06:51 Anion Gap 24 mmol/L 05/02/17 06:51 BUN 32 mg/dL (7-17) H 05/02/17 06:51 Creatinine 0.9 mg/dL (0.7-1.2) 05/02/17 06:51 Estimated GFR > 60 ml/min 05/02/17 06:51 BUN/Creatinine Ratio 36 % 05/02/17 06:51 Glucose 129 mg/dL (65-100) H 05/02/17 06:51 POC Glucose 166 (70-105) H 05/02/17 11:51 Hemoglobin A1c 11.3 % (4-6) H 04/17/17 23:55 Lactic Acid 4.00 mmol/L (0.7-2.0) H* 04/18/17 14:36 Calcium 8.3 mg/dL (8.4-10.2) L 05/02/17 06:51 Phosphorus 3.60 mg/dL (2.5-4.5) 04/30/17 06:36 Magnesium 1.80 mg/dL (1.7-2.3) 04/30/17 06:36 Total Bilirubin 1.90 mg/dL (0.1-1.2) H 05/02/17 06:51 Direct Bilirubin 4.2 mg/dL (0-0.2) H 04/20/17 02:45 Indirect Bilirubin 1.2 mg/dL 04/20/17 02:45 AST 29 units/L (5-40) 05/02/17 06:51 ALT 22 units/L (7-56) 05/02/17 06:51 Alkaline Phosphatase 223 units/L (35-129) H 05/02/17 06:51 Ammonia 31.0 umol/L (25-60) 04/21/17 04:51 Troponin T 0.087 ng/mL (0.00-0.029) H D 04/18/17 04:54 C-Reactive Protein 8.80 mg/dL (0.00-1.30) H 04/23/17 15:30 Total Protein 7.3 g/dL (6.3-8.2) 05/02/17 06:51 Albumin 1.6 g/dL (3.9-5) L 05/02/17 06:51 Albumin/Globulin Ratio 0.3 % 05/02/17 06:51 Prealbumin 0.060 g/L (0.200-0.400) L 04/25/17 05:28 Triglycerides 106 mg/dL (2-149) 04/17/17 17:20 Cholesterol 108 mg/dL (50-199) 04/17/17 17:20 LDL Cholesterol Direct 78 mg/dL (50-130) 04/17/17 17:20 HDL Cholesterol 9 mg/dL (40-59) L 04/17/17 17:20 Cholesterol/HDL Ratio 12.00 % 04/17/17 17:20 Lipase 38 units/L (13-60) 04/21/17 04:51 HCG, Qual Negative (Negative) 04/19/17 15:03 Vancomycin Trough 45.0 ug/mL (5.0-20.0) H 04/22/17 17:48 MARCIE Screen Negative (Negative) 04/20/17: Mitochondria M2 Ab <=20.0 U (<=20.0) 04/20/17: Hepatitis A Ab Total See scanned result 04/20/17: Hep Bs Antigen Non-reactive (Negative) 04/20/17: Hep B Core Total Ab Nonreactive (Nonreactive) 04/20/17: Hepatitis C Antibody Non-reactive (NonReactive) 04/20/17: Blood Type A POSITIVE 04/20/17 20:12 Antibody Screen Negative 04/20/17 20:12
[2017-05-02] MEDS: LOVENOX SUB-Q SCH (22:15)
[2017-05-02] MEDS: LEVEMIR SUB-Q SCH (22:16)
[2017-05-03] MEDS: SANTYL TP SCH ×2 (00:45→09:09)
[2017-05-03] MEDS: PFIZERPEN 4 MIL.UNITS in NACL 0.9% 50 ML IV SCH ×6 (02:44→22:37)
[2017-05-03] MEDS: MORPHINE IV PRN (02:51)
[2017-05-03] MEDS: CLEOCIN 600 MG/50 mL 600 MG/50 ML BAG IV SCH ×3 (06:08→22:37)
[2017-05-03 08:20] LABS: Anion Gap 18 mmol/L; BUN/Creatinine Ratio 38; Blood Urea Nitrogen 30 mg/dL (7-17); Calcium 7.8 mg/dL (8.4-10.2); Carbon Dioxide 19 mmol/L (22-30); Chloride 97.5 mmol/L (98-107); Glucose 164 mg/dL (65-100); Potassium 4.5 mmol/L (3.6-5.0); Sodium 130 mmol/L (137-145)
[2017-05-03] MEDS: REGLAN IV SCH ×3 (08:30→19:40)
[2017-05-03] MEDS: NOVOLOG SUB-Q SCH ×4 (08:30→22:36)
[2017-05-03 08:31] LABS: Hematocrit 42.9 % (30.3-42.9); Hemoglobin 13.8 gm/dl (10.1-14.3); Mean Corpuscular HGB Conc 32 % (30-34); Mean Corpuscular Hemoglobin 27 pg (28-32); Mean Corpuscular Volume 83 fl (79-97); Platelet Count 362 K/mm3 (140-440); Red Blood Count 5.18 M/mm3 (3.65-5.03); White Blood Count 9.7 K/mm3 (4.5-11.0)
[2017-05-03 08:44] LABS: Red Cell Distribution Width 22.7 % (13.2-15.2)
[2017-05-03] MEDS: BABY ASPIRIN PO SCH (09:04)
[2017-05-03] MEDS: LASIX PO SCH (09:06)
[2017-05-03] MEDS: COREG PO SCH ×2 (09:07→22:36)
--- NOTE | 2017-05-03 13:16 | Progress Note ---
Assessment and Plan Assessment: 1) Sepsis: still leukocytosis. Etiology most likely complicated soft tissue infection left leg. 2) Left leg necrotizing soft tissue infection (cellulitis): NO evidence of necrotizing fascitis in the OR. Clinically worsening per surgery report - necrotic areas are extending despite IV antibiotics and OR debridement x 2 -S/P OR debridement on 04/20, culture + GAS -S/P OR debridement on 04/24 -CT showed subcutaneous tissue induration no abscess no gas -CRP=22-->8 -Repeat CT 05/01 No fascial enhancement, no abscess, diffuse SQ edema, small amount of interstitial intersfacial edema between medial gastroneumius and soleus. 3) DM-uncontrolled 4) Hyponatremia 5) Elevated LFTs ? from sepsis, HCV and HBV non reactive. ?MILLER - better 6) CHF 7) Early ITALIA ? resolved Plan: -patient is upset crying and requesting amputation today. Call psych for eval. Last 2 days she was begging not to proceed with amputation. -pain control -surgical eval -leg MRI - pending -continue penicillin G 4 million units IV q 4 hours (day 9) and clinda (day 10) -consider Hyperbaric oxygen therapy I am rounding this weekend Thank you Dr Finney for your consultation, will follow up with you. Talisha Nguyen MD Infectious Diseases Specialist [facility] ([facility] M [phone] O [phone] Subjective Date of service: 05/03/17 Principal diagnosis: Cellulitis left foot, Heart failure Interval history: pt is crying and yelling she wants to end the pain now and want to proceed with amputation, tearful and anxious. Current Antimicrobials: Pen G 04/24 CLindav 04/23 Previous Antimicrobials: Clindamycin 04/18 Zosyn 04/18 Microbiology: Blood cultures: 04/18 ngtd Tissue cx 04/20 corrected report + GAS Objective - Exam Narrative Exam: General appearance: Alert in NAD, anxious tearfull Eyes: anicteric sclerae, moist conjunctivae; no lid-lag; PERRLA HENT: Atraumatic; oropharynx clear with moist mucous membranes and no mucosal ulcerations/no oral thrush; normal hard and soft palate. Normal external ears. Neck: Trachea midline; supple, no thyromegaly or lymphadenopathy Lungs: CTA, with normal respiratory effort and no intercostal retractions CV: RRR, no murmurs Abdomen: Soft, non-tender; no masses or hepatosplenomegaly Extremities: No peripheral edema or extremity lymphadenopathy Skin: left calf with surgical dressings, decreased edema and tenderness Psych: sad. Neuro: alert and oriented x 3. Moving all extermities Lines: No CVL / PICC - Constitutional Vitals: Vital Signs Temp Pulse Resp BP Pulse Ox 98.6 F 97 H 18 127/86 97 05/03/17 12:00 05/03/17 12:37 05/03/17 07:53 05/03/17 12:00 05/03/17 12:37 Temperature -Last 24 Hours Temperature 98.6 F Temperature 98.7 F Temperature 97.3 F Temperature 97.5 F Temperature 98.9 F Temperature 98.0 F - Labs CBC & Chem 7: 05/03/17 07:28 05/03/17 07:28 Labs: Abnormal lab results 05/02/17 05/02/17 05/02/17 Range/Units 11:51 16:28 22:13 RBC (3.65-5.03) M/mm3 MCH (28-32) pg RDW (13.2-15.2) % Sodium (137-145) mmol/L Chloride (98-107) mmol/L Carbon Dioxide (22-30) mmol/L BUN (7-17) mg/dL Glucose (65-100) mg/dL POC Glucose 166 H 235 H 228 H (70-105) Calcium (8.4-10.2) mg/dL 05/03/17 05/03/17 05/03/17 Range/Units 06:38 07:28 07:28 RBC 5.18 H (3.65-5.03) M/mm3 MCH 27 L (28-32) pg RDW 22.7 H (13.2-15.2) % Sodium 130 L (137-145) mmol/L Chloride 97.5 L (98-107) mmol/L Carbon Dioxide 19 L (22-30) mmol/L BUN 30 H (7-17) mg/dL Glucose 164 H (65-100) mg/dL POC Glucose 171 H (70-105) Calcium 7.8 L (8.4-10.2) mg/dL 05/03/17 Range/Units 07:53 RBC (3.65-5.03) M/mm3 MCH (28-32) pg RDW (13.2-15.2) % Sodium (137-145) mmol/L Chloride (98-107) mmol/L Carbon Dioxide (22-30) mmol/L BUN (7-17) mg/dL Glucose (65-100) mg/dL POC Glucose 155 H (70-105) Calcium (8.4-10.2) mg/dL
--- NOTE | 2017-05-03 16:51 | Progress Note ---
<RACHEL SALDAÑA S - Last Filed: 05/03/17 16:50> Assessment and Plan Assessment and Plan Assessment and plan: - Cellulitis LLE - likely narcotizing soft tissue infection with debridment on 04/20/17 and 04/28/17. * Wound still needing more debridment. Orthopedic surgeon Per Dr Michel is recommending further debridement. * Anticipate for friday05/06/17 Wound cx positive for Beta hemolytic Group A strep. On Pen G per ID On penicillin G 4 million units IV q 4 hours from 04/24/17, continue clindamycin Per ID upon discharge will need penicillin G 4 million units IV q 4 hours for 3 weeks from 04/20 until 05/10. - Acute kidney injury resolved Likely secondary to vasomotor nephropathy * Resolved - Acute on chronic combined systolic/diastolic heart failure Echo with EF 20-25% Continue diuresis with Lasix On low dose BB as BP borderline low No ACEI due to renal insufficiency and hyperkalemia Monitor I's and O's Cardiology consulted and following -Jaundice/elevated LFTs Likely secondary to sepsis RUQ US obtained and showed no gallstones, trace ascites TG wnl, Statin d/c Lipase was elevated but now back within normal limits CT abdomen wo contrast obtained to r/o pancreatitis GI consulted and additional workup was negative (hepatitis panel - negative, antimitochondrial antibodies -<20) -Hypochloremic Hyponatremia Na+ 120 on admission continues to improve Likely dilutional due to heart failure Received Tolvaptan Improved with iv fluid hydration - Hyperkalemia/hypokalemia: corrected - Sepsis - resolving Present on on admission leukocytosis, lower extremity soft tissue infection, Blood cultures obtained, negative sofar. From LLE cellulitis with tissue necrosis On Aantibiotic per ID - Hyperbilirubinemia No history of anticoagulant use Probably secondary to infection Improving -Elevated D-dimer Likely secondary to infection Doppler lower extremity negative for DVT CTA chest to rule out PE was ordered, but unable to have contrast; sats 98-100% on RA - h/o CAD History of [place], PCI with stent placement x 2 On aspirin, BB, statin had to be discontinued due to elevated LFTs No ARLYN inhibitor due to renal insuf, K abnormality - Hypertension BP borderline low Only on Lasix, BB for heart failure treatment - Diabetes type 2 Optimize control by adjucting pre meal adn post meal insulin and SSI. On Accu- Cheks. consistent CHO diet Monitor and adjust regimen - Hyperlipidemia Started on statin, but need to hold it due to transaminitis - Obesity/CARLOS A/OHS When medically stable and discharged will need pulmonary follow-up for PFTs and sleep study as well as counseling regarding importance of losing weight - Severe protein calorie monitor nutrition Dietitian consulted - Debility Consulted PT - DVT/GI prophylaxis - Dispostion: further debridement ON FRIDAY AND Then discharge for HBOT. Subjective Date of service: 05/03/17 Principal diagnosis: Cellulitis left foot, Heart failure Objective - Constitutional Vitals: Vital Signs - 12hr 05/03/17 05/03/17 05/03/17 05:24 07:53 07:54 Temperature 97.3 F L 98.7 F Pulse Rate 94 H 94 H Respiratory 16 18 Rate Blood Pressure 134/92 128/94 Blood Pressure [Left] O2 Sat by Pulse 98 98 Oximetry 05/03/17 05/03/17 12:00 12:37 Temperature 98.6 F Pulse Rate 103 H 97 H Respiratory Rate Blood Pressure Blood Pressure 127/86 [Left] O2 Sat by Pulse 97 Oximetry General appearance: Present: no acute distress, well-nourished - EENT Eyes: PERRL, EOM intact ENT: hearing intact, clear oral mucosa Ears: bilateral: normal - Neck Neck: supple, normal ROM - Respiratory Respiratory effort: normal Respiratory: bilateral: CTA - Breasts Breasts: normal - Cardiovascular Rhythm: regular Heart Sounds: Present: S1 & S2. Absent: gallop, rub Extremities: pulses intact, No edema, normal color, Full ROM - Gastrointestinal General gastrointestinal: Present: soft, non-tender, non-distended, normal bowel sounds - Genitourinary Female genitourinary: normal - Integumentary Integumentary: clear, warm, dry - Musculoskeletal Musculoskeletal: 1, strength equal bilaterally - Neurologic Neurologic: moves all extremities - Psychiatric Psychiatric: memory intact, appropriate mood/affect, intact judgment & insight - Labs CBC & Chem 7: 05/03/17 07:28 05/03/17 07:28 Labs: Abnormal lab results 05/02/17 05/02/17 05/03/17 Range/Units 16:28 22:13 06:38 RBC (3.65-5.03) M/mm3 MCH (28-32) pg RDW (13.2-15.2) % Sodium (137-145) mmol/L Chloride (98-107) mmol/L Carbon Dioxide (22-30) mmol/L BUN (7-17) mg/dL Glucose (65-100) mg/dL POC Glucose 235 H 228 H 171 H (70-105) Calcium (8.4-10.2) mg/dL 05/03/17 05/03/17 05/03/17 Range/Units 07:28 07:28 07:53 RBC 5.18 H (3.65-5.03) M/mm3 MCH 27 L (28-32) pg RDW 22.7 H (13.2-15.2) % Sodium 130 L (137-145) mmol/L Chloride 97.5 L (98-107) mmol/L Carbon Dioxide 19 L (22-30) mmol/L BUN 30 H (7-17) mg/dL Glucose 164 H (65-100) mg/dL POC Glucose 155 H (70-105) Calcium 7.8 L (8.4-10.2) mg/dL 05/03/17 Range/Units 14:32 RBC (3.65-5.03) M/mm3 MCH (28-32) pg RDW (13.2-15.2) % Sodium (137-145) mmol/L Chloride (98-107) mmol/L Carbon Dioxide (22-30) mmol/L BUN (7-17) mg/dL Glucose (65-100) mg/dL POC Glucose 205 H (70-105) Calcium (8.4-10.2) mg/dL <NEENA ARTEAGA - Last Filed: 05/04/17 13:40> Objective - Constitutional Vitals: Vital Signs - 12hr 05/04/17 05/04/17 05/04/17 03:00 03:51 08:11 Temperature 97.5 F L 98.4 F Pulse Rate 101 H 97 H 96 H Respiratory 22 20 Rate Blood Pressure 135/98 166/115 Blood Pressure [Left] O2 Sat by Pulse 98 97 Oximetry 05/04/17 05/04/17 09:00 12:01 Temperature 98.4 F 98.0 F Pulse Rate 96 H 105 H Respiratory 18 Rate Blood Pressure 133/92 Blood Pressure 166/115 [Left] O2 Sat by Pulse 95 Oximetry - Labs CBC & Chem 7: 05/03/17 07:28 05/03/17 07:28 Labs: Abnormal lab results 05/03/17 05/03/17 05/03/17 Range/Units 12:38 14:32 16:21 POC Glucose 188 H 205 H 207 H (70-105) 05/03/17 05/04/17 Range/Units 21:58 12:03 POC Glucose 194 H 160 H (70-105)
[2017-05-03] MEDS: LEVEMIR SUB-Q SCH (22:35)
[2017-05-03] MEDS: ROXICODONE PO PRN (22:36)
[2017-05-03] MEDS: LOVENOX SUB-Q SCH (22:36)
[2017-05-04] MEDS: PFIZERPEN 4 MIL.UNITS in NACL 0.9% 50 ML IV SCH ×4 (02:40→15:46)
[2017-05-04] MEDS: CLEOCIN 600 MG/50 mL 600 MG/50 ML BAG IV SCH ×2 (06:21→13:40)
[2017-05-04] MEDS: MORPHINE IV PRN ×2 (06:28→22:18)
[2017-05-04] MEDS: NOVOLOG SUB-Q SCH ×4 (08:12→22:33)
[2017-05-04] MEDS: REGLAN IV SCH ×3 (10:00→16:15)
[2017-05-04] MEDS: COREG PO SCH ×2 (10:29→22:19)
[2017-05-04] MEDS: LASIX PO SCH (10:29)
[2017-05-04] MEDS: BABY ASPIRIN PO SCH (10:30)
[2017-05-04] MEDS: SANTYL TP SCH (10:31)
--- NOTE | 2017-05-04 14:40 | Progress Note ---
Assessment and Plan Assessment: 1) Sepsis: still leukocytosis. Etiology most likely complicated soft tissue infection left leg. 2) Left leg necrotizing soft tissue infection (cellulitis): NO evidence of necrotizing fascitis in the OR. Clinically worsening per surgery report - necrotic areas are extending despite IV antibiotics and OR debridement x 2 -S/P OR debridement on 04/20, culture + GAS -S/P OR debridement on 04/24 -CT showed subcutaneous tissue induration no abscess no gas -CRP=22-->8 -Repeat CT 05/01 No fascial enhancement, no abscess, diffuse SQ edema, small amount of interstitial intersfacial edema between medial gastroneumius and soleus. 3) DM-uncontrolled 4) Hyponatremia 5) Elevated LFTs ? from sepsis, HCV and HBV non reactive. ?MILLER - better 6) CHF 7) Early ITALIA ? resolved Plan: -patient is refusing amputation. -to the OR tomorrow for further debridement - please obtain deep tissue cx -stop pen G and clinda -start daptomycin and zosyn for now -pain control -leg MRI - pending -consider Hyperbaric oxygen therapy Thank you Dr Finney for your consultation, will follow up with you. Talisha Nguyen MD Infectious Diseases Specialist [facility] ([facility] M [phone] O [phone] Subjective Date of service: 05/04/17 Principal diagnosis: Cellulitis left foot, Heart failure Interval history: feels better, no fever, she is begging to avoid amputation today . Current Antimicrobials: Pen G 04/24 CLindav 04/23 Previous Antimicrobials: Clindamycin 04/18 Zosyn 04/18 Microbiology: Blood cultures: 04/18 ngtd Tissue cx 04/20 corrected report + GAS Objective - Exam Narrative Exam: General appearance: Alert in NAD, anxious tearfull Eyes: anicteric sclerae, moist conjunctivae; no lid-lag; PERRLA HENT: Atraumatic; oropharynx clear with moist mucous membranes and no mucosal ulcerations/no oral thrush; normal hard and soft palate. Normal external ears. Neck: Trachea midline; supple, no thyromegaly or lymphadenopathy Lungs: CTA, with normal respiratory effort and no intercostal retractions CV: RRR, no murmurs Abdomen: Soft, non-tender; no masses or hepatosplenomegaly Extremities: No peripheral edema or extremity lymphadenopathy Skin: left calf with surgical dressings satuated in yellow secretion, decreased edema and tenderness Psych: sad. Neuro: alert and oriented x 3. Moving all extermities Lines: No CVL / PICC - Constitutional Vitals: Vital Signs Temp Pulse Resp BP Pulse Ox 98.0 F 105 H 18 133/92 95 05/04/17 12:01 05/04/17 12:01 05/04/17 12:01 05/04/17 12:01 05/04/17 12:01 Temperature -Last 24 Hours Temperature 98.0 F Temperature 98.4 F Temperature 98.4 F Temperature 97.5 F Temperature 96.4 F Temperature 98.4 F Temperature 98.4 F - Labs CBC & Chem 7: 05/03/17 07:28 05/03/17 07:28 Labs: Abnormal lab results 05/03/17 05/03/17 05/03/17 Range/Units 12:38 14:32 16:21 POC Glucose 188 H 205 H 207 H (70-105) 05/03/17 05/04/17 Range/Units 21:58 12:03 POC Glucose 194 H 160 H (70-105)
[2017-05-04] MEDS: ZOSYN/NS 4.5GM/100ML 4.5 GM/100 ML VIAL IV SCH ×2 (16:05→22:19)
[2017-05-04] MEDS: CUBICIN 600 MG in NACL 0.9% 100 ML IV SCH (16:09)
[2017-05-04] MEDS: LOVENOX SUB-Q SCH (22:20)
[2017-05-04] MEDS: LEVEMIR SUB-Q SCH (22:20)
--- NOTE | 2017-05-04 22:34 | Magnetic Resonance Report ---
FINAL REPORT PROCEDURE: MR LE NONJOINT LT WO/W CON TECHNIQUE: Magnetic resonance imaging of the LEFT leg was performed using standard pulse sequences before and after the IV injection of paramagnetic contrast. HISTORY: pt with necrotising cellulitis eval deep fascitis COMPARISON: CT 05/01/2017 FINDINGS: The left lower extremity was imaged from the level of the proximal tibia to the ankle. There is circumferential subcutaneous nonenhancing fluid signal, with imaging characteristics compatible with infected subcutaneous fluid collections. There is fluid signal with high T2 and low T1 signal tracking between the medial gastrocnemius muscle and soleus muscle, without adjacent enhancement of the deep fascia. There is similar edema like signal in the deep fascia anterior to the soleus muscle. There is diffuse muscle edema involving all of the compartments of the calf, particularly visualized in the lateral gastrocnemius muscle. No marrow edema is seen to suggest osteomyelitis IMPRESSION: Circumferential subcutaneous nonenhancing fluid may be related to extensive cellulitis. Cannot exclude circumferential subcutaneous abscess however. There is edema like signal of the deep fascial layers as described above, without enhancement. This is not a specific finding for deep fasciitis, however, this should be considered clinically and close clinical follow-up should be obtained for deep fasciitis. Edema like signal of the muscles diffusely are compatible with myositis, which may be reactive or infectious. No focal intramuscular fluid collection is seen.
--- NOTE | 2017-05-04 23:10 | Progress Note ---
Assessment and Plan Assessment and Plan Assessment and plan: - Cellulitis LLE - likely narcotizing soft tissue infection with debridment on 04/20/17 and 04/28/17. * Wound still needing more debridment. Orthopedic surgeon Per Dr Michel is recommending further debridement. * Anticipate for friday05/06/17 Wound cx positive for Beta hemolytic Group A strep. On Pen G per ID On penicillin G 4 million units IV q 4 hours from 04/24/17, continue clindamycin Per ID upon discharge will need penicillin G 4 million units IV q 4 hours for 3 weeks from 04/20 until 05/10. - Acute kidney injury resolved Likely secondary to vasomotor nephropathy * Resolved - Acute on chronic combined systolic/diastolic heart failure Echo with EF 20-25% Continue diuresis with Lasix On low dose BB as BP borderline low No ACEI due to renal insufficiency and hyperkalemia Monitor I's and O's Cardiology consulted and following -Jaundice/elevated LFTs Likely secondary to sepsis RUQ US obtained and showed no gallstones, trace ascites TG wnl, Statin d/c Lipase was elevated but now back within normal limits CT abdomen wo contrast obtained to r/o pancreatitis GI consulted and additional workup was negative (hepatitis panel - negative, antimitochondrial antibodies -<20) -Hypochloremic Hyponatremia Na+ 120 on admission continues to improve Likely dilutional due to heart failure Received Tolvaptan Improved with iv fluid hydration - Hyperkalemia/hypokalemia: corrected - Sepsis - resolving Present on on admission leukocytosis, lower extremity soft tissue infection, Blood cultures obtained, negative sofar. From LLE cellulitis with tissue necrosis On Aantibiotic per ID - Hyperbilirubinemia No history of anticoagulant use Probably secondary to infection Improving -Elevated D-dimer Likely secondary to infection Doppler lower extremity negative for DVT CTA chest to rule out PE was ordered, but unable to have contrast; sats 98-100% on RA - h/o CAD History of [place], PCI with stent placement x 2 On aspirin, BB, statin had to be discontinued due to elevated LFTs No ARLYN inhibitor due to renal insuf, K abnormality - Hypertension BP borderline low Only on Lasix, BB for heart failure treatment - Diabetes type 2 Optimize control by adjucting pre meal adn post meal insulin and SSI. On Accu- Cheks. consistent CHO diet Monitor and adjust regimen - Hyperlipidemia Started on statin, but need to hold it due to transaminitis - Obesity/CARLOS A/OHS When medically stable and discharged will need pulmonary follow-up for PFTs and sleep study as well as counseling regarding importance of losing weight - Severe protein calorie monitor nutrition Dietitian consulted - Debility Consulted PT - DVT/GI prophylaxis - Dispostion: further debridement ON FRIDAY AND Then discharge for HBOT. Subjective Date of service: 05/04/17 Principal diagnosis: Cellulitis left foot, Heart failure,Sepsis Interval history: Sx better Objective - Constitutional Vitals: Vital Signs - 12hr 05/04/17 05/04/17 05/04/17 12:01 16:13 16:30 Temperature 98.0 F Pulse Rate 105 H 99 H Respiratory 18 Rate Blood Pressure 133/92 Blood Pressure 121/83 [Left] O2 Sat by Pulse 95 98 Oximetry 05/04/17 05/04/17 20:02 22:19 Temperature 98.2 F Pulse Rate 102 H 102 H Respiratory 20 Rate Blood Pressure 127/86 127/86 Blood Pressure [Left] O2 Sat by Pulse 95 Oximetry General appearance: Present: no acute distress, well-nourished - EENT Eyes: PERRL, EOM intact ENT: hearing intact, clear oral mucosa Ears: bilateral: normal - Neck Neck: supple, normal ROM - Respiratory Respiratory effort: normal Respiratory: bilateral: CTA - Breasts Breasts: normal - Cardiovascular Rhythm: regular Heart Sounds: Present: S1 & S2. Absent: gallop, rub Extremities: pulses intact, No edema, normal color, Full ROM - Gastrointestinal General gastrointestinal: Present: soft, non-tender, non-distended, normal bowel sounds - Genitourinary Female genitourinary: normal - Integumentary Integumentary: clear, warm, dry - Musculoskeletal Musculoskeletal: 1, strength equal bilaterally - Neurologic Neurologic: moves all extremities - Psychiatric Psychiatric: memory intact, appropriate mood/affect, intact judgment & insight - Labs CBC & Chem 7: 05/03/17 07:28 05/03/17 07:28 Labs: Abnormal lab results 05/04/17 05/04/17 05/04/17 Range/Units 12:03 16:13 21:16 POC Glucose 160 H 146 H 262 H (70-105)
[2017-05-05] MEDS: MORPHINE IV PRN ×4 (03:11→22:09)
[2017-05-05] MEDS: ZOSYN/NS 4.5GM/100ML 4.5 GM/100 ML VIAL IV SCH ×3 (06:38→22:09)
[2017-05-05] MEDS: NOVOLOG SUB-Q SCH ×4 (07:30→22:10)
--- NOTE | 2017-05-05 09:44 | Progress Note ---
Assessment and Plan 41 y/o F s/p debridement LLE necrotizing soft tissue infection 04/20/17 and excisional debridement of necrotic skin and soft tissue 04/28/17 1. necrotizing soft tissue infection, cellulitis of LLE 2. sepsis 3. CAD 4. CHF 5. HTN 6. malnutrition 7. elevated liver function tests PLan: 1. continue abx per ID 2. Debridement in OR tomorrow - 05/06/17, consent obtained 3. NPO p MN tonight 4. OOB -> chair 5. continue current wound care 6. encourage PO intake and nutrition 7. DVT ppx 8. strict glucose control Discussed plan with patient and sister at bedside. Pt will likely require more operative debridements if skin and subcutaneous tissue continues to deteriorate. Once wounds are stable, the patient will need aggressive wound care and consultation with plastic surgery for evaluation for skin grafts. Patient seen by Dr. Barnes (Ortho) and she refused amputation at this time. D/W Case management, pt qualifies for medicaid but application is still pending. Will try to set up [facility] care with wound care clinic for outpatient wound care once patient is ready to be discharged. Subjective Date of service: 05/05/17 Patient Reports: Positive: feels better, pain is less, tolerating a regular diet Narrative: Pt seen and examined. No new complaints. Dressing changed by nursing over past several days. No f/c. Objective Vital Signs - 12hr 05/04/17 05/04/17 05/05/17 22:19 23:54 03:20 Temperature 98.1 F 97.3 F L Pulse Rate 102 H 102 H 97 H Respiratory 20 18 Rate Blood Pressure 127/86 142/95 113/79 O2 Sat by Pulse 98 94 Oximetry 05/05/17 05/05/17 07:52 07:54 Temperature 98.8 F Pulse Rate 97 H 98 H Respiratory 18 Rate Blood Pressure 133/91 O2 Sat by Pulse 96 Oximetry - General physical appearance Narrative Exam: Gen: AAOx3. NAD Ext: B/L 3+ LE edema. LLE dressings removed. Greenish/serous drainage from wounds. Necrotic areas of skin extend beyond debrided skin and extends posteriorly above knee. Slough on all wound beds. Santyl applied to all wounds and wet to dry dressing. Leg wrapped with kerlex. - Labs 05/03/17 07:28 05/03/17 07:28 - Imaging Additional Studies: MRI LLE - circumfrential subcutaneous nonenhancing fluid. Myositis. No focal intramuscular collection seen.
[2017-05-05] MEDS: SANTYL TP SCH (10:00)
[2017-05-05] MEDS: COREG PO SCH ×2 (11:01→22:08)
[2017-05-05] MEDS: LASIX PO SCH (11:02)
[2017-05-05] MEDS: BABY ASPIRIN PO SCH (11:02)
--- NOTE | 2017-05-05 11:19 | Progress Note ---
Assessment and Plan Assessment: 1) Sepsis: still leukocytosis. Etiology most likely complicated soft tissue infection left leg. 2) Left leg necrotizing soft tissue infection (cellulitis): NO evidence of necrotizing fascitis in the OR. Clinically worsening per surgery report - necrotic areas are extending despite IV antibiotics and OR debridement x 2 -S/P OR debridement on 04/20, culture + GAS -S/P OR debridement on 04/24 -CT showed subcutaneous tissue induration no abscess no gas -CRP=22-->8 -Repeat CT 05/01 No fascial enhancement, no abscess, diffuse SQ edema, small amount of interstitial intersfacial edema between medial gastroneumius and soleus. -MRI 05/04 showed circumferential subcutaneous nonenhancing fluid and edema signal nonenhancing of deep fascial layers 3) DM-uncontrolled 4) Hyponatremia 5) Elevated LFTs ? from sepsis, HCV and HBV non reactive. ?MILLER - better 6) CHF 7) Early ITALIA ? resolved Plan: -patient is refusing amputation. -to the OR tomorrow for further debridement - please obtain deep tissue cx -continue daptomycin and zosyn for now day 2 -pain control -consider Hyperbaric oxygen therapy upon discharge Thank you Dr Finney for your consultation, will follow up with you. Talisha Nguyen MD Infectious Diseases Specialist [facility] M [phone] O [phone] Subjective Date of service: 05/05/17 Principal diagnosis: Cellulitis left foot, Heart failure,Sepsis Interval history: feels better, no fever, sister at bedside Current Antimicrobials: dapto 05/04 zosyn 05/04 Previous Antimicrobials: Clindamycin 04/18 Zosyn 04/18 Pen G 04/24 CLindav 04/23 Microbiology: Blood cultures: 04/18 ngtd Tissue cx 04/20 corrected report + GAS Objective - Exam Narrative Exam: General appearance: Alert in NAD, anxious tearfull Eyes: anicteric sclerae, moist conjunctivae; no lid-lag; PERRLA HENT: Atraumatic; oropharynx clear with moist mucous membranes and no mucosal ulcerations/no oral thrush; normal hard and soft palate. Normal external ears. Neck: Trachea midline; supple, no thyromegaly or lymphadenopathy Lungs: CTA, with normal respiratory effort and no intercostal retractions CV: RRR, no murmurs Abdomen: Soft, non-tender; no masses or hepatosplenomegaly Extremities: No peripheral edema or extremity lymphadenopathy Skin: left calf with surgical dressings saturated on green secretion, decreased edema and tenderness Psych: sad. Neuro: alert and oriented x 3. Moving all extermities Lines: No CVL / PICC - Constitutional Vitals: Vital Signs Temp Pulse Resp BP Pulse Ox 98.8 F 97 H 18 133/91 96 05/05/17 07:52 05/05/17 11:01 05/05/17 07:52 05/05/17 11:01 05/05/17 07:52 Temperature -Last 24 Hours Temperature 98.8 F Temperature 97.3 F Temperature 98.1 F Temperature 98.2 F Temperature 98.0 F - Labs CBC & Chem 7: 05/03/17 07:28 05/03/17 07:28 Labs: Abnormal lab results 05/04/17 05/04/17 05/04/17 Range/Units 12:03 16:13 21:16 POC Glucose 160 H 146 H 262 H (70-105)
[2017-05-05] MEDS: REGLAN IV SCH ×3 (12:45→15:52)
[2017-05-05] MEDS: ROXICODONE PO PRN (12:46)
--- NOTE | 2017-05-05 16:27 | Consultation ---
History of Present Illness - HPI Consult date: 05/02/17 Consult reason: other History of present illness: 41 y/o female with hx of necrotizing fasciitis left leg, s/p multiple soft tissue debridements, asked to see regarding need for possible amputation... Past History Past Medical History: diabetes, heart failure, hypertension, hyperlipidemia Past Surgical History: Other (status post 2 stent) Social history: full code. denies: smoking, alcohol abuse, prescription drug abuse, IV drug use Family history: CAD Medications and Allergies Allergies Allergy/AdvReac Type Severity Reaction Status Date / Time No Known Allergies Allergy Verified 04/17/17 22:18 Home Medications Medication Instructions Recorded Confirmed Last Taken Type Furosemide [Lasix TAB] 40 mg PO QDAY #30 tablet 02/03/17 04/18/17 1 Day Ago Rx Active Meds: Active Medications Aspirin (Baby Aspirin) 81 mg PO QDAY [facility] Last Admin: 05/05/17 11:02 Dose: 81 mg Carvedilol (Coreg) 3.125 mg PO BID [facility] Last Admin: 05/05/17 11:01 Dose: 3.125 mg Collagenase (Santyl) 1 applic TP QDAY [facility] Last Admin: 05/05/17 10:00 Dose: 1 applic Dextrose (D50w (25gm) Syringe) 50 ml IV PRN PRN PRN Reason: Hypoglycemia Enoxaparin Sodium (Lovenox) 40 mg SUB-Q QDAY@2200 [facility] Last Admin: 05/04/17 22:20 Dose: 40 mg Furosemide (Lasix) 40 mg PO QDAY [facility] Last Admin: 05/05/17 11:02 Dose: 40 mg Sodium Chloride (Nacl 0.9% 1000 Ml) 1,000 mls @ 42 mls/hr IV DIRECT [facility] Last Admin: 04/29/17 12:48 Dose: 42 mls/hr Daptomycin 600 mg/ Sodium (Chloride) 100 mls @ 200 mls/hr IV Q24H [facility] PRN Reason: Protocol Last Admin: 05/04/17 16:09 Dose: 200 mls/hr Piperacillin Sod/Tazobactam Sod (Zosyn/Ns 4.5gm/100ml) 4.5 gm in 100 mls @ 200 mls/hr IV Q8HR [facility] PRN Reason: Protocol Last Admin: 05/05/17 15:31 Dose: 200 mls/hr Insulin Aspart (Novolog) 0 units SUB-Q ACHS [facility] PRN Reason: Protocol Last Admin: 05/05/17 07:30 Dose: Not Given Insulin Detemir (Levemir) 10 units SUB-Q QHS [facility] Last Admin: 05/04/17 22:20 Dose: 10 units Metoclopramide HCl (Reglan) 5 mg IV AC [facility] Last Admin: 05/05/17 15:52 Dose: 5 mg Morphine Sulfate (Morphine) 2 mg IV Q4H PRN PRN Reason: Pain, Moderate (4-6) Last Admin: 05/05/17 15:51 Dose: 2 mg Ondansetron HCl (Zofran) 4 mg IV Q8H PRN PRN Reason: Nausea And Vomiting Last Admin: 04/29/17 12:54 Dose: 4 mg Oxycodone HCl (Roxicodone) 5 mg PO Q6H PRN PRN Reason: Pain, Mild (1-3) Last Admin: 05/05/17 12:46 Dose: 5 mg Physical Examination - Physical exam Narrative exam: left LE - large area of debrided skin with exposed muscle and fascia extending upwards to popliteal fossa, good active ROM at toes, sensation intact to plantar surface, good capillary refill.... Assessment and Plan necrotizing fasciitis left leg, s/p debridement recommendation - discussed treatment options with the patient, states she's not ready for amputation and would like to continue with IVAB and observation for now maybe another debridement or two prior to amputation....
[2017-05-05] MEDS: LOVENOX SUB-Q SCH (22:07)
[2017-05-05] MEDS: LEVEMIR SUB-Q SCH (22:09)
--- NOTE | 2017-05-05 23:30 | Progress Note ---
Assessment and Plan Assessment and plan: - Cellulitis LLE - no evidence of narcotizing soft tissue infection noted with debridment on 04/20/17 and 04/28/17. * Wound still needing more debridment. Orthopedic surgeon Per Dr Michel is recommending further debridement. * Anticipate for friday05/07/17 Wound cx positive for Beta hemolytic Group A strep. On Pen G per ID - Acute kidney injury resolved Likely secondary to vasomotor nephropathy * Resolved - Acute on chronic combined systolic/diastolic heart failure Echo with EF 20-25% Continue diuresis with Lasix On low dose BB as BP borderline low No ACEI due to renal insufficiency and hyperkalemia Monitor I's and O's Cardiology consulted and following -Jaundice/elevated LFTs Likely secondary to sepsis RUQ US obtained and showed no gallstones, trace ascites TG wnl, Statin d/c Lipase was elevated but now back within normal limits CT abdomen wo contrast obtained to r/o pancreatitis GI consulted and additional workup was negative (hepatitis panel - negative, antimitochondrial antibodies -<20) -Hypochloremic Hyponatremia Na+ 120 on admission continues to improve Likely dilutional due to heart failure Received Tolvaptan Improved with iv fluid hydration - Hyperkalemia/hypokalemia: corrected - Sepsis - resolving Present on on admission leukocytosis, lower extremity soft tissue infection, Blood cultures obtained, negative sofar. From LLE cellulitis with tissue necrosis On Aantibiotic per ID - Hyperbilirubinemia No history of anticoagulant use Probably secondary to infection Improving -Elevated D-dimer Likely secondary to infection Doppler lower extremity negative for DVT CTA chest to rule out PE was ordered, but unable to have contrast; sats 98-100% on RA - h/o CAD History of CT, PCI with stent placement x 2 On aspirin, BB, statin had to be discontinued due to elevated LFTs No ARLYN inhibitor due to renal insuf, K abnormality - Hypertension BP borderline low Only on Lasix, BB for heart failure treatment - Diabetes type 2 Optimize control by adjucting pre meal adn post meal insulin and SSI. On Accu- Cheks. consistent CHO diet Monitor and adjust regimen - Hyperlipidemia Started on statin, but need to hold it due to transaminitis - Obesity/CARLOS A/OHS When medically stable and discharged will need pulmonary follow-up for PFTs and sleep study as well as counseling regarding importance of losing weight - Severe protein calorie monitor nutrition Dietitian consulted - Debility Consulted PT - DVT/GI prophylaxis - Dispostion: further debridement ON friday AND Then discharge for HBOT. History Interval history: Patient seen and examined, in no acute distress. family at bedside. Hospitalist Physical - Physical exam Narrative exam: General appearance: Alert in NAD, Eyes: anicteric sclerae, moist conjunctivae; no lid-lag; PERRLA HENT: Atraumatic; oropharynx clear with moist mucous membranes Neck: Trachea midline; supple, no thyromegaly or lymphadenopathy Lungs: CTA, with normal respiratory effort and no intercostal retractions CV: RRR, no murmurs Abdomen: Soft, non-tender; no masses or hepatosplenomegaly Extremities: 1+PITTING edema of left lower ext Skin: left calf with surgical dressings, decreased edema and tenderness Psych: sad. Neuro: alert and oriented x 3. Moving all extermities - Constitutional Vitals: Temp Pulse Resp BP Pulse Ox 98.1 F 104 H 18 135/93 98 05/05/17 19:24 05/05/17 22:08 05/05/17 19:24 05/05/17 22:08 05/05/17 19:24 General appearance: Present: no acute distress, well-nourished Results - Labs CBC & Chem 7: 05/06/17 06:48 05/06/17 06:48 Labs: Laboratory Last Values WBC 9.7 K/mm3 (4.5-11.0) 05/03/17 07:28 RBC 5.18 M/mm3 (3.65-5.03) H 05/03/17 07:28 Hgb 13.8 gm/dl (10.1-14.3) 05/03/17 07:28 Hct 42.9 % (30.3-42.9) 05/03/17 07:28 MCV 83 fl (79-97) 05/03/17 07:28 MCH 27 pg (28-32) L 05/03/17 07:28 MCHC 32 % (30-34) 05/03/17 07:28 RDW 22.7 % (13.2-15.2) H 05/03/17 07:28 Plt Count 362 K/mm3 (140-440) 05/03/17 07:28 Lymph % (Auto) 14.9 % (13.4-35.0) 05/02/17 06:50 Fleming % (Auto) 3.7 % (0.0-7.3) 05/02/17 06:50 Eos % (Auto) 0.5 % (0.0-4.3) 05/02/17 06:50 Baso % (Auto) 0.7 % (0.0-1.8) 05/02/17 06:50 Lymph # 1.8 K/mm3 (1.2-5.4) 05/02/17 06:50 Fleming # 0.5 K/mm3 (0.0-0.8) 05/02/17 06:50 Eos # 0.1 K/mm3 (0.0-0.4) 05/02/17 06:50 Baso # 0.1 K/mm3 (0.0-0.1) 05/02/17 06:50 Add Manual Diff Complete 04/22/17 07:59 Total Counted 100 04/22/17 07:59 Seg Neutrophils % 80.2 % (40.0-70.0) H 05/02/17 06:50 Seg Neuts % (Manual) 82.0 % (40.0-70.0) H 04/22/17 07:59 Band Neutrophils % 9.0 % 04/22/17 07:59 Lymphocytes % (Manual) 5.0 % (13.4-35.0) L 04/22/17 07:59 Reactive Lymphs % (Man) 0 % 04/22/17 07:59 Monocytes % (Manual) 4.0 % (0.0-7.3) 04/22/17 07:59 Eosinophils % (Manual) 0 % (0.0-4.3) 04/22/17 07:59 Basophils % (Manual) 0 % (0.0-1.8) 04/22/17 07:59 Metamyelocytes % 0 % 04/22/17 07:59 Myelocytes % 0 % 04/22/17 07:59 Promyelocytes % 0 % 04/22/17 07:59 Blast Cells % 0 % 04/22/17 07:59 Nucleated RBC % 2.0 % (0.0-0.9) H 04/22/17 07:59 Seg Neutrophils # 9.8 K/mm3 (1.8-7.7) H 05/02/17 06:50 Seg Neutrophils # Man 17.9 K/mm3 (1.8-7.7) H 04/22/17 07:59 Band Neutrophils # 2.0 K/mm3 04/22/17 07:59 Lymphocytes # (Manual) 1.1 K/mm3 (1.2-5.4) L 04/22/17 07:59 Abs React Lymphs (Man) 0.0 K/mm3 04/22/17 07:59 Monocytes # (Manual) 0.9 K/mm3 (0.0-0.8) H 04/22/17 07:59 Eosinophils # (Manual) 0.0 K/mm3 (0.0-0.4) 04/22/17 07:59 Basophils # (Manual) 0.0 K/mm3 (0.0-0.1) 04/22/17 07:59 Metamyelocytes # 0.0 K/mm3 04/22/17 07:59 Myelocytes # 0.0 K/mm3 04/22/17 07:59 Promyelocytes # 0.0 K/mm3 04/22/17 07:59 Blast Cells # 0.0 K/mm3 04/22/17 07:59 WBC Morphology Not Reportable 04/22/17 07:59 Hypersegmented Neuts Not Reportable 04/22/17 07:59 Hyposegmented Neuts Not Reportable 04/22/17 07:59 Hypogranular Neuts Not Reportable 04/22/17 07:59 Smudge Cells Not Reportable 04/22/17 07:59 Toxic Granulation Not Reportable 04/22/17 07:59 Toxic Vacuolation Not Reportable 04/22/17 07:59 Dohle Bodies Not Reportable 04/22/17 07:59 Pelger-Huet Anomaly Not Reportable 04/22/17 07:59 Ariel Rods Not Reportable 04/22/17 07:59 Platelet Estimate Not Reportable 04/22/17 07:59 Clumped Platelets Not Reportable 04/22/17 07:59 Plt Clumps, EDTA Not Reportable 04/22/17 07:59 Large Platelets Not Reportable 04/22/17 07:59 Giant Platelets Not Reportable 04/22/17 07:59 Platelet Satelliting Not Reportable 04/22/17 07:59 Plt Morphology Comment Not Reportable 04/22/17 07:59 RBC Morphology Not Reportable 04/22/17 07:59 Dimorphic RBCs Not Reportable 04/22/17 07:59 Polychromasia Not Reportable 04/22/17 07:59 Hypochromasia 1+ 04/22/17 07:59 Poikilocytosis Not Reportable 04/22/17 07:59 Anisocytosis Not Reportable 04/22/17 07:59 Microcytosis Not Reportable 04/22/17 07:59 Macrocytosis 1+ 04/22/17 07:59 Spherocytes Not Reportable 04/22/17 07:59 Pappenheimer Bodies Not Reportable 04/22/17 07:59 Sickle Cells Not Reportable 04/22/17 07:59 Target Cells Not Reportable 04/22/17 07:59 Tear Drop Cells Not Reportable 04/22/17 07:59 Ovalocytes Not Reportable 04/22/17 07:59 Helmet Cells Not Reportable 04/22/17 07:59 Taylor-Anson Bodies Not Reportable 04/22/17 07:59 Doucette Rings Not Reportable 04/22/17 07:59 Linda Cells Not Reportable 04/22/17 07:59 Bite Cells Not Reportable 04/22/17 07:59 Crenated Cell Not Reportable 04/22/17 07:59 Elliptocytes Not Reportable 04/22/17 07:59 Acanthocytes (Spur) Not Reportable 04/22/17 07:59 Rouleaux Not Reportable 04/22/17 07:59 Hemoglobin C Crystals Not Reportable 04/22/17 07:59 Schistocytes Not Reportable 04/22/17 07:59 Malaria parasites Not Reportable 04/22/17 07:59 Joselo Bodies Not Reportable 04/22/17 07:59 Hem Pathologist Commnt No 04/22/17 07:59 PT 17.1 Sec. (12.2-14.9) H 04/30/17 06:36 INR 1.33 (0.87-1.13) H 04/30/17 06:36 APTT 33.3 Sec. (24.2-36.6) 04/19/17 07:00 D-Dimer 1903.45 ng/mlDDU (0-234) H 04/18/17 14:36 Sodium 130 mmol/L (137-145) L 05/03/17 07:28 Potassium 4.5 mmol/L (3.6-5.0) 05/03/17 07:28 Chloride 97.5 mmol/L (98-107) L 05/03/17 07:28 Carbon Dioxide 19 mmol/L (22-30) L 05/03/17 07:28 Anion Gap 18 mmol/L 05/03/17 07:28 BUN 30 mg/dL (7-17) H 05/03/17 07:28 Creatinine 0.8 mg/dL (0.7-1.2) 05/03/17 07:28 Estimated GFR > 60 ml/min 05/03/17 07:28 BUN/Creatinine Ratio 38 % 05/03/17 07:28 Glucose 164 mg/dL (65-100) H 05/03/17 07:28 POC Glucose 164 (70-105) H 05/05/17 20:06 Hemoglobin A1c 11.3 % (4-6) H 04/17/17 23:55 Lactic Acid 4.00 mmol/L (0.7-2.0) H* 04/18/17 14:36 Calcium 7.8 mg/dL (8.4-10.2) L 05/03/17 07:28 Phosphorus 3.60 mg/dL (2.5-4.5) 04/30/17 06:36 Magnesium 1.80 mg/dL (1.7-2.3) 04/30/17 06:36 Total Bilirubin 1.90 mg/dL (0.1-1.2) H 05/02/17 06:51 Direct Bilirubin 4.2 mg/dL (0-0.2) H 04/20/17 02:45 Indirect Bilirubin 1.2 mg/dL 04/20/17 02:45 AST 29 units/L (5-40) 05/02/17 06:51 ALT 22 units/L (7-56) 05/02/17 06:51 Alkaline Phosphatase 223 units/L (35-129) H 05/02/17 06:51 Ammonia 31.0 umol/L (25-60) 04/21/17 04:51 Troponin T 0.087 ng/mL (0.00-0.029) H D 04/18/17 04:54 C-Reactive Protein 8.80 mg/dL (0.00-1.30) H 04/23/17 15:30 Total Protein 7.3 g/dL (6.3-8.2) 05/02/17 06:51 Albumin 1.6 g/dL (3.9-5) L 05/02/17 06:51 Albumin/Globulin Ratio 0.3 % 05/02/17 06:51 Prealbumin 0.060 g/L (0.200-0.400) L 04/25/17 05:28 Triglycerides 106 mg/dL (2-149) 04/17/17 17:20 Cholesterol 108 mg/dL (50-199) 04/17/17 17:20 LDL Cholesterol Direct 78 mg/dL (50-130) 04/17/17 17:20 HDL Cholesterol 9 mg/dL (40-59) L 04/17/17 17:20 Cholesterol/HDL Ratio 12.00 % 04/17/17 17:20 Lipase 38 units/L (13-60) 04/21/17 04:51 HCG, Qual Negative (Negative) 04/19/17 15:03 Vancomycin Trough 45.0 ug/mL (5.0-20.0) H 04/22/17 17:48 MARCIE Screen Negative (Negative) 04/20/17 15: Mitochondria M2 Ab <=20.0 U (<=20.0) 04/20/17 15:22 Hepatitis A Ab Total See scanned result 04/20/17 15:22 Hep Bs Antigen Non-reactive (Negative) 04/20/17 15:22 Hep B Core Total Ab Nonreactive (Nonreactive) 04/20/17 15:22 Hepatitis C Antibody Non-reactive (NonReactive) 04/20/17 15:22 Blood Type A POSITIVE 04/20/17 20:12 Antibody Screen Negative 04/20/17 20:12
[2017-05-06] MEDS: MORPHINE IV PRN ×3 (02:10→23:10)
[2017-05-06] MEDS: ZOSYN/NS 4.5GM/100ML 4.5 GM/100 ML VIAL IV SCH ×3 (06:25→21:05)
[2017-05-06 07:24] LABS: Hemoglobin 13.5 gm/dl (10.1-14.3); Mean Corpuscular HGB Conc 31 % (30-34); Mean Corpuscular Hemoglobin 26 pg (28-32); Mean Corpuscular Volume 83 fl (79-97); Platelet Count 396 K/mm3 (140-440); Red Blood Count 5.19 M/mm3 (3.65-5.03); White Blood Count 8.3 K/mm3 (4.5-11.0)
[2017-05-06 07:27] LABS: Red Cell Distribution Width 25.2 % (13.2-15.2)
[2017-05-06 07:36] LABS: BUN/Creatinine Ratio 34; Blood Urea Nitrogen 31 mg/dL (7-17); Calcium 8.1 mg/dL (8.4-10.2); Carbon Dioxide 27 mmol/L (22-30); Chloride 95.6 mmol/L (98-107); Glucose 153 mg/dL (65-100); Potassium 4.1 mmol/L (3.6-5.0); Sodium 133 mmol/L (137-145)
[2017-05-06 07:43] LABS: Anion Gap 15 mmol/L
[2017-05-06] MEDS: REGLAN IV SCH ×3 (08:33→16:30)
[2017-05-06] MEDS: NOVOLOG SUB-Q SCH ×3 (08:34→16:30)
[2017-05-06] MEDS ORDERED: PEPCID PO NR ×2 (09:00→15:00)
[2017-05-06] MEDS ORDERED: VERSED IV NR (09:00)
[2017-05-06] MEDS: SANTYL TP SCH (10:00)
[2017-05-06] MEDS: COREG PO SCH ×2 (10:00→21:06)
[2017-05-06] MEDS: BABY ASPIRIN PO SCH (10:00)
--- NOTE | 2017-05-06 11:54 | Progress Note ---
Assessment and Plan Assessment: 1) Sepsis: still leukocytosis. Etiology most likely complicated soft tissue infection left leg. 2) Left leg necrotizing soft tissue infection (cellulitis): NO evidence of necrotizing fascitis in the OR. Clinically worsening per surgery report - necrotic areas are extending despite IV antibiotics and OR debridement x 2 -S/P OR debridement on 04/20, culture + GAS -S/P OR debridement on 04/24 -CT showed subcutaneous tissue induration no abscess no gas -CRP=22-->8 -Repeat CT 05/01 No fascial enhancement, no abscess, diffuse SQ edema, small amount of interstitial intersfacial edema between medial gastroneumius and soleus. -MRI 05/04 showed circumferential subcutaneous nonenhancing fluid and edema signal nonenhancing of deep fascial layers 3) DM-uncontrolled 4) Hyponatremia 5) Elevated LFTs ? from sepsis, HCV and HBV non reactive. ?MILLER - better 6) CHF 7) Early ITALIA ? resolved Plan: -patient is refusing amputation. -to the OR today for further debridement - please obtain deep tissue cx -continue daptomycin and zosyn for now day 3 -pain control -strict glucose control -consider Hyperbaric oxygen therapy upon discharge Thank you Dr Finney for your consultation, will follow up with you. Talisha Nguyen MD Infectious Diseases Specialist [facility] M [phone] O [phone] Subjective Date of service: 05/06/17 Principal diagnosis: Cellulitis left foot, Heart failure,Sepsis Interval history: feels better, no fever, no pain, NPO awaiting for OR, sister at bedside Current Antimicrobials: dapto 05/04 zosyn 05/04 Previous Antimicrobials: Clindamycin 04/18 Zosyn 04/18 Pen G 04/24 CLindav 04/23 Microbiology: Blood cultures: 04/18 ngtd Tissue cx 04/20 corrected report + GAS Objective - Exam Narrative Exam: General appearance: Alert in NAD, anxious tearfull Eyes: anicteric sclerae, moist conjunctivae; no lid-lag; PERRLA HENT: Atraumatic; oropharynx clear with moist mucous membranes and no mucosal ulcerations/no oral thrush; normal hard and soft palate. Normal external ears. Neck: Trachea midline; supple, no thyromegaly or lymphadenopathy Lungs: CTA, with normal respiratory effort and no intercostal retractions CV: RRR, no murmurs Abdomen: Soft, non-tender; no masses or hepatosplenomegaly Extremities: No peripheral edema or extremity lymphadenopathy Skin: left calf with surgical dressings saturated on green secretion, decreased edema and tenderness Psych: sad. Neuro: alert and oriented x 3. Moving all extermities Lines: No CVL / PICC - Constitutional Vitals: Vital Signs Temp Pulse Resp BP Pulse Ox 97.6 F 92 H 22 137/98 97 05/06/17 08:27 05/06/17 08:27 05/06/17 08:27 05/06/17 08:27 05/06/17 08:27 Temperature -Last 24 Hours Temperature 97.6 F Temperature 98.4 F Temperature 98.4 F Temperature 98.1 F Temperature 98.8 F - Labs CBC & Chem 7: 05/06/17 06:48 05/06/17 06:48 Labs: Abnormal lab results 05/05/17 05/06/17 05/06/17 Range/Units 20:06 06:48 06:48 RBC 5.19 H (3.65-5.03) M/mm3 Hct 43.0 H (30.3-42.9) % MCH 26 L (28-32) pg RDW 25.2 H (13.2-15.2) % Sodium 133 L (137-145) mmol/L Chloride 95.6 L (98-107) mmol/L BUN 31 H (7-17) mg/dL Glucose 153 H (65-100) mg/dL POC Glucose 164 H (70-105) Calcium 8.1 L (8.4-10.2) mg/dL 05/06/17 Range/Units 11:26 RBC (3.65-5.03) M/mm3 Hct (30.3-42.9) % MCH (28-32) pg RDW (13.2-15.2) % Sodium (137-145) mmol/L Chloride (98-107) mmol/L BUN (7-17) mg/dL Glucose (65-100) mg/dL POC Glucose 111 H (70-105) Calcium (8.4-10.2) mg/dL
--- NOTE | 2017-05-06 12:03 | Progress Note ---
Assessment and Plan Assessment and plan: - Cellulitis LLE - no evidence of narcotizing soft tissue infection noted with debridment on 04/20/17 and 04/28/17. * Wound still needing more debridment. * Orthopedic surgeon Per Dr Michel is recommending further debridement. * Anticipate for friday05/07/17 * Wound cx positive for Beta hemolytic Group A strep. On Pen G per ID - Acute kidney injury resolved Likely secondary to vasomotor nephropathy * Resolved - Acute on chronic combined systolic/diastolic heart failure Echo with EF 20-25% Continue diuresis with Lasix On low dose BB as BP borderline low No ACEI due to renal insufficiency and hyperkalemia Monitor I's and O's Cardiology consulted and following -Jaundice/elevated LFTs Likely secondary to sepsis RUQ US obtained and showed no gallstones, trace ascites TG wnl, Statin d/c Lipase was elevated but now back within normal limits CT abdomen wo contrast obtained to r/o pancreatitis GI consulted and additional workup was negative (hepatitis panel - negative, antimitochondrial antibodies -<20) -Hypochloremic Hyponatremia Na+ 120 on admission continues to improve Likely dilutional due to heart failure Received Tolvaptan Improved with iv fluid hydration - Hyperkalemia/hypokalemia: corrected - Sepsis - resolving Present on on admission leukocytosis, lower extremity soft tissue infection, Blood cultures obtained, negative sofar. From LLE cellulitis with tissue necrosis On Aantibiotic per ID - Hyperbilirubinemia No history of anticoagulant use Probably secondary to infection Improving -Elevated D-dimer Likely secondary to infection Doppler lower extremity negative for DVT CTA chest to rule out PE was ordered, but unable to have contrast; sats 98-100% on RA - h/o CAD History of [place], PCI with stent placement x 2 On aspirin, BB, statin had to be discontinued due to elevated LFTs No ARLYN inhibitor due to renal insuf, K abnormality - Hypertension BP borderline low Only on Lasix, BB for heart failure treatment - Diabetes type 2 Optimize control by adjucting pre meal adn post meal insulin and SSI. On Accu- Cheks. consistent CHO diet Monitor and adjust regimen - Hyperlipidemia Started on statin, but need to hold it due to transaminitis - Obesity/CARLOS A/OHS When medically stable and discharged will need pulmonary follow-up for PFTs and sleep study as well as counseling regarding importance of losing weight - Severe protein calorie monitor nutrition Dietitian consulted - Debility Consulted PT - DVT/GI prophylaxis - Dispostion: further debridement TODAY AND Then discharge for HBOT. History Interval history: Patient seen and examined, in no acute distress. Patient is for debridment today. Hospitalist Physical - Physical exam Narrative exam: General appearance: Alert in NAD, Eyes: anicteric sclerae, moist conjunctivae; no lid-lag; PERRLA HENT: Atraumatic; oropharynx clear with moist mucous membranes Neck: Trachea midline; supple, no thyromegaly or lymphadenopathy Lungs: CTA, with normal respiratory effort and no intercostal retractions CV: RRR, no murmurs Abdomen: Soft, non-tender; no masses or hepatosplenomegaly Extremities: 1+PITTING edema of left lower ext Skin: left calf with surgical dressings, decreased edema and tenderness Psych: sad. Neuro: alert and oriented x 3. Moving all extremities - Constitutional Vitals: Temp Pulse Resp BP Pulse Ox 97.6 F 92 H 22 137/98 97 05/06/17 08:27 05/06/17 08:27 05/06/17 08:27 05/06/17 08:27 05/06/17 08:27 General appearance: Present: no acute distress, well-nourished Results - Labs CBC & Chem 7: 05/07/17 05:04 05/07/17 05:04 Labs: Laboratory Last Values WBC 8.3 K/mm3 (4.5-11.0) 05/06/17 06:48 RBC 5.19 M/mm3 (3.65-5.03) H 05/06/17 06:48 Hgb 13.5 gm/dl (10.1-14.3) 05/06/17 06:48 Hct 43.0 % (30.3-42.9) H 05/06/17 06:48 MCV 83 fl (79-97) 05/06/17 06:48 MCH 26 pg (28-32) L 05/06/17 06:48 MCHC 31 % (30-34) 05/06/17 06:48 RDW 25.2 % (13.2-15.2) H 05/06/17 06:48 Plt Count 396 K/mm3 (140-440) 05/06/17 06:48 Lymph % (Auto) 14.9 % (13.4-35.0) 05/02/17 06:50 [place] % (Auto) 3.7 % (0.0-7.3) 05/02/17 06:50 Eos % (Auto) 0.5 % (0.0-4.3) 05/02/17 06:50 Baso % (Auto) 0.7 % (0.0-1.8) 05/02/17 06:50 Lymph # 1.8 K/mm3 (1.2-5.4) 05/02/17 06:50 [place] # 0.5 K/mm3 (0.0-0.8) 05/02/17 06:50 Eos # 0.1 K/mm3 (0.0-0.4) 05/02/17 06:50 Baso # 0.1 K/mm3 (0.0-0.1) 05/02/17 06:50 Add Manual Diff Complete 04/22/17 07:59 Total Counted 100 04/22/17 07:59 Seg Neutrophils % 80.2 % (40.0-70.0) H 05/02/17 06:50 Seg Neuts % (Manual) 82.0 % (40.0-70.0) H 04/22/17 07:59 Band Neutrophils % 9.0 % 04/22/17 07:59 Lymphocytes % (Manual) 5.0 % (13.4-35.0) L 04/22/17 07:59 Reactive Lymphs % (Man) 0 % 04/22/17 07:59 Monocytes % (Manual) 4.0 % (0.0-7.3) 04/22/17 07:59 Eosinophils % (Manual) 0 % (0.0-4.3) 04/22/17 07:59 Basophils % (Manual) 0 % (0.0-1.8) 04/22/17 07:59 Metamyelocytes % 0 % 04/22/17 07:59 Myelocytes % 0 % 04/22/17 07:59 Promyelocytes % 0 % 04/22/17 07:59 Blast Cells % 0 % 04/22/17 07:59 Nucleated RBC % 2.0 % (0.0-0.9) H 04/22/17 07:59 Seg Neutrophils # 9.8 K/mm3 (1.8-7.7) H 05/02/17 06:50 Seg Neutrophils # Man 17.9 K/mm3 (1.8-7.7) H 04/22/17 07:59 Band Neutrophils # 2.0 K/mm3 04/22/17 07:59 Lymphocytes # (Manual) 1.1 K/mm3 (1.2-5.4) L 04/22/17 07:59 Abs React Lymphs (Man) 0.0 K/mm3 04/22/17 07:59 Monocytes # (Manual) 0.9 K/mm3 (0.0-0.8) H 04/22/17 07:59 Eosinophils # (Manual) 0.0 K/mm3 (0.0-0.4) 04/22/17 07:59 Basophils # (Manual) 0.0 K/mm3 (0.0-0.1) 04/22/17 07:59 Metamyelocytes # 0.0 K/mm3 04/22/17 07:59 Myelocytes # 0.0 K/mm3 04/22/17 07:59 Promyelocytes # 0.0 K/mm3 04/22/17 07:59 Blast Cells # 0.0 K/mm3 04/22/17 07:59 WBC Morphology Not Reportable 04/22/17 07:59 Hypersegmented Neuts Not Reportable 04/22/17 07:59 Hyposegmented Neuts Not Reportable 04/22/17 07:59 Hypogranular Neuts Not Reportable 04/22/17 07:59 Smudge Cells Not Reportable 04/22/17 07:59 Toxic Granulation Not Reportable 04/22/17 07:59 Toxic Vacuolation Not Reportable 04/22/17 07:59 Dohle Bodies Not Reportable 04/22/17 07:59 Pelger-Huet Anomaly Not Reportable 04/22/17 07:59 Ariel Rods Not Reportable 04/22/17 07:59 Platelet Estimate Not Reportable 04/22/17 07:59 Clumped Platelets Not Reportable 04/22/17 07:59 Plt Clumps, EDTA Not Reportable 04/22/17 07:59 Large Platelets Not Reportable 04/22/17 07:59 Giant Platelets Not Reportable 04/22/17 07:59 Platelet Satelliting Not Reportable 04/22/17 07:59 Plt Morphology Comment Not Reportable 04/22/17 07:59 RBC Morphology Not Reportable 04/22/17 07:59 Dimorphic RBCs Not Reportable 04/22/17 07:59 Polychromasia Not Reportable 04/22/17 07:59 Hypochromasia 1+ 04/22/17 07:59 Poikilocytosis Not Reportable 04/22/17 07:59 Anisocytosis Not Reportable 04/22/17 07:59 Microcytosis Not Reportable 04/22/17 07:59 Macrocytosis 1+ 04/22/17 07:59 Spherocytes Not Reportable 04/22/17 07:59 Pappenheimer Bodies Not Reportable 04/22/17 07:59 Sickle Cells Not Reportable 04/22/17 07:59 Target Cells Not Reportable 04/22/17 07:59 Tear Drop Cells Not Reportable 04/22/17 07:59 Ovalocytes Not Reportable 04/22/17 07:59 Helmet Cells Not Reportable 04/22/17 07:59 [place] Bodies Not Reportable 04/22/17 07:59 [place] Rings Not Reportable 04/22/17 07:59 [place] Cells Not Reportable 04/22/17 07:59 Bite Cells Not Reportable 04/22/17 07:59 Crenated Cell Not Reportable 04/22/17 07:59 Elliptocytes Not Reportable 04/22/17 07:59 Acanthocytes (Spur) Not Reportable 04/22/17 07:59 Rouleaux Not Reportable 04/22/17 07:59 Hemoglobin C Crystals Not Reportable 04/22/17 07:59 Schistocytes Not Reportable 04/22/17 07:59 Malaria parasites Not Reportable 04/22/17 07:59 Joselo Bodies Not Reportable 04/22/17 07:59 Hem Pathologist Commnt No 04/22/17 07:59 PT 17.1 Sec. (12.2-14.9) H 04/30/17 06:36 INR 1.33 (0.87-1.13) H 04/30/17 06:36 APTT 33.3 Sec. (24.2-36.6) 04/19/17 07:00 D-Dimer 1903.45 ng/mlDDU (0-234) H 04/18/17 14:36 Sodium 133 mmol/L (137-145) L 05/06/17 06:48 Potassium 4.1 mmol/L (3.6-5.0) 05/06/17 06:48 Chloride 95.6 mmol/L (98-107) L 05/06/17 06:48 Carbon Dioxide 27 mmol/L (22-30) D 05/06/17 06:48 Anion Gap 15 mmol/L 05/06/17 06:48 BUN 31 mg/dL (7-17) H 05/06/17 06:48 Creatinine 0.9 mg/dL (0.7-1.2) 05/06/17 06:48 Estimated GFR > 60 ml/min 05/06/17 06:48 BUN/Creatinine Ratio 34 % 05/06/17 06:48 Glucose 153 mg/dL (65-100) H 05/06/17 06:48 POC Glucose 111 (70-105) H 05/06/17 11:26 Hemoglobin A1c 11.3 % (4-6) H 04/17/17 23:55 Lactic Acid 4.00 mmol/L (0.7-2.0) H* 04/18/17 14:36 Calcium 8.1 mg/dL (8.4-10.2) L 05/06/17 06:48 Phosphorus 3.60 mg/dL (2.5-4.5) 04/30/17 06:36 Magnesium 1.80 mg/dL (1.7-2.3) 04/30/17 06:36 Total Bilirubin 1.90 mg/dL (0.1-1.2) H 05/02/17 06:51 Direct Bilirubin 4.2 mg/dL (0-0.2) H 04/20/17 02:45 Indirect Bilirubin 1.2 mg/dL 04/20/17 02:45 AST 29 units/L (5-40) 05/02/17 06:51 ALT 22 units/L (7-56) 05/02/17 06:51 Alkaline Phosphatase 223 units/L (35-129) H 05/02/17 06:51 Ammonia 31.0 umol/L (25-60) 04/21/17 04:51 Troponin T 0.087 ng/mL (0.00-0.029) H D 04/18/17 04:54 C-Reactive Protein 8.80 mg/dL (0.00-1.30) H 04/23/17 15:30 Total Protein 7.3 g/dL (6.3-8.2) 05/02/17 06:51 Albumin 1.6 g/dL (3.9-5) L 05/02/17 06:51 Albumin/Globulin Ratio 0.3 % 05/02/17 06:51 Prealbumin 0.060 g/L (0.200-0.400) L 04/25/17 05:28 Triglycerides 106 mg/dL (2-149) 04/17/17 17:20 Cholesterol 108 mg/dL (50-199) 04/17/17 17:20 LDL Cholesterol Direct 78 mg/dL (50-130) 04/17/17 17:20 HDL Cholesterol 9 mg/dL (40-59) L 04/17/17 17:20 Cholesterol/HDL Ratio 12.00 % 04/17/17 17:20 Lipase 38 units/L (13-60) 04/21/17 04:51 HCG, Qual Negative (Negative) 04/19/17 15:03 Vancomycin Trough 45.0 ug/mL (5.0-20.0) H 04/22/17 17:48 MARCIE Screen Negative (Negative) 04/20/17 15: Mitochondria M2 Ab <=20.0 U (<=20.0) 04/20/17 15:22 Hepatitis A Ab Total See scanned result 04/20/17 15:22 Hep Bs Antigen Non-reactive (Negative) 04/20/17 15: Hep B Core Total Ab Nonreactive (Nonreactive) 04/20/17 15:22 Hepatitis C Antibody Non-reactive (NonReactive) 04/20/17 15:22 Blood Type A POSITIVE 04/20/17 20:12 Antibody Screen Negative 04/20/17 20:12
--- NOTE | 2017-05-06 13:43 | Anesthesia Consultation ---
Anesthesia Consult and Med Hx Date of service: 05/06/17 - Airway Anesthetic Teeth Evaluation: Good ROM Head & Neck: Adequate Mental/Hyoid Distance: Adequate Mallampati Class: Class II Intubation Access Assessment: Probably Good - Pulmonary Exam CTA: Yes - Cardiac Exam Cardiac Exam: RRR - Pre-Operative Health Status ASA Pre-Surgery Classification: ASA3 Proposed Anesthetic Plan: MAC - Pulmonary Hx Smoking: No Hx Asthma: No COPD: No Hx Pneumonia: No Hx Sleep Apnea: No - Cardiovascular System Hx Hypertension: Yes Hx Coronary Artery Disease: Yes (cardiomyopathy EF 20-25%.) Hx Heart Attack/AMI: Yes Hx Percutaneous Transluminal Coronary Angioplasty (PTCA): Yes (stents x3) Hx Pacemaker: No Hx Internal Defibrillator: No - Gastrointestinal Hx Gastroesophageal Reflux Disease: No - Endocrine Hx Renal Disease: No Hx End Stage Renal Disease: No Hx Liver Disease: Yes (fatty liver) Hx Insulin Dependent Diabetes: Yes (severe retinopathy) - Other Systems Hx Alcohol Use: No Hx Substance Use: No Hx Obesity: Yes
[2017-05-06] MEDS ORDERED: DILAUDID IV PRN (13:44)
--- NOTE | 2017-05-06 13:44 | Anesthesia Day of Surgery ---
Anesthesia Day of Surgery - Day of Surgery Patient Examined: Yes Patient H&P Reviewed: Yes Patient is NPO: Yes Beta Blockers: Yes
[2017-05-06] MEDS: LASIX PO SCH (14:00)
[2017-05-06] MEDS ORDERED: AMIDATE IV ONE (14:25)
[2017-05-06] MEDS ORDERED: XYLOCAINE MPF 2% ONE (14:26)
[2017-05-06] MEDS ORDERED: DILAUDID ONE (14:37)
[2017-05-06] MEDS ORDERED: ZOFRAN ONE (14:47)
[2017-05-06] MEDS: CUBICIN 600 MG in NACL 0.9% 100 ML IV SCH (15:00)
--- NOTE | 2017-05-06 15:51 | Operative Report ---
Operative Report Operative Report: Operative Report: Preoperative diagnosis: left lower extremity necrotizing soft tissue infection Post operative diagnosis: same as preop Procedure: wide Excisional debridement necrotic skin and soft tissue left leg Surgeon: Michell Joseph DO Anesthesia: LMA Findings: Preoperative measurement: 10 cm x 12 cm x 0.5 cm Specimens: tissue culture Complications: None Disposition: stable to PACU HPI an indication: 41-year-old female with an extensive past medical history including uncontrolled diabetes, severe protein calorie malnutrition presented to the hospital with a left leg pain and infection, found to be a necrotizing soft tissue infection, subsequently taken to the operating room 2 for wide debridement. The necrotic skin continued to get worse and demarcate and so the patient was consented to be taken back to the operating room for a third time. All risks and benefits were discussed and consent was signed. Procedure in detail: Patient was identified in the preoperative area, taken back to the operating room, placed on operating room table in supine position. After anesthesia was induced the left leg was prepped with Betadine and draped in the usual sterile fashion. There were large areas of skin necrosis in the posterior aspect of the leg surrounding the previous area of debridement, at the popliteal fossa, and at the anteriormedial aspect of the leg. Using a 10 blade, these necrotic areas of skin and subcutaneous tissue were widely excised and the underlying tissues debrided. The skin was excised until healthy skin was reached with evidence of bleeding. There was significant amount of edema in the tissues, however no purulent drainage. The muscle encountered appeared viable. A small amount of fascia was also excised. The remaining fascia did have bleeding and therefore was left intact. Tissue cultures were sent to pathology. Once an adequate wide excision of necrotic tissue was achieved, the wound was irrigated with saline and hemostasis achieved. The wound now measures 30 cm length 26 cm width 0.5 cm depth. The wound was packed with saline moistened Kerlix, 2 pieces. This was covered with 4 x 4 gauze, ABDs pads, and wrapped with Kerlix. At the end of the case, all sponge, instrument, sharp counts were correct 2. The patient was taken to the PACU with an LMA.
--- NOTE | 2017-05-06 16:31 | Post Anesthesia Evaluation ---
- Post Anesthesia Evaluation Patient Participated: Yes Airway Patent: Yes Stable Respiratory Function: Yes Nausea/Vomiting: No Temp > 96.8F: Yes Pain Manageable: Yes Adequeate Hydration: Yes Anesthesia Complications: No
[2017-05-06] MEDS: LOVENOX SUB-Q SCH (21:06)
[2017-05-06] MEDS: LEVEMIR SUB-Q SCH (22:45)
[2017-05-07] MEDS: MORPHINE IV PRN ×5 (04:00→22:44)
[2017-05-07] MEDS: ZOSYN/NS 4.5GM/100ML 4.5 GM/100 ML VIAL IV SCH ×3 (05:25→21:51)
[2017-05-07 05:42] LABS: Hematocrit 34.2 % (30.3-42.9); Hemoglobin 11.2 gm/dl (10.1-14.3); Mean Corpuscular HGB Conc 33 % (30-34); Mean Corpuscular Hemoglobin 27 pg (28-32); Mean Corpuscular Volume 83 fl (79-97); Platelet Count 297 K/mm3 (140-440); Red Blood Count 4.14 M/mm3 (3.65-5.03); Red Cell Distribution Width 25.2 % (13.2-15.2); White Blood Count 9.4 K/mm3 (4.5-11.0)
[2017-05-07] MEDS: NOVOLOG SUB-Q SCH ×5 (05:46→22:45)
[2017-05-07 06:05] LABS: Anion Gap 16 mmol/L; BUN/Creatinine Ratio 31; Blood Urea Nitrogen 28 mg/dL (7-17); Calcium 7.6 mg/dL (8.4-10.2); Carbon Dioxide 26 mmol/L (22-30); Chloride 100.4 mmol/L (98-107); Glucose 122 mg/dL (65-100); Potassium 4.3 mmol/L (3.6-5.0); Sodium 138 mmol/L (137-145)
[2017-05-07] MEDS: REGLAN IV SCH ×3 (09:06→16:30)
--- NOTE | 2017-05-07 11:30 | Progress Note ---
Assessment and Plan Assessment and plan: - Cellulitis LLE - no evidence of narcotizing soft tissue infection noted with debridment on 04/20/17 and 04/28/17 wide excisional debridement of necrotic skin and soft tissue LLE 05/06 * POST DEBRIDEMENT * Wound cx positive for Beta hemolytic Group A strep. On Pen G per ID * Culture from wound growing GNR * Consult Plastic surgery to eval for skin graft in future. - Acute kidney injury resolved Likely secondary to vasomotor nephropathy * Resolved - Acute on chronic combined systolic/diastolic heart failure Echo with EF 20-25% Continue diuresis with Lasix On low dose BB as BP borderline low No ACEI due to renal insufficiency and hyperkalemia Monitor I's and O's Cardiology consulted and following -Jaundice/elevated LFTs Likely secondary to sepsis RUQ US obtained and showed no gallstones, trace ascites TG wnl, Statin d/c Lipase was elevated but now back within normal limits CT abdomen wo contrast obtained to r/o pancreatitis GI consulted and additional workup was negative (hepatitis panel - negative, antimitochondrial antibodies -<20) -Hypochloremic Hyponatremia Na+ 120 on admission continues to improve Likely dilutional due to heart failure Received Tolvaptan Improved with iv fluid hydration - Hyperkalemia/hypokalemia: corrected - Sepsis - resolving Present on on admission leukocytosis, lower extremity soft tissue infection, Blood cultures obtained, negative sofar. From LLE cellulitis with tissue necrosis On Aantibiotic per ID - Hyperbilirubinemia No history of anticoagulant use Probably secondary to infection Improving -Elevated D-dimer Likely secondary to infection Doppler lower extremity negative for DVT CTA chest to rule out PE was ordered, but unable to have contrast; sats 98-100% on RA - h/o CAD History of [place], PCI with stent placement x 2 On aspirin, BB, statin had to be discontinued due to elevated LFTs No ARLYN inhibitor due to renal insuf, K abnormality - Hypertension BP borderline low Only on Lasix, BB for heart failure treatment - Diabetes type 2 Optimize control by adjucting pre meal adn post meal insulin and SSI. On Accu- Cheks. consistent CHO diet Monitor and adjust regimen - Hyperlipidemia Started on statin, but need to hold it due to transaminitis - Obesity/CARLOS A/OHS When medically stable and discharged will need pulmonary follow-up for PFTs and sleep study as well as counseling regarding importance of losing weight - Severe protein calorie monitor nutrition Dietitian consulted - Debility Consulted PT - DVT/GI prophylaxis - Dispostion: further debridement TODAY AND Then discharge for HBOT. History Interval history: Patient seen and examined, in no acute distress. No new complaints, awaiting first dressing change post surgery Hospitalist Physical - Physical exam Narrative exam: General appearance: Alert in NAD, Eyes: anicteric sclerae, moist conjunctivae; no lid-lag; PERRLA HENT: Atraumatic; oropharynx clear with moist mucous membranes Neck: Trachea midline; supple, no thyromegaly or lymphadenopathy Lungs: CTA, with normal respiratory effort and no intercostal retractions CV: RRR, no murmurs Abdomen: Soft, non-tender; no masses or hepatosplenomegaly Extremities: 1+PITTING edema of left lower ext Skin: left calf with surgical dressings, able to move feet Psych: sad. Neuro: alert and oriented x 3. Moving all extremities - Constitutional Vitals: Temp Pulse Resp BP Pulse Ox 98.1 F 85 20 109/73 100 05/07/17 03:06 05/07/17 03:06 05/07/17 09:16 05/07/17 03:06 05/07/17 03:06 General appearance: Present: no acute distress, well-nourished Results - Labs CBC & Chem 7: 05/07/17 05:04 05/07/17 05:04 Labs: Laboratory Last Values WBC 9.4 K/mm3 (4.5-11.0) 05/07/17 05:04 RBC 4.14 M/mm3 (3.65-5.03) 05/07/17 05:04 Hgb 11.2 gm/dl (10.1-14.3) 05/07/17 05:04 Hct 34.2 % (30.3-42.9) D 05/07/17 05:04 MCV 83 fl (79-97) 05/07/17 05:04 MCH 27 pg (28-32) L 05/07/17 05:04 MCHC 33 % (30-34) 05/07/17 05:04 RDW 25.2 % (13.2-15.2) H 05/07/17 05:04 Plt Count 297 K/mm3 (140-440) 05/07/17 05:04 Lymph % (Auto) 14.9 % (13.4-35.0) 05/02/17 06:50 [place] % (Auto) 3.7 % (0.0-7.3) 05/02/17 06:50 Eos % (Auto) 0.5 % (0.0-4.3) 05/02/17 06:50 Baso % (Auto) 0.7 % (0.0-1.8) 05/02/17 06:50 Lymph # 1.8 K/mm3 (1.2-5.4) 05/02/17 06:50 [place] # 0.5 K/mm3 (0.0-0.8) 05/02/17 06:50 Eos # 0.1 K/mm3 (0.0-0.4) 05/02/17 06:50 Baso # 0.1 K/mm3 (0.0-0.1) 05/02/17 06:50 Add Manual Diff Complete 04/22/17 07:59 Total Counted 100 04/22/17 07:59 Seg Neutrophils % 80.2 % (40.0-70.0) H 05/02/17 06:50 Seg Neuts % (Manual) 82.0 % (40.0-70.0) H 04/22/17 07:59 Band Neutrophils % 9.0 % 04/22/17 07:59 Lymphocytes % (Manual) 5.0 % (13.4-35.0) L 04/22/17 07:59 Reactive Lymphs % (Man) 0 % 04/22/17 07:59 Monocytes % (Manual) 4.0 % (0.0-7.3) 04/22/17 07:59 Eosinophils % (Manual) 0 % (0.0-4.3) 04/22/17 07:59 Basophils % (Manual) 0 % (0.0-1.8) 04/22/17 07:59 Metamyelocytes % 0 % 04/22/17 07:59 Myelocytes % 0 % 04/22/17 07:59 Promyelocytes % 0 % 04/22/17 07:59 Blast Cells % 0 % 04/22/17 07:59 Nucleated RBC % 2.0 % (0.0-0.9) H 04/22/17 07:59 Seg Neutrophils # 9.8 K/mm3 (1.8-7.7) H 05/02/17 06:50 Seg Neutrophils # Man 17.9 K/mm3 (1.8-7.7) H 04/22/17 07:59 Band Neutrophils # 2.0 K/mm3 04/22/17 07:59 Lymphocytes # (Manual) 1.1 K/mm3 (1.2-5.4) L 04/22/17 07:59 Abs React Lymphs (Man) 0.0 K/mm3 04/22/17 07:59 Monocytes # (Manual) 0.9 K/mm3 (0.0-0.8) H 04/22/17 07:59 Eosinophils # (Manual) 0.0 K/mm3 (0.0-0.4) 04/22/17 07:59 Basophils # (Manual) 0.0 K/mm3 (0.0-0.1) 04/22/17 07:59 Metamyelocytes # 0.0 K/mm3 04/22/17 07:59 Myelocytes # 0.0 K/mm3 04/22/17 07:59 Promyelocytes # 0.0 K/mm3 04/22/17 07:59 Blast Cells # 0.0 K/mm3 04/22/17 07:59 WBC Morphology Not Reportable 04/22/17 07:59 Hypersegmented Neuts Not Reportable 04/22/17 07:59 Hyposegmented Neuts Not Reportable 04/22/17 07:59 Hypogranular Neuts Not Reportable 04/22/17 07:59 Smudge Cells Not Reportable 04/22/17 07:59 Toxic Granulation Not Reportable 04/22/17 07:59 Toxic Vacuolation Not Reportable 04/22/17 07:59 Dohle Bodies Not Reportable 04/22/17 07:59 Pelger-Huet Anomaly Not Reportable 04/22/17 07:59 Ariel Rods Not Reportable 04/22/17 07:59 Platelet Estimate Not Reportable 04/22/17 07:59 Clumped Platelets Not Reportable 04/22/17 07:59 Plt Clumps, EDTA Not Reportable 04/22/17 07:59 Large Platelets Not Reportable 04/22/17 07:59 Giant Platelets Not Reportable 04/22/17 07:59 Platelet Satelliting Not Reportable 04/22/17 07:59 Plt Morphology Comment Not Reportable 04/22/17 07:59 RBC Morphology Not Reportable 04/22/17 07:59 Dimorphic RBCs Not Reportable 04/22/17 07:59 Polychromasia Not Reportable 04/22/17 07:59 Hypochromasia 1+ 04/22/17 07:59 Poikilocytosis Not Reportable 04/22/17 07:59 Anisocytosis Not Reportable 04/22/17 07:59 Microcytosis Not Reportable 04/22/17 07:59 Macrocytosis 1+ 04/22/17 07:59 Spherocytes Not Reportable 04/22/17 07:59 Pappenheimer Bodies Not Reportable 04/22/17 07:59 Sickle Cells Not Reportable 04/22/17 07:59 Target Cells Not Reportable 04/22/17 07:59 Tear Drop Cells Not Reportable 04/22/17 07:59 Ovalocytes Not Reportable 04/22/17 07:59 Helmet Cells Not Reportable 04/22/17 07:59 [place] Bodies Not Reportable 04/22/17 07:59 [place] Rings Not Reportable 04/22/17 07:59 [place] Cells Not Reportable 04/22/17 07:59 Bite Cells Not Reportable 04/22/17 07:59 Crenated Cell Not Reportable 04/22/17 07:59 Elliptocytes Not Reportable 04/22/17 07:59 Acanthocytes (Spur) Not Reportable 04/22/17 07:59 Rouleaux Not Reportable 04/22/17 07:59 Hemoglobin C Crystals Not Reportable 04/22/17 07:59 Schistocytes Not Reportable 04/22/17 07:59 Malaria parasites Not Reportable 04/22/17 07:59 Joselo Bodies Not Reportable 04/22/17 07:59 Hem Pathologist Commnt No 04/22/17 07:59 PT 17.1 Sec. (12.2-14.9) H 04/30/17 06:36 INR 1.33 (0.87-1.13) H 04/30/17 06:36 APTT 33.3 Sec. (24.2-36.6) 04/19/17 07:00 D-Dimer 1903.45 ng/mlDDU (0-234) H 04/18/17 14:36 Sodium 138 mmol/L (137-145) 05/07/17 05:04 Potassium 4.3 mmol/L (3.6-5.0) 05/07/17 05:04 Chloride 100.4 mmol/L (98-107) 05/07/17 05:04 Carbon Dioxide 26 mmol/L (22-30) 05/07/17 05:04 Anion Gap 16 mmol/L 05/07/17 05:04 BUN 28 mg/dL (7-17) H 05/07/17 05:04 Creatinine 0.9 mg/dL (0.7-1.2) 05/07/17 05:04 Estimated GFR > 60 ml/min 05/07/17 05:04 BUN/Creatinine Ratio 31 % 05/07/17 05:04 Glucose 122 mg/dL (65-100) H 05/07/17 05:04 POC Glucose 112 (70-105) H 05/07/17 08:44 Hemoglobin A1c 11.3 % (4-6) H 04/17/17 23:55 Lactic Acid 4.00 mmol/L (0.7-2.0) H* 04/18/17 14:36 Calcium 7.6 mg/dL (8.4-10.2) L 05/07/17 05:04 Phosphorus 3.60 mg/dL (2.5-4.5) 04/30/17 06:36 Magnesium 1.80 mg/dL (1.7-2.3) 04/30/17 06:36 Total Bilirubin 1.90 mg/dL (0.1-1.2) H 05/02/17 06:51 Direct Bilirubin 4.2 mg/dL (0-0.2) H 04/20/17 02:45 Indirect Bilirubin 1.2 mg/dL 04/20/17 02:45 AST 29 units/L (5-40) 05/02/17 06:51 ALT 22 units/L (7-56) 05/02/17 06:51 Alkaline Phosphatase 223 units/L (35-129) H 05/02/17 06:51 Ammonia 31.0 umol/L (25-60) 04/21/17 04:51 Troponin T 0.087 ng/mL (0.00-0.029) H D 04/18/17 04:54 C-Reactive Protein 8.80 mg/dL (0.00-1.30) H 04/23/17 15:30 Total Protein 7.3 g/dL (6.3-8.2) 05/02/17 06:51 Albumin 1.6 g/dL (3.9-5) L 05/02/17 06:51 Albumin/Globulin Ratio 0.3 % 05/02/17 06:51 Prealbumin 0.060 g/L (0.200-0.400) L 04/25/17 05:28 Triglycerides 106 mg/dL (2-149) 04/17/17 17:20 Cholesterol 108 mg/dL (50-199) 04/17/17 17:20 LDL Cholesterol Direct 78 mg/dL (50-130) 04/17/17 17:20 HDL Cholesterol 9 mg/dL (40-59) L 04/17/17 17:20 Cholesterol/HDL Ratio 12.00 % 04/17/17 17:20 Lipase 38 units/L (13-60) 04/21/17 04:51 HCG, Qual Negative (Negative) 04/19/17 15:03 Vancomycin Trough 45.0 ug/mL (5.0-20.0) H 04/22/17 17:48 MARCIE Screen Negative (Negative) 04/20/17 15: Mitochondria M2 Ab <=20.0 U (<=20.0) 04/20/17 15:22 Hepatitis A Ab Total See scanned result 04/20/17 15: Hep Bs Antigen Non-reactive (Negative) 04/20/17: Hep B Core Total Ab Nonreactive (Nonreactive) 04/20/17 15:22 Hepatitis C Antibody Non-reactive (NonReactive) 04/20/17 15:22 Blood Type A POSITIVE 04/20/17 20:12 Antibody Screen Negative 04/20/17 20:12
[2017-05-07] MEDS: COREG PO SCH ×2 (11:48→21:49)
[2017-05-07] MEDS: BABY ASPIRIN PO SCH (11:48)
[2017-05-07] MEDS: LASIX PO SCH (11:48)
--- NOTE | 2017-05-07 13:29 | Progress Note ---
Assessment and Plan Assessment: 1) Sepsis: resolved. Etiology most likely complicated soft tissue infection left leg. 2) Left leg necrotizing soft tissue infection (cellulitis): NO evidence of necrotizing fascitis in the OR. Initially found to be secondary to GAS, however wound became superinfected by GNR. -S/P OR debridement on 04/20, culture + GAS -S/P OR debridement on 04/24 -S/P OR debridement on 05/06, tissue cx + GNR -CT showed subcutaneous tissue induration no abscess no gas -CRP=22-->8 -Repeat CT 05/01 No fascial enhancement, no abscess, diffuse SQ edema, small amount of interstitial intersfacial edema between medial gastroneumius and soleus. -MRI 05/04 showed circumferential subcutaneous nonenhancing fluid and edema signal nonenhancing of deep fascial layers 3) DM-uncontrolled 4) Hyponatremia 5) Elevated LFTs ? from sepsis, HCV and HBV non reactive. ?MILLER - better 6) CHF 7) Early ITALIA ? resolved Plan: -f/u OR deep tissue cx which are growing GNRs -continue daptomycin and zosyn for now day 4 -pain control -strict glucose control -consider Hyperbaric oxygen therapy upon discharge Thank you Dr Finney for your consultation, will follow up with you. Talisha Nguyen MD Infectious Diseases Specialist [facility] M [phone] O [phone] Subjective Date of service: 05/07/17 Principal diagnosis: Cellulitis left foot, Heart failure,Sepsis Interval history: feels better, no fever, no pain, went to OR yesterday Current Antimicrobials: dapto 05/04 zosyn 05/04 Previous Antimicrobials: Clindamycin 04/18 Zosyn 04/18 Pen G 04/24 CLindav 04/23 Microbiology: Blood cultures: 04/18 ngtd Tissue cx 04/20 corrected report + GAS Tissue cx 05/06 GNRs Objective - Exam Narrative Exam: General appearance: Alert in NAD, anxious tearfull Eyes: anicteric sclerae, moist conjunctivae; no lid-lag; PERRLA HENT: Atraumatic; oropharynx clear with moist mucous membranes and no mucosal ulcerations/no oral thrush; normal hard and soft palate. Normal external ears. Neck: Trachea midline; supple, no thyromegaly or lymphadenopathy Lungs: CTA, with normal respiratory effort and no intercostal retractions CV: RRR, no murmurs Abdomen: Soft, non-tender; no masses or hepatosplenomegaly Extremities: No peripheral edema or extremity lymphadenopathy Skin: left calf with surgical dressings saturated on green secretion, decreased edema and tenderness Psych: sad. Neuro: alert and oriented x 3. Moving all extermities Lines: No CVL / PICC - Constitutional Vitals: Vital Signs Temp Pulse Resp BP Pulse Ox 98.1 F 87 20 118/72 100 05/07/17 03:06 05/07/17 11:48 05/07/17 09:16 05/07/17 11:48 05/07/17 03:06 Temperature -Last 24 Hours Temperature 98.1 F Temperature 98.3 F Temperature 98.1 F Temperature 95.8 F Temperature 97.5 F Temperature 97.2 F Temperature 97.2 F Temperature 97.2 F Temperature 97.2 F - Labs CBC & Chem 7: 05/07/17 05:04 05/07/17 05:04 Labs: Abnormal lab results 05/06/17 05/06/17 05/07/17 Range/Units 08:34 15:54 05:04 MCH 27 L (28-32) pg RDW 25.2 H (13.2-15.2) % BUN (7-17) mg/dL Glucose (65-100) mg/dL POC Glucose 141 H 125 H (70-105) Calcium (8.4-10.2) mg/dL 05/07/17 05/07/17 Range/Units 05:04 08:44 MCH (28-32) pg RDW (13.2-15.2) % BUN 28 H (7-17) mg/dL Glucose 122 H (65-100) mg/dL POC Glucose 112 H (70-105) Calcium 7.6 L (8.4-10.2) mg/dL
[2017-05-07] MEDS ORDERED: NACL 0.9% IR NR (13:45)
--- NOTE | 2017-05-07 15:37 | Progress Note ---
Assessment and Plan 41 y/o F s/p debridement LLE necrotizing soft tissue infection 04/20/17 and excisional debridement of necrotic skin and soft tissue 04/28/17, and wide excisional debridement of necrotic skin and soft tissue LLE 05/06 1. necrotizing soft tissue infection, cellulitis of LLE 2. sepsis 3. CAD 4. CHF 5. HTN 6. malnutrition 7. elevated liver function tests 8. severe deconditioning PLan: 1. continue abx per ID 2. follow up OR cultures 3. Carb controlled diet 4. OOB -> chair, PT 5. wound care management with wet to dry dressings - will reexamine wound with wound care nurse tomorrow 6. encourage PO intake and nutrition 7. DVT ppx 8. strict glucose control 9. recommend plastic surgery consult to Dr. Shannon to evaluate limb and opinion for possibility of future skin graft Subjective Date of service: 05/07/17 Narrative: Patient seen and examined at bedside. No new complaints. No fevers, chills. Overnight, the surgical dressing on the left lower extremity did need to be reinforced secondary to some bleeding. Objective Vital Signs - 12hr 05/07/17 05/07/17 05/07/17 08:00 09:16 11:48 Pulse Rate 85 87 Respiratory 20 Rate Blood Pressure 118/72 05/07/17 15:12 Pulse Rate Respiratory 20 Rate Blood Pressure - General physical appearance Narrative Exam: Gen.: Awake, alert, oriented 3. No apparent distress. Left lower extremity: Entire dressing removed. The wound bed has mild slough. There are some bleeding skin edges and punctate bleeding from areas of fascia. This bleeding was controlled with pressure and stopped. The entire wound was cleaned with saline and skin cleansed with wound cleanser. A wet to dry dressing was then applied using saline moistened Kerlix, dry 4 x 4 gauze, ABDs. This was wrapped with Kerlix 2. 2+ pitting edema of left lower extremity. - Labs 05/07/17 05:04 05/07/17 05:04 Diabetes panel 05/07/17 Range/Units 05:04 Sodium 138 (137-145) mmol/L Potassium 4.3 (3.6-5.0) mmol/L Chloride 100.4 (98-107) mmol/L Carbon Dioxide 26 (22-30) mmol/L BUN 28 H (7-17) mg/dL Creatinine 0.9 (0.7-1.2) mg/dL Glucose 122 H (65-100) mg/dL Calcium 7.6 L (8.4-10.2) mg/dL Calcium panel 05/07/17 Range/Units 05:04 Calcium 7.6 L (8.4-10.2) mg/dL Pituitary panel 05/07/17 Range/Units 05:04 Sodium 138 (137-145) mmol/L Potassium 4.3 (3.6-5.0) mmol/L Chloride 100.4 (98-107) mmol/L Carbon Dioxide 26 (22-30) mmol/L BUN 28 H (7-17) mg/dL Creatinine 0.9 (0.7-1.2) mg/dL Glucose 122 H (65-100) mg/dL Calcium 7.6 L (8.4-10.2) mg/dL Adrenal panel 05/07/17 Range/Units 05:04 Sodium 138 (137-145) mmol/L Potassium 4.3 (3.6-5.0) mmol/L Chloride 100.4 (98-107) mmol/L Carbon Dioxide 26 (22-30) mmol/L BUN 28 H (7-17) mg/dL Creatinine 0.9 (0.7-1.2) mg/dL Glucose 122 H (65-100) mg/dL Calcium 7.6 L (8.4-10.2) mg/dL
[2017-05-07] MEDS ORDERED: MORPHINE IV ONE (15:40)
[2017-05-07] MEDS: CUBICIN 600 MG in NACL 0.9% 100 ML IV SCH (15:51)
[2017-05-07] MEDS: SANTYL TP SCH (16:03)
[2017-05-07] MEDS: LEVEMIR SUB-Q SCH (21:50)
[2017-05-07] MEDS: LOVENOX SUB-Q SCH (21:50)
[2017-05-08] MEDS: MORPHINE IV PRN ×3 (02:23→19:06)
[2017-05-08] MEDS: ZOSYN/NS 4.5GM/100ML 4.5 GM/100 ML VIAL IV SCH (07:15)
[2017-05-08 07:18] LABS: Mean Corpuscular HGB Conc 29 % (30-34); Mean Corpuscular Hemoglobin 27 pg (28-32); Mean Corpuscular Volume 92 fl (79-97); Platelet Count 286 K/mm3 (140-440); White Blood Count 7.1 K/mm3 (4.5-11.0)
[2017-05-08 07:21] LABS: Hematocrit 33.9 % (30.3-42.9)
[2017-05-08] MEDS: REGLAN IV SCH ×3 (07:49→16:09)
[2017-05-08] MEDS: NOVOLOG SUB-Q SCH ×4 (07:50→22:24)
--- NOTE | 2017-05-08 07:52 | Progress Note ---
Assessment and Plan Assessment and plan: 40-year-old female with past medical history significant for congestive heart failure, hypertension, hyperlipidemia, diabetes mellitus presented to the emergency department complaining of chest pain that started 2 weeks ago. Pain is midsternal and left-sided chest, 10 out of 10 in intensity, sharp, radiating to the left arm, associated with shortness of breath and diaphoresis. Patient denied palpitation but admitted for bilateral leg swelling more prominent on the left leg. The left leg is swollen, erythematous , tender and blisters. Patient is also complaining fever, cough productive of yellowish phlegm, Diaphoresis for the last 3 weeks. she had not been able to walk due to the pain in the lgs. Sepsis * Likely secondary to lower extremity soft tissue infection of the left leg. Imaging studies did not reveal any necrotizing fasciitis and neither was noted in the ER. Lower extremity complex soft tissue infection of the left * no evidence of narcotizing soft tissue infection noted with debridment on 04/20 and 04/28/17 wide excisional debridement of necrotic skin and soft tissue LLE 05/06 * Infectious disease and surgery following. Wound care consult * Surgical cultures growing gram-negative rods. Continue daptomycin and Zosyn, patient will benefit from hyperbaric on discharge Unfortunately she is on uninsured. Case management is working to see what provisions can be made period case management worked into * Plastic surgery consult for skin graft pending. * CT showed subcutaneous tissue induration no abscess no gas, Repeat CT 05/01 No fascial enhancement, no abscess, diffuse SQ edema, small amount of interstitial intersfacial edema between medial gastroneumius and soleus. MRI showed circumferential subcutaneous nonenhancing fluid and edema signal nonenhancing of deep fascial layers Acute on chronic combined systolic/diastolic heart failure * Echo with EF 20-25%, Continue oral diuresis with Lasix * Clinically improving,On low dose BB as BP borderline low * Will restart acei at low dose and monitor BP, it was initially held due to renal insufficiency and hyperkalemia * Monitor I's and O's DM-uncontrolled * A1C elevated at 11.3, continue insulin, will adjust levemir upwards For optimum control * On Accu-Cheks. consistent CHO * Diabetic education Jaundice/elevated LFTs * Resolved, Likely secondary to sepsis, RUQ US obtained and showed no gallstones , trace ascites * TG wnl, Statin d/c * CT abdomen wo contrast obtained to r/o pancreatitis * GI consulted and additional workup was negative (hepatitis panel - negative, antimitochondrial antibodies -<20) Hypochloremic Hyponatremia * Na+ 120 on admission, continues to improve * Likely dilutional due to heart failure * Received Tolvaptan Hyperkalemia/hypokalemia * Corrected Acute kidney injury-POA- resolved * Likely secondary to vasomotor nephropathy Elevated D-dimer Likely secondary to infection * Doppler lower extremity negative for DVT, CTA chest to rule out PE was ordered , but unable to have contrast; sats 98-100% on R CAD * History of PA, PCI with stent placement x 2, On aspirin, BB, statin had to be discontinued due to elevated LFTs Hypertension * BP borderline low Obesity/CARLOS A/OHS * When medically stable and discharged will need pulmonary follow-up for PFTs and sleep study as well as counseling regarding importance of losing weight Severe protein calorie monitor nutrition * Dietitian consulted Debility * Consulted PT - DVT/GI prophylaxis - Dispostion: Pending clarance from surgery and ID. will need wound care management and possible skin graft and HBOT. History Interval history: Patient seen and examined, in no acute distress. No new complaints, awaiting first dressing change post surgery Hospitalist Physical - Physical exam Narrative exam: General appearance: Alert in NAD, Eyes: anicteric sclerae, moist conjunctivae; no lid-lag; PERRLA HENT: Atraumatic; oropharynx clear with moist mucous membranes Neck: Trachea midline; supple, no thyromegaly or lymphadenopathy Lungs: CTA, with normal respiratory effort and no intercostal retractions CV: RRR, no murmurs Abdomen: Soft, non-tender; no masses or hepatosplenomegaly Extremities: 1+PITTING edema of left lower ext Skin: left calf with surgical dressings, no overt bleeding noted. Able to move feet Psych: sad. Neuro: alert and oriented x 3. Moving all extremities - Constitutional Vitals: Temp Pulse Resp BP Pulse Ox 98.2 F 98 H 20 113/75 99 05/08/17 00:00 05/08/17 00:00 05/08/17 00:00 05/08/17 00:00 05/08/17 00:00 General appearance: Present: no acute distress, well-nourished Results - Labs CBC & Chem 7: 05/08/17 07:00 05/07/17 05:04 Labs: Laboratory Last Values WBC 7.1 K/mm3 (4.5-11.0) 05/08/17 07:00 RBC 3.70 M/mm3 (3.65-5.03) 05/08/17 07:00 Hgb 10.0 gm/dl (10.1-14.3) L 05/08/17 07:00 Hct 33.9 % (30.3-42.9) 05/08/17 07:00 MCV 92 fl (79-97) 05/08/17 07:00 MCH 27 pg (28-32) L 05/08/17 07:00 MCHC 29 % (30-34) L 05/08/17 07:00 RDW 26.0 % (13.2-15.2) H 05/08/17 07:00 Plt Count 286 K/mm3 (140-440) 05/08/17 07:00 Lymph % (Auto) 14.9 % (13.4-35.0) 05/02/17 06:50 Murray % (Auto) 3.7 % (0.0-7.3) 05/02/17 06:50 Eos % (Auto) 0.5 % (0.0-4.3) 05/02/17 06:50 Baso % (Auto) 0.7 % (0.0-1.8) 05/02/17 06:50 Lymph # 1.8 K/mm3 (1.2-5.4) 05/02/17 06:50 Murray # 0.5 K/mm3 (0.0-0.8) 05/02/17 06:50 Eos # 0.1 K/mm3 (0.0-0.4) 05/02/17 06:50 Baso # 0.1 K/mm3 (0.0-0.1) 05/02/17 06:50 Add Manual Diff Complete 04/22/17 07:59 Total Counted 100 04/22/17 07:59 Seg Neutrophils % 80.2 % (40.0-70.0) H 05/02/17 06:50 Seg Neuts % (Manual) 82.0 % (40.0-70.0) H 04/22/17 07:59 Band Neutrophils % 9.0 % 04/22/17 07:59 Lymphocytes % (Manual) 5.0 % (13.4-35.0) L 04/22/17 07:59 Reactive Lymphs % (Man) 0 % 04/22/17 07:59 Monocytes % (Manual) 4.0 % (0.0-7.3) 04/22/17 07:59 Eosinophils % (Manual) 0 % (0.0-4.3) 04/22/17 07:59 Basophils % (Manual) 0 % (0.0-1.8) 04/22/17 07:59 Metamyelocytes % 0 % 04/22/17 07:59 Myelocytes % 0 % 04/22/17 07:59 Promyelocytes % 0 % 04/22/17 07:59 Blast Cells % 0 % 04/22/17 07:59 Nucleated RBC % 2.0 % (0.0-0.9) H 04/22/17 07:59 Seg Neutrophils # 9.8 K/mm3 (1.8-7.7) H 05/02/17 06:50 Seg Neutrophils # Man 17.9 K/mm3 (1.8-7.7) H 04/22/17 07:59 Band Neutrophils # 2.0 K/mm3 04/22/17 07:59 Lymphocytes # (Manual) 1.1 K/mm3 (1.2-5.4) L 04/22/17 07:59 Abs React Lymphs (Man) 0.0 K/mm3 04/22/17 07:59 Monocytes # (Manual) 0.9 K/mm3 (0.0-0.8) H 04/22/17 07:59 Eosinophils # (Manual) 0.0 K/mm3 (0.0-0.4) 04/22/17 07:59 Basophils # (Manual) 0.0 K/mm3 (0.0-0.1) 04/22/17 07:59 Metamyelocytes # 0.0 K/mm3 04/22/17 07:59 Myelocytes # 0.0 K/mm3 04/22/17 07:59 Promyelocytes # 0.0 K/mm3 04/22/17 07:59 Blast Cells # 0.0 K/mm3 04/22/17 07:59 WBC Morphology Not Reportable 04/22/17 07:59 Hypersegmented Neuts Not Reportable 04/22/17 07:59 Hyposegmented Neuts Not Reportable 04/22/17 07:59 Hypogranular Neuts Not Reportable 04/22/17 07:59 Smudge Cells Not Reportable 04/22/17 07:59 Toxic Granulation Not Reportable 04/22/17 07:59 Toxic Vacuolation Not Reportable 04/22/17 07:59 Dohle Bodies Not Reportable 04/22/17 07:59 Pelger-Huet Anomaly Not Reportable 04/22/17 07:59 Ariel Rods Not Reportable 04/22/17 07:59 Platelet Estimate Not Reportable 04/22/17 07:59 Clumped Platelets Not Reportable 04/22/17 07:59 Plt Clumps, EDTA Not Reportable 04/22/17 07:59 Large Platelets Not Reportable 04/22/17 07:59 Giant Platelets Not Reportable 04/22/17 07:59 Platelet Satelliting Not Reportable 04/22/17 07:59 Plt Morphology Comment Not Reportable 04/22/17 07:59 RBC Morphology Not Reportable 04/22/17 07:59 Dimorphic RBCs Not Reportable 04/22/17 07:59 Polychromasia Not Reportable 04/22/17 07:59 Hypochromasia 1+ 04/22/17 07:59 Poikilocytosis Not Reportable 04/22/17 07:59 Anisocytosis Not Reportable 04/22/17 07:59 Microcytosis Not Reportable 04/22/17 07:59 Macrocytosis 1+ 04/22/17 07:59 Spherocytes Not Reportable 04/22/17 07:59 Pappenheimer Bodies Not Reportable 04/22/17 07:59 Sickle Cells Not Reportable 04/22/17 07:59 Target Cells Not Reportable 04/22/17 07:59 Tear Drop Cells Not Reportable 04/22/17 07:59 Ovalocytes Not Reportable 04/22/17 07:59 Helmet Cells Not Reportable 04/22/17 07:59 Taylor-Blandon Bodies Not Reportable 04/22/17 07:59 Boomer Rings Not Reportable 04/22/17 07:59 Linda Cells Not Reportable 04/22/17 07:59 Bite Cells Not Reportable 04/22/17 07:59 Crenated Cell Not Reportable 04/22/17 07:59 Elliptocytes Not Reportable 04/22/17 07:59 Acanthocytes (Spur) Not Reportable 04/22/17 07:59 Rouleaux Not Reportable 04/22/17 07:59 Hemoglobin C Crystals Not Reportable 04/22/17 07:59 Schistocytes Not Reportable 04/22/17 07:59 Malaria parasites Not Reportable 04/22/17 07:59 Joselo Bodies Not Reportable 04/22/17 07:59 Hem Pathologist Commnt No 04/22/17 07:59 PT 17.1 Sec. (12.2-14.9) H 04/30/17 06:36 INR 1.33 (0.87-1.13) H 04/30/17 06:36 APTT 33.3 Sec. (24.2-36.6) 04/19/17 07:00 D-Dimer 1903.45 ng/mlDDU (0-234) H 04/18/17 14:36 Sodium 138 mmol/L (137-145) 05/07/17 05:04 Potassium 4.3 mmol/L (3.6-5.0) 05/07/17 05:04 Chloride 100.4 mmol/L (98-107) 05/07/17 05:04 Carbon Dioxide 26 mmol/L (22-30) 05/07/17 05:04 Anion Gap 16 mmol/L 05/07/17 05:04 BUN 28 mg/dL (7-17) H 05/07/17 05:04 Creatinine 0.9 mg/dL (0.7-1.2) 05/07/17 05:04 Estimated GFR > 60 ml/min 05/07/17 05:04 BUN/Creatinine Ratio 31 % 05/07/17 05:04 Glucose 122 mg/dL (65-100) H 05/07/17 05:04 POC Glucose 260 (70-105) H 05/07/17 21:20 Hemoglobin A1c 11.3 % (4-6) H 04/17/17 23:55 Lactic Acid 4.00 mmol/L (0.7-2.0) H* 04/18/17 14:36 Calcium 7.6 mg/dL (8.4-10.2) L 05/07/17 05:04 Phosphorus 3.60 mg/dL (2.5-4.5) 04/30/17 06:36 Magnesium 1.80 mg/dL (1.7-2.3) 04/30/17 06:36 Total Bilirubin 1.90 mg/dL (0.1-1.2) H 05/02/17 06:51 Direct Bilirubin 4.2 mg/dL (0-0.2) H 04/20/17 02:45 Indirect Bilirubin 1.2 mg/dL 04/20/17 02:45 AST 29 units/L (5-40) 05/02/17 06:51 ALT 22 units/L (7-56) 05/02/17 06:51 Alkaline Phosphatase 223 units/L (35-129) H 05/02/17 06:51 Ammonia 31.0 umol/L (25-60) 04/21/17 04:51 Troponin T 0.087 ng/mL (0.00-0.029) H D 04/18/17 04:54 C-Reactive Protein 8.80 mg/dL (0.00-1.30) H 04/23/17 15:30 Total Protein 7.3 g/dL (6.3-8.2) 05/02/17 06:51 Albumin 1.6 g/dL (3.9-5) L 05/02/17 06:51 Albumin/Globulin Ratio 0.3 % 05/02/17 06:51 Prealbumin 0.060 g/L (0.200-0.400) L 04/25/17 05:28 Triglycerides 106 mg/dL (2-149) 04/17/17 17:20 Cholesterol 108 mg/dL (50-199) 04/17/17 17:20 LDL Cholesterol Direct 78 mg/dL (50-130) 04/17/17 17:20 HDL Cholesterol 9 mg/dL (40-59) L 04/17/17 17:20 Cholesterol/HDL Ratio 12.00 % 04/17/17 17:20 Lipase 38 units/L (13-60) 04/21/17 04:51 HCG, Qual Negative (Negative) 04/19/17 15:03 Vancomycin Trough 45.0 ug/mL (5.0-20.0) H 04/22/17 17:48 MARCIE Screen Negative (Negative) 04/20/17 15:22 Mitochondria M2 Ab <=20.0 U (<=20.0) 04/20/17 15:22 Hepatitis A Ab Total See scanned result 04/20/17 15:22 Hep Bs Antigen Non-reactive (Negative) 04/20/17 15:22 Hep B Core Total Ab Nonreactive (Nonreactive) 04/20/17 15:22 Hepatitis C Antibody Non-reactive (NonReactive) 04/20/17 15:22 Blood Type A POSITIVE 04/20/17 20:12 Antibody Screen Negative 04/20/17 20:12
[2017-05-08] MEDS: LASIX PO SCH (10:49)
[2017-05-08] MEDS: LEVAQUIN 750MG/150ML 750 MG/150 ML BAG IV SCH (10:50)
[2017-05-08] MEDS: BABY ASPIRIN PO SCH (10:50)
[2017-05-08] MEDS: ZESTRIL PO SCH (10:51)
[2017-05-08] MEDS: COREG PO SCH ×2 (10:52→22:09)
[2017-05-08] MEDS: SANTYL TP SCH (10:58)
[2017-05-08] MEDS: DAKIN'S HALF STRENGTH TP SCH ×2 (11:00→22:27)
--- NOTE | 2017-05-08 11:36 | Progress Note ---
Assessment and Plan 41 y/o F s/p debridement LLE necrotizing soft tissue infection 04/20/17 and excisional debridement of necrotic skin and soft tissue 04/28/17, and wide excisional debridement of necrotic skin and soft tissue LLE 05/06 1. necrotizing soft tissue infection, cellulitis of LLE 2. sepsis 3. CAD 4. CHF 5. HTN 6. malnutrition 7. elevated liver function tests 8. severe deconditioning PLan: 1. Cultures from the OR 05/06 grew Zosyn resistant Pseudomonas. Antibiotics changed to Levaquin per ID. 2. Carb controlled diet 3. OOB -> chair, PT 4. wound assessed with wound care nurses - will start dakins BID to wound. 5. encourage PO intake and nutrition 6. DVT ppx 7. strict glucose control 8. Discussed with patient and her sister about senior living planning and quality of life for patient. Wound will likely need more debridement of fascia. Will require prolonged wound care in order to heal and I am uncertain how long this will take. Patient to reconsider option of amputation. 9. Await patient decision. If chooses more debridement, will plan for this early next week. 10. medicaid application pending per case management D/W Dr. Finney Subjective Date of service: 05/08/17 Narrative: Patient seen and examined at bedside. Appears anxious about wound. No overnight events. No fevers/chills. Objective Vital Signs - 12hr 05/08/17 05/08/17 05/08/17 00:00 01:30 07:58 Temperature 98.2 F 98.0 F Pulse Rate 98 H 98 H Respiratory 20 18 20 Rate Blood Pressure 116/77 Blood Pressure 113/75 [Right] O2 Sat by Pulse 99 100 Oximetry 05/08/17 05/08/17 05/08/17 08:10 10:51 10:52 Temperature 98.1 F Pulse Rate 95 H 95 H 95 H Respiratory 22 Rate Blood Pressure 134/81 Blood Pressure [Right] O2 Sat by Pulse 100 Oximetry - General physical appearance Narrative Exam: General: Awake, alert, oriented 3. Anxious Left lower extremity: Large wound with fascia and muscle exposed. Fascia of posterior calf has some necrotic areas. There is slough over the entire wound base. There is no active bleeding. 2+ pitting edema of extremity. Motor and sensory function intact. - Labs 05/08/17 07:00 05/07/17 05:04
--- NOTE | 2017-05-08 12:07 | Progress Note ---
Assessment and Plan Assessment: 1) Sepsis: resolved. Etiology most likely complicated soft tissue infection left leg. 2) Left leg necrotizing soft tissue infection (cellulitis): NO evidence of necrotizing fascitis in the OR. Initially found to be secondary to GAS, however wound became superinfected by MDR-Pseudomonas. -S/P OR debridement on 04/20, culture + GAS -S/P OR debridement on 04/24 -S/P OR debridement on 05/06, tissue cx + MDR-Pseudomonas -CT showed subcutaneous tissue induration no abscess no gas -CRP=22-->8 -Repeat CT 05/01 No fascial enhancement, no abscess, diffuse SQ edema, small amount of interstitial intersfacial edema between medial gastroneumius and soleus. -MRI 05/04 showed circumferential subcutaneous nonenhancing fluid and edema signal nonenhancing of deep fascial layers 3) DM-uncontrolled 4) Hyponatremia 5) Elevated LFTs ? from sepsis, HCV and HBV non reactive. ?MILLER - better 6) CHF 7) Early ITALIA ? resolved Plan: -continue daptomycin day 5 -stop zosyn - Pseudomonas is resistant to zosyn -start levaquin day 1 -very difficult decision making since patient is unfunded and refusing amputation, may require multiple more debridement Thank you Dr Finney for your consultation, will follow up with you. Talisha Nguyen MD Infectious Diseases Specialist [facility] [phone] O [phone] Subjective Date of service: 05/08/17 Principal diagnosis: Cellulitis left foot, Heart failure,Sepsis Interval history: feels better, no fever, no pain Current Antimicrobials: dapto 05/04 zosyn 05/04 Previous Antimicrobials: Clindamycin 04/18 Zosyn 04/18 Pen G 04/24 CLindav 04/23 Microbiology: Blood cultures: 04/18 ngtd Tissue cx 04/20 corrected report + GAS Tissue cx 05/06 Pseudomonas resistant to zosyn Objective - Exam Narrative Exam: General appearance: Alert in NAD, anxious tearfull Eyes: anicteric sclerae, moist conjunctivae; no lid-lag; PERRLA HENT: Atraumatic; oropharynx clear with moist mucous membranes and no mucosal ulcerations/no oral thrush; normal hard and soft palate. Normal external ears. Neck: Trachea midline; supple, no thyromegaly or lymphadenopathy Lungs: CTA, with normal respiratory effort and no intercostal retractions CV: RRR, no murmurs Abdomen: Soft, non-tender; no masses or hepatosplenomegaly Extremities: No peripheral edema or extremity lymphadenopathy Skin: left calf with surgical dressings clean Psych: sad. Neuro: alert and oriented x 3. Moving all extermities Lines: No CVL / PICC - Constitutional Vitals: Vital Signs Temp Pulse Resp BP Pulse Ox 98.1 F 95 H 22 134/81 100 05/08/17 08:10 05/08/17 10:52 05/08/17 08:10 05/08/17 08:10 05/08/17 08:10 Temperature -Last 24 Hours Temperature 98.1 F Temperature 98.0 F Temperature 98.2 F Temperature 98.2 F Temperature 98.6 F Temperature 98.2 F - Labs CBC & Chem 7: 05/08/17 07:00 05/07/17 05:04 Labs: Abnormal lab results 05/07/17 05/07/17 05/07/17 Range/Units 12:13 18:00 21:20 Hgb (10.1-14.3) gm/dl MCH (28-32) pg MCHC (30-34) % RDW (13.2-15.2) % POC Glucose 180 H 239 H 260 H (70-105) 05/08/17 Range/Units 07:00 Hgb 10.0 L (10.1-14.3) gm/dl MCH 27 L (28-32) pg MCHC 29 L (30-34) % RDW 26.0 H (13.2-15.2) % POC Glucose (70-105)
[2017-05-08] MEDS ORDERED: LASIX IV ONE (12:30)
[2017-05-08] MEDS: CUBICIN 600 MG in NACL 0.9% 100 ML IV SCH (15:00)
[2017-05-08] MEDS ORDERED: LEVEMIR SUB-Q SCH (22:00)
[2017-05-08] MEDS: LOVENOX SUB-Q SCH (22:10)
[2017-05-09] MEDS: REGLAN IV SCH ×3 (08:44→18:00)
[2017-05-09] MEDS: NOVOLOG SUB-Q SCH ×4 (08:44→22:05)
--- NOTE | 2017-05-09 08:46 | Progress Note ---
Assessment and Plan Assessment and plan: 40-year-old female with past medical history significant for congestive heart failure, hypertension, hyperlipidemia, diabetes mellitus presented to the emergency department complaining of chest pain that started 2 weeks ago. Pain is midsternal and left-sided chest, 10 out of 10 in intensity, sharp, radiating to the left arm, associated with shortness of breath and diaphoresis. Patient denied palpitation but admitted for bilateral leg swelling more prominent on the left leg. The left leg is swollen, erythematous , tender and blisters. Patient is also complaining fever, cough productive of yellowish phlegm, Diaphoresis for the last 3 weeks. she had not been able to walk due to the pain in the lgs. Sepsis * Likely secondary to lower extremity soft tissue infection of the left leg. Imaging studies did not reveal any necrotizing fasciitis and neither was noted in the ER. * -S/P OR debridement on 05/06, tissue cx + MDR-Pseudomonas reistant to zosyn Lower extremity complex soft tissue infection of the left * no evidence of narcotizing soft tissue infection noted with debridment on 04/20 and 04/28/17 wide excisional debridement of necrotic skin and soft tissue LLE 05/06 * Infectious disease and surgery following. Wound care consult * Surgical cultures growing gram-negative rods. Continue daptomycin and levaquin. Zosyn stopped due to resistance patient will benefit from hyperbaric on discharge Unfortunately she is on uninsured. Case management is working to see what provisions can be made period case management worked into * Plastic surgery consult for skin graft pending. * CT showed subcutaneous tissue induration no abscess no gas, Repeat CT 05/01 No fascial enhancement, no abscess, diffuse SQ edema, small amount of interstitial intersfacial edema between medial gastroneumius and soleus. MRI showed circumferential subcutaneous nonenhancing fluid and edema signal nonenhancing of deep fascial layers Acute on chronic combined systolic/diastolic heart failure * Echo with EF 20-25%, Continue oral diuresis with Lasix * Clinically improving,On low dose BB as BP borderline low * Will restart acei at low dose and monitor BP, it was initially held due to renal insufficiency and hyperkalemia * Monitor I's and O's DM-uncontrolled * A1C elevated at 11.3, continue insulin, will adjust levemir upwards For optimum control * On Accu-Cheks. consistent CHO diet * Diabetic education Jaundice/elevated LFTs * Resolved, Likely secondary to sepsis, RUQ US obtained and showed no gallstones , trace ascites * TG wnl, Statin d/c * CT abdomen wo contrast obtained to r/o pancreatitis * GI consulted and additional workup was negative (hepatitis panel - negative, antimitochondrial antibodies -<20) Hypochloremic Hyponatremia * Na+ 120 on admission, continues to improve * Likely dilutional due to heart failure * Received Tolvaptan Hyperkalemia/hypokalemia * Corrected Acute kidney injury-POA- resolved * Likely secondary to vasomotor nephropathy Elevated D-dimer Likely secondary to infection * Doppler lower extremity negative for DVT, CTA chest to rule out PE was ordered , but unable to have contrast; sats 98-100% on R CAD * History of MN, PCI with stent placement x 2, On aspirin, BB, statin had to be discontinued due to elevated LFTs Hypertension * BP borderline low Obesity/CARLOS A/OHS * When medically stable and discharged will need pulmonary follow-up for PFTs and sleep study as well as counseling regarding importance of losing weight Severe protein calorie monitor nutrition * Dietitian consulted Debility * Consulted PT - DVT/GI prophylaxis - Dispostion: Pending clarance from surgery and ID. will need wound care management and possible skin graft and HBOT. - Patient is critically ill and complex, she now wants amputation. Ortho reconsulted - Discussed case in detail with surgeon and ID. - Patient to remain in house for treatment due to funding issues. - medicaid application pending per case management -Check labs intermittently History Interval history: Patient seen and examined, in no acute distress. No new complaints, now wants amputation Hospitalist Physical - Physical exam Narrative exam: General appearance: Alert in NAD, Eyes: anicteric sclerae, moist conjunctivae; no lid-lag; PERRLA HENT: Atraumatic; oropharynx clear with moist mucous membranes Neck: Trachea midline; supple, no thyromegaly or lymphadenopathy Lungs: CTA, with normal respiratory effort and no intercostal retractions CV: RRR, no murmurs Abdomen: Soft, non-tender; no masses or hepatosplenomegaly Extremities: 1+PITTING edema of left lower ext Skin: left calf with surgical dressings, no overt bleeding noted. Able to move feet Psych: sad. Neuro: alert and oriented x 3. Moving all extremities - Constitutional Vitals: Temp Pulse Resp BP Pulse Ox 97.7 F 100 H 18 93/58 97 05/08/17 23:44 05/08/17 23:44 05/08/17 23:44 05/08/17 23:44 05/08/17 23:44 General appearance: Present: no acute distress, well-nourished Results - Labs CBC & Chem 7: 05/08/17 07:00 05/07/17 05:04 Labs: Laboratory Last Values WBC 7.1 K/mm3 (4.5-11.0) 05/08/17 07:00 RBC 3.70 M/mm3 (3.65-5.03) 05/08/17 07:00 Hgb 10.0 gm/dl (10.1-14.3) L 05/08/17 07:00 Hct 33.9 % (30.3-42.9) 05/08/17 07:00 MCV 92 fl (79-97) 05/08/17 07:00 MCH 27 pg (28-32) L 05/08/17 07:00 MCHC 29 % (30-34) L 05/08/17 07:00 RDW 26.0 % (13.2-15.2) H 05/08/17 07:00 Plt Count 286 K/mm3 (140-440) 05/08/17 07:00 Lymph % (Auto) 14.9 % (13.4-35.0) 05/02/17 06:50 Major % (Auto) 3.7 % (0.0-7.3) 05/02/17 06:50 Eos % (Auto) 0.5 % (0.0-4.3) 05/02/17 06:50 Baso % (Auto) 0.7 % (0.0-1.8) 05/02/17 06:50 Lymph # 1.8 K/mm3 (1.2-5.4) 05/02/17 06:50 Major # 0.5 K/mm3 (0.0-0.8) 05/02/17 06:50 Eos # 0.1 K/mm3 (0.0-0.4) 05/02/17 06:50 Baso # 0.1 K/mm3 (0.0-0.1) 05/02/17 06:50 Add Manual Diff Complete 04/22/17 07:59 Total Counted 100 04/22/17 07:59 Seg Neutrophils % 80.2 % (40.0-70.0) H 05/02/17 06:50 Seg Neuts % (Manual) 82.0 % (40.0-70.0) H 04/22/17 07:59 Band Neutrophils % 9.0 % 04/22/17 07:59 Lymphocytes % (Manual) 5.0 % (13.4-35.0) L 04/22/17 07:59 Reactive Lymphs % (Man) 0 % 04/22/17 07:59 Monocytes % (Manual) 4.0 % (0.0-7.3) 04/22/17 07:59 Eosinophils % (Manual) 0 % (0.0-4.3) 04/22/17 07:59 Basophils % (Manual) 0 % (0.0-1.8) 04/22/17 07:59 Metamyelocytes % 0 % 04/22/17 07:59 Myelocytes % 0 % 04/22/17 07:59 Promyelocytes % 0 % 04/22/17 07:59 Blast Cells % 0 % 04/22/17 07:59 Nucleated RBC % 2.0 % (0.0-0.9) H 04/22/17 07:59 Seg Neutrophils # 9.8 K/mm3 (1.8-7.7) H 05/02/17 06:50 Seg Neutrophils # Man 17.9 K/mm3 (1.8-7.7) H 04/22/17 07:59 Band Neutrophils # 2.0 K/mm3 04/22/17 07:59 Lymphocytes # (Manual) 1.1 K/mm3 (1.2-5.4) L 04/22/17 07:59 Abs React Lymphs (Man) 0.0 K/mm3 04/22/17 07:59 Monocytes # (Manual) 0.9 K/mm3 (0.0-0.8) H 04/22/17 07:59 Eosinophils # (Manual) 0.0 K/mm3 (0.0-0.4) 04/22/17 07:59 Basophils # (Manual) 0.0 K/mm3 (0.0-0.1) 04/22/17 07:59 Metamyelocytes # 0.0 K/mm3 04/22/17 07:59 Myelocytes # 0.0 K/mm3 04/22/17 07:59 Promyelocytes # 0.0 K/mm3 04/22/17 07:59 Blast Cells # 0.0 K/mm3 04/22/17 07:59 WBC Morphology Not Reportable 04/22/17 07:59 Hypersegmented Neuts Not Reportable 04/22/17 07:59 Hyposegmented Neuts Not Reportable 04/22/17 07:59 Hypogranular Neuts Not Reportable 04/22/17 07:59 Smudge Cells Not Reportable 04/22/17 07:59 Toxic Granulation Not Reportable 04/22/17 07:59 Toxic Vacuolation Not Reportable 04/22/17 07:59 Dohle Bodies Not Reportable 04/22/17 07:59 Pelger-Huet Anomaly Not Reportable 04/22/17 07:59 Ariel Rods Not Reportable 04/22/17 07:59 Platelet Estimate Not Reportable 04/22/17 07:59 Clumped Platelets Not Reportable 04/22/17 07:59 Plt Clumps, EDTA Not Reportable 04/22/17 07:59 Large Platelets Not Reportable 04/22/17 07:59 Giant Platelets Not Reportable 04/22/17 07:59 Platelet Satelliting Not Reportable 04/22/17 07:59 Plt Morphology Comment Not Reportable 04/22/17 07:59 RBC Morphology Not Reportable 04/22/17 07:59 Dimorphic RBCs Not Reportable 04/22/17 07:59 Polychromasia Not Reportable 04/22/17 07:59 Hypochromasia 1+ 04/22/17 07:59 Poikilocytosis Not Reportable 04/22/17 07:59 Anisocytosis Not Reportable 04/22/17 07:59 Microcytosis Not Reportable 04/22/17 07:59 Macrocytosis 1+ 04/22/17 07:59 Spherocytes Not Reportable 04/22/17 07:59 Pappenheimer Bodies Not Reportable 04/22/17 07:59 Sickle Cells Not Reportable 04/22/17 07:59 Target Cells Not Reportable 04/22/17 07:59 Tear Drop Cells Not Reportable 04/22/17 07:59 Ovalocytes Not Reportable 04/22/17 07:59 Helmet Cells Not Reportable 04/22/17 07:59 [place] Bodies Not Reportable 04/22/17 07:59 [place] Rings Not Reportable 04/22/17 07:59 Linda Cells Not Reportable 04/22/17 07:59 Bite Cells Not Reportable 04/22/17 07:59 Crenated Cell Not Reportable 04/22/17 07:59 Elliptocytes Not Reportable 04/22/17 07:59 Acanthocytes (Spur) Not Reportable 04/22/17 07:59 Rouleaux Not Reportable 04/22/17 07:59 Hemoglobin C Crystals Not Reportable 04/22/17 07:59 Schistocytes Not Reportable 04/22/17 07:59 Malaria parasites Not Reportable 04/22/17 07:59 Joselo Bodies Not Reportable 04/22/17 07:59 Hem Pathologist Commnt No 04/22/17 07:59 PT 17.1 Sec. (12.2-14.9) H 04/30/17 06:36 INR 1.33 (0.87-1.13) H 04/30/17 06:36 APTT 33.3 Sec. (24.2-36.6) 04/19/17 07:00 D-Dimer 1903.45 ng/mlDDU (0-234) H 04/18/17 14:36 Sodium 138 mmol/L (137-145) 05/07/17 05:04 Potassium 4.3 mmol/L (3.6-5.0) 05/07/17 05:04 Chloride 100.4 mmol/L (98-107) 05/07/17 05:04 Carbon Dioxide 26 mmol/L (22-30) 05/07/17 05:04 Anion Gap 16 mmol/L 05/07/17 05:04 BUN 28 mg/dL (7-17) H 05/07/17 05:04 Creatinine 0.9 mg/dL (0.7-1.2) 05/07/17 05:04 Estimated GFR > 60 ml/min 05/07/17 05:04 BUN/Creatinine Ratio 31 % 05/07/17 05:04 Glucose 122 mg/dL (65-100) H 05/07/17 05:04 POC Glucose 97 (70-105) 05/09/17 06:05 Hemoglobin A1c 11.3 % (4-6) H 04/17/17 23:55 Lactic Acid 4.00 mmol/L (0.7-2.0) H* 04/18/17 14:36 Calcium 7.6 mg/dL (8.4-10.2) L 05/07/17 05:04 Phosphorus 3.60 mg/dL (2.5-4.5) 04/30/17 06:36 Magnesium 1.80 mg/dL (1.7-2.3) 04/30/17 06:36 Total Bilirubin 1.90 mg/dL (0.1-1.2) H 05/02/17 06:51 Direct Bilirubin 4.2 mg/dL (0-0.2) H 04/20/17 02:45 Indirect Bilirubin 1.2 mg/dL 04/20/17 02:45 AST 29 units/L (5-40) 05/02/17 06:51 ALT 22 units/L (7-56) 05/02/17 06:51 Alkaline Phosphatase 223 units/L (35-129) H 05/02/17 06:51 Ammonia 31.0 umol/L (25-60) 04/21/17 04:51 Troponin T 0.087 ng/mL (0.00-0.029) H D 04/18/17 04:54 C-Reactive Protein 8.80 mg/dL (0.00-1.30) H 04/23/17 15:30 Total Protein 7.3 g/dL (6.3-8.2) 05/02/17 06:51 Albumin 1.6 g/dL (3.9-5) L 05/02/17 06:51 Albumin/Globulin Ratio 0.3 % 05/02/17 06:51 Prealbumin 0.060 g/L (0.200-0.400) L 04/25/17 05:28 Triglycerides 106 mg/dL (2-149) 04/17/17 17:20 Cholesterol 108 mg/dL (50-199) 04/17/17 17:20 LDL Cholesterol Direct 78 mg/dL (50-130) 04/17/17 17:20 HDL Cholesterol 9 mg/dL (40-59) L 04/17/17 17:20 Cholesterol/HDL Ratio 12.00 % 04/17/17 17:20 Lipase 38 units/L (13-60) 04/21/17 04:51 HCG, Qual Negative (Negative) 04/19/17 15:03 Vancomycin Trough 45.0 ug/mL (5.0-20.0) H 04/22/17 17:48 MARCIE Screen Negative (Negative) 04/20/17 15: Mitochondria M2 Ab <=20.0 U (<=20.0) 04/20/17 15:22 Hepatitis A Ab Total See scanned result 04/20/17 15: Hep Bs Antigen Non-reactive (Negative) 04/20/17: Hep B Core Total Ab Nonreactive (Nonreactive) 04/20/17 15:22 Hepatitis C Antibody Non-reactive (NonReactive) 04/20/17 15:22 Blood Type A POSITIVE 04/20/17 20:12 Antibody Screen Negative 04/20/17 20:12
[2017-05-09] MEDS: ZESTRIL PO SCH (09:49)
[2017-05-09] MEDS: BABY ASPIRIN PO SCH (09:50)
[2017-05-09] MEDS: LASIX PO SCH (09:50)
[2017-05-09] MEDS: LEVAQUIN 750MG/150ML 750 MG/150 ML BAG IV SCH (09:50)
[2017-05-09] MEDS: COREG PO SCH ×2 (09:50→22:06)
[2017-05-09] MEDS: DAKIN'S HALF STRENGTH TP SCH ×2 (10:54→22:32)
[2017-05-09] MEDS: MORPHINE IV PRN ×3 (10:55→22:15)
[2017-05-09] MEDS: SANTYL TP SCH (10:58)
--- NOTE | 2017-05-09 12:47 | Progress Note ---
Assessment and Plan 41 y/o F s/p debridement LLE necrotizing soft tissue infection 04/20/17 and excisional debridement of necrotic skin and soft tissue 04/28/17, and wide excisional debridement of necrotic skin and soft tissue LLE 05/06 1. necrotizing soft tissue infection, cellulitis of LLE 2. sepsis 3. CAD 4. CHF 5. HTN 6. malnutrition 7. elevated liver function tests 8. severe deconditioning PLan: 1. Cultures from the OR 05/06 grew Zosyn resistant Pseudomonas. Antibiotics changed to Levaquin per ID. 2. Carb controlled diet 3. OOB -> chair, PT 4. Continue dakins to wound twice a day. Discussed with nursing, who will change dressing daily. 5. encourage PO intake and nutrition 6. DVT ppx 7. strict glucose control 8. Patient is reconsidering amputation of left lower extremity. We will await her decision. Discussed with Dr. Barnes who will evaluate patient for amputation. Until then, continue local wound care by nursing twice a day. 9. Case management is working on obtaining carlene care for the patient. Discussed with Dr. Finney Subjective Date of service: 05/09/17 Patient Reports: Positive: no new complaints, still having pain, tolerating a regular diet Narrative: Patient seen and examined at bedside. She is having physical therapy at the time and complaints of pain. Afebrile overnight. The patient repeatedly is asking for an amputation. Objective Vital Signs - 12hr 05/09/17 05/09/17 08:20 09:49 Temperature 98.2 F Pulse Rate 98 H 98 H Respiratory 20 Rate Blood Pressure 112/74 120/78 O2 Sat by Pulse 100 Oximetry - General physical appearance Narrative Exam: General: Awake, alert, oriented 3. Left lower extremity: Left lower extremity dressing intact with serous and green tinged drainage. Positive motor and sensory. - Labs 05/08/17 07:00 05/07/17 05:04
[2017-05-09] MEDS: FLORANEX PO SCH ×2 (13:03→22:05)
--- NOTE | 2017-05-09 13:26 | Progress Note ---
Assessment and Plan Assessment: 1) Sepsis: resolved. Etiology most likely complicated soft tissue infection left leg. 2) Left leg necrotizing soft tissue infection (cellulitis): NO evidence of necrotizing fascitis in the OR. Initially found to be secondary to GAS, however wound became superinfected by MDR-Pseudomonas. -S/P OR debridement on 04/20, culture + GAS -S/P OR debridement on 04/24 -S/P OR debridement on 05/06, tissue cx + MDR-Pseudomonas -CT showed subcutaneous tissue induration no abscess no gas -CRP=22-->8 -Repeat CT 05/01 No fascial enhancement, no abscess, diffuse SQ edema, small amount of interstitial intersfacial edema between medial gastroneumius and soleus. -MRI 05/04 showed circumferential subcutaneous nonenhancing fluid and edema signal nonenhancing of deep fascial layers 3) DM-uncontrolled 4) Hyponatremia 5) Elevated LFTs ? from sepsis, HCV and HBV non reactive. ?MILLER - better 6) CHF 7) Early ITALIA ? resolved Plan: -continue daptomycin day 6 -continue levaquin day 2 -patient considering amputation I will see her back on Friday Thank you Dr Finney for your consultation, will follow up with you. Talisha Nguyen MD Infectious Diseases Specialist [facility], [place], [facility] ([facility] M [phone] O [phone] Subjective Date of service: 05/09/17 Principal diagnosis: Cellulitis left foot, Heart failure,Sepsis Interval history: feels better, no fever, c/o leg pain and drainage Current Antimicrobials: dapto 05/04 levaquin 05/08 Previous Antimicrobials: Clindamycin 04/18 Zosyn 04/18 Pen G 04/24 CLindav 04/23 zosyn 05/04 Microbiology: Blood cultures: 04/18 ngtd Tissue cx 04/20 corrected report + GAS Tissue cx 05/06 Pseudomonas resistant to zosyn Objective - Exam Narrative Exam: General appearance: Alert in NAD, anxious tearfull Eyes: anicteric sclerae, moist conjunctivae; no lid-lag; PERRLA HENT: Atraumatic; oropharynx clear with moist mucous membranes and no mucosal ulcerations/no oral thrush; normal hard and soft palate. Normal external ears. Neck: Trachea midline; supple, no thyromegaly or lymphadenopathy Lungs: CTA, with normal respiratory effort and no intercostal retractions CV: RRR, no murmurs Abdomen: Soft, non-tender; no masses or hepatosplenomegaly Extremities: No peripheral edema or extremity lymphadenopathy Skin: left calf with surgical dressings clean Psych: sad. Neuro: alert and oriented x 3. Moving all extermities Lines: No CVL / PICC - Constitutional Vitals: Vital Signs Temp Pulse Resp BP Pulse Ox 98.2 F 98 H 20 120/78 100 05/09/17 08:20 05/09/17 09:49 05/09/17 08:20 05/09/17 09:49 05/09/17 08:20 Temperature -Last 24 Hours Temperature 98.2 F Temperature 97.7 F Temperature 98.6 F - Labs CBC & Chem 7: 05/08/17 07:00 05/07/17 05:04 Labs: Abnormal lab results 05/08/17 05/08/17 05/09/17 Range/Units 16:44 21:32 08:55 POC Glucose 168 H 243 H (70-105) Total Creatine Kinase 26 L (30-135) units/L 05/09/17 Range/Units 12:08 POC Glucose 153 H (70-105) Total Creatine Kinase (30-135) units/L
[2017-05-09] MEDS: ROXICODONE PO PRN (13:43)
[2017-05-09] MEDS: CUBICIN 600 MG in NACL 0.9% 100 ML IV SCH (15:18)
[2017-05-09] MEDS: LOVENOX SUB-Q SCH (22:04)
[2017-05-09] MEDS: LEVEMIR SUB-Q SCH (22:04)
[2017-05-10] MEDS: MORPHINE IV PRN ×4 (05:28→22:59)
[2017-05-10] MEDS ORDERED: MORPHINE IV ONE (05:52)
--- NOTE | 2017-05-10 08:15 | Progress Note ---
Assessment and Plan Assessment and plan: 40-year-old female with past medical history significant for congestive heart failure, hypertension, hyperlipidemia, diabetes mellitus presented to the emergency department complaining of chest pain that started 2 weeks ago. Pain is midsternal and left-sided chest, 10 out of 10 in intensity, sharp, radiating to the left arm, associated with shortness of breath and diaphoresis. Patient denied palpitation but admitted for bilateral leg swelling more prominent on the left leg. The left leg is swollen, erythematous , tender and blisters. Patient is also complaining fever, cough productive of yellowish phlegm, Diaphoresis for the last 3 weeks. she had not been able to walk due to the pain in the lgs. Sepsis * Likely secondary to lower extremity soft tissue infection of the left leg. Imaging studies did not reveal any necrotizing fasciitis and neither was noted in the ER. * -S/P OR debridement on 05/06, tissue cx + MDR-Pseudomonas reistant to zosyn Lower extremity complex soft tissue infection of the left * no evidence of narcotizing soft tissue infection noted with debridment on 04/20 and 04/28/17 wide excisional debridement of necrotic skin and soft tissue LLE 05/06 * Infectious disease and surgery following. Wound care consult * Surgical cultures growing gram-negative rods. Continue daptomycin and levaquin. Zosyn stopped due to resistance patient will benefit from hyperbaric on discharge Unfortunately she is on uninsured. Case management is working to see what provisions can be made period case management worked into. Complex case , surgery still re-evaulating to see the yield of Amputation, otherwise multiple debridement needed and will continue to prolong hospitalization. * Plastic surgery consult for skin graft pending. * CT showed subcutaneous tissue induration no abscess no gas, Repeat CT 05/01 No fascial enhancement, no abscess, diffuse SQ edema, small amount of interstitial intersfacial edema between medial gastroneumius and soleus. MRI showed circumferential subcutaneous nonenhancing fluid and edema signal nonenhancing of deep fascial layers Acute on chronic combined systolic/diastolic heart failure * Echo with EF 20-25%, Continue oral diuresis with Lasix * Clinically improving,On low dose BB as BP borderline low * Will restart acei at low dose and monitor BP, it was initially held due to renal insufficiency and hyperkalemia * Monitor I's and O's DM-uncontrolled * A1C elevated at 11.3, continue insulin, will adjust levemir upwards For optimum control * On Accu-Cheks. consistent CHO diet * Diabetic education Jaundice/elevated LFTs * Resolved, Likely secondary to sepsis, RUQ US obtained and showed no gallstones , trace ascites * TG wnl, Statin d/c * CT abdomen wo contrast obtained to r/o pancreatitis * GI consulted and additional workup was negative (hepatitis panel - negative, antimitochondrial antibodies -<20) Hypochloremic Hyponatremia * Na+ 120 on admission, continues to improve * Likely dilutional due to heart failure * Received Tolvaptan Hyperkalemia/hypokalemia * Corrected Acute kidney injury-POA- resolved * Likely secondary to vasomotor nephropathy Elevated D-dimer Likely secondary to infection * Doppler lower extremity negative for DVT, CTA chest to rule out PE was ordered , but unable to have contrast; sats 98-100% on R CAD * History of CT, PCI with stent placement x 2, On aspirin, BB, statin had to be discontinued due to elevated LFTs Hypertension * BP borderline low Obesity/CARLOS A/OHS * When medically stable and discharged will need pulmonary follow-up for PFTs and sleep study as well as counseling regarding importance of losing weight Severe protein calorie monitor nutrition * Dietitian consulted Debility * Consulted PT - DVT/GI prophylaxis - Dispostion: Pending clarance from surgery and ID. will need wound care management and possible skin graft and HBOT. - Patient is critically ill and complex, she now wants amputation. Ortho reconsulted - Discussed case in detail with surgeon and ID. - Patient to remain in house for treatment due to funding issues. - medicaid application pending per case management -Check labs intermittently History Interval history: Patient seen and examined, in no acute distress. No new complaints, ENCOURAGED TO WALK WITH PT. Hospitalist Physical - Physical exam Narrative exam: General appearance: Alert in NAD, Eyes: anicteric sclerae, moist conjunctivae; no lid-lag; PERRLA HENT: Atraumatic; oropharynx clear with moist mucous membranes Neck: Trachea midline; supple, no thyromegaly or lymphadenopathy Lungs: CTA, with normal respiratory effort and no intercostal retractions CV: RRR, no murmurs Abdomen: Soft, non-tender; no masses or hepatosplenomegaly Extremities: 1+PITTING edema of left lower ext Skin: left calf with surgical dressings, no overt bleeding noted. Able to move feet Psych: sad. Neuro: alert and oriented x 3. Moving all extremities - Constitutional Vitals: Temp Pulse Resp BP Pulse Ox 98 F 81 18 111/73 97 05/10/17 00:50 05/10/17 00:50 05/10/17 00:50 05/10/17 00:50 05/10/17 00:50 General appearance: Present: no acute distress, well-nourished Results - Labs CBC & Chem 7: 05/08/17 07:00 05/07/17 05:04 Labs: Laboratory Last Values WBC 7.1 K/mm3 (4.5-11.0) 05/08/17 07:00 RBC 3.70 M/mm3 (3.65-5.03) 05/08/17 07:00 Hgb 10.0 gm/dl (10.1-14.3) L 05/08/17 07:00 Hct 33.9 % (30.3-42.9) 05/08/17 07:00 MCV 92 fl (79-97) 05/08/17 07:00 MCH 27 pg (28-32) L 05/08/17 07:00 MCHC 29 % (30-34) L 05/08/17 07:00 RDW 26.0 % (13.2-15.2) H 05/08/17 07:00 Plt Count 286 K/mm3 (140-440) 05/08/17 07:00 Lymph % (Auto) 14.9 % (13.4-35.0) 05/02/17 06:50 [place] % (Auto) 3.7 % (0.0-7.3) 05/02/17 06:50 Eos % (Auto) 0.5 % (0.0-4.3) 05/02/17 06:50 Baso % (Auto) 0.7 % (0.0-1.8) 05/02/17 06:50 Lymph # 1.8 K/mm3 (1.2-5.4) 05/02/17 06:50 [place] # 0.5 K/mm3 (0.0-0.8) 05/02/17 06:50 Eos # 0.1 K/mm3 (0.0-0.4) 05/02/17 06:50 Baso # 0.1 K/mm3 (0.0-0.1) 05/02/17 06:50 Add Manual Diff Complete 04/22/17 07:59 Total Counted 100 04/22/17 07:59 Seg Neutrophils % 80.2 % (40.0-70.0) H 05/02/17 06:50 Seg Neuts % (Manual) 82.0 % (40.0-70.0) H 04/22/17 07:59 Band Neutrophils % 9.0 % 04/22/17 07:59 Lymphocytes % (Manual) 5.0 % (13.4-35.0) L 04/22/17 07:59 Reactive Lymphs % (Man) 0 % 04/22/17 07:59 Monocytes % (Manual) 4.0 % (0.0-7.3) 04/22/17 07:59 Eosinophils % (Manual) 0 % (0.0-4.3) 04/22/17 07:59 Basophils % (Manual) 0 % (0.0-1.8) 04/22/17 07:59 Metamyelocytes % 0 % 04/22/17 07:59 Myelocytes % 0 % 04/22/17 07:59 Promyelocytes % 0 % 04/22/17 07:59 Blast Cells % 0 % 04/22/17 07:59 Nucleated RBC % 2.0 % (0.0-0.9) H 04/22/17 07:59 Seg Neutrophils # 9.8 K/mm3 (1.8-7.7) H 05/02/17 06:50 Seg Neutrophils # Man 17.9 K/mm3 (1.8-7.7) H 04/22/17 07:59 Band Neutrophils # 2.0 K/mm3 04/22/17 07:59 Lymphocytes # (Manual) 1.1 K/mm3 (1.2-5.4) L 04/22/17 07:59 Abs React Lymphs (Man) 0.0 K/mm3 04/22/17 07:59 Monocytes # (Manual) 0.9 K/mm3 (0.0-0.8) H 04/22/17 07:59 Eosinophils # (Manual) 0.0 K/mm3 (0.0-0.4) 04/22/17 07:59 Basophils # (Manual) 0.0 K/mm3 (0.0-0.1) 04/22/17 07:59 Metamyelocytes # 0.0 K/mm3 04/22/17 07:59 Myelocytes # 0.0 K/mm3 04/22/17 07:59 Promyelocytes # 0.0 K/mm3 04/22/17 07:59 Blast Cells # 0.0 K/mm3 04/22/17 07:59 WBC Morphology Not Reportable 04/22/17 07:59 Hypersegmented Neuts Not Reportable 04/22/17 07:59 Hyposegmented Neuts Not Reportable 04/22/17 07:59 Hypogranular Neuts Not Reportable 04/22/17 07:59 Smudge Cells Not Reportable 04/22/17 07:59 Toxic Granulation Not Reportable 04/22/17 07:59 Toxic Vacuolation Not Reportable 04/22/17 07:59 Dohle Bodies Not Reportable 04/22/17 07:59 Pelger-Huet Anomaly Not Reportable 04/22/17 07:59 Ariel Rods Not Reportable 04/22/17 07:59 Platelet Estimate Not Reportable 04/22/17 07:59 Clumped Platelets Not Reportable 04/22/17 07:59 Plt Clumps, EDTA Not Reportable 04/22/17 07:59 Large Platelets Not Reportable 04/22/17 07:59 Giant Platelets Not Reportable 04/22/17 07:59 Platelet Satelliting Not Reportable 04/22/17 07:59 Plt Morphology Comment Not Reportable 04/22/17 07:59 RBC Morphology Not Reportable 04/22/17 07:59 Dimorphic RBCs Not Reportable 04/22/17 07:59 Polychromasia Not Reportable 04/22/17 07:59 Hypochromasia 1+ 04/22/17 07:59 Poikilocytosis Not Reportable 04/22/17 07:59 Anisocytosis Not Reportable 04/22/17 07:59 Microcytosis Not Reportable 04/22/17 07:59 Macrocytosis 1+ 04/22/17 07:59 Spherocytes Not Reportable 04/22/17 07:59 Pappenheimer Bodies Not Reportable 04/22/17 07:59 Sickle Cells Not Reportable 04/22/17 07:59 Target Cells Not Reportable 04/22/17 07:59 Tear Drop Cells Not Reportable 04/22/17 07:59 Ovalocytes Not Reportable 04/22/17 07:59 Helmet Cells Not Reportable 04/22/17 07:59 [place] Bodies Not Reportable 04/22/17 07:59 [place] Rings Not Reportable 04/22/17 07:59 [place] Cells Not Reportable 04/22/17 07:59 Bite Cells Not Reportable 04/22/17 07:59 Crenated Cell Not Reportable 04/22/17 07:59 Elliptocytes Not Reportable 04/22/17 07:59 Acanthocytes (Spur) Not Reportable 04/22/17 07:59 Rouleaux Not Reportable 04/22/17 07:59 Hemoglobin C Crystals Not Reportable 04/22/17 07:59 Schistocytes Not Reportable 04/22/17 07:59 Malaria parasites Not Reportable 04/22/17 07:59 Joselo Bodies Not Reportable 04/22/17 07:59 Hem Pathologist Commnt No 04/22/17 07:59 PT 17.1 Sec. (12.2-14.9) H 04/30/17 06:36 INR 1.33 (0.87-1.13) H 04/30/17 06:36 APTT 33.3 Sec. (24.2-36.6) 04/19/17 07:00 D-Dimer 1903.45 ng/mlDDU (0-234) H 04/18/17 14:36 Sodium 138 mmol/L (137-145) 05/07/17 05:04 Potassium 4.3 mmol/L (3.6-5.0) 05/07/17 05:04 Chloride 100.4 mmol/L (98-107) 05/07/17 05:04 Carbon Dioxide 26 mmol/L (22-30) 05/07/17 05:04 Anion Gap 16 mmol/L 05/07/17 05:04 BUN 28 mg/dL (7-17) H 05/07/17 05:04 Creatinine 0.9 mg/dL (0.7-1.2) 05/07/17 05:04 Estimated GFR > 60 ml/min 05/07/17 05:04 BUN/Creatinine Ratio 31 % 05/07/17 05:04 Glucose 122 mg/dL (65-100) H 05/07/17 05:04 POC Glucose 172 (70-105) H 05/10/17 06:34 Hemoglobin A1c 11.3 % (4-6) H 04/17/17 23:55 Lactic Acid 4.00 mmol/L (0.7-2.0) H* 04/18/17 14:36 Calcium 7.6 mg/dL (8.4-10.2) L 05/07/17 05:04 Phosphorus 3.60 mg/dL (2.5-4.5) 04/30/17 06:36 Magnesium 1.80 mg/dL (1.7-2.3) 04/30/17 06:36 Total Bilirubin 1.90 mg/dL (0.1-1.2) H 05/02/17 06:51 Direct Bilirubin 4.2 mg/dL (0-0.2) H 04/20/17 02:45 Indirect Bilirubin 1.2 mg/dL 04/20/17 02:45 AST 29 units/L (5-40) 05/02/17 06:51 ALT 22 units/L (7-56) 05/02/17 06:51 Alkaline Phosphatase 223 units/L (35-129) H 05/02/17 06:51 Ammonia 31.0 umol/L (25-60) 04/21/17 04:51 Total Creatine Kinase 26 units/L (30-135) L 05/09/17 08:55 Troponin T 0.087 ng/mL (0.00-0.029) H D 04/18/17 04:54 C-Reactive Protein 8.80 mg/dL (0.00-1.30) H 04/23/17 15:30 Total Protein 7.3 g/dL (6.3-8.2) 05/02/17 06:51 Albumin 1.6 g/dL (3.9-5) L 05/02/17 06:51 Albumin/Globulin Ratio 0.3 % 05/02/17 06:51 Prealbumin 0.060 g/L (0.200-0.400) L 04/25/17 05:28 Triglycerides 106 mg/dL (2-149) 04/17/17 17:20 Cholesterol 108 mg/dL (50-199) 04/17/17 17:20 LDL Cholesterol Direct 78 mg/dL (50-130) 04/17/17 17:20 HDL Cholesterol 9 mg/dL (40-59) L 04/17/17 17:20 Cholesterol/HDL Ratio 12.00 % 04/17/17 17:20 Lipase 38 units/L (13-60) 04/21/17 04:51 HCG, Qual Negative (Negative) 04/19/17 15:03 Vancomycin Trough 45.0 ug/mL (5.0-20.0) H 04/22/17 17:48 MARCIE Screen Negative (Negative) 04/20/17 15:22 Mitochondria M2 Ab <=20.0 U (<=20.0) 04/20/17 15:22 Hepatitis A Ab Total See scanned result 04/20/17 15:22 Hep Bs Antigen Non-reactive (Negative) 04/20/17 15:22 Hep B Core Total Ab Nonreactive (Nonreactive) 04/20/17 15:22 Hepatitis C Antibody Non-reactive (NonReactive) 04/20/17 15:22 Blood Type A POSITIVE 04/20/17 20:12 Antibody Screen Negative 04/20/17 20:12
[2017-05-10] MEDS: NOVOLOG SUB-Q SCH ×4 (09:55→22:59)
[2017-05-10] MEDS: REGLAN IV SCH ×3 (09:57→18:11)
[2017-05-10] MEDS: COREG PO SCH ×2 (11:08→22:50)
[2017-05-10] MEDS: BABY ASPIRIN PO SCH (11:09)
[2017-05-10] MEDS: LASIX PO SCH (11:09)
[2017-05-10] MEDS: ZESTRIL PO SCH (11:09)
[2017-05-10] MEDS: LEVAQUIN 750MG/150ML 750 MG/150 ML BAG IV SCH (11:10)
[2017-05-10] MEDS: FLORANEX PO SCH ×2 (11:11→22:51)
[2017-05-10] MEDS: CUBICIN 600 MG in NACL 0.9% 100 ML IV SCH (18:19)
[2017-05-10] MEDS: SANTYL TP SCH (20:49)
[2017-05-10] MEDS: LEVEMIR SUB-Q SCH (22:50)
[2017-05-10] MEDS: LOVENOX SUB-Q SCH (22:50)
[2017-05-10] MEDS: DAKIN'S HALF STRENGTH TP SCH ×2 (23:01→23:03)
[2017-05-11] MEDS: MORPHINE IV PRN ×4 (01:01→18:43)
[2017-05-11] MEDS ORDERED: CATHFLO IV ONE (05:51)
[2017-05-11] MEDS ORDERED: WATER FOR INJ (PF) 10 ML ONE (05:59)
[2017-05-11 07:56] LABS: Hematocrit 31.8 % (30.3-42.9); Mean Corpuscular HGB Conc 32 % (30-34); Mean Corpuscular Hemoglobin 27 pg (28-32); Mean Corpuscular Volume 84 fl (79-97); Platelet Count 355 K/mm3 (140-440); Red Blood Count 3.77 M/mm3 (3.65-5.03); White Blood Count 7.7 K/mm3 (4.5-11.0)
[2017-05-11 07:57] LABS: Red Cell Distribution Width 25.6 % (13.2-15.2)
[2017-05-11 08:07] LABS: Anion Gap 13 mmol/L; BUN/Creatinine Ratio 31; Blood Urea Nitrogen 22 mg/dL (7-17); Calcium 7.6 mg/dL (8.4-10.2); Carbon Dioxide 28 mmol/L (22-30); Chloride 91.5 mmol/L (98-107); Glucose 73 mg/dL (65-100); Potassium 4.3 mmol/L (3.6-5.0); Sodium 128 mmol/L (137-145)
[2017-05-11] MEDS: REGLAN IV SCH ×3 (09:01→16:47)
[2017-05-11] MEDS: ZESTRIL PO SCH (10:10)
[2017-05-11] MEDS: COREG PO SCH ×2 (10:10→21:53)
[2017-05-11] MEDS: BABY ASPIRIN PO SCH (10:10)
[2017-05-11] MEDS: LASIX PO SCH (10:10)
[2017-05-11] MEDS: LEVAQUIN 750MG/150ML 750 MG/150 ML BAG IV SCH (10:10)
[2017-05-11] MEDS: NOVOLOG SUB-Q SCH ×4 (10:11→21:58)
[2017-05-11] MEDS: FLORANEX PO SCH ×2 (12:03→21:43)
--- NOTE | 2017-05-11 13:11 | Progress Note ---
Assessment and Plan - Cellulitis LLE - likely narcotizing soft tissue infection with debridment on 04/20/17 and 04/28/17. Wound still needing more debridment. Discussed with Gen. surgeon who has contacted orthopedic surgeon, Dr. Barnes for possible amputaion having discssed with Pt and family Wound cx positive for Beta hemolytic Group A strep. On Pen G per ID On penicillin G 4 million units IV q 4 hours from 04/24/17, continue clindamycin Per ID upon discharge will need penicillin G 4 million units IV q 4 hours for 3 weeks from 04/20 until 05/10. - Acute kidney injury resolved Likely secondary to vasomotor nephropathy Now creatinine within normal limits Continue to monitor - Acute on chronic combined systolic/diastolic heart failure Echo with EF 20-25% Continue diuresis with Lasix On low dose BB as BP borderline low No ACEI due to renal insufficiency and hyperkalemia Monitor I's and O's Cardiology consulted and following -Jaundice/elevated LFTs Likely secondary to sepsis RUQ US obtained and showed no gallstones, trace ascites TG wnl, Statin d/c Lipase was elevated but now back within normal limits CT abdomen wo contrast obtained to r/o pancreatitis GI consulted and additional workup was negative (hepatitis panel - negative, antimitochondrial antibodies -<20) -Hypochloremic Hyponatremia Na+ 120 on admission Likely dilutional due to heart failure Received Tolvaptan Improved with iv fluid hydration - Hyperkalemia/hypokalemia: corrected - Sepsis - resolving Present on on admission leukocytosis, lower extremity soft tissue infection, Blood cultures obtained, negative sofar. From LLE cellulitis with tissue necrosis On Aantibiotic per ID - Hyperbilirubinemia No history of anticoagulant use Probably secondary to infection Improving -Elevated D-dimer Likely secondary to infection Doppler lower extremity negative for DVT CTA chest to rule out PE was ordered, but unable to have contrast; sats 98-100% on RA - h/o CAD History of IN, PCI with stent placement x 2 On aspirin, BB, statin had to be discontinued due to elevated LFTs No ARLYN inhibitor due to renal insuf, K abnormality - Hypertension BP borderline low Only on Lasix, BB for heart failure treatment - Diabetes type 2 Optimize control by adjucting pre meal adn post meal insulin and SSI. On Accu- Cheks. consistent CHO diet Monitor and adjust regimen - Hyperlipidemia Started on statin, but need to hold it due to transaminitis - Obesity/CARLOS A/OHS When medically stable and discharged will need pulmonary follow-up for PFTs and sleep study as well as counseling regarding importance of losing weight - Severe protein calorie monitor nutrition Dietitian consulted - Debility Consulted PT - DVT/GI prophylaxis - Dispostion: for debridment Subjective Date of service: 05/11/17 Principal diagnosis: Cellulitis left foot, Heart failure,Sepsis Interval history: Still having pain in the left leg. She states she is scheduled for repeat debridment and reevaluation of the wound in 02/10/17. Denies any fever or chill. No chest pain or shortness of breath. Consulted with nursing staff Objective - Constitutional Vitals: Vital Signs - 12hr 05/11/17 05/11/17 05/11/17 04:17 06:52 07:15 Temperature 97.8 F 97.4 F L Pulse Rate 99 H 96 H Respiratory 12 12 22 Rate Blood Pressure 118/81 131/84 [Right] O2 Sat by Pulse 98 97 Oximetry General appearance: Present: no acute distress, well-nourished - EENT Eyes: PERRL, EOM intact - Neck Neck: supple, normal ROM - Respiratory Respiratory effort: normal Respiratory: bilateral: CTA - Cardiovascular Rhythm: regular Heart Sounds: Present: S1 & S2. Absent: gallop, rub Extremities: pulses intact, No edema, normal color, Full ROM - Gastrointestinal General gastrointestinal: Present: soft, non-tender, non-distended, normal bowel sounds - Integumentary Integumentary: erythema (wsound in the left leg), pale - Musculoskeletal Musculoskeletal: 1, strength equal bilaterally - Neurologic Neurologic: moves all extremities - Psychiatric Psychiatric: memory intact, appropriate mood/affect, intact judgment & insight - Labs CBC & Chem 7: 05/11/17 07:30 05/11/17 07:30 Labs: Abnormal lab results 05/10/17 05/10/17 05/11/17 Range/Units 16:55 22:02 07:30 Hgb 10.0 L (10.1-14.3) gm/dl MCH 27 L (28-32) pg RDW 25.6 H (13.2-15.2) % Sodium (137-145) mmol/L Chloride (98-107) mmol/L BUN (7-17) mg/dL POC Glucose 151 H 183 H (70-105) Calcium (8.4-10.2) mg/dL 05/11/17 05/11/17 05/11/17 Range/Units 07:30 09:53 11:33 Hgb (10.1-14.3) gm/dl MCH (28-32) pg RDW (13.2-15.2) % Sodium 128 L D (137-145) mmol/L Chloride 91.5 L (98-107) mmol/L BUN 22 H (7-17) mg/dL POC Glucose 170 H 147 H (70-105) Calcium 7.6 L (8.4-10.2) mg/dL
--- NOTE | 2017-05-11 14:26 | Progress Note ---
Assessment and Plan 41 y/o F s/p debridement LLE necrotizing soft tissue infection 04/20/17 and excisional debridement of necrotic skin and soft tissue 04/28/17, and wide excisional debridement of necrotic skin and soft tissue LLE 05/06 1. necrotizing soft tissue infection, cellulitis of LLE 2. sepsis 3. CAD 4. CHF 5. HTN 6. malnutrition 7. elevated liver function tests 8. severe deconditioning PLan: 1. Continue antibiotics per ID 2. Need twice a day dressing changes by nursing with Rupa'baldomero 3. When necessary pain control 4. PT/OOB 5. DVT prophylaxis 6. Nothing by mouth past midnight tonight except meds 7. Patient wants to continue having debridements and does not want amputation. Plan to return to the operating room tomorrow 05/12 for further debridement of necrotic fascia and tissue of left lower extremity. All risks and benefits discussed with the patient, she is agreeable and consent is signed. 8. Plastic surgery consult pending Subjective Date of service: 05/11/17 Narrative: Patient seen and examined at bedside. No acute complaints. No overnight events. Dressing changed early this a.m. by nursing. Objective Vital Signs - 12hr 05/11/17 05/11/17 05/11/17 04:17 06:52 07:15 Temperature 97.8 F 97.4 F L Pulse Rate 99 H 96 H Respiratory 12 12 22 Rate Blood Pressure 118/81 131/84 [Right] O2 Sat by Pulse 98 97 Oximetry - General physical appearance Narrative Exam: General: Awake, alert, oriented 3. No apparent distress Extremity: Left lower extremity with dressing in place. There are some mild serous drainage on the upper portion of the dressing. + motor and sensory. + edema - Labs 05/11/17 07:30 05/11/17 07:30 Diabetes panel 05/11/17 Range/Units 07:30 Sodium 128 L D (137-145) mmol/L Potassium 4.3 (3.6-5.0) mmol/L Chloride 91.5 L (98-107) mmol/L Carbon Dioxide 28 (22-30) mmol/L BUN 22 H (7-17) mg/dL Creatinine 0.7 (0.7-1.2) mg/dL Glucose 73 (65-100) mg/dL Calcium 7.6 L (8.4-10.2) mg/dL Calcium panel 05/11/17 Range/Units 07:30 Calcium 7.6 L (8.4-10.2) mg/dL Pituitary panel 05/11/17 Range/Units 07:30 Sodium 128 L D (137-145) mmol/L Potassium 4.3 (3.6-5.0) mmol/L Chloride 91.5 L (98-107) mmol/L Carbon Dioxide 28 (22-30) mmol/L BUN 22 H (7-17) mg/dL Creatinine 0.7 (0.7-1.2) mg/dL Glucose 73 (65-100) mg/dL Calcium 7.6 L (8.4-10.2) mg/dL Adrenal panel 05/11/17 Range/Units 07:30 Sodium 128 L D (137-145) mmol/L Potassium 4.3 (3.6-5.0) mmol/L Chloride 91.5 L (98-107) mmol/L Carbon Dioxide 28 (22-30) mmol/L BUN 22 H (7-17) mg/dL Creatinine 0.7 (0.7-1.2) mg/dL Glucose 73 (65-100) mg/dL Calcium 7.6 L (8.4-10.2) mg/dL
[2017-05-11] MEDS: CUBICIN 600 MG in NACL 0.9% 100 ML IV SCH (16:39)
[2017-05-11] MEDS: SANTYL TP SCH (18:47)
[2017-05-11] MEDS: DAKIN'S HALF STRENGTH TP SCH ×3 (18:56→21:45)
[2017-05-11] MEDS: LOVENOX SUB-Q SCH (21:43)
[2017-05-11] MEDS: ROXICODONE PO PRN (21:44)
[2017-05-11] MEDS: LEVEMIR SUB-Q SCH (22:00)
[2017-05-12] MEDS: MORPHINE IV PRN ×5 (03:07→22:50)
[2017-05-12] MEDS: NACL 0.9% 1000 ML 1,000 ML IV SCH ×3 (03:13→17:32)
[2017-05-12] MEDS ORDERED: D5W 1,000 ML IV SCH (08:00)
[2017-05-12] MEDS: NOVOLOG SUB-Q SCH ×4 (08:45→23:44)
--- NOTE | 2017-05-12 09:52 | Progress Note ---
Assessment and Plan Assessment and plan: 40-year-old female with past medical history significant for congestive heart failure, hypertension, hyperlipidemia, diabetes mellitus presented to the emergency department complaining of chest pain that started 2 weeks ago. Pain is midsternal and left-sided chest, 10 out of 10 in intensity, sharp, radiating to the left arm, associated with shortness of breath and diaphoresis. Patient denied palpitation but admitted for bilateral leg swelling more prominent on the left leg. The left leg is swollen, erythematous , tender and blisters. Patient is also complaining fever, cough productive of yellowish phlegm, Diaphoresis for the last 3 weeks. she had not been able to walk due to the pain in the lgs. Sepsis * Likely secondary to lower extremity soft tissue infection of the left leg. Imaging studies did not reveal any necrotizing fasciitis and neither was noted in the ER. * -S/P OR debridement on 05/06, tissue cx + MDR-Pseudomonas resistant to zosyn * Debridement today * Discussed with plastic surgeon, patient likely will need multiple debridement and then woundvac for a few weeks and when granulation tissues begin to develop will consider skin graft * ?AFO, Foot drop splint Lower extremity complex soft tissue infection of the left * no evidence of narcotizing soft tissue infection noted with debridment on 04/20 and 04/28/17 wide excisional debridement of necrotic skin and soft tissue LLE 05/06 * Infectious disease and surgery following. Wound care consult * Surgical cultures growing gram-negative rods. Continue daptomycin and levaquin. Zosyn stopped due to resistance patient will benefit from hyperbaric on discharge Unfortunately she is on uninsured. Case management is working to see what provisions can be made period case management worked into. Complex case , surgery still re-evaulating to see the yield of Amputation, otherwise multiple debridement needed and will continue to prolong hospitalization. * Plastic surgery consult input notedd * CT showed subcutaneous tissue induration no abscess no gas, Repeat CT 05/01 No fascial enhancement, no abscess, diffuse SQ edema, small amount of interstitial intersfacial edema between medial gastroneumius and soleus. MRI showed circumferential subcutaneous nonenhancing fluid and edema signal nonenhancing of deep fascial layers Acute on chronic combined systolic/diastolic heart failure * Echo with EF 20-25%, Continue oral diuresis with Lasix * Stop Fluids * Clinically improving,On low dose BB as BP borderline low * Will restart acei at low dose and monitor BP, it was initially held due to renal insufficiency and hyperkalemia * Monitor I's and O's DM-uncontrolled * A1C elevated at 11.3, continue insulin * On Accu-Cheks. consistent CHO diet * Diabetic educatio * Decrease levermir Jaundice/elevated LFTs * Resolved, Likely secondary to sepsis, RUQ US obtained and showed no gallstones , trace ascites * TG wnl, Statin d/c * CT abdomen wo contrast obtained to r/o pancreatitis * GI consulted and additional workup was negative (hepatitis panel - negative, antimitochondrial antibodies -<20) Hypochloremic Hyponatremia * Na+ 120 on admission, continues to improve * Likely dilutional due to heart failure * Received Tolvaptan Hyperkalemia/hypokalemia * Corrected Acute kidney injury-POA- resolved * Likely secondary to vasomotor nephropathy Elevated D-dimer Likely secondary to infection * Doppler lower extremity negative for DVT, CTA chest to rule out PE was ordered , but unable to have contrast; sats 98-100% on R CAD * History of OR, PCI with stent placement x 2, On aspirin, BB, statin had to be discontinued due to elevated LFTs Hypertension * BP borderline low Obesity/CARLOS A/OHS * When medically stable and discharged will need pulmonary follow-up for PFTs and sleep study as well as counseling regarding importance of losing weight Severe protein calorie monitor nutrition * Dietitian consulted Debility * Consulted PT strongly encouraged - DVT/GI prophylaxis - Dispostion: Pending clarance from surgery and ID. will need wound care management and possible skin graft and HBOT. - Patient is critically ill and complex, she now wants amputation. Ortho reconsulted - Discussed case in detail with surgeon and ID. - Patient to remain in house for treatment due to funding issues. - medicaid application pending per case management -Check labs intermittently History Interval history: Patient seen and examined, in no acute distress. No new complaints, awaiting debridement today. Hospitalist Physical - Physical exam Narrative exam: General appearance: Alert in NAD, Eyes: anicteric sclerae, moist conjunctivae; no lid-lag; PERRLA HENT: Atraumatic; oropharynx clear with moist mucous membranes Neck: Trachea midline; supple, no thyromegaly or lymphadenopathy Lungs: CTA, with normal respiratory effort and no intercostal retractions CV: RRR, no murmurs Abdomen: Soft, non-tender; no masses or hepatosplenomegaly Extremities: 1+PITTING edema of left lower ext Skin: left calf with surgical dressings, no overt bleeding noted. Able to move feet Psych: sad. Neuro: alert and oriented x 3. Moving all extremities - Constitutional Vitals: Temp Pulse Resp BP Pulse Ox 97.4 F L 99 H 18 127/79 100 05/12/17 07:00 05/12/17 07:00 05/12/17 07:00 05/12/17 07:00 05/12/17 07:00 General appearance: Present: no acute distress, well-nourished Results - Labs CBC & Chem 7: 05/11/17 07:30 05/11/17 07:30 Labs: Laboratory Last Values WBC 7.7 K/mm3 (4.5-11.0) 05/11/17 07:30 RBC 3.77 M/mm3 (3.65-5.03) 05/11/17 07:30 Hgb 10.0 gm/dl (10.1-14.3) L 05/11/17 07:30 Hct 31.8 % (30.3-42.9) 05/11/17 07:30 MCV 84 fl (79-97) 05/11/17 07:30 MCH 27 pg (28-32) L 05/11/17 07:30 MCHC 32 % (30-34) 05/11/17 07:30 RDW 25.6 % (13.2-15.2) H 05/11/17 07:30 Plt Count 355 K/mm3 (140-440) 05/11/17 07:30 Lymph % (Auto) 14.9 % (13.4-35.0) 05/02/17 06:50 [place] % (Auto) 3.7 % (0.0-7.3) 05/02/17 06:50 Eos % (Auto) 0.5 % (0.0-4.3) 05/02/17 06:50 Baso % (Auto) 0.7 % (0.0-1.8) 05/02/17 06:50 Lymph # 1.8 K/mm3 (1.2-5.4) 05/02/17 06:50 [place] # 0.5 K/mm3 (0.0-0.8) 05/02/17 06:50 Eos # 0.1 K/mm3 (0.0-0.4) 05/02/17 06:50 Baso # 0.1 K/mm3 (0.0-0.1) 05/02/17 06:50 Add Manual Diff Complete 04/22/17 07:59 Total Counted 100 04/22/17 07:59 Seg Neutrophils % 80.2 % (40.0-70.0) H 05/02/17 06:50 Seg Neuts % (Manual) 82.0 % (40.0-70.0) H 04/22/17 07:59 Band Neutrophils % 9.0 % 04/22/17 07:59 Lymphocytes % (Manual) 5.0 % (13.4-35.0) L 04/22/17 07:59 Reactive Lymphs % (Man) 0 % 04/22/17 07:59 Monocytes % (Manual) 4.0 % (0.0-7.3) 04/22/17 07:59 Eosinophils % (Manual) 0 % (0.0-4.3) 04/22/17 07:59 Basophils % (Manual) 0 % (0.0-1.8) 04/22/17 07:59 Metamyelocytes % 0 % 04/22/17 07:59 Myelocytes % 0 % 04/22/17 07:59 Promyelocytes % 0 % 04/22/17 07:59 Blast Cells % 0 % 04/22/17 07:59 Nucleated RBC % 2.0 % (0.0-0.9) H 04/22/17 07:59 Seg Neutrophils # 9.8 K/mm3 (1.8-7.7) H 05/02/17 06:50 Seg Neutrophils # Man 17.9 K/mm3 (1.8-7.7) H 04/22/17 07:59 Band Neutrophils # 2.0 K/mm3 04/22/17 07:59 Lymphocytes # (Manual) 1.1 K/mm3 (1.2-5.4) L 04/22/17 07:59 Abs React Lymphs (Man) 0.0 K/mm3 04/22/17 07:59 Monocytes # (Manual) 0.9 K/mm3 (0.0-0.8) H 04/22/17 07:59 Eosinophils # (Manual) 0.0 K/mm3 (0.0-0.4) 04/22/17 07:59 Basophils # (Manual) 0.0 K/mm3 (0.0-0.1) 04/22/17 07:59 Metamyelocytes # 0.0 K/mm3 04/22/17 07:59 Myelocytes # 0.0 K/mm3 04/22/17 07:59 Promyelocytes # 0.0 K/mm3 04/22/17 07:59 Blast Cells # 0.0 K/mm3 04/22/17 07:59 WBC Morphology Not Reportable 04/22/17 07:59 Hypersegmented Neuts Not Reportable 04/22/17 07:59 Hyposegmented Neuts Not Reportable 04/22/17 07:59 Hypogranular Neuts Not Reportable 04/22/17 07:59 Smudge Cells Not Reportable 04/22/17 07:59 Toxic Granulation Not Reportable 04/22/17 07:59 Toxic Vacuolation Not Reportable 04/22/17 07:59 Dohle Bodies Not Reportable 04/22/17 07:59 Pelger-Huet Anomaly Not Reportable 04/22/17 07:59 Ariel Rods Not Reportable 04/22/17 07:59 Platelet Estimate Not Reportable 04/22/17 07:59 Clumped Platelets Not Reportable 04/22/17 07:59 Plt Clumps, EDTA Not Reportable 04/22/17 07:59 Large Platelets Not Reportable 04/22/17 07:59 Giant Platelets Not Reportable 04/22/17 07:59 Platelet Satelliting Not Reportable 04/22/17 07:59 Plt Morphology Comment Not Reportable 04/22/17 07:59 RBC Morphology Not Reportable 04/22/17 07:59 Dimorphic RBCs Not Reportable 04/22/17 07:59 Polychromasia Not Reportable 04/22/17 07:59 Hypochromasia 1+ 04/22/17 07:59 Poikilocytosis Not Reportable 04/22/17 07:59 Anisocytosis Not Reportable 04/22/17 07:59 Microcytosis Not Reportable 04/22/17 07:59 Macrocytosis 1+ 04/22/17 07:59 Spherocytes Not Reportable 04/22/17 07:59 Pappenheimer Bodies Not Reportable 04/22/17 07:59 Sickle Cells Not Reportable 04/22/17 07:59 Target Cells Not Reportable 04/22/17 07:59 Tear Drop Cells Not Reportable 04/22/17 07:59 Ovalocytes Not Reportable 04/22/17 07:59 Helmet Cells Not Reportable 04/22/17 07:59 Taylor-Gamaliel Bodies Not Reportable 04/22/17 07:59 [place] Rings Not Reportable 04/22/17 07:59 [place] Cells Not Reportable 04/22/17 07:59 Bite Cells Not Reportable 04/22/17 07:59 Crenated Cell Not Reportable 04/22/17 07:59 Elliptocytes Not Reportable 04/22/17 07:59 Acanthocytes (Spur) Not Reportable 04/22/17 07:59 Rouleaux Not Reportable 04/22/17 07:59 Hemoglobin C Crystals Not Reportable 04/22/17 07:59 Schistocytes Not Reportable 04/22/17 07:59 Malaria parasites Not Reportable 04/22/17 07:59 Joselo Bodies Not Reportable 04/22/17 07:59 Hem Pathologist Commnt No 04/22/17 07:59 PT 17.1 Sec. (12.2-14.9) H 04/30/17 06:36 INR 1.33 (0.87-1.13) H 04/30/17 06:36 APTT 33.3 Sec. (24.2-36.6) 04/19/17 07:00 D-Dimer 1903.45 ng/mlDDU (0-234) H 04/18/17 14:36 Sodium 128 mmol/L (137-145) L D 05/11/17 07:30 Potassium 4.3 mmol/L (3.6-5.0) 05/11/17 07:30 Chloride 91.5 mmol/L (98-107) L 05/11/17 07:30 Carbon Dioxide 28 mmol/L (22-30) 05/11/17 07:30 Anion Gap 13 mmol/L 05/11/17 07:30 BUN 22 mg/dL (7-17) H 05/11/17 07:30 Creatinine 0.7 mg/dL (0.7-1.2) 05/11/17 07:30 Estimated GFR > 60 ml/min 05/11/17 07:30 BUN/Creatinine Ratio 31 % 05/11/17 07:30 Glucose 73 mg/dL (65-100) 05/11/17 07:30 POC Glucose 68 (70-105) L 05/12/17 06:21 Hemoglobin A1c 11.3 % (4-6) H 04/17/17 23:55 Lactic Acid 4.00 mmol/L (0.7-2.0) H* 04/18/17 14:36 Calcium 7.6 mg/dL (8.4-10.2) L 05/11/17 07:30 Phosphorus 3.60 mg/dL (2.5-4.5) 04/30/17 06:36 Magnesium 1.80 mg/dL (1.7-2.3) 04/30/17 06:36 Total Bilirubin 1.90 mg/dL (0.1-1.2) H 05/02/17 06:51 Direct Bilirubin 4.2 mg/dL (0-0.2) H 04/20/17 02:45 Indirect Bilirubin 1.2 mg/dL 04/20/17 02:45 AST 29 units/L (5-40) 05/02/17 06:51 ALT 22 units/L (7-56) 05/02/17 06:51 Alkaline Phosphatase 223 units/L (35-129) H 05/02/17 06:51 Ammonia 31.0 umol/L (25-60) 04/21/17 04:51 Total Creatine Kinase 26 units/L (30-135) L 05/09/17 08:55 Troponin T 0.087 ng/mL (0.00-0.029) H D 04/18/17 04:54 C-Reactive Protein 8.80 mg/dL (0.00-1.30) H 04/23/17 15:30 Total Protein 7.3 g/dL (6.3-8.2) 05/02/17 06:51 Albumin 1.6 g/dL (3.9-5) L 05/02/17 06:51 Albumin/Globulin Ratio 0.3 % 05/02/17 06:51 Prealbumin 0.060 g/L (0.200-0.400) L 04/25/17 05:28 Triglycerides 106 mg/dL (2-149) 04/17/17 17:20 Cholesterol 108 mg/dL (50-199) 04/17/17 17:20 LDL Cholesterol Direct 78 mg/dL (50-130) 04/17/17 17:20 HDL Cholesterol 9 mg/dL (40-59) L 04/17/17 17:20 Cholesterol/HDL Ratio 12.00 % 04/17/17 17:20 Lipase 38 units/L (13-60) 04/21/17 04:51 HCG, Qual Negative (Negative) 04/19/17 15:03 Vancomycin Trough 45.0 ug/mL (5.0-20.0) H 04/22/17 17:48 MARCIE Screen Negative (Negative) 04/20/17 15: Mitochondria M2 Ab <=20.0 U (<=20.0) 04/20/17 15:22 Hepatitis A Ab Total See scanned result 04/20/17 15: Hep Bs Antigen Non-reactive (Negative) 04/20/17 15:22 Hep B Core Total Ab Nonreactive (Nonreactive) 04/20/17 15:22 Hepatitis C Antibody Non-reactive (NonReactive) 04/20/17 15:22 Blood Type A POSITIVE 04/20/17 20:12 Antibody Screen Negative 04/20/17 20:12
[2017-05-12] MEDS: REGLAN IV SCH ×3 (12:10→17:31)
--- NOTE | 2017-05-12 12:13 | Anesthesia Day of Surgery ---
Anesthesia Day of Surgery - Day of Surgery Patient Examined: Yes Patient H&P Reviewed: Yes Patient is NPO: Yes Beta Blockers: Yes
--- NOTE | 2017-05-12 12:13 | Anesthesia Consultation ---
Anesthesia Consult and Med Hx Date of service: 05/12/17 - Airway Anesthetic Teeth Evaluation: Good ROM Head & Neck: Adequate Mental/Hyoid Distance: Inadequate Mallampati Class: Class II Intubation Access Assessment: Probably Good - Pulmonary Exam CTA: Yes - Cardiac Exam Cardiac Exam: RRR - Pre-Operative Health Status ASA Pre-Surgery Classification: ASA3 Proposed Anesthetic Plan: General - Pulmonary Hx Smoking: No Hx Asthma: No COPD: No Hx Pneumonia: No Hx Sleep Apnea: No - Cardiovascular System Hx Hypertension: Yes Hx Coronary Artery Disease: Yes Hx Heart Attack/AMI: Yes (2005, 2007) Hx Angina: Yes (rare) Hx Percutaneous Transluminal Coronary Angioplasty (PTCA): Yes (stents x3) Hx Pacemaker: No Hx Internal Defibrillator: No Hx Peripheral Vascular Disease: Yes - Central Nervous System Hx Neuromuscular Disorder: No Hx Psychiatric Problems: No - Gastrointestinal Hx Gastroesophageal Reflux Disease: No - Endocrine Hx Renal Disease: No Hx End Stage Renal Disease: No Hx Liver Disease: Yes (fatty liver) Hx Insulin Dependent Diabetes: Yes (severe retinopathy) - Hematic Hx Anemia: No Hx Sickle Cell Disease: No - Other Systems Hx Alcohol Use: No Hx Substance Use: No Hx Cancer: No Hx Obesity: Yes - Additional Comments Anesthesia Medical History Comments: hyperlipidemia. albumin 1.7. Patient is at significantly increased risk from anesthesia. Patient states "was hard to wake up from surgery on 05/06/17.". Positive for pseudomonas aeruginosa, BMI 38.2
[2017-05-12] MEDS ORDERED: VERSED IV NR (12:30)
[2017-05-12] MEDS ORDERED: PEPCID PO NR (12:30)
[2017-05-12] MEDS: LEVAQUIN 750MG/150ML 750 MG/150 ML BAG IV SCH (12:35)
[2017-05-12] MEDS: DAKIN'S HALF STRENGTH TP SCH ×3 (13:41→23:33)
[2017-05-12] MEDS: COREG PO SCH ×2 (13:42→22:49)
[2017-05-12] MEDS: FLORANEX PO SCH ×2 (13:42→23:32)
[2017-05-12] MEDS ORDERED: SUBLIMAZE ONE (13:43)
[2017-05-12] MEDS ORDERED: NACL 0.9% IR ONE (13:59)
[2017-05-12] MEDS ORDERED: AMIDATE IV ONE (14:19)
[2017-05-12] MEDS ORDERED: NEO SYNEPHRINE/NS Syringe(OR USE) IV ONE (15:00)
[2017-05-12] MEDS ORDERED: NACL 0.9% 1000 ML 1,000 ML ONE (15:19)
[2017-05-12] MEDS ORDERED: ZOFRAN ONE (15:19)
--- NOTE | 2017-05-12 15:33 | Operative Report ---
Operative Report Operative Report: Preoperative diagnosis: left lower extremity necrotizing fascitis Post operative diagnosis: same as preop Procedure: wide Excisional debridement necrotic skin, soft tissue, and fascia of left lower extremity Surgeon: Michell Joseph DO Anesthesia: LMA Findings: necrotic fascia with liquifaction necrosis of underlying soft tissue Specimens: tissue culture Complications: None Disposition: stable to PACU HPI an indication: 41-year-old female with an extensive past medical history including uncontrolled diabetes, severe protein calorie malnutrition presented to the hospital with a left leg pain and infection, found to be a necrotizing soft tissue infection, subsequently taken to the operating room 3 for wide debridement. The patient had aggressive wound care but fascia became necrotic so the patient was consented to be taken back to the operating room for a fourth time. All risks and benefits were discussed and consent was signed. Procedure in detail: Patient was identified in the preoperative area, taken back to the operating room, placed on operating room table in supine position. After anesthesia was induced the left leg was prepped with Betadine and draped in the usual sterile fashion. Using sharp dissection, all necrotic fascia was debrided to the muscle. There was liquefaction necrosis of the underlying deep fatty tissue which was sharply debrided with scissors. The remaining fascia did have punctate bleeding and appeared healthy. There was bleeding from the muscle which is red in color. Using a curette, the fascia and muscle were carefully debrided to remove slough from the wound bed. An addition 3 cm of necrotic skin and subcutaneous tissue was excised sharply at the anterior medial portion of the leg which connected to the larger wound. A 2 cm x 2cm eschar at the medial malleolus and a 2 cm x 2cm eschar at the lateral malleolus was unroofed sharply. Tissue cultures were sent to pathology. Once an adequate wide excision of necrotic tissue and fascia was achieved, the wound was irrigated with saline and hemostasis achieved. The wound now measures 30 cm length 28 cm width 2 cm depth. The wound was packed with saline moistened Kerlix, 2 pieces. This was covered with 4 x 4 gauze, ABDs pads, and wrapped with Kerlix. At the end of the case, all sponge, instrument, sharp counts were correct 2. The patient was taken to the PACU in stable condition.
[2017-05-12] MEDS ORDERED: D50W (25GM) Syringe IV ONE (15:58)
[2017-05-12] MEDS ORDERED: D50W (25GM) Vial IV ONE (17:00)
[2017-05-12] MEDS: ZESTRIL PO SCH (17:30)
[2017-05-12] MEDS: LASIX PO SCH (17:30)
[2017-05-12] MEDS: BABY ASPIRIN PO SCH (17:31)
[2017-05-12] MEDS: CUBICIN 600 MG in NACL 0.9% 100 ML IV SCH (17:58)
[2017-05-12] MEDS ORDERED: LEVEMIR SUB-Q SCH (22:00)
[2017-05-12] MEDS: LOVENOX SUB-Q SCH (22:51)
[2017-05-13] MEDS: MORPHINE IV PRN (02:46)
--- NOTE | 2017-05-13 07:51 | Progress Note ---
Assessment and Plan Assessment and plan: 40-year-old female with past medical history significant for congestive heart failure, hypertension, hyperlipidemia, diabetes mellitus presented to the emergency department complaining of chest pain that started 2 weeks ago. Pain is midsternal and left-sided chest, 10 out of 10 in intensity, sharp, radiating to the left arm, associated with shortness of breath and diaphoresis. Patient denied palpitation but admitted for bilateral leg swelling more prominent on the left leg. The left leg is swollen, erythematous , tender and blisters. Patient is also complaining fever, cough productive of yellowish phlegm, Diaphoresis for the last 3 weeks. she had not been able to walk due to the pain in the lgs. Sepsis * Likely secondary to lower extremity soft tissue infection of the left leg. Imaging studies did not reveal any necrotizing fasciitis and neither was noted in the ER. * -S/P OR debridement on 05/06, tissue cx + MDR-Pseudomonas resistant to zosyn * Debridement 05/13/17-necrotic fascia with liquifaction necrosis of underlying soft tissue * Discussed with plastic surgeon, patient likely will need multiple debridement and then woundvac for a few weeks and when granulation tissues begin to develop will consider skin graft * ?AFO, Foot drop splint Lower extremity complex soft tissue infection of the left * no evidence of narcotizing soft tissue infection noted with debridment on 04/20 and 04/28/17 wide excisional debridement of necrotic skin and soft tissue LLE 05/06 * Infectious disease and surgery following. Wound care consult * Surgical cultures growing gram-negative rods. Continue daptomycin and levaquin. Zosyn stopped due to resistance patient will benefit from hyperbaric on discharge Unfortunately she is on uninsured. Case management is working to see what provisions can be made period case management worked into. Complex case , surgery still re-evaulating to see the yield of Amputation, otherwise multiple debridement needed and will continue to prolong hospitalization. * Plastic surgery consult input noted * CT showed subcutaneous tissue induration no abscess no gas, Repeat CT 05/01 No fascial enhancement, no abscess, diffuse SQ edema, small amount of interstitial intersfacial edema between medial gastroneumius and soleus. MRI showed circumferential subcutaneous nonenhancing fluid and edema signal nonenhancing of deep fascial layers * Will discuss wound vac and other options. Acute on chronic combined systolic/diastolic heart failure * Echo with EF 20-25%, Continue oral diuresis with Lasix * Stop Fluids * Clinically improving,On low dose BB as BP borderline low * Will restart acei at low dose and monitor BP, it was initially held due to renal insufficiency and hyperkalemia * Monitor I's and O's DM-uncontrolled * A1C elevated at 11.3, continue insulin * On Accu-Cheks. consistent CHO diet * Diabetic educatio * Decrease levermir Jaundice/elevated LFTs * Resolved, Likely secondary to sepsis, RUQ US obtained and showed no gallstones , trace ascites * TG wnl, Statin d/c * CT abdomen wo contrast obtained to r/o pancreatitis * GI consulted and additional workup was negative (hepatitis panel - negative, antimitochondrial antibodies -<20) Hypochloremic Hyponatremia * Na+ 120 on admission, continues to improve * Recheck. * Likely dilutional due to heart failure * Received Tolvaptan Hyperkalemia/hypokalemia * Corrected Acute kidney injury-POA- resolved * Likely secondary to vasomotor nephropathy Elevated D-dimer Likely secondary to infection * Doppler lower extremity negative for DVT, CTA chest to rule out PE was ordered , but unable to have contrast; sats 98-100% on R CAD * History of CT, PCI with stent placement x 2, On aspirin, BB, statin had to be discontinued due to elevated LFTs Hypertension * BP borderline low Obesity/CARLOS A/OHS * When medically stable and discharged will need pulmonary follow-up for PFTs and sleep study as well as counseling regarding importance of losing weight Severe protein calorie monitor nutrition * Dietitian consulted Debility * Consulted PT strongly encouraged - DVT/GI prophylaxis - Dispostion: Pending clarance from surgery and ID. will need wound care management and possible skin graft and HBOT. - Patient is critically ill and complex, she now wants amputation. Ortho reconsulted - Discussed case in detail with surgeon and ID. - Patient to remain in house for treatment due to funding issues. - medicaid application pending per case management -Check labs intermittently Hospitalist Physical - Constitutional Vitals: Temp Pulse Resp BP Pulse Ox 97.4 F L 103 H 18 116/77 98 05/12/17 23:44 05/12/17 23:44 05/12/17 23:44 05/12/17 23:44 05/12/17 23:44 General appearance: Present: no acute distress, well-nourished Results - Labs CBC & Chem 7: 05/11/17 07:30 05/11/17 07:30 Labs: Laboratory Last Values WBC 7.7 K/mm3 (4.5-11.0) 05/11/17 07:30 RBC 3.77 M/mm3 (3.65-5.03) 05/11/17 07:30 Hgb 10.0 gm/dl (10.1-14.3) L 05/11/17 07:30 Hct 31.8 % (30.3-42.9) 05/11/17 07:30 MCV 84 fl (79-97) 05/11/17 07:30 MCH 27 pg (28-32) L 05/11/17 07:30 MCHC 32 % (30-34) 05/11/17 07:30 RDW 25.6 % (13.2-15.2) H 05/11/17 07:30 Plt Count 355 K/mm3 (140-440) 05/11/17 07:30 Lymph % (Auto) 14.9 % (13.4-35.0) 05/02/17 06:50 [place] % (Auto) 3.7 % (0.0-7.3) 05/02/17 06:50 Eos % (Auto) 0.5 % (0.0-4.3) 05/02/17 06:50 Baso % (Auto) 0.7 % (0.0-1.8) 05/02/17 06:50 Lymph # 1.8 K/mm3 (1.2-5.4) 05/02/17 06:50 [place] # 0.5 K/mm3 (0.0-0.8) 05/02/17 06:50 Eos # 0.1 K/mm3 (0.0-0.4) 05/02/17 06:50 Baso # 0.1 K/mm3 (0.0-0.1) 05/02/17 06:50 Add Manual Diff Complete 04/22/17 07:59 Total Counted 100 04/22/17 07:59 Seg Neutrophils % 80.2 % (40.0-70.0) H 05/02/17 06:50 Seg Neuts % (Manual) 82.0 % (40.0-70.0) H 04/22/17 07:59 Band Neutrophils % 9.0 % 04/22/17 07:59 Lymphocytes % (Manual) 5.0 % (13.4-35.0) L 04/22/17 07:59 Reactive Lymphs % (Man) 0 % 04/22/17 07:59 Monocytes % (Manual) 4.0 % (0.0-7.3) 04/22/17 07:59 Eosinophils % (Manual) 0 % (0.0-4.3) 04/22/17 07:59 Basophils % (Manual) 0 % (0.0-1.8) 04/22/17 07:59 Metamyelocytes % 0 % 04/22/17 07:59 Myelocytes % 0 % 04/22/17 07:59 Promyelocytes % 0 % 04/22/17 07:59 Blast Cells % 0 % 04/22/17 07:59 Nucleated RBC % 2.0 % (0.0-0.9) H 04/22/17 07:59 Seg Neutrophils # 9.8 K/mm3 (1.8-7.7) H 05/02/17 06:50 Seg Neutrophils # Man 17.9 K/mm3 (1.8-7.7) H 04/22/17 07:59 Band Neutrophils # 2.0 K/mm3 04/22/17 07:59 Lymphocytes # (Manual) 1.1 K/mm3 (1.2-5.4) L 04/22/17 07:59 Abs React Lymphs (Man) 0.0 K/mm3 04/22/17 07:59 Monocytes # (Manual) 0.9 K/mm3 (0.0-0.8) H 04/22/17 07:59 Eosinophils # (Manual) 0.0 K/mm3 (0.0-0.4) 04/22/17 07:59 Basophils # (Manual) 0.0 K/mm3 (0.0-0.1) 04/22/17 07:59 Metamyelocytes # 0.0 K/mm3 04/22/17 07:59 Myelocytes # 0.0 K/mm3 04/22/17 07:59 Promyelocytes # 0.0 K/mm3 04/22/17 07:59 Blast Cells # 0.0 K/mm3 04/22/17 07:59 WBC Morphology Not Reportable 04/22/17 07:59 Hypersegmented Neuts Not Reportable 04/22/17 07:59 Hyposegmented Neuts Not Reportable 04/22/17 07:59 Hypogranular Neuts Not Reportable 04/22/17 07:59 Smudge Cells Not Reportable 04/22/17 07:59 Toxic Granulation Not Reportable 04/22/17 07:59 Toxic Vacuolation Not Reportable 04/22/17 07:59 Dohle Bodies Not Reportable 04/22/17 07:59 Pelger-Huet Anomaly Not Reportable 04/22/17 07:59 Ariel Rods Not Reportable 04/22/17 07:59 Platelet Estimate Not Reportable 04/22/17 07:59 Clumped Platelets Not Reportable 04/22/17 07:59 Plt Clumps, EDTA Not Reportable 04/22/17 07:59 Large Platelets Not Reportable 04/22/17 07:59 Giant Platelets Not Reportable 04/22/17 07:59 Platelet Satelliting Not Reportable 04/22/17 07:59 Plt Morphology Comment Not Reportable 04/22/17 07:59 RBC Morphology Not Reportable 04/22/17 07:59 Dimorphic RBCs Not Reportable 04/22/17 07:59 Polychromasia Not Reportable 04/22/17 07:59 Hypochromasia 1+ 04/22/17 07:59 Poikilocytosis Not Reportable 04/22/17 07:59 Anisocytosis Not Reportable 04/22/17 07:59 Microcytosis Not Reportable 04/22/17 07:59 Macrocytosis 1+ 04/22/17 07:59 Spherocytes Not Reportable 04/22/17 07:59 Pappenheimer Bodies Not Reportable 04/22/17 07:59 Sickle Cells Not Reportable 04/22/17 07:59 Target Cells Not Reportable 04/22/17 07:59 Tear Drop Cells Not Reportable 04/22/17 07:59 Ovalocytes Not Reportable 04/22/17 07:59 Helmet Cells Not Reportable 04/22/17 07:59 [place] Bodies Not Reportable 04/22/17 07:59 [place] Rings Not Reportable 04/22/17 07:59 Provencal Cells Not Reportable 04/22/17 07:59 Bite Cells Not Reportable 04/22/17 07:59 Crenated Cell Not Reportable 04/22/17 07:59 Elliptocytes Not Reportable 04/22/17 07:59 Acanthocytes (Spur) Not Reportable 04/22/17 07:59 Rouleaux Not Reportable 04/22/17 07:59 Hemoglobin C Crystals Not Reportable 04/22/17 07:59 Schistocytes Not Reportable 04/22/17 07:59 Malaria parasites Not Reportable 04/22/17 07:59 Joselo Bodies Not Reportable 04/22/17 07:59 Hem Pathologist Commnt No 04/22/17 07:59 PT 17.1 Sec. (12.2-14.9) H 04/30/17 06:36 INR 1.33 (0.87-1.13) H 04/30/17 06:36 APTT 33.3 Sec. (24.2-36.6) 04/19/17 07:00 D-Dimer 1903.45 ng/mlDDU (0-234) H 04/18/17 14:36 Sodium 128 mmol/L (137-145) L D 05/11/17 07:30 Potassium 4.3 mmol/L (3.6-5.0) 05/11/17 07:30 Chloride 91.5 mmol/L (98-107) L 05/11/17 07:30 Carbon Dioxide 28 mmol/L (22-30) 05/11/17 07:30 Anion Gap 13 mmol/L 05/11/17 07:30 BUN 22 mg/dL (7-17) H 05/11/17 07:30 Creatinine 0.7 mg/dL (0.7-1.2) 05/11/17 07:30 Estimated GFR > 60 ml/min 05/11/17 07:30 BUN/Creatinine Ratio 31 % 05/11/17 07:30 Glucose 73 mg/dL (65-100) 05/11/17 07:30 POC Glucose 90 (70-105) 05/13/17 05:57 Hemoglobin A1c 11.3 % (4-6) H 04/17/17 23:55 Lactic Acid 4.00 mmol/L (0.7-2.0) H* 04/18/17 14:36 Calcium 7.6 mg/dL (8.4-10.2) L 05/11/17 07:30 Phosphorus 3.60 mg/dL (2.5-4.5) 04/30/17 06:36 Magnesium 1.80 mg/dL (1.7-2.3) 04/30/17 06:36 Total Bilirubin 1.90 mg/dL (0.1-1.2) H 05/02/17 06:51 Direct Bilirubin 4.2 mg/dL (0-0.2) H 04/20/17 02:45 Indirect Bilirubin 1.2 mg/dL 04/20/17 02:45 AST 29 units/L (5-40) 05/02/17 06:51 ALT 22 units/L (7-56) 05/02/17 06:51 Alkaline Phosphatase 223 units/L (35-129) H 05/02/17 06:51 Ammonia 31.0 umol/L (25-60) 04/21/17 04:51 Total Creatine Kinase 26 units/L (30-135) L 05/09/17 08:55 Troponin T 0.087 ng/mL (0.00-0.029) H D 04/18/17 04:54 C-Reactive Protein 8.80 mg/dL (0.00-1.30) H 04/23/17 15:30 Total Protein 7.3 g/dL (6.3-8.2) 05/02/17 06:51 Albumin 1.6 g/dL (3.9-5) L 05/02/17 06:51 Albumin/Globulin Ratio 0.3 % 05/02/17 06:51 Prealbumin 0.060 g/L (0.200-0.400) L 04/25/17 05:28 Triglycerides 106 mg/dL (2-149) 04/17/17 17:20 Cholesterol 108 mg/dL (50-199) 04/17/17 17:20 LDL Cholesterol Direct 78 mg/dL (50-130) 04/17/17 17:20 HDL Cholesterol 9 mg/dL (40-59) L 04/17/17 17:20 Cholesterol/HDL Ratio 12.00 % 04/17/17 17:20 Lipase 38 units/L (13-60) 04/21/17 04:51 HCG, Qual Negative (Negative) 04/19/17 15:03 Vancomycin Trough 45.0 ug/mL (5.0-20.0) H 04/22/17 17:48 MARCIE Screen Negative (Negative) 04/20/17 15: Mitochondria M2 Ab <=20.0 U (<=20.0) 04/20/17 15: Hepatitis A Ab Total See scanned result 04/20/17 15: Hep Bs Antigen Non-reactive (Negative) 04/20/17: Hep B Core Total Ab Nonreactive (Nonreactive) 04/20/17 15:22 Hepatitis C Antibody Non-reactive (NonReactive) 04/20/17 15: Blood Type A POSITIVE 04/20/17 20:12 Antibody Screen Negative 04/20/17 20:12
[2017-05-13 07:59] LABS: Hematocrit 28.7 % (30.3-42.9); Hemoglobin 9.1 gm/dl (10.1-14.3); Mean Corpuscular HGB Conc 32 % (30-34); Mean Corpuscular Hemoglobin 27 pg (28-32); Mean Corpuscular Volume 83 fl (79-97); Platelet Count 339 K/mm3 (140-440); Red Blood Count 3.44 M/mm3 (3.65-5.03); White Blood Count 9.2 K/mm3 (4.5-11.0)
[2017-05-13 08:00] LABS: Red Cell Distribution Width 24.9 % (13.2-15.2)
[2017-05-13] MEDS: ROXICODONE PO PRN ×2 (09:08→20:43)
[2017-05-13] MEDS: LEVAQUIN 750MG/150ML 750 MG/150 ML BAG IV SCH (09:11)
[2017-05-13] MEDS: ZESTRIL PO SCH (09:12)
[2017-05-13] MEDS: NOVOLOG SUB-Q SCH ×3 (09:12→18:14)
[2017-05-13] MEDS: DAKIN'S HALF STRENGTH TP SCH (09:13)
[2017-05-13] MEDS: LASIX PO SCH (09:13)
[2017-05-13] MEDS: REGLAN IV SCH ×3 (09:14→17:39)
[2017-05-13] MEDS: BABY ASPIRIN PO SCH (09:14)
[2017-05-13] MEDS: COREG PO SCH (09:14)
[2017-05-13] MEDS ORDERED: MORPHINE IV PRN (09:28)
[2017-05-13 10:01] LABS: Anion Gap 15 mmol/L; BUN/Creatinine Ratio 23; Blood Urea Nitrogen 18 mg/dL (7-17); Calcium 7.3 mg/dL (8.4-10.2); Carbon Dioxide 25 mmol/L (22-30); Chloride 95.5 mmol/L (98-107); Glucose 150 mg/dL (65-100); Potassium 4.1 mmol/L (3.6-5.0); Sodium 131 mmol/L (137-145)
--- NOTE | 2017-05-13 11:38 | Progress Note ---
Assessment and Plan 41 y/o F s/p debridement LLE necrotizing soft tissue infection 04/20/17 and excisional debridement of necrotic skin and soft tissue 04/28/17, and wide excisional debridement of necrotic skin and soft tissue LLE 05/06, debridement necrotic fascia and soft tissue of LLE 05/12/17 1. necrotizing fascitis, cellulitis of LLE 2. sepsis 3. CAD 4. CHF 5. HTN 6. malnutrition 7. elevated liver function tests 8. severe deconditioning PLan: 1. Continue antibiotics per ID 2. continue local wound care 3. PRN Pain control 4. PT/OOB 5. DVT prophylaxis 6. Reg diet with supplements 7. D/W Case management. Per ' service, patient is being transferred tonight to [place] [facility] for further care of complex wound. The dressing will be taken down at [place] and therefore was left intact. Thank you for allowing me to participate in this patient's care. Subjective Date of service: 05/13/17 Narrative: Pt seen and examined. No complaints. No f/c, CP, SOB. Doing well with PT. Pain controlled. Objective Vital Signs - 12hr 05/12/17 05/13/17 05/13/17 23:44 07:00 09:12 Temperature 97.4 F L 97.7 F Pulse Rate 103 H 96 H Respiratory 18 18 Rate Blood Pressure 114/71 Blood Pressure 116/77 [Left] Blood Pressure 116/77 114/71 [Right] O2 Sat by Pulse 98 98 Oximetry - General physical appearance Narrative Exam: Gen: AAOx3. NAD Ext: LLE with surgical dressing c/d/i, B/L LE and UE edema - Labs 05/13/17 07:30 05/13/17 09:30 Diabetes panel 05/13/17 Range/Units 09:30 Sodium 131 L (137-145) mmol/L Potassium 4.1 (3.6-5.0) mmol/L Chloride 95.5 L (98-107) mmol/L Carbon Dioxide 25 (22-30) mmol/L BUN 18 H (7-17) mg/dL Creatinine 0.8 (0.7-1.2) mg/dL Glucose 150 H (65-100) mg/dL Calcium 7.3 L (8.4-10.2) mg/dL Calcium panel 05/13/17 Range/Units 09:30 Calcium 7.3 L (8.4-10.2) mg/dL Pituitary panel 05/13/17 Range/Units 09:30 Sodium 131 L (137-145) mmol/L Potassium 4.1 (3.6-5.0) mmol/L Chloride 95.5 L (98-107) mmol/L Carbon Dioxide 25 (22-30) mmol/L BUN 18 H (7-17) mg/dL Creatinine 0.8 (0.7-1.2) mg/dL Glucose 150 H (65-100) mg/dL Calcium 7.3 L (8.4-10.2) mg/dL Adrenal panel 05/13/17 Range/Units 09:30 Sodium 131 L (137-145) mmol/L Potassium 4.1 (3.6-5.0) mmol/L Chloride 95.5 L (98-107) mmol/L Carbon Dioxide 25 (22-30) mmol/L BUN 18 H (7-17) mg/dL Creatinine 0.8 (0.7-1.2) mg/dL Glucose 150 H (65-100) mg/dL Calcium 7.3 L (8.4-10.2) mg/dL
--- NOTE | 2017-05-13 11:59 | Progress Note ---
Assessment and Plan Assessment: 1) Sepsis: resolved. Etiology most likely complicated soft tissue infection left leg. 2) Left leg necrotizing soft tissue infection (cellulitis): NO evidence of necrotizing fascitis in the OR. Initially found to be secondary to GAS, however wound became superinfected by MDR-Pseudomonas. -S/P OR debridement on 04/20, culture + GAS -S/P OR debridement on 04/24 -S/P OR debridement on 05/06, tissue cx + MDR-Pseudomonas -CT showed subcutaneous tissue induration no abscess no gas -CRP=22-->8 -Repeat CT 05/01 No fascial enhancement, no abscess, diffuse SQ edema, small amount of interstitial intersfacial edema between medial gastroneumius and soleus. -MRI 05/04 showed circumferential subcutaneous nonenhancing fluid and edema signal nonenhancing of deep fascial layers 3) DM-uncontrolled 4) Hyponatremia 5) Elevated LFTs ? from sepsis, HCV and HBV non reactive. ?MILLER - better 6) CHF 7) Early ITALIA ? resolved Plan: -stop daptomycin day 7 and levaquin day 6 -start meropenem to cover both GAS / MDR Pseudomonas -referral to a tertiary wound care center/burn unit - needs extensive wound care/graft/IV antibiotics/HBO- discussed with showcase trimmer -upon discharge will do meropenem 1 g IV q 8 hour for 3 weeks from 05/06 until 05/26/17 -continue wound care Thank you Dr Finney for your consultation, will follow up with you. Talisha Nguyen MD Infectious Diseases Specialist [facility] [phone] O [phone] Subjective Date of service: 05/13/17 Principal diagnosis: Cellulitis left foot, Heart failure,Sepsis Interval history: feels better, no fever Current Antimicrobials: dapto 05/04 levaquin 05/08 Previous Antimicrobials: Clindamycin 04/18 Zosyn 04/18 Pen G 04/24 CLindav 04/23 zosyn 05/04 Microbiology: Blood cultures: 04/18 ngtd Tissue cx 04/20 corrected report + GAS Tissue cx 05/06 Pseudomonas resistant to zosyn / cefepime Objective - Exam Narrative Exam: General appearance: Alert in NAD, anxious tearfull Eyes: anicteric sclerae, moist conjunctivae; no lid-lag; PERRLA HENT: Atraumatic; oropharynx clear with moist mucous membranes and no mucosal ulcerations/no oral thrush; normal hard and soft palate. Normal external ears. Neck: Trachea midline; supple, no thyromegaly or lymphadenopathy Lungs: CTA, with normal respiratory effort and no intercostal retractions CV: RRR, no murmurs Abdomen: Soft, non-tender; no masses or hepatosplenomegaly Extremities: No peripheral edema or extremity lymphadenopathy Skin: left calf with surgical dressings clean Psych: sad. Neuro: alert and oriented x 3. Moving all extermities Lines: No CVL / PICC - Constitutional Vitals: Vital Signs Temp Pulse Resp BP Pulse Ox 97.7 F 96 H 18 114/71 98 05/13/17 07:00 05/13/17 07:00 05/13/17 07:00 05/13/17 09:12 05/13/17 07:00 Temperature -Last 24 Hours Temperature 97.7 F Temperature 97.4 F Temperature 97.7 F - Labs CBC & Chem 7: 05/13/17 07:30 05/13/17 09:30 Labs: Abnormal lab results 05/12/17 05/12/17 05/13/17 Range/Units 15:37 21:37 07:30 RBC 3.44 L (3.65-5.03) M/mm3 Hgb 9.1 L (10.1-14.3) gm/dl Hct 28.7 L (30.3-42.9) % MCH 27 L (28-32) pg RDW 24.9 H (13.2-15.2) % Sodium (137-145) mmol/L Chloride (98-107) mmol/L BUN (7-17) mg/dL Glucose (65-100) mg/dL POC Glucose 69 L 143 H (70-105) Calcium (8.4-10.2) mg/dL 05/13/17 Range/Units 09:30 RBC (3.65-5.03) M/mm3 Hgb (10.1-14.3) gm/dl Hct (30.3-42.9) % MCH (28-32) pg RDW (13.2-15.2) % Sodium 131 L (137-145) mmol/L Chloride 95.5 L (98-107) mmol/L BUN 18 H (7-17) mg/dL Glucose 150 H (65-100) mg/dL POC Glucose (70-105) Calcium 7.3 L (8.4-10.2) mg/dL
[2017-05-13] MEDS: FLORANEX PO SCH (12:10)
[2017-05-13] MEDS: MERREM 1,000 MG in NACL 0.9% 100 ML IV SCH ×2 (14:46→14:55)
--- NOTE | 2017-05-13 15:36 | Discharge Summary ---
Providers - Providers Date of Admission: 04/17/17 21:23 Attending physician: HALEY GEE MD 04/17/17 Consult to Cardiac Rehabilitation [CONS] Routine Reason For Exam: Phase 1 04/18/17 06:32 Consult to Wound/ET Nurse [CONS] Stat Reason For Exam: wound eval 04/19/17 13:07 Consult to Dietitian/Nutrition [CONS] Routine Physician Instructions: Reason For Exam: Reason for Consult: Malnutrition 04/20/17 08:00 Consult to Physician [CONS] Routine Consulting Provider: SANDOVAL ORTIZ Reason For Exam: Jaundice Place consult to:: Sandoval Ortiz M.D. Notified:: a service Phone number called:: [phone] Was contact made?: Yes If yes, spoke with:: donna Time called:: 08:27 04/20/17 16:36 Consult to Physician [CONS] Stat Consulting Provider: REMY HARO Reason For Exam: ?necrotizing fasciitis Place consult to:: Dr. Haro Notified:: Yes Was contact made?: Yes Comment:: called by Dr Rivas 04/21/17 09:20 PICC Line Placement [Consult to PICC Line RN] [CONS] Routine Reason For Exam: nursing home IV antibiotics Type Line:: PICC 04/21/17 09:22 Consult to Physician [CONS] Routine Consulting Provider: TALISHA ARTEAGA Reason For Exam: susp necrotizing fasciitis Place consult to:: Dr. Bowie Notified:: y Was contact made?: Yes 04/21/17 10:38 Physical Therapy Evaluation and Treat [CONS] Routine Comment: Reason For Exam: debility, leg wounds debridement 04/22/17 08:57 Consult to Case Management [CONS] Routine Services Needed at Discharge: Wound Vac Home Health Services Notified:: [facility] 04/22/17 10:29 Consult to Wound/ET Nurse [CONS] Routine Reason For Exam: wound eval left leg s/p debridement in OR, wVac 04/24/17 10:46 Consult to Case Management [CONS] Stat Services Needed at Discharge: Other Notified:: grain operations manager Additional Physician Instructions: [facility] MD Rodriguez Morejon [phone] O [phone] OUTPATIENT PARENTERAL ANTIBIOTIC THERAPY ORDERS Diagnoses: GAS necrotizing leg infection Antimicrobial administration:penicillin G 4 million units IV q 4 hours for 3 weeks from 04/20 until 05/10 Lines: PICC Lab monitoring: CBC, CMP, CRP, trough once a week preferly on Friday morning. Please fax results to [phone] and call [phone] for critical lab results. Talisha Bowie Date: 04/24/17 04/26/17 09:21 Consult to Physician [CONS] Routine Consulting Provider: BEATRIZ LEMUS Reason For Exam: LLE CELLULITIS/ulcer with poor healing Place consult to:: grain operations manager vascular surgeon Notified:: ANSWERING SERVICES Phone number called:: [phone] Was contact made?: Yes If yes, spoke with:: ELBA Time called:: 10:21 Comment:: CONSULT COMPLETED - COOPER 04/29/17 13:25 Consult to Physician [CONS] Routine Consulting Provider: ALDO RODRIGUEZ Reason For Exam: evaluation for left lower extremity amputation Place consult to:: sammy Notified:: office Phone number called:: [phone] Was contact made?: Yes Time called:: 14:38 Comment:: left message on machine only option availabe 05/07/17 17:42 Consult to Physician [CONS] Routine Consulting Provider: NICK CARO JR Reason For Exam: EVAL FOR SKIN GRAFT, LLE Place consult to:: Dr Cano Notified:: service Phone number called:: [phone] Time called:: 18:48 Comment:: left message 05/12/17 10:10 Physical Therapy Evaluation and Treat [CONS] Routine Comment: Reason For Exam: AFO for foot drop. Mariana Tucker aware 05/13/17 12:04 Consult to Case Management [CONS] Stat Services Needed at Discharge: Other Notified:: grain operations manager Additional Physician Instructions: [facility] ([facility] MD Rodriguez Morejon [phone] O [phone] OUTPATIENT PARENTERAL ANTIBIOTIC THERAPY ORDERS Diagnoses: Necrotizing fascitis extensive left leg Antimicrobial administration: meropenem 1 g IV q 8 hour for 3 weeks from 05/06 until 05/26/17 Lines: Lab monitoring: CBC, CMP, CRP once a week preferly on Friday morning. Please fax results to [phone] and call [phone] for critical lab results. Talisha Bowie Date: 05/13/17 05/13/17 12:06 Consult to Case Management [CONS] Stat Services Needed at Discharge: Other Notified:: grain operations manager Additional Physician Instructions: referral for tertiary wound care center/ burn unit due to extensive left leg necrotizing fascitis initially due to GAS then superimposed with MDR Pseudomonas (only sensitive to levaquin and meropenem)- needs extensive wound care/skin graft/IV antibiotics/HBO Primary care physician: LOAN ANALYST Hospitalization Reason for admission: lower ext cellulit Condition: Stable Hospital course: 40-year-old female with past medical history significant for congestive heart failure, hypertension, hyperlipidemia, diabetes mellitus presented to the emergency department complaining of chest pain that started 2 weeks ago. Pain is midsternal and left-sided chest, 10 out of 10 in intensity, sharp, radiating to the left arm, associated with shortness of breath and diaphoresis. Patient denied palpitation but admitted for bilateral leg swelling more prominent on the left leg. The left leg is swollen, erythematous , tender and blisters. Patient is also complaining fever, cough productive of yellowish phlegm, Diaphoresis for the last 3 weeks. she had not been able to walk due to the pain in the lgs. Sepsis * Likely secondary to lower extremity soft tissue infection of the left leg. Imaging studies did not reveal any necrotizing fasciitis and neither was noted in the ER. * -S/P OR debridement on 05/06, tissue cx + MDR-Pseudomonas super infection resistant to zosyn * Debridement 05/13/17-necrotic fascia with liquifaction necrosis of underlying soft tissue * Discussed with plastic surgeon, patient likely will need multiple debridement and then woundvac for a few weeks and when granulation tissues begin to develop will consider skin graft * ?AFO, Foot drop splint * ID recommended considering woundcare center/burn unit referral as patient will need extensive extensive wound care/graft/IV antibiotics/HBO. [facility] was gracious enough and accepted this patient, patient informed and is stable for transfer today * Patient was initially on daptomycin day 7 and levaquin day 6 this was discontinued today 05/13/17 and started on meropenem to cover both GAS / MDR Pseudomonas to continue -upon discharge will do meropenem 1 g IV q 8 hour for 3 weeks from 05/06 until 05/26/17 Lower extremity complex soft tissue infection of the left * no evidence of narcotizing soft tissue infection noted with debridment on 04/20 and 04/28/17 wide excisional debridement of necrotic skin and soft tissue LLE 05/06 * Plastic surgery consult input noted * CT showed subcutaneous tissue induration no abscess no gas, Repeat CT 05/01 No fascial enhancement, no abscess, diffuse SQ edema, small amount of interstitial intersfacial edema between medial gastroneumius and soleus. MRI showed circumferential subcutaneous nonenhancing fluid and edema signal nonenhancing of deep fascial layers Acute on chronic combined systolic/diastolic heart failure * Echo with EF 20-25%, Continue oral diuresis with Lasix * Clinically improving,On low dose BB as BP borderline low * restarted acei at low dose and monitor BP, it was initially held due to renal insufficiency and hyperkalemia * Monitor I's and O's DM-uncontrolled * A1C elevated at 11.3, continue insulin * On Accu-Cheks. consistent CHO diet * Diabetic educatio * Decreased levermir to prevent hypoglycemia Jaundice/elevated LFTs * Resolved, Likely secondary to sepsis, RUQ US obtained and showed no gallstones , trace ascites * TG wnl, Statin d/c * CT abdomen wo contrast obtained to r/o pancreatitis * GI consulted and additional workup was negative (hepatitis panel - negative, antimitochondrial antibodies -<20) Hypochloremic Hyponatremia * Na+ 120 on admission, continues to improve * Recheck. * Likely dilutional due to heart failure * Received Tolvaptan Hyperkalemia/hypokalemia * Corrected Acute kidney injury-POA- resolved * Likely secondary to vasomotor nephropathy Elevated D-dimer Likely secondary to infection * Doppler lower extremity negative for DVT, CTA chest to rule out PE was ordered , but unable to have contrast; sats 98-100% on R CAD * History of FL, PCI with stent placement x 2, On aspirin, BB, statin had to be discontinued due to elevated LFTs Hypertension * BP borderline low Obesity/CARLOS A/OHS * When medically stable and discharged will need pulmonary follow-up for PFTs and sleep study as well as counseling regarding importance of losing weight Severe protein calorie monitor nutrition * Dietitian consulted Debility * While in house the patient was seen by yical therapy and patient was encouraged to strongly Disposition: DC/TX-70 ANOTHER TYPE HLTHCARE Time spent for discharge: 35 mins Core Measure Documentation - Palliative Care Palliative Care/ Comfort Measures: Not Applicable - Core Measures Any of the following diagnoses?: none - VTE Discharge Requirements Deep Vein Thrombosis/Pulmonary Embolism Present on Admission: No - Heart Failure Discharge Requirements ARLYN/ARB for LVSD if EF <40%: Yes Beta kristin at discharge: Yes Exam - Physical Exam Narrative exam: General appearance: Alert in NAD, Eyes: anicteric sclerae, moist conjunctivae; no lid-lag; PERRLA HENT: Atraumatic; oropharynx clear with moist mucous membranes Neck: Trachea midline; supple, no thyromegaly or lymphadenopathy Lungs: CTA, with normal respiratory effort and no intercostal retractions CV: RRR, no murmurs Abdomen: Soft, non-tender; no masses or hepatosplenomegaly Extremities: 1+PITTING edema of left lower ext Skin: left calf with surgical dressings, no overt bleeding noted. Able to move feet Psych: sad. Neuro: alert and oriented x 3. Moving all extremities - Constitutional Vitals: Temp Pulse Resp BP Pulse Ox 97.7 F 96 H 18 114/71 98 05/13/17 07:00 05/13/17 07:00 05/13/17 07:00 05/13/17 09:12 05/13/17 07:00 Plan Follow up with: PRIMARY MD MELCHOR [Primary Care Provider] - 3-5 Days
[2017-05-13] MEDS ORDERED: ATIVAN IV ONE (17:19)
[2017-05-13 20:44] VITALS: BP 114/70
== END 2017-05-13 20:45 | disposition short-term general hospital (02) | DRG 853 ==
LOC: ED 16:18 → 4A 21:23 → CC1 04-20 23:52 → 4A 04-21 10:03 → 3A 05-08 01:32
PROVIDERS: ADMIT Internal Medicine; ATTEND Internal Medicine
PROC: 0JBP0ZZ Excision of Left Lower Leg Subcutaneous Tissue and Fascia, Open Approach (ICD-10-PCS; principal; 2017-04-20)
PROC: 02HV33Z Insertion of Infusion Device into Superior Vena Cava, Percutaneous Approach (ICD-10-PCS; 2017-04-22)
PROC: B5181ZA Fluoroscopy of Superior Vena Cava using Low Osmolar Contrast, Guidance (ICD-10-PCS; 2017-04-22)
PROC: 0JBP0ZZ Excision of Left Lower Leg Subcutaneous Tissue and Fascia, Open Approach (ICD-10-PCS; 2017-04-28)
PROC: 0JBP0ZZ Excision of Left Lower Leg Subcutaneous Tissue and Fascia, Open Approach (ICD-10-PCS; 2017-05-06)
PROC: 0JBP0ZZ Excision of Left Lower Leg Subcutaneous Tissue and Fascia, Open Approach (ICD-10-PCS; 2017-05-12)
DX: A41.9 Sepsis, unspecified organism (principal); I21.4 Non-ST elevation (NSTEMI) myocardial infarction; N17.0 Acute kidney failure with tubular necrosis; I50.43 Acute on chronic combined systolic (congestive) and diastolic (congestive) heart failure; E43 Unspecified severe protein-calorie malnutrition; L03.116 Cellulitis of left lower limb; E87.1 Hypo-osmolality and hyponatremia; D68.9 Coagulation defect, unspecified; E87.2 Acidosis; E11.52 Type 2 diabetes mellitus with diabetic peripheral angiopathy with gangrene; I96 Gangrene, not elsewhere classified; I11.0 Hypertensive heart disease with heart failure; K76.0 Fatty (change of) liver, not elsewhere classified; E78.5 Hyperlipidemia, unspecified; E87.5 Hyperkalemia; E11.65 Type 2 diabetes mellitus with hyperglycemia; E66.01 Morbid (severe) obesity due to excess calories; I25.10 Atherosclerotic heart disease of native coronary artery without angina pectoris; E86.0 Dehydration; E11.621 Type 2 diabetes mellitus with foot ulcer; L97.529 Non-pressure chronic ulcer of other part of left foot with unspecified severity; R94.5 Abnormal results of liver function studies; E87.6 Hypokalemia; E83.42 Hypomagnesemia; G47.33 Obstructive sleep apnea (adult) (pediatric); Z95.5 Presence of coronary angioplasty implant and graft; Z79.2 Long term (current) use of antibiotics; Z79.899 Other long term (current) drug therapy; Z82.49 Family history of ischemic heart disease and other diseases of the circulatory system; Z68.38 Body mass index [BMI] 38.0-38.9, adult; Z71.3 Dietary counseling and surveillance
CPT/HCPCS: 36415; 71010; 71020; 71250; 74176; 76705; 80048; 80053; 80061; 80074; 80202; 82140; 82550; 82962; 83036; 83520; 83690; 83735; 84100; 84134; 84484; 84703; 85007; 85025; 85027; 85379; 85610; 85730; 86038; 86140; 86705; 86706; 86709; 86803; 86850; 86900; 86901; 87040; 87076; 87116; 87186; 88304; 88305; 93005; 93010; 93306; 96374; 96375; 99285; A6260; A9270-GY; A9577; J0878; J1170; J1650; J1815; J1818; J1885; J1940; J1956; J2060; J2185; J2250; J2270; J2370; J2405; J2540; J2543; J2710; J2765; J2997; J3010; J3370; J3480; J7030; J7040; J7050; J7070; Q9967